=== PATIENT | female | born 1960 | race Caucasian/White ===

== ENCOUNTER 2017-08-30 11:20 | Day surgery (SDC) | payer OTHER ==
[2017-08-30 10:06] LABS: Absolute Lymphocytes (CBC) 1.5 K/uL (0.7-4.9); Absolute Monocytes 0.4 K/uL (0.1-1.3); Absolute Neutrophil 1.9 K/uL (1.8-8.0); Eosinophils % 6.1 % (0-4.4); Hematocrit 40.3 % (36.0-45.0); Lymphocytes % 36.2 % (15.3-44.8); MCH 24.5 pg (27.0-35.0); MCV 76.5 fL (80-100); Monocytes % 9.6 % (3.3-12.3); RBC Red Blood Cell Count 5.27 M/uL (3.86-4.86)
[~2017-08-30 11:20] MED LIST: CEFAZOLIN/SWI 1gm 1 GM/10 ML SYR ONE; Ringers Lactate 1,000 ML IV ONE
--- OUTSIDE RECORDS SUMMARY | 2017-08-30 11:25 | XMS REPORT ---
:1960 Author Organization eClinicalWorks Care Team Providers Name Role Phone Mendel Mchugh Provider Role Unavailable Allergies No Known Allergies Problems Problem Type Condition Code Onset Dates Condition Status Problem Meniere's disease, unspecified ear H81.09 Active Problem History of cholecystectomy Z90.49 Active Problem Abdominal pain R10.9 Active Problem COPD with asthma J44.9 Active Medications No Known Medications Results No Known Results Summary Purpose eClinicalTunezy Submission
--- OUTSIDE RECORDS SUMMARY | 2017-08-30 11:25 | XMS REPORT ---
:1960 Author Organization eClinicalWorks Care Team Providers Name Role Phone Mendel Mchugh Provider Role Unavailable Allergies No Known Allergies Problems Problem Type Condition Code Onset Dates Condition Status Problem Meniere's disease, unspecified ear H81.09 Active Problem History of cholecystectomy Z90.49 Active Problem Abdominal pain R10.9 Active Assessment COPD with asthma J44.9 Active Assessment Elevated BP without diagnosis of R03.0 Active hypertension Problem COPD with asthma J44.9 Active Assessment Acute pain of right wrist M25.531 Active Medications Medication Code Code Instructions Start End Date Status Dosage System Date Albuterol [facility] [id number] (2.5 MG/3ML) June 06, Active 3 ml as Sulfate 0.083% 2018 needed Inhalation by nebulizer every 6 hrs Results No Known Results Summary Purpose eClinicalWorks Submission
--- OUTSIDE RECORDS SUMMARY | 2017-08-30 11:25 | XMS REPORT ---
:1960 Author Organization eClinicalWorks Care Team Providers Name Role Phone Mendel Mchugh Provider Role Unavailable Allergies, Adverse Reactions, Alerts Substance Reaction Event Type Sulfa Rash Drug Allergy Problems Problem Type Condition Code Onset Dates Condition Status Problem Meniere's disease, unspecified ear H81.09 Active Problem History of cholecystectomy Z90.49 Active Problem Abdominal pain R10.9 Active Problem COPD with asthma J44.9 Active Medications Medication Code Code Instructions Start End Date Status Dosage System Date Ventolin HFA [facility] [id number] 108 (90 Base) Active 2 puffs MCG/ACT as needed Inhalation every 6 hrs Albuterol ND [id number] (2.5 MG/3ML) June 06, Active 3 ml as Sulfate 0.083% 2018 needed Inhalation by nebulizer every 6 hrs Results No Known Results Summary Purpose eClinicalWorks Submission
[2017-08-30] MEDS ORDERED: PROPOFOL 200 MG/20 ML VIAL IV ONE (12:08)
[2017-08-30] MEDS ORDERED: LIDOCAINE 2% MPF 5 ML VIAL ONE (12:09)
[2017-08-30] MEDS ORDERED: MIDAZOLAM HCL 2 MG/2 ML INJ ONE (12:09)
[2017-08-30] MEDS ORDERED: FENTANYL CITR 100 MCG/2 ML ONE (12:10)
[2017-08-30] MEDS ORDERED: ONDANSETRON HCL 40 MG/20 ML VIAL ONE (12:11)
[2017-08-30] MEDS ORDERED: Mastisol Adhesive Liq ONE (13:04)
[2017-08-30] MEDS ORDERED: MEPERIDINE HCL 25 MG/0.5 ML ONE ×3 (13:21→13:30)
[2017-08-30] MEDS ORDERED: ONDANSETRON 4 MG/2 ML VIAL ONE (13:56)
[2017-08-30] MEDS ORDERED: PROMETHAZINE 25 MG/ML VIAL ONE (14:23)
--- NOTE | 2017-09-02 11:06 | OP ---
Surgeon: Joce Ackerman MD Utility Person: Dewayne. Preoperative Diagnosis: Right deQuervain's syndrome. Postoperative Diagnosis: Right deQuervain's syndrome. Procedure Performed: Right deQuervain release. Anesthesia: General. Procedure In Detail: After satisfactory induction of general anesthesia, the arm was prepped with Betadine scrub, Betadine paint, dry sterile drapes were applied in the usual manner. The arm was elevated, exsanguinated with an Esmarch, tourniquet was inflated to 250 mmHg. The arm was placed on a [place] table. The scalpel was used to make an incision over the first compartment then dissection proceeded down. The tendon was multiseptated and the compartment was completely released. After this was done, tourniquet released. Electrocautery was used for hemostasis. Wound was closed with upside down running locking 4-0 PDS. Dressed with tincture of benzoin, Steri-Strips, 2- inch Renato. The patient tolerated the procedure well and returned to recovery. LELA/AUBRIE Voice ID: [id number] Report ID: [id number]
== END 2017-08-30 14:52 | disposition home or self-care (01) ==
LOC: OR 11:20
PROVIDERS: ATTEND Specialist
PROC: 0LN50ZZ Release Right Lower Arm and Wrist Tendon, Open Approach (ICD-10-PCS; principal; 2017-08-30 13:00)
DX: E34.51 Complete androgen insensitivity syndrome (principal); Z88.2 Allergy status to sulfonamides
CPT/HCPCS: 25000; 36415; 85025; J0690; J2175 ×3; J2250; J2405 ×2; J2550; J3010

== ENCOUNTER 2020-07-24 20:30 | Emergency (ER) | payer OTHER ==
--- OUTSIDE RECORDS SUMMARY | 2020-07-24 20:34 | XMS REPORT | Continuity of Care Document ---
:1960 Author Organization [facility] t Address [address] [place] [address] Care Team Providers Name Role Phone Unavailable Unavailable Unavailable Problems This patient has no known problems. Allergies, Adverse Reactions, Alerts Allergy Allergy Status Severity Reaction(s) Onset Inactive Treating Comm ents Source Name Type Date Date Clinician Sulfa Adverse Active Rash [facility] Medications Ordered Filled Start Stop Current Ordering Indication Dosage Frequency Signature Comments Components Source Medication Medication Date Date Medication? Clinician (SIG) Name Name Trazodone Trazodone 2019-0 Yes Mendel Take 1/[address] [facility] HCl HCl 8-10 Mchugh tab [facility] then [facility] Hydrochloro Hydrochloro 2019-0 Yes Mendel [address] [facility] thiazide thiazide 8-10 [facility]ugh in [facility] - [facility] morning [facility] Lisinopril Lisinopril 2019-0 Yes Mendel [address] [facility] 8-10 [facility]ugh [facility] Triamcinolo Triamcinolo 2019-0 Yes Mendel [address] [facility] ne ne 3-16 Mchugh applicatio [facility] Aceton[facility]:00: n [facility] Ventolin Ventolin Yes Mendel [address] [facility] HFA HFA 9-10 Mchugh needed [facility] Albuterol Albuterol Yes Mendel [address] [facility] Sulfate Sulfate Mchugh needed [facility] Lisinopril- Lisinopril- Yes Mendel TAKE ONE [facility] Hydrochloro Hydrochloro Mchugh TABLET BY [facility] th[facility]ide thiazide MOUTH [facility] a DAILY l [facility] ent Clin[facility] Albuterol Albuterol Yes Mendel USE [address] [facility] Sulfate Sulfate Mchugh IN [facility] EVERY 6 l HOURS Outpati NEEDED ent Clinics Lisinopril/ Lisinopril/ 2019- No Mendel one tab [facility] HCTZ HCTZ 12-01 Mchugh [facility] Procedures This patient has no known procedures. Encounters Start End Encounter Admission Attending Care Care Encounter Source Date/Time Date/Time Type Type Clinicians Facility Department ID 2020-07-18 2020-07-18 Outpatient [facility] [id number] [facility] 2020-06-21 2020-06-21 Outpatient [facility] [id number] [facility] 2020-06-17 2020-06-17 Out[facility] [id number] [facility] 2020-04-27 2020-04-27 Out[facility] [id number] [facility] 2020-04-01 2020-04-01 Out[facility] [id number] [facility] 2019-12-16 2019-12-16 Outpatient [facility] [id number] [facility] 2019-12-16 2019-12-16 Outpatient [facility] [id number] [facility] 2019-11-04 2019-11-04 [facility] [id number] [facility] 08[facility] 08[facility]55[facility] [employer] [address] - [facility] Medicine l Medicine Outpat[facility] ent Clinics 2019-10-15 2019-10-15 [facility] [id number] [facility] 09:45:00 09:45:00 [place] [employer] s - [address] [facility] Medicine [facility] Medicine Outpat[facility] ent Clinics 2019-10-14 2019-10-14 [facility] [id number] 08:01:00 08:01:00 [place] [employer] [facility] - [address] [facility] Medicine l Medicine Outpati ent Clinics 2019-10-12 2019-10-12 [facility] [id number] 16:20:00 16:20:00 [place] [employer] s - [address] [facility] l Medicine Outpati ent Clinics 2019-10-12 2019-10-12 [facility] [id number] [facility] 11:30:00 11:30:00 [place] [employer] [facility] - [employer] [facility] l Medicine Outpati ent Clinics 2019-06-16 2019-06-16 [facility] [id number] 11:00:00 11:00:00 [place] [employer] s - [employer] [facility] l Medicine Outpati ent Clinics 2019-06-15 2019-06-15 [facility] [id number] [facility] 09[facility]07:00 09:07:00 [place] [employer] [facility] - [employer] [facility] Medicine l Medicine Outpati ent Clinics 2019-05-18 2019-05-18 [facility] [id number] [facility] 10:00:00 10:00:00 [place] [employer] [facility] - [employer] [facility] Medicine l Medicine Outpati ent Clinics 2019-05-14 2019-05-14 [facility] [id number] 09:40:00 09:40:00 [place] [employer] s - [address] [facility] l Medicine Outpati ent Clinics 2019-04-02 2019-04-02 [facility] [id number] 09:45:00 09:45:00 [place] [employer] s - Drive [facility] l Medicine Outpati ent Clinics 2019-03-19 2019-03-19 [facility] [id number] [facility] 08:22:00 08:22:00 [place] [employer] [place] [facility] l Medicine Outpati ent Clinics 2019-03-16 2019-03-16 [facility] [id number] [facility] 14:30:00 14:30:00 [place] [employer] [address] - [facility] Medicine l Medicine Outpati ent Clinics 2019-03-05 2019-03-05 [facility] [id number] [facility] 16:05:00 16:05:00 [place] [employer] [place] [address] [facility] l Medicine Outpati ent Clinics 2018-12-29 2018-12-29 [facility] [id number] [facility] 16:51:00 16:51:00 [place] [employer] [place] - [address] [facility] Medicine l Medicine Outpati ent Clinics 2018-12-03 2018-12-03 [facility] [id number] [facility] 14:15:00 14:15:00 [place] [employer] [place] - [address] [facility] Medicine l Medicine Outpati ent Clinics 2018-11-19 2018-11-19 [facility] [id number] [facility] 08:34:00 08:34:00 [place] [employer] [place] - [address] [facility] Medicine l Medicine Outpati ent Clinics 2018-11-17 2018-11-17 [facility] [id number] [facility] 09:00:00 09:00:00 [place] [employer] [address] - [address] [facility] Medicine l Medicine Outpati ent Clinics 2018-11-11 2018-11-11 [facility] [id number] [facility] 08:21:00 08:21:00 [place] [employer] [address] - [facility] Medicine l Medicine Outpati ent Clinics 2018-09-17 2018-09-17 [facility] [id number] 13:27:00 13:27:00 [place] [employer] [place] - [address] [facility] Medicine l Medicine Outpati ent Clinics 2018-09-02 2018-09-02 [facility] [id number] [facility] 10:00:00 10:00:00 [place] [employer] [place] - [address] [facility] l Medicine Outpati ent Clinics 2018-06-02 2018-06-02 [facility] [id number] [facility] 10:50:00 10:50:00 [place] [address] [place] [address] [facility] l Medicine Outpati ent Clinics 2018-06-02 2018-06-02 [facility] [id number] [facility] 08:30:00 08:30:00 [place] [address] [place] [address] [facility] l Medicine Outpati ent Clinics 2018-04-21 2018-04-21 [facility] [id number] [facility] 10:30:00 10:30:00 [place] [address] [place] [address] [facility] l Medicine Outpati ent Clinics 2018-04-09 2018-04-09 [facility] [id number] [facility] 11:07:00 11:07:00 [place] [address] [place] [facility] l Medicine Outpati ent Clinics 2018-03-10 2018-03-10 [facility] [id number] [facility] 15:15:00 15:15:00 [place] [address] [place] [address] [facility] l Medicine Outpati ent Clinics 2017-09-09 2017-09-09 [facility] [id number] [facility] 10:47:00 10:47:00 [place] [address] [place] [address] [facility] l Medicine Outpati ent Clinics 2017-08-06 2017-08-06 [facility] [id number] [facility] 15:49:00 15:49:00 [place] [address] [place] [address] [facility] Medicine Outpati ent Clinics 2017-08-06 2017-08-06 [facility] [id number] [facility] 11:15:00 11:15:00 [place] [address] [place] [address] [facility] l Medicine Outpati ent Clinics 2017-08-06 2017-08-06 [facility] [id number] [facility] 11:06:00 11:06:00 [place] [address] [place] [address] [facility] Medicine Outpati ent Clinics Results This patient has no known results.
[2020-07-24] MEDS ORDERED: IBUPROFEN 400 MG TAB ONE (21:35)
[2020-07-24] MEDS ORDERED: HYDROCODONE/APAP 7.5/325 MG TAB ONE (21:35)
[2020-07-24] MEDS ORDERED: TETANUS & DIPHTHERIA TOX,ADULT 0.5 ML VIAL ONE (21:35)
--- NOTE | 2020-07-24 22:40 | ER ---
Nurse's Notes [facility] Name: Noelle Orozco Age: 60 yrs Sex: Female : 1960 Arrival Date: 07/24/2020 Time: 20:33 Bed 3 Private MD: Diagnosis: Sprain of ankle-left;Unspecified sprain of left foot Presentation: 07/24 20:53 Chief complaint: Patient states: she has Meniere's Disease and got dizzy and fell bb injuring her right ankle which she states she has broken several times in the past. Coronavirus screen: At this time, the client does not indicate any symptoms associated with coronavirus-19. Ebola Screen: No symptoms or risks identified at this time. Initial Sepsis Screen: Does the patient meet any 2 criteria? No. Patient's initial sepsis screen is negative. Does the patient have a suspected source of infection? No. Patient's initial sepsis screen is negative. Risk Assessment: Do you want to hurt yourself or someone else? Patient reports no desire to harm self or others. Onset of symptoms was July 24, 2020. 20:53 Method Of Arrival: Wheelchair bb 20:53 Acuity: SALEEM 4 bb Historical: - Allergies: 20:57 Sulfa (Sulfonamide Antibiotics); bb - Home Meds: 20:57 Meclizine Oral [Active]; unknown BP medication [Active]; bb - PMHx: 20:57 Meniere's Disease; Hypertension; bb - PSHx: 20:57 Cholecystectomy; Benign breast tumor removal; Right arm surgery; bb - Immunization history:: Adult Immunizations up to date, Last tetanus immunization: unknown. - Social history:: Smoking status: unknown. Screenin:55 Abuse screen: Denies threats or abuse. Denies injuries from another. Nutritional lp1 screening: No deficits noted. Tuberculosis screening: No symptoms or risk factors identified. Fall Risk None identified. Assessment: 20:54 General: Appears uncomfortable, Behavior is appropriate for age. Pain: Complains of lp1 pain in left lateral ankle and lateral aspect of left foot Pain currently is 8 out of 10 on a pain scale. Quality of pain is described as aching. Neuro: Level of Consciousness is awake, alert, obeys commands, Oriented to person, place, time, situation. Cardiovascular: Patient's skin is warm and dry. Respiratory: Respiratory effort is even, unlabored. GI: No signs and/or symptoms were reported involving the gastrointestinal system. : No signs and/or symptoms were reported regarding the genitourinary system. EENT: No signs and/or symptoms were reported regarding the EENT system. Derm: Skin is pink, warm \T\ dry. Musculoskeletal: Range of motion: limited in left ankle Reports pain in lateral aspect of left calf, left lateral ankle and lateral aspect of left foot. 22:00 Reassessment: Patient appears in no apparent distress at this time. Patient and/or jb4 family updated on plan of care and expected duration. Pain level reassessed. Patient is alert, oriented x 3, equal unlabored respirations, skin warm/dry/pink. 22:52 Reassessment: Patient appears in no apparent distress at this time. Patient and/or jb4 family updated on plan of care and expected duration. Pain level reassessed. Patient is alert, oriented x 3, equal unlabored respirations, skin warm/dry/pink. Vital Signs: 20:53 BP 124 / 96; Pulse 86; Resp 18 S; Temp 98(O); Pulse Ox 98% on R/A; Weight 65.77 kg (R); bb Height 5 ft. 7 in. (170.18 cm) (R); Pain 8/10; 20:53 Body Mass Index 22.71 (65.77 kg, 170.18 cm) bb ED Course: 20:33 Patient arrived in ED. cf2 20:48 Angie Mckinnon, BEKAH is Primary Nurse. lp1 20:49 Buddy Castillo PA is PHCP. cp 20:49 Max Weems MD is Attending Physician. cp 20:55 Triage completed. bb 20:55 Patient has correct armband on for positive identification. lp1 20:57 Arm band placed on Patient placed in an exam room, on a stretcher, on pulse oximetry. bb Affected limb iced. Affected limb elevated. 21:43 XRAY Ankle LEFT 3 view In Process Unspecified. EDMS 21:43 XRAY Foot LEFT 3 View In Process Unspecified. EDMS 21:45 XRAY Tib Fib LEFT In Process Unspecified. EDMS 22:00 No provider procedures requiring assistance completed. Patient did not have IV access jb4 during this emergency room visit. 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 Exp: jb4 08/07/2021. Lot #: [id number]. } Route: IM; Site: right deltoid; 21:22 Drug: Hydrocodone-Acetaminophen (7.5 mg-325 mg) 1 tabs Route: PO; jb4 21:22 Drug: Ibuprofen 800 mg Route: PO; jb4 Outcome: 22:39 Discharge ordered by . reina 22:52 Discharged to home via wheelchair, with crutches, with friend. jb4 22:52 Condition: stable 22:52 Discharge instructions given to patient, Instructed on discharge instructions, follow up and referral plans. medication usage, Demonstrated understanding of instructions, follow-up care, medications, Prescriptions given X 2. 22:53 Patient left the ED. jb4 Signatures: Dispatcher [employer] EDLovely Duffy RN RN bb Angie Mckinnon RN RN lp1 Buddy Castillo PA PA cp Bryson, James, RN RN jb4 Nigel De León 2
--- NOTE | 2020-07-24 22:40 | EDPHYS ---
Physician Documentation [facility] Name: Noelle Orozco Age: 60 yrs Sex: Female : 1960 Arrival Date: 07/24/2020 Time: 20:33 Bed 3 Private MD: ED Physician Max Weems HPI: 07/24 21:15 This 60 yrs old Female presents to ER via Wheelchair with complaints of Ankle cp Injury, Dizziness. 21:15 The patient presents with an injury, pain, that is acute, swelling, tenderness. The cp complaints affect the left ankle. Onset: The symptoms/episode began/occurred just prior to arrival. 21:15 Context: resulted from the patient falling, The patient is unable to bear weight. cp 21:15 Patient reports history of chronic dizziness and having episode today causing her to cp lose her balance and fall causing injury to left ankle and foot. Historical: - Allergies: 20:57 Sulfa (Sulfonamide Antibiotics); bb - Home Meds: 20:57 Meclizine Oral [Active]; unknown BP medication [Active]; bb - PMHx: 20:57 Meniere's Disease; Hypertension; bb - PSHx: 20:57 Cholecystectomy; Benign breast tumor removal; Right arm surgery; bb - Immunization history:: Adult Immunizations up to date, Last tetanus immunization: unknown. - Social history:: Smoking status: unknown. ROS: 21:45 Constitutional: Negative for body aches, chills, fever, poor PO intake. cp 21:45 Eyes: Negative for injury, pain, redness, and discharge. cp 21:45 Cardiovascular: Negative for chest pain. cp 21:45 Respiratory: Negative for cough, shortness of breath. 21:45 Abdomen/GI: Negative for abdominal pain. 21:45 MS/extremity: Positive for injury or acute deformity, pain, swelling, tenderness, of the lateral aspect of left foot and left lateral ankle, Negative for paresthesias. 21:45 All other systems are negative. Exam: 21:48 Constitutional: The patient appears in no acute distress, alert, awake, non-toxic, well cp developed, well nourished, uncomfortable. 21:48 Head/Face: Normocephalic, atraumatic. cp 21:48 Neck: ROM/movement: is normal, is supple, without pain, no range of motions limitations. 21:48 Chest/axilla: Inspection: normal. 21:48 Cardiovascular: Rate: normal. 21:48 Respiratory: the patient does not display signs of respiratory distress, Respirations: normal. 21:48 Back: pain, is absent, ROM is normal. 21:48 Musculoskeletal/extremity: Extremities: grossly normal except: noted in the lateral aspect of left calf and lateral aspect of left foot and left lateral ankle: pain, swelling, tenderness, small abrasion noted lateral left foot at base of fifth metatarsal, ROM: limited active range of motion due to pain, in the left ankle, limited passive range of motion due to pain, in the left ankle, Pulses: noted to be 2+ in the left dorsalis pedis artery, the lateral aspect of left foot and left lateral ankle Severe pain noted. Achilles tendon palpated and intact. Vital Signs: 20:53 BP 124 / 96; Pulse 86; Resp 18 S; Temp 98(O); Pulse Ox 98% on R/A; Weight 65.77 kg (R); bb Height 5 ft. 7 in. (170.18 cm) (R); Pain 8/10; 20:53 Body Mass Index 22.71 (65.77 kg, 170.18 cm) bb Procedures: 22:50 Splinting: Splint applied to left ankle using walking boot. applied by nurse. Examined cp by me, post splint application: neurovascular intact, Patient tolerated well. MDM: 20:50 Patient medically screened. cp 22:35 Data reviewed: vital signs, nurses notes, radiologic studies, plain films. cp 22:35 Test interpretation: by ED physician or midlevel provider: plain radiologic studies. 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 Exp: jb4 08/07/2021. Lot #: [id number]. } Route: IM; Site: right deltoid; 21:22 Drug: Hydrocodone-Acetaminophen (7.5 mg-325 mg) 1 tabs Route: PO; jb4 21:22 Drug: Ibuprofen 800 mg Route: PO; jb4 Disposition: 07/25 04:31 Co-signature as Attending Physician, Max Weems MD. pksherman Disposition: 07/24/20 22:39 Discharged to Home. Impression: Sprain of ankle - left, Unspecified sprain of left foot. - Condition is Stable. - Discharge Instructions: Ankle Sprain, Foot Sprain. - Prescriptions for Ibuprofen 800 mg Oral Tablet - take 1 tablet by ORAL route every 8 hours As needed take with food; 30 tablet. Ultracet 37.5- 325 mg Oral Tablet - take 1 tablet by ORAL route every 6 hours - for up to 5 days; do not exceed 8 tablets per day.; 15 tablet. - Medication Reconciliation Form, Thank You Letter, Antibiotic Education, Prescription Opioid Use form. - Follow up: Private Physician; When: 1 week; Reason: Recheck today's complaints. - Problem is new. - Symptoms have improved. Signatures: Dispatcher [employer] EDMS Max Weems MD MD pkl Lovely Ramirez RN RN Buddy Gee PA PA cp Bryson, James RN RN jb4 Corrections: (The following items were deleted from the chart) 07/24 22:40 22:39 07/24/2020 22:39 Discharged to Home. Impression: Sprain of ankle; Unspecified cp sprain of left foot. Condition is Stable. Forms are Medication Reconciliation Form, Thank You Letter, Antibiotic Education, Prescription Opioid Use. Follow up: Private Physician; When: 1 week; Reason: Recheck today's complaints. Problem is new. Symptoms have improved. cp 22:53 22:40 07/24/2020 22:39 Discharged to Home. Impression: Sprain of ankle - left; jb4 Unspecified sprain of left foot. Condition is Stable. Discharge Instructions: Ankle Sprain, Foot Sprain. Prescriptions for Ibuprofen 800 mg Oral Tablet - take 1 tablet by ORAL route every 8 hours As needed take with food; 30 tablet, Ultracet 37.5-325 mg Oral Tablet - take 1 tablet by ORAL route every 6 hours - for up to 5 days; do not exceed 8 tablets per day.; 15 tablet. and Forms are Medication Reconciliation Form, Thank You Letter, Antibiotic Education, Prescription Opioid Use. Follow up: Private Physician; When: 1 week; Reason: Recheck today's complaints. Problem is new. Symptoms have improved. cp 07/25 20:59 07/24 21:50 Splinting: Splint applied to left ankle using walking boot. applied by cp nurse. Examined by me, post splint application: neurovascular intact, Patient tolerated well, cp
[2020-07-24 23:01] VITALS: BP 124/96; TEMP 98; O2SAT 98
--- NOTE | 2020-07-25 09:05 | RAD REPORT ---
EXAM DESCRIPTION: RAD - Ankle Left 3 View - 07/24/2020 9:43 pm CLINICAL HISTORY: PAIN COMPARISON: No comparisons FINDINGS: No fracture, dislocation or periosteal reaction. No findings to suggest remodeling from pr ior fracture. No joint effusion or premature arthritis findings. Patient does have small spurs at the plantar and Achilles tendon attachments. No joint space narrowing. No soft tissue abnormality. IMPRESSION: Negative left ankle for fracture or other acute finding. Small plantar spur.
--- NOTE | 2020-07-25 09:07 | RAD REPORT ---
EXAM DESCRIPTION: RAD - Tib Fib Left - 07/24/2020 9:47 pm CLINICAL HISTORY: Fall, leg pain COMPARISON: None. FINDINGS: No fracture is identified. There is no dislocation or periosteal reaction noted. No acute or suspicious bony finding. No foreign body or other soft tissue abnormality. Ankle joint is not fully imaged on this study. The ankle and foot are detailed on separate reports. IMPRESSION: Negative left tibia & fibula examination.
--- NOTE | 2020-07-25 09:07 | RAD REPORT ---
EXAM DESCRIPTION: RAD - Foot Left 3 View - 07/24/2020 9:44 pm CLINICAL HISTORY: PAIN, fall COMPARISON: Foot Left 2 View dated 06/15/2019; FOOT W OBLIQUES dated 05/23/2008 FINDINGS: No fracture, dislocation or periosteal reaction. No acute or destructive bony process. Pl sue spur is present. There is minimal spurring at the Achilles attachment. No air or foreign body in the soft tissues. IMPRESSION: Negative left foot examination.
== END 2020-07-24 22:53 | disposition home or self-care (01) ==
LOC: ER 20:30
DX: S93.402A Sprain of unspecified ligament of left ankle, initial encounter (principal); S93.602A Unspecified sprain of left foot, initial encounter; W19.XXXA Unspecified fall, initial encounter; I10 Essential (primary) hypertension; Z23 Encounter for immunization; Z88.2 Allergy status to sulfonamides
CPT/HCPCS: 90471; 90714; 99284

== ENCOUNTER 2020-08-22 17:51 | Emergency (ER) | payer OTHER ==
--- OUTSIDE RECORDS SUMMARY | 2020-08-22 17:54 | XMS REPORT | Continuity of Care Document ---
:1960 Author Organization [facility] t Address [address] [place] [address] Care Team Providers Name Role Phone Unavailable [...] Date/Time Type Type Clinicians Facility Department ID 2020-08-02 2020-08-02 Outpatient [facility] [id number] [facility] 2020-07-18 2020-07-18 [facility] [id number] [facility] 2020-06-21 2020-06-21 [facility] [id number] [facility] 2020-06-17 2020-06-17 [facility] [id number] [facility] 2020-04-27 2020-04-27 [facility] [id number] [facility] 2020-04-01 2020-04-01 Out[facility] [id number] [facility] 2019-12-16 2019-12-16 [facility] [id number] [facility] 2019-12-16 2019-12-16 [id number] 2019-11-04 2019-11-04 [facility] [id number] [facility] 08:[facility]:00 08:55:00 t Oral [facility] s - [facility] Medicine l Medicine Outpati ent Clinics 2019-10-15 2019-10-15 [facility] [id number] [facility] 09:45:00 09:45:00 t Oral WEISSENHAUS s [facility] Outpat[facility] Clinics 2019-10-14 2019-10-14 [facility] [id number] [facility] 08:01:00 08:01:00 t Wercker s [facility] l Medicine Outpati ent Clinics 2019-10-12 2019-10-12 [facility] [id number] [facility] 16:20:00 16:20:00 t Wercker s [facility] Medicine Outpat[facility] Clinics 2019-10-12 2019-10-12 [facility] [id number] [facility] 11[facility]30:00 11:30:00 t Oral WEISSENHAUS s [facility] Medicine Outpati ent Clinics 2019-06-16 2019-06-16 [facility] [id number] [facility] 11:00:00 11:00:00 t Wercker s [facility] l Medicine Outpati ent Clinics 2019-06-15 2019-06-15 [facility] [id number] [facility] 09[facility]07:00 09:07:00 t Oral WEISSENHAUS s [facility] Outpat[facility] Clinics 2019-05-18 2019-05-18 [facility] [id number] [facility] 10:00:00 10:00:00 t Oral WEISSENHAUS s [facility] Medicine Outpati ent Clinics 2019-05-14 2019-05-14 [facility] [id number] [facility] 09:40:00 09:40:00 t Oral WEISSENHAUS s [facility] Medicine Outpati ent Clinics 2019-04-02 2019-04-02 [facility] [id number] [facility] 09[facility]45:00 09:45:00 t Oral WEISSENHAUS s - [facility] Medicine l Medicine Outpati ent Clinics 2019-03-19 2019-03-19 [facility] [id number] [facility] 08:22:00 08:22:00 t Oral WEISSENHAUS s - [facility] Medicine l Medicine Outpati ent Clinics 2019-03-16 2019-03-16 [facility] [id number] [facility] 14:30:00 14:30:00 t Oral WEISSENHAUS s - [facility] Medicine l Medicine Outpati ent Clinics 2019-03-05 2019-03-05 [facility] [id number] [facility] 16:05:00 16:05:00 t Oral WEISSENHAUS s [facility] l Medicine Outpati ent Clinics 2018-12-29 2018-12-29 [facility] [id number] [facility] 16:51:00 16:51:00 t Oral WEISSENHAUS s [facility] Medicine l Medicine Outpati ent Clinics 2018-12-03 2018-12-03 [facility] [id number] [facility] 14:15:00 14:15:00 t Oral WE[facility]ENHAUS s [facility] Medicine l Medicine Outpati ent Clinics 2018-11-19 2018-11-19 [facility] [id number] [facility] 08[facility]34:00 08:34:00 t Wercker s [facility] Medicine l Medicine Outpati ent Clinics 2018-11-17 2018-11-17 [facility] [id number] [facility] 09:00:00 09:00:00 t Oral WEISSENHAUS s [facility] Medicine l Medicine Outpati ent Clinics 2018-11-11 2018-11-11 [facility] [id number] 08:21:00 08:21:00 t Oral WEISSENHAUS s [facility] Medicine l Medicine Outpati ent Clinics 2018-09-17 2018-09-17 [facility] [id number] [facility] 13:27:00 13:27:00 t Oral WEISSENHAUS s [facility] Medicine l Medicine Outpati ent Clinics 2018-09-02 2018-09-02 [facility] [id number] [facility] 10:00:00 10:00:[address] [facility] [address] - Drive [facility] Medicine l Medicine Outpati ent Clinics 2018-06-02 2018-06-02 [facility] [id number] [facility] 10:50:00 10:50:[address] Luke [address] - Drive [facility] Medicine l Medicine Outpati ent Clinics 2018-06-02 2018-06-02 [facility] [id number] [facility] 08:30:00 08:30:[address] Luke [address] - Drive [facility] Medicine l Medicine Outpati ent Clinics 2018-04-21 2018-04-21 [facility] [id number] [facility] 10:30:00 10:30:[address] Luke [address] - Drive [facility] Medicine l Medicine Outpati ent Clinics 2018-04-09 2018-04-09 [facility] [id number] [facility] 11:07:00 11:07:[address] Luke [address] - Drive [facility] Medicine l Medicine Outpati ent Clinics 2018-03-10 2018-03-10 [facility] [id number] 15:15:00 15:15:[address] Luke [address] - Drive [facility] Medicine l Medicine Outpati ent Clinics 2017-09-09 2017-09-09 [facility] [id number] 10:47:00 10:47:[address] Luke [facility] - Drive [facility] Medicine l Medicine Outpati ent Clinics 2017-08-06 2017-08-06 [facility] [id number] 15:49:00 15:49:[address] Luke [address] - Drive [facility] Medicine l Medicine Outpati ent Clinics 2017-08-06 2017-08-06 [facility] [id number] 11:15:00 11:15:[address] Luke [address] - Drive [facility] Medicine l Medicine Outpati ent Clinics 2017-08-06 2017-08-06 [facility] [id number] [facility] 11:06:00 11:06:00 t [facility] Medicine Outpati ent Clinics Results This patient has no known results.
--- NOTE | 2020-08-22 19:39 | EDPHYS ---
Physician Documentation [facility] Name: Noelle Orozco Age: 60 yrs Sex: Female : 1960 Arrival Date: 08/22/2020 Time: 17:54 Bed 3 Private MD: Jeison [facility] ED Physician Palomo Herrera HPI: 08/22 18:21 This 60 yrs old Female presents to ER via Ambulatory with complaints of Head pm1 Injury. 18:21 The patient or guardian reports laceration. The complaints affect the right side of pm1 head. Context of injury: The problem was sustained outdoors, resulted from hair got caught in a blower intake. Onset: The symptoms/episode began/occurred just prior to arrival. Associated signs and symptoms: Loss of consciousness: This patient did not experience any loss of consciousness. Severity of symptoms: in the emergency department the symptoms have improved. The patient has not experienced similar symptoms in the past. The patient has not recently seen a physician. Historical: - Allergies: 17:58 Sulfa (Sulfonamide Antibiotics); ll1 - PMHx: 17:58 Hypertension; Meniere's disease; ll1 - PSHx: 17:58 Cholecystectomy; Benign breast tumor removal; Right arm surgery; ll1 - Immunization history:: Last tetanus immunization: up to date Flu vaccine is not up to date. - Social history:: Smoking status: Patient denies any tobacco usage or history of. ROS: 18:23 Constitutional: Negative for fever, chills, and weight loss, Cardiovascular: Negative pm1 for chest pain, palpitations, and edema, Respiratory: Negative for shortness of breath, cough, wheezing, and pleuritic chest pain, Abdomen/GI: Negative for abdominal pain, nausea, vomiting, diarrhea, and constipation, MS/Extremity: Negative for injury and deformity. 18:23 Skin: Positive for laceration(s), of the right side of head. 18:23 Neuro: Negative for headache, loss of consciousness. Exam: 19:40 Constitutional: This is a well developed, well nourished patient who is awake, alert, pm1 and in no acute distress. 19:40 MS/ Extremity: Pulses equal, no cyanosis. Neurovascular intact. Full, normal range of motion. 19:40 Head/face: Noted is no obvious of injury or deformity except a laceration(s), that is superficial, that is linear, 1 cm(s), of the right temporal area. 19:40 Eyes: Exam is negative for acute changes, Extraocular movements: no acute changes, Conjunctiva: normal, no injection. 19:40 ENT: Mouth: Lips: normal, Oral mucosa: normal, pink and intact, moist. 19:40 Cardiovascular: Rate: normal, Rhythm: regular, Pulses: no pulse deficits are appreciated. 19:40 Respiratory: Exam negative for acute changes, respiratory distress, shortness of breath. 19:40 Skin: Appearance: normal except for affected area, injury, laceration(s), the wound is approximately 1 cm(s), with a depth of 0.5 cm(s), of the right side of head, that can be described as clean, no foreign body, irregular, without bleeding. 19:40 Neuro: Exam negative for acute changes, Orientation: is normal, Mentation: is normal, Motor: is normal, moves all fours. Vital Signs: 17:56 BP 142 / 103; Pulse 93; Resp 17; Temp 97.4; Pulse Ox 99% ; Weight 68.04 kg; Height 5 ll1 ft. 6 in. (167.64 cm); Pain 10/10; 19:40 BP 145 / 84; Pulse 88; Resp 18; Temp 98; Pulse Ox 98% ; ea 17:56 Body Mass Index 24.21 (68.04 kg, 167.64 cm) ll1 [place] Coma Score: 18:21 Eye Response: spontaneous(4). Verbal Response: oriented(5). Motor Response: obeys pm1 commands(6). Total: 15. MDM: 18:08 Patient medically screened. pm1 19:35 Data reviewed: vital signs. Data interpreted: Pulse oximetry: on room air is 99 %. pm1 Interpretation: normal. Counseling: I had a detailed discussion with the patient and/or guardian regarding: the historical points, exam findings, and any diagnostic results supporting the discharge/admit diagnosis, the need for outpatient follow up, a family practitioner, staple removal in 10-14 days, to return to the emergency department if symptoms worsen or persist or if there are any questions or concerns that arise at home. Administered Medications: 19:40 Not Given (Patient Refused; reported she had one a month ago ): Tetanus-Diphtheria ea Toxoid Adult 0.5 ml IM once 19:40 Drug: [place] (HYDROcodone-acetaminophen) 10 mg-325 mg 1 tabs Route: PO; ea 19:50 Follow up: Response: No adverse reaction ea Disposition: 08/22/20 19:39 Discharged to Home. Impression: Laceration without foreign body of scalp. - Condition is Stable. - Discharge Instructions: Stitches, [place], or Adhesive Wound Closure. - Medication Reconciliation Form, Thank You Letter, Antibiotic Education, Prescription Opioid Use form. - Follow up: Emergency Department; When: As needed; Reason: Worsening of condition. Follow up: Private Physician; When: 10 - 14 days; Reason: Recheck today's complaints, Continuance of care, Re-evaluation by your physician. - Problem is new. - Symptoms have improved. Signatures: Ru Guillen, ENTERPRISE APPLICATION ANALYST ENTERPRISE APPLICATION ANALYST pm1 Taylor Vivar RN RN ea Lewis, Lynsay, RN RN ll1 Corrections: (The following items were deleted from the chart) 19:50 19:39 08/22/2020 19:39 Discharged to Home. Impression: Laceration without foreign body ea of scalp. Condition is Stable. Forms are Medication Reconciliation Form, Thank You Letter, Antibiotic Education, Prescription Opioid Use. Follow up: Emergency Department; When: As needed; Reason: Worsening of condition. Follow up: Private Physician; When: 10 - 14 days; Reason: Recheck today's complaints, Continuance of care, Re-evaluation by your physician. Problem is new. Symptoms have improved. pm1
--- NOTE | 2020-08-22 19:39 | ER ---
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 ll1 R side of head is bleeding, denies LOC. Coronavirus screen: Client denies travel out of the [place] in the last 14 days. At this time, the client does not indicate any symptoms associated with coronavirus-19. Ebola Screen: Patient denies travel to an Ebola-affected area in the 21 days before illness onset. Initial Sepsis Screen: Does the patient meet any 2 criteria? HR > 90 bpm. No. Patient's initial sepsis screen is negative. Does the patient have a suspected source of infection? Yes: Skin breakdown/wound. Risk Assessment: Do you want to hurt yourself or someone else? Patient reports no desire to harm self or others. Onset of symptoms was August 22, 2020. 17:56 Method Of Arrival: Ambulatory ll1 17:56 Acuity: SALEEM 3 ll1 Triage Assessment: 18:00 General: Appears distressed, uncomfortable, obese, Behavior is appropriate for age, bp agitated, anxious. Pain: Complains of pain in right side of head. EENT: No deficits noted. Neuro: Level of Consciousness is awake, alert, obeys commands, Oriented to Appropriate for age. Cardiovascular: No deficits noted. Respiratory: No deficits noted. GI: Reports diarrhea, nausea, vomiting. : No signs and/or symptoms were reported regarding the genitourinary system. Derm: No deficits noted. Musculoskeletal: No deficits noted. Historical: - Allergies: 17:58 Sulfa (Sulfonamide Antibiotics); ll1 - PMHx: 17:58 Hypertension; Meniere's disease; ll1 - PSHx: 17:58 Cholecystectomy; Benign breast tumor removal; Right arm surgery; ll1 - Immunization history:: Last tetanus immunization: up to date Flu vaccine is not up to date. - Social history:: Smoking status: Patient denies any tobacco usage or history of. Screenin:00 Abuse screen: Denies threats or abuse. Denies injuries from another. Nutritional bp screening: No deficits noted. Tuberculosis screening: No symptoms or risk factors identified. Fall Risk None identified. Assessment: 18:00 General: SEE TRIAGE NOTE. bp 19:49 Reassessment: Patient and/or family updated on plan of care and expected duration. Pain ea level reassessed. Patient is alert, oriented x 3, equal unlabored respirations, skin warm/dry/pink. Discharge instruction given to patient verbalized the understanding of instruction. Pt left ED via wheelchair per family, pt tolerating well. Vital Signs: 17:56 BP 142 / 103; Pulse 93; Resp 17; Temp 97.4; Pulse Ox 99% ; Weight 68.04 kg; Height 5 ll1 ft. 6 in. (167.64 cm); Pain 10/10; 19:40 BP 145 / 84; Pulse 88; Resp 18; Temp 98; Pulse Ox 98% ; ea 17:56 Body Mass Index 24.21 (68.04 kg, 167.64 cm) ll1 [place] Coma Score: 18:21 Eye Response: spontaneous(4). Verbal Response: oriented(5). Motor Response: obeys pm1 commands(6). Total: 15. ED Course: 17:54 Patient arrived in ED. as 17:55 Mendel Mchugh DO is Private Physician. as 17:58 Triage completed. ll1 17:58 Arm band placed on Patient placed in an exam room, on a stretcher. ll1 18:00 Patient has correct armband on for positive identification. Bed in low position. Call bp light in reach. Side rails up X2. Adult w/ patient. 18:04 uR Guillen NP is PHCP. pm1 18:04 Palomo Herrera MD is Attending Physician. pm1 18:39 Rolando Sweeney, BEKAH is Primary Nurse. bp 19:41 Assist provider with laceration repair on right side of head that was 2.5 cm. or less ea using betty. Set up tray. Performed by Ru Guillen NP Patient tolerated well. 19:49 Patient did not have IV access during this emergency room visit. ea Administered Medications: 19:40 Not Given (Patient Refused; reported she had one a month ago ): Tetanus-Diphtheria ea Toxoid Adult 0.5 ml IM once 19:40 Drug: [place] (HYDROcodone-acetaminophen) 10 mg-325 mg 1 tabs Route: PO; ea 19:50 Follow up: Response: No adverse reaction ea Outcome: 19:39 Discharge ordered by . pm1 19:49 Discharged to home ambulatory, with family. ea 19:49 Condition: stable 19:49 Discharge instructions given to patient, Instructed on discharge instructions, follow up and referral plans. Demonstrated understanding of instructions, follow-up care. 19:50 Patient left the ED. ea Signatures: Falguni Sampson Patrick, DRY PASTE SUPERVISOR DRY PASTE SUPERVISOR pm1 Taylor Vivar, BEKAH RN Rolando Howell RN RN Nguyen Wasserman RN RN ll1
[2020-08-22] MEDS ORDERED: TETANUS & DIPHTHERIA TOX,ADULT 0.5 ML VIAL ONE (19:58)
[2020-08-22] MEDS ORDERED: HYDROCODONE/APAP 10/325 TAB ONE (19:58)
[2020-08-22 20:19] VITALS: BP 145/84; TEMP 98; O2SAT 98
== END 2020-08-22 19:50 | disposition home or self-care (01) ==
LOC: ER 17:51
DX: S01.01XA Laceration without foreign body of scalp, initial encounter (principal); I10 Essential (primary) hypertension; X58.XXXA Exposure to other specified factors, initial encounter
CPT/HCPCS: 90714; 99283

== ENCOUNTER 2021-10-21 20:13 | Emergency (ER) | payer OTHER ==
--- OUTSIDE RECORDS SUMMARY | 2021-10-21 20:16 | XMS REPORT | Continuity of Care Document ---
:1960 Author Organization [facility] t Address [address] [place] [address] Care Team Providers Name Role Phone Mendel Mchugh Attending Clinician Unavailable Problems This patient has no known problems. Allergies, Adverse Reactions, Alerts Allergy Allergy Status Severity Reaction(s) Onset Inactive Treating Comm ents Source Name Type Date Date Clinician Sulfa Adverse Active Rash Common Reaction [facility] Medications Ordered Filled Start Stop Current Ordering Indication Dosage Frequency Signature Comments Components Source Medication Medication Date Date Medication? Clinician (SIG) Name Name Trazodone Trazodone 2020-0 Yes Mendel Take 1/2 Common HCl HCl 8-10 Mchugh tab Q[facility] x [facility] 00:00: 1 week - [facility] [address] [facility] Hydrochloro Hydrochloro 2020-0 Yes Mendel 1 tablet Common thiazide thiazide 8-10 Mchugh in the Spir it 00:00: morning - [facility] Lisinopril Lisinopril 2020-0 Yes Mendel 1 tablet Common 8-10 Mchugh [facility] 00:00: - [facility] Triamcinolo Triamcinolo 2020-0 Yes Mendel 1 Common ne ne 3-16 Mchugh applicatio Spirit Acetonide Acetonide 00:00: n - C HI 00 [facility] Ventolin Ventolin 2019-0 Yes Mendel 2 puffs as Common HFA HFA 9-10 Mchugh needed [facility] 00:00: - [facility] Albuterol Albuterol Yes Mendel 3 ml as Common Sulfate Sulfate Mchugh needed [facility] Lisinopril- Lisinopril- Yes Mendel TAKE ONE Common Hydrochloro Hydrochloro Mchugh TABLET BY [facility] thiazide thiazide MOUTH - [facility] DAILY [facility] Albuterol Albuterol Yes Mendel USE 1 VIAL Common Sulfate Sulfate Mchugh IN [facility] NEBULIZER - [facility] EVERY [address] HOURS [facility] Lisinopril/ Lisinopril/ 2019- No Mendel one tab Common HCTZ HCTZ 12-01 Mchugh [facility] 00:00 - [facility] :00 [facility] Procedures This patient has no known procedures. Encounters Start End Encounter Admission Attending Care Care Encounter Source Date/Time Date/Time Type Type Clinicians Facility Department ID 2021-09-19 Outpatient Mchugh, STLMLC STLMLC [id number] Common 16:15:00 Mendel [facility] 2021-03-29 Outpatient Mchugh, STLMLC STLMLC [id number] Common 14:27:51 Mendel 88996 [facility] 2021-03-29 Outpatient Mchugh, STLMLC STLMLC [id number] Common 13:22:07 Mendel 42862 [facility] 2021-03-29 Outpatient Mhcugh, STLMLC STLMLC [id number] Common 13:18:49 Mendel 30037 [facility] 2021-03-29 Outpatient Mchugh, STLMLC STLMLC [id number] Common 13:18:11 Mendel 28507 [facility] 2021-03-29 Outpatient Mchugh, STLMLC STLMLC [id number] Common 13:10:19 Mendel 01152 [facility] 2021-03-29 Outpatient Mchugh, STLMLC STLMLC [id number] Common 13:04:07 Mendel 57950 [facility] 2021-03-29 Outpatient Mchugh, STLMLC STLMLC [id number] Common 12:33:45 Mendel 46011 [facility] 2021-03-29 Outpatient Mchugh, STLMLC STLMLC [id number] Common 12:31:45 Mendel 51171 [facility] 2021-03-29 Outpatient Mchugh, STLMLC STLMLC [id number] Common 12:31:20 Mendel 46029 [facility] 2021-03-29 Outpatient Mchugh, STLMLC STLMLC [id number] Common 12:31:00 Mendel 64543 [facility] 2021-03-29 Outpatient Mchugh, STLMLC STLMLC [id number] Common 12:30:20 Mendel 84345 [facility] 2021-03-29 Outpatient Mchugh, STLMLC STLMLC [id number] Common 11:17:40 Mendel 31425 [facility] 2021-03-29 Outpatient Mchugh, STLMLC STLMLC [id number] Common 11:13:02 Mendel 46830 [facility] 2021-03-29 Outpatient Mchugh, STLMLC STLMLC [id number] Common 10:59:42 Mendel 33127 [facility] 2021-05-04 2021-05-04 ambulatory STLMLC STLMLC [id number] Common 00:00:00 00:00:00 [facility] 2021-05-04 2021-05-04 ambulatory STLMLC STLMLC [id number] Common 00:00:00 00:00:00 [facility] 2021-05-04 2021-05-04 ambulatory STLMLC STLMLC [id number] Common 00:00:00 00:00:00 [facility] 2021-02-23 2021-02-23 ambulatory STLMLC STLMLC [id number] Common 00:00:00 00:00:00 [facility] 2021-01-25 2021-01-25 ambulatory STLMLC STLMLC [id number] Common 00:00:00 00:00:00 [facility] 2021-01-20 2021-01-20 ambulatory STLMLC STLMLC [id number] Common 00:00:00 00:00:00 [facility] 2021-01-19 2021-01-19 ambulatory STLMLC STLMLC [id number] Common 00:00:00 00:00:00 [facility] 2020-09-06 2020-09-06 Outpatient STLMLC STLMLC [id number] Common 00:00:00 00:00:00 [facility] 2020-09-01 2020-09-01 Outpatient STLMLC STLMLC [id number] Common 00:00:00 00:00:00 [facility] 2020-08-26 2020-08-26 Outpatient STLMLC STLMLC [id number] Common 00:00:00 00:00:00 [facility] 2020-08-24 2020-08-24 Outpatient STLMLC STLMLC [id number] Common 00:00:00 00:00:00 [facility] 2020-08-02 2020-08-02 Outpatient STLMLC STLMLC [id number] Common 00:00:00 00:00:00 [facility] 2020-07-18 2020-07-18 Outpatient STLMLC STLMLC [id number] Common 00:00:00 00:00:00 [facility] 2020-06-21 2020-06-21 Outpatient STLMLC STLMLC [id number] Common 00:00:00 00:00:00 [facility] 2020-06-17 2020-06-17 Outpatient STLMLC STLMLC [id number] Common 00:00:00 00:00:00 [facility] 2020-04-27 2020-04-27 Outpatient STLMLC STLMLC [id number] Common 00:00:00 00:00:00 [facility] 2020-04-01 2020-04-01 Outpatient STLMLC STLMLC [id number] Common 00:00:00 00:00:00 [facility] 2019-12-16 2019-12-16 Outpatient STLMLC STLMLC [id number] Common 00:00:00 00:00:00 [facility] 2019-12-16 2019-12-16 Outpatient STLMLC STLMLC [id number] Common 00:00:00 00:00:00 [facility] 2019-11-04 2019-11-04 [id number] Common 08:55:00 08:55:[address] [facility] 2019-10-15 2019-10-15 [facility] [id number] Common 09:45:00 09:45:[address] [facility] 2019-10-14 2019-10-14 [facility] [id number] Common 08:01:00 08:01:[address] [facility] 2019-10-12 2019-10-12 [facility] [id number] Common 16:20:00 16:20:[address] [facility] 2019-10-12 2019-10-12 [facility] [id number] Common 11:30:00 11:30:[address] [facility] 2019-06-16 2019-06-16 [facility] [id number] Common 11:00:00 11:00:[address] [facility] 2019-06-15 2019-06-15 [facility] [id number] Common 09:07:00 09:07:[address] [facility] 2019-05-18 2019-05-18 [facility] [id number] Common 10:00:00 10:00:[address] [facility] 2019-05-14 2019-05-14 [facility] [id number] Common 09:40:00 09:40:[address] [facility] 2019-04-02 2019-04-02 [facility] [id number] Common 09:45:00 09:45:[address] [facility] 2019-03-19 2019-03-19 [facility] [id number] Common 08:22:00 08:22:[address] [facility] 2019-03-16 2019-03-16 [facility] [id number] Common 14:30:00 14:30:[address] [facility] 2019-03-05 2019-03-05 [facility] [id number] Common 16:05:00 16:05:[address] [facility] 2018-12-29 2018-12-29 [facility] [id number] Common 16:51:00 16:51:[address] [facility] 2018-12-03 2018-12-03 [facility] [id number] Common 14:15:00 14:15:[address] [facility] 2018-11-19 2018-11-19 [facility] [id number] Common 08:34:00 08:34:[address] [facility] 2018-11-17 2018-11-17 [facility] [id number] Common 09:00:00 09:00:[address] [facility] 2018-11-11 2018-11-11 [facility] [id number] Common 08:21:00 08:21:[address] [facility] 2018-09-17 2018-09-17 [facility] [id number] Common 13:27:00 13:27:[address] [facility] 2018-09-02 2018-09-02 [facility] [id number] Common 10:00:00 10:00:[address] [facility] 2018-06-02 2018-06-02 [facility] [id number] Common 10:50:00 10:50:[address] [facility] 2018-06-02 2018-06-02 [facility] [id number] Common 08:30:00 08:30:[address] [facility] 2018-04-21 2018-04-21 [facility] [id number] Common 10:30:00 10:30:[address] [facility] 2018-04-09 2018-04-09 [facility] [id number] Common 11:07:00 11:07:[address] [facility] 2018-03-10 2018-03-10 [facility] [id number] Common 15:15:00 15:15:[address] [facility] 2017-09-09 2017-09-09 [facility] [id number] Common 10:47:00 10:47:[address] [facility] 2017-08-06 2017-08-06 [facility] [id number] Common 15:49:00 15:49:[address] [facility] 2017-08-06 2017-08-06 [facility] [id number] Common 11:15:00 11:15:[address] [facility] 2017-08-06 2017-08-06 [facility] [id number] Common 11:06:00 11:06:[address] [facility] Results This patient has no known results.
--- NOTE | 2021-10-21 21:45 | RAD REPORT ---
EXAM DESCRIPTION: RAD - Foot Left 3 View - 10/21/2021 9:32 pm CLINICAL HISTORY: PAIN, slip and fall COMPARISON: <Comparisons>left foot 07/24/2020 FINDINGS: No fracture, dislocation or periosteal reaction. No acute or destructive bony process. Mo derate-sized plantar spur is present similar to comparison. No air or foreign body in the soft tissues. IMPRESSION: Negative left foot examination for acute finding.
--- NOTE | 2021-10-21 22:08 | ER ---
Nurse's Notes [facility] Name: Noelle Orozco Age: 61 yrs Sex: Female : 1960 Arrival Date: 10/21/2021 Time: 20:16 Bed 11 Private MD: Diagnosis: Sprain of foot Presentation: 10/21 20:22 Chief complaint: Slipped on wet floor, c/o left foot pain 12/11. Coronavirus screen: At this time, the client does not indicate any symptoms associated with coronavirus-19. Ebola Screen: No symptoms or risks identified at this time. Initial Sepsis Screen: Does the patient meet any 2 criteria? No. Patient's initial sepsis screen is negative. Does the patient have a suspected source of infection? No. Patient's initial sepsis screen is negative. Risk Assessment: Do you want to hurt yourself or someone else?. Onset of symptoms was October 21, 2021. 20:22 Method Of Arrival: Ambulatory hb 20:22 Acuity: SALEEM 4 hb Historical: - Allergies: 20:23 Sulfa (Sulfonamide Antibiotics); hb - Home Meds: 20:23 Meclizine Oral [Active]; unknown BP medication [Active]; hb - PMHx: 20:23 Hypertension; Meniere's disease; hb - Immunization history:: Adult Immunizations up to date. - Social history:: Smoking status: Patient denies any tobacco usage or history of. Screenin:21 Abuse screen: Denies threats or abuse. Denies injuries from another. Nutritional kb3 screening: No deficits noted. Tuberculosis screening: No symptoms or risk factors identified. Fall Risk None identified. Assessment: 20:39 General: Appears in no apparent distress. comfortable, Behavior is calm, cooperative, jb4 appropriate for age. Pain: Complains of pain in left foot Pain does not radiate. Pain currently is 10 out of 10 on a pain scale. Neuro: Level of Consciousness is awake, alert, obeys commands, Oriented to person, place, time, situation. Cardiovascular: Patient's skin is warm and dry. Respiratory: Airway is patent Respiratory effort is even, unlabored, Respiratory pattern is regular, symmetrical. Derm: Skin is intact, Skin is pink, warm \T\ dry. Musculoskeletal: Circulation, motion, and sensation intact. Range of motion: intact in all extremities. 20:40 Reassessment: Ice pack applied to left foot. jb4 Vital Signs: 20:22 BP 173 / 95; Pulse 89; Resp 16; Temp 98.5; Pulse Ox 100% on R/A; Weight 65.77 kg; hb Height 5 ft. 7 in. (170.18 cm); Pain 10/10; 22:21 BP 152 / 79; Pulse 79; Resp 18; Pulse Ox 96% ; Pain 7/10; kb3 20:22 Body Mass Index 22.71 (65.77 kg, 170.18 cm) hb ED Course: 20:16 Patient arrived in ED. bp1 20:22 Obed Alarcon PA is PHCP. jmm 20:22 Yobani Hunter MD is Attending Physician. m 20:23 Triage completed. hb 20:23 Patient placed. hb 20:25 Radha Thomas, RN is Primary Nurse. kb3 21:33 Foot Left 3 View XRAY In Process Unspecified. EDMS 22:07 Rolando Hicks DPM is Referral Physician. jmm 22:21 Patient has correct armband on for positive identification. kb3 22:21 No provider procedures requiring assistance completed. Patient did not have IV access kb3 during this emergency room visit. Administered Medications: 22:21 Not Given (Patient Refused): HYDROcodone-acetaminophen 5 mg-325 mg 1 tabs PO once kb3 Medication: 22:21 VIS not applicable for this client. kb3 Outcome: 22:07 Discharge ordered by . jmm 22:21 Discharged to home ambulatory. kb3 22:21 Condition: improved 22:21 Discharge instructions given to patient, family, Instructed on discharge instructions, follow up and referral plans. medication usage, Ortho care Demonstrated understanding of instructions, follow-up care, medications. 22:29 Patient left the ED. kb3 Signatures: Dispatcher [employer] EDMS Obed Alarcon PA PA Teena Witt RN RN Tera Dinero RN RN jb4 Soraida Dumont bp1 aRdha Thomas, RN RN kb3
--- NOTE | 2021-10-21 22:08 | EDPHYS ---
Physician Documentation [facility] Name: Noelle Orozco Age: 61 yrs Sex: Female : 1960 Arrival Date: 10/21/2021 Time: 20:16 Bed 11 Private MD: ED Physician Yobani Hunter HPI: 10/21 20:40 This 61 yrs old Female presents to ER via Ambulatory with complaints of Toe Injury, jmm left. 20:40 The patient presents with an injury, pain. Onset: The symptoms/episode began/occurred jmm acutely, just prior to arrival. Modifying factors: The symptoms are alleviated by nothing, the symptoms are aggravated by nothing. Associated signs and symptoms: Pertinent positives: swelling. This is a 61-year-old female with history of hypertension and Mnire's disease the presents emerged part with complaints of left foot pain. Patient states she twisted her foot. Pain is mainly localized to the third fourth and fifth toes. Denies ankle pain or other known injury.. Historical: - Allergies: 20:23 Sulfa (Sulfonamide Antibiotics); hb - Home Meds: 20:23 Meclizine Oral [Active]; unknown BP medication [Active]; hb - PMHx: 20:23 Hypertension; Meniere's disease; hb - Immunization history:: Adult Immunizations up to date. - Social history:: Smoking status: Patient denies any tobacco usage or history of. ROS: 20:40 Constitutional: Negative for fever, chills, and weight loss, Cardiovascular: Negative jmm for chest pain, palpitations, and edema, Respiratory: Negative for shortness of breath, cough, wheezing, and pleuritic chest pain. 20:40 MS/extremity: Positive for injury or acute deformity. 20:40 All other systems are negative. Exam: 20:40 Constitutional: This is a well developed, well nourished patient who is awake, alert, jmm and in no acute distress. Head/Face: atraumatic. Eyes: EOMI, no conjunctival erythema appreciated ENT: Moist Mucus Membranes Neck: Trachea midline, Supple Chest/axilla: Normal chest wall appearance and motion. Cardiovascular: Regular rate and rhythm. No edema appreciated Respiratory: Normal respirations, no respiratory distress appreciated Abdomen/GI: Non distended Back: Normal ROM Skin: General appearance color normal 20:40 Musculoskeletal/extremity: Mild swelling noted to the left foot, pain is elicited at the base of the third fourth and fifth toes. Compartments are soft, full dorsalis pedis pulse, neurovascular intact. 20:40 Skin: Appearance: Color: normal in color. 20:40 Neuro: Orientation: is normal, Mentation: is normal, Memory: is normal. Vital Signs: 20:22 BP 173 / 95; Pulse 89; Resp 16; Temp 98.5; Pulse Ox 100% on R/A; Weight 65.77 kg; hb Height 5 ft. 7 in. (170.18 cm); Pain 10/10; 22:21 BP 152 / 79; Pulse 79; Resp 18; Pulse Ox 96% ; Pain 7/10; kb3 20:22 Body Mass Index 22.71 (65.77 kg, 170.18 cm) hb MDM: 20:40 Patient medically screened. [facility] 22:06 Data reviewed: vital signs, nurses notes. Counseling: I had a detailed discussion with xenia the patient and/or guardian regarding: the historical points, exam findings, and any diagnostic results supporting the discharge/admit diagnosis, the need for outpatient follow up, to return to the emergency department if symptoms worsen or persist or if there are any questions or concerns that arise at home. ED course: X-rays negative. Patient advised follow-up PCP and otherwise given strict return precautions. Patient understood agrees plan of care.. 10/21 20:43 Order name: Foot Left 3 View XRAY; Complete Time: 21:48 [facility] 10/21 22:07 Order name: Ortho shoe; Complete Time: 22:14 [facility] Administered Medications: 22:21 Not Given (Patient Refused): HYDROcodone-acetaminophen 5 mg-325 mg 1 tabs PO once kb3 Disposition: 22:50 Co-signature as Attending Physician, Yobani Hunter MD I agree with the assessment and kdr plan of care. Disposition Summary: 10/21/21 22:07 Discharge Ordered Location: Home [facility] Condition: Stable [facility] Diagnosis - Sprain of foot nahid Followup: xenia - With: Private Physician - When: 2 - 3 days - Reason: Recheck today's complaints, Continuance of care, Re-evaluation by your physician Followup: xenia - With: Rolando Hicks DPM - When: 2 - 3 days - Reason: Recheck today's complaints, Continuance of care, Re-evaluation by your physician Discharge Instructions: - Discharge Summary Sheet xenia - Foot Sprain [facility] Forms: - Medication Reconciliation Form xenia - Thank You Letter xenia - Antibiotic Education xenia - Prescription Opioid Use yamilet Prescriptions: - Diclofenac Sodium 75 mg Oral Tablet Sustained Release - take 1 tablet by ORAL route 2 times per day; 30 tablet; Refills: 0, Product [facility] Selection Permitted - orphenadrine citrate 100 mg Oral Tablet Sustained Release - take 1 tablet by ORAL route 2 times per day As needed; 20 tablet; Refills: 0, [facility] Product Selection Permitted Signatures: Dispatcher [employer] EDYobani Marvin MD MD kdr Mickail, Joel, PA PA jmm Baxter, Heather, RN RN Radha Cruz RN kb3 Corrections: (The following items were deleted from the chart) 22:07 22:07 Samy wrap-joint ordered. xenia michaels
[2021-10-22 00:43] VITALS: TEMP 98.5
[2021-10-22 00:45] VITALS: BP 152/79; O2SAT 96
== END 2021-10-21 22:29 | disposition home or self-care (01) ==
LOC: ER 20:13
DX: S93.602A Unspecified sprain of left foot, initial encounter (principal); I10 Essential (primary) hypertension; Z88.2 Allergy status to sulfonamides
CPT/HCPCS: 99283

== ENCOUNTER 2021-12-29 09:27 | Emergency (ER) | payer OTHER ==
--- OUTSIDE RECORDS SUMMARY | 2021-12-29 09:32 | XMS REPORT | Continuity of Care Document ---
:1960 Author Organization [facility] t Address [address] [place] [address] Care Team Providers Name Role Phone Mchugh, Mendel Dooley Attending Clinician Unavailable Payers Payer Name Policy Type Policy Number Effective Date Expiration Date S rosalakisha MEDICARE MB [id number] 1998 [facility] NOVITAS 00:00:00 [facility] MEDICARE MB [id number] 1998 [facility] NOVITAS 00:00:[address] [facility] MEDICARE MB [id number] 1998 [facility] NOVITAS 00:00:00 [facility] Problems Condition Condition Condition Status Onset Resolution Last Treating Co mments Source Name Details Category Date Date Treatment Clinician Date [id number] Stage 3a Problem Active Comm on chronic [facility] kidney - [facility] disease [facility] Annual Medicare Problem Active Common wellness annual [facility] visit wellness - [facility] visit, [facility] Abdominal Abdominal Problem Active Com mon pain pain [facility] Meniere Meniere''s Problem Active Comm on disease disease, Spirit unspecifie - [facility] d [facility] [id number] HTN Problem Active Common (hypertens Spirit ion), - [facility]I benign [facility] [id number] COPD with Problem Active Co mmon [id number] asthma [facility] [id number] Insomnia, Problem Active Com mon unspecifie Spirit d type - [facility] [id number] Primary Problem Active Common insomnia [facility] History of History of Problem Active C ommon cholecyste cholecyste Sp [facility] [id number] +5th digit Problem Active Co mmon eff Spirit 12/03/19*CK - CHI D (chronic kidney [facility] disease) Medical stage 3, Center GFR 30-59 ml/min [id number] Alcohol Problem Active Common abuse [facility] [id number] Gallstones Problem Active Co mmon [facility] [id number] Atopic Problem Active Common dermatitis [facility] [place] [facility] unspecifie [facility] Allergies, Adverse Reactions, Alerts This patient has no known allergies or adverse reactions. Social History Social Habit Start Date Stop Date Quantity Comments Source History of Tobacco Use Co [facility] Sex Assigned At Com mon [facility] Smoking Status Start Date Stop Date Source Never Smoker Common [facility] Medications Ordered Filled Start Stop Current Ordering Indication Dosage Frequency Signature Comments Components Source Medication Medication Date Date Medication? Clinician (SIG) Name Name ProAir HFA ProAir HFA No 2{puffs ProAir HFA 108 (90 108 (90 9 _as_nee 108 (90 Base) Base) 00:00: ded} Base) MCG/ACT MCG/ACT 00 MCG/ACT Kenalog Kenalog No 40mg Common (Triamcinol (Triamcinol 11-09 S pirit one) one) 00:00: - [facility]I [facility] traZODone traZODone No 1{table QD HCl 100 MG HCl 100 MG 4-16 t_at_be 00:00: dtime} 00 traZODone traZODone No 1{table QD traZODone HCl 100 MG HCl 100 MG 4-16 t_at_be HCl 100 MG 00:00: dtime} 00 traZODone traZODone No 1{table QD traZODone HCl 100 MG HCl 100 MG 4-16 t_at_be HCl 100 MG 00:00: dtime} 00 traZODone traZODone No 1{table QD traZODone HCl 100 MG HCl 100 MG 4-16 t_at_be HCl 100 MG 00:00: dtime} 00 Trazodone Trazodone 2020-0 Yes Mendel Take 1/2 Common HCl HCl 8-10 Mchugh tab HS x Spirit 00:00: 1 week - CHI 00 then 1 tab [facility] Hydrochloro Hydrochloro 2020-0 Yes Mendel 1 tablet Common thiazide thiazide 8-10 Mchugh in the Spir it 00:00: morning - [facility]I 00 [facility] Lisinopril Lisinopril 2020-0 Yes Mendel 1 tablet Common 8-10 Mchugh Spirit 00:00: - [facility]I 00 [facility] Lisinopril Lisinopril 2020-0 No 1{table QD 10 MG 10 MG 8-10 t} 00:00: 00 hydroCHLORO hydroCHLORO 2020-0 No 1{table QD thiazide thiazide 8-10 t_in_th 12.5 MG 12.5 MG 00:00: e_morni 00 ng} hydroCHLORO hydroCHLORO 2020-0 No 1{table QD hydroCHLOR thiazide thiazide 8-10 t_in_th Othiazide 12.5 MG 12.5 MG 00:00: e_morni 12.5 MG 00 ng} Lisinopril Lisinopril 2020-0 No 1{table QD Lisinopril 10 MG 10 MG 8-10 t} 10 MG 00:00: 00 hydroCHLORO hydroCHLORO 2020-0 No 1{table QD hydroCHLOR thiazide thiazide 8-10 t_in_th Othiazide 12.5 MG 12.5 MG 00:00: e_morni 12.5 MG 00 ng} Lisinopril Lisinopril 2020-0 No 1{table QD Lisinopril 10 MG 10 MG 8-10 t} 10 MG 00:00: 00 hydroCHLORO hydroCHLORO 2020-0 No 1{table QD hydroCHLOR thiazide thiazide 8-10 t_in_th Othiazide 12.5 MG 12.5 MG 00:00: e_morni 12.5 MG 00 ng} Lisinopril Lisinopril 2020-0 No 1{table QD Lisinopril 10 MG 10 MG 8-10 t} 10 MG 00:00: 00 Triamcinolo Triamcinolo 2020-0 Yes Mendel 1 Common ne ne 3-16 Mchugh applicatio Spirit Acetonide Acetonide 00:00: n - C HI 00 [facility] Ventolin Ventolin Yes Mendel 2 puffs as Common HFA HFA 9-10 Mchugh needed Spirit 00:00: - [facility]I 00 [facility] Ventolin Ventolin No 2{puffs QID HFA 108 (90 HFA 108 (90 9-10 _as_nee Base) Base) 00:00: ded} MCG/ACT MCG/ACT 00 Ventolin Ventolin No 2{puffs QID Ventolin HFA 108 (90 HFA 108 (90 9-10 _as_nee HFA 108 Base) Base) 00:00: ded} (90 Base) MCG/ACT MCG/ACT 00 MCG/ACT Ventolin Ventolin No 2{puffs QID Ventolin HFA 108 (90 HFA 108 (90 9-10 _as_nee HFA 108 Base) Base) 00:00: ded} (90 Base) MCG/ACT MCG/ACT 00 MCG/ACT Ventolin Ventolin No 2{puffs QID Ventolin HFA 108 (90 HFA 108 (90 9-10 _as_nee HFA 108 Base) Base) 00:00: ded} (90 Base) MCG/ACT MCG/ACT 00 MCG/ACT Albuterol Albuterol Yes Mendel 3 ml as Common Sulfate Sulfate Mchugh needed Spirit - [facility] Lisinopril- Lisinopril- Yes Mendel TAKE ONE Common Hydrochloro Hydrochloro Mchugh TABLET BY Spirit thiazide thiazide MOUTH - CHI DAILY [facility] Albuterol Albuterol Yes Mendel USE 1 VIAL Common Sulfate Sulfate Mchugh IN [facility] NEBULIZER - [facility]I EVERY [address] St HOURS [facility] Triamcinolo Triamcinolo No 1{appli BID ne ne cation} Acetonide Acetonide 0.1 % 0.1 % Albuterol Albuterol No 3{ml_as QID Sulfate Sulfate _needed (2.5 (2.5 } MG/3ML) MG/3ML) 0.083% 0.083% Lisinopril- Lisinopril- No QD hydroCHLORO hydroCHLORO thiazide thiazide 20-12.5 MG 20-12.5 MG traZODone traZODone No 1{table QD HCl 50 MG HCl 50 MG t_at_be dtime} Lisinopril- Lisinopril- No QD Lisinopril hydroCHLORO hydroCHLORO -hydroCHLO thiazide thiazide ROthiazide 20-12.5 MG 20-12.5 MG 20-12.5 MG Triamcinolo Triamcinolo No 1{appli BID Triamcinol ne ne cation} one Acetonide Acetonide Acetonide 0.1 % 0.1 % 0.1 % Albuterol Albuterol No 3{ml_as QID Albuterol Sulfate Sulfate _needed Sulfate (2.5 (2.5 } (2.5 MG/3ML) MG/3ML) MG/3ML) 0.083% 0.083% 0.083% traZODone traZODone No 1{table QD traZODone HCl 50 MG HCl 50 MG t_at_be HCl 50 MG dtime} Lisinopril- Lisinopril- No QD Lisinopril hydroCHLORO hydroCHLORO -hydroCHLO thiazide thiazide ROthiazide 20-12.5 MG 20-12.5 MG 20-12.5 MG Triamcinolo Triamcinolo No 1{appli BID Triamcinol ne ne cation} one Acetonide Acetonide Acetonide 0.1 % 0.1 % 0.1 % Albuterol Albuterol No 3{ml_as QID Albuterol Sulfate Sulfate _needed Sulfate (2.5 (2.5 } (2.5 MG/3ML) MG/3ML) MG/3ML) 0.083% 0.083% 0.083% traZODone traZODone No 1{table QD traZODone HCl 50 MG HCl 50 MG t_at_be HCl 50 MG dtime} Lisinopril- Lisinopril- No QD Lisinopril hydroCHLORO hydroCHLORO -hydroCHLO thiazide thiazide ROthiazide 20-12.5 MG 20-12.5 MG 20-12.5 MG Triamcinolo Triamcinolo No 1{appli BID Triamcinol ne ne cation} one Acetonide Acetonide Acetonide 0.1 % 0.1 % 0.1 % Albuterol Albuterol No 3{ml_as QID Albuterol Sulfate Sulfate _needed Sulfate (2.5 (2.5 } (2.5 MG/3ML) MG/3ML) MG/3ML) 0.083% 0.083% 0.083% traZODone traZODone No 1{table QD traZODone HCl 50 MG HCl 50 MG t_at_be HCl 50 MG dtime} Lisinopril- Lisinopril- No QD Lisinopril hydroCHLORO hydroCHLORO -hydroCHLO thiazide thiazide ROthiazide 20-12.5 MG 20-12.5 MG 20-12.5 MG Triamcinolo Triamcinolo No 1{appli BID Triamcinol ne ne cation} one Acetonide Acetonide Acetonide 0.1 % 0.1 % 0.1 % Albuterol Albuterol No 3{ml_as QID Albuterol Sulfate Sulfate _needed Sulfate (2.5 (2.5 } (2.5 MG/3ML) MG/3ML) MG/3ML) 0.083% 0.083% 0.083% traZODone traZODone No 1{table QD traZODone HCl 50 MG HCl 50 MG t_at_be HCl 50 MG dtime} Lisinopril- Lisinopril- No QD Lisinopril hydroCHLORO hydroCHLORO -hydroCHLO thiazide thiazide ROthiazide 20-12.5 MG 20-12.5 MG 20-12.5 MG traZODone traZODone No 1{table QD traZODone HCl 50 MG HCl 50 MG t_at_be HCl 50 MG dtime} Albuterol Albuterol No 3{ml_as QID Albuterol Sulfate Sulfate _needed Sulfate (2.5 (2.5 } (2.5 MG/3ML) MG/3ML) MG/3ML) 0.083% 0.083% 0.083% Triamcinolo Triamcinolo No 1{appli BID Triamcinol ne ne cation} one Acetonide Acetonide Acetonide 0.1 % 0.1 % 0.1 % Triamcinolo Triamcinolo No 1{appli BID Triamcinol ne ne cation} one Acetonide Acetonide Acetonide 0.1 % 0.1 % 0.1 % Albuterol Albuterol No 3{ml_as QID Albuterol Sulfate Sulfate _needed Sulfate (2.5 (2.5 } (2.5 MG/3ML) MG/3ML) MG/3ML) 0.083% 0.083% 0.083% Lisinopril- Lisinopril- No QD Lisinopril hydroCHLORO hydroCHLORO -hydroCHLO thiazide thiazide ROthiazide 20-12.5 MG 20-12.5 MG 20-12.5 MG traZODone traZODone No 1{table QD traZODone HCl 50 MG HCl 50 MG t_at_be HCl 50 MG dtime} Triamcinolo Triamcinolo No 1{appli BID Triamcinol ne ne cation} one Acetonide Acetonide Acetonide 0.1 % 0.1 % 0.1 % Albuterol Albuterol No 3{ml_as QID Albuterol Sulfate Sulfate _needed Sulfate (2.5 (2.5 } (2.5 MG/3ML) MG/3ML) MG/3ML) 0.083% 0.083% 0.083% Lisinopril- Lisinopril- No QD Lisinopril hydroCHLORO hydroCHLORO -hydroCHLO thiazide thiazide ROthiazide 20-12.5 MG 20-12.5 MG 20-12.5 MG traZODone traZODone No 1{table QD traZODone HCl 50 MG HCl 50 MG t_at_be HCl 50 MG dtime} Triamcinolo Triamcinolo No 1{appli BID Triamcinol ne ne cation} one Acetonide Acetonide Acetonide 0.1 % 0.1 % 0.1 % Albuterol Albuterol No 3{ml_as QID Albuterol Sulfate Sulfate _needed Sulfate (2.5 (2.5 } (2.5 MG/3ML) MG/3ML) MG/3ML) 0.083% 0.083% 0.083% Lisinopril- Lisinopril- No QD Lisinopril hydroCHLORO hydroCHLORO -hydroCHLO thiazide thiazide ROthiazide 20-12.5 MG 20-12.5 MG 20-12.5 MG traZODone traZODone No 1{table QD traZODone HCl 50 MG HCl 50 MG t_at_be HCl 50 MG dtime} Lisinopril/ Lisinopril/ 2019- No Mendel one tab Common HCTZ HCTZ 12-01 Mchugh [facility] 00:00 - CHI :00 [facility] Immunizations Ordered Immunization Filled Immunization Date Status Commen ts Source Name Name Moderna COVID-19 Moderna COVID-19 2020-10-21 Completed Co mmon [facility] Vaccine Vaccine 14:25:00 - [facility] Moderna COVID-19 Moderna COVID-19 2020-10-21 Completed Co mmon [facility] Vaccine Vaccine 14:25:00 - [facility] Moderna COVID-19 Moderna COVID-19 2020-10-21 Completed Co mmon [facility] Vaccine Vaccine 14:25:00 - [facility] Moderna COVID-19 Moderna COVID-19 2020-10-21 Completed Co mmon [facility] Vaccine Vaccine 14:25:00 - [facility] Moderna COVID-19 Moderna COVID-19 2020-10-21 Completed Co mmon [facility] Vaccine Vaccine 14:25:00 - [facility] Moderna COVID-19 Moderna COVID-19 2020-10-21 Completed Co mmon [facility] Vaccine Vaccine 14:25:00 - [facility] Moderna COVID-19 Moderna COVID-19 2020-10-21 Completed Co mmon [facility] Vaccine Vaccine 14:25:00 [facility] Moderna COVID-19 Moderna COVID-19 2020-10-21 Completed Co mmon [facility] Vaccine Vaccine 14:25:00 - [facility] Moderna COVID-19 Moderna COVID-19 2020-10-21 Completed Co mmon [facility] Vaccine Vaccine 14:25:00 - [facility] Moderna COVID-19 Moderna COVID-19 2020-09-23 Completed Co mmon [facility] Vaccine Vaccine 14:26:00 [facility] Moderna COVID-19 Moderna COVID-19 2020-09-23 Completed Co mmon [facility] Vaccine Vaccine 14:26:00 - [facility] Moderna COVID-19 Moderna COVID-19 2020-09-23 Completed Co mmon [facility] Vaccine Vaccine 14:26:00 - [facility] Moderna COVID-19 Moderna COVID-19 2020-09-23 Completed Co mmon [facility] Vaccine Vaccine 14:26:00 - [facility] Moderna COVID-19 Moderna COVID-19 2020-09-23 Completed Co mmon [facility] Vaccine Vaccine 14:26:00 - [facility] Moderna COVID-19 Moderna COVID-19 2020-09-23 Completed Co mmon [facility] Vaccine Vaccine 14:26:00 - [facility] Moderna COVID-19 Moderna COVID-19 2020-09-23 Completed Co mmon [facility] Vaccine Vaccine 14:26:00 - [facility] Moderna COVID-19 Moderna COVID-19 2020-09-23 Completed Co mmon [facility] Vaccine Vaccine 14:26:00 - [facility] Moderna COVID-19 Moderna COVID-19 2020-09-23 Completed Co mmon [facility] Vaccine Vaccine 14:26:00 - [facility] Flucelvax - Flucelvax - 2019-03-02 Completed Common Spiri t multidose vial multidose vial 16:17:00 - [facility] Flucelvax - Flucelvax - 2019-03-02 Completed Common Spiri t multidose vial multidose vial 16:17:00 - [facility] Flucelvax - Flucelvax - 2019-03-02 Completed Common Spiri t multidose vial multidose vial 16:17:00 - [facility] Flucelvax - Flucelvax - 2019-03-02 Completed Common Spiri t multidose vial multidose vial 16:17:00 - [facility] Flucelvax - Flucelvax - 2019-03-02 Completed Common Spiri t multidose vial multidose vial 16:17:00 [facility] Flucelvax - Flucelvax - 2019-03-02 Completed Common Spiri t multidose vial multidose vial 16:17:00 [facility] Flucelvax - Flucelvax - 2019-03-02 Completed Common Spiri t multidose vial multidose vial 16:17:00 - [facility] Flucelvax - Flucelvax - 2019-03-02 Completed Common Spiri t multidose vial multidose vial 16:17:00 - [facility] Flucelvax - Flucelvax - 2019-03-02 Completed Common Spiri t multidose vial multidose vial 16:17:00 - [facility] Vital Signs Vital Name Observation Time Observation Value Comments Source height 2021-11-09 11:00:00 66 [in_i] [facility] weight 2021-11-09 11:00:00 149.0 [lb_av] [facility] temperature 2021-11-09 11:00:00 98.0 [degF] [facility] bmi 2021-11-09 11:00:00 24.05 kg/m2 [facility] oximetry 2021-11-09 11:00:00 97 % [facility] respiratory rate 2021-11-09 11:00:00 17 /min Comm on [facility] blood pressure 2021-11-09 11:00:00 127 mm[Hg] [facility] [place] [facility] blood pressure 2021-11-09 11:00:00 74 mm[Hg] Common [facility] - diastolic [facility] height 2021-05-04 10:50:00 66 [in_i] [facility] weight 2021-05-04 10:50:00 151.6 [lb_av] [facility] temperature 2021-05-04 10:50:00 97.1 [degF] [facility] bmi 2021-05-04 10:50:00 24.47 kg/m2 [facility] oximetry 2021-05-04 10:50:00 99 % [facility] respiratory rate 2021-05-04 10:50:00 17 /min Comm on [facility] blood pressure 2021-05-04 10:50:00 137 mm[Hg] Common [facility] - systolic [facility] blood pressure 2021-05-04 10:50:00 72 mm[Hg] Common [facility] - diastolic [facility] height 2021-05-04 11:20:00 66 [in_i] Common S [facility] weight 2021-05-04 11:20:00 151.6 [lb_av] Common [facility] temperature 2021-05-04 11:20:00 97.1 [degF] Common [facility] bmi 2021-05-04 11:20:00 24.47 kg/m2 [facility] oximetry 2021-05-04 11:20:00 99 % [facility] respiratory rate 2021-05-04 11:20:00 17 /min Comm on [facility] blood pressure 2021-05-04 11:20:00 137 mm[Hg] Common [facility] - systolic [facility] blood pressure 2021-05-04 11:20:00 72 mm[Hg] Common [facility] - diastolic [facility] height 2021-02-23 08:20:00 66 [in_i] Common [facility] weight 2021-02-23 08:20:00 148.6 [lb_av] [facility] temperature 2021-02-23 08:20:00 98.0 [degF] Common S [facility] bmi 2021-02-23 08:20:00 23.98 kg/m2 Common [facility] oximetry 2021-02-23 08:20:00 98 % Common [facility] respiratory rate 2021-02-23 08:20:00 18 /min Comm on [facility] blood pressure 2021-02-23 08:20:00 138 mm[Hg] Common [facility] - systolic [facility] blood pressure 2021-02-23 08:20:00 62 mm[Hg] Common [facility] - diastolic [facility] height 2021-01-20 14:00:00 66 [in_i] [facility] weight 2021-01-20 14:00:00 144.8 [lb_av] [facility] temperature 2021-01-20 14:00:00 96.8 [degF] [facility] [place] bmi 2021-01-20 14:00:00 23.37 kg/m2 Common S [facility] oximetry 2021-01-20 14:00:00 97 % [facility] respiratory rate 2021-01-20 14:00:00 18 /min Comm on [facility] blood pressure 2021-01-20 14:00:00 110 mm[Hg] Common [facility] - systolic [facility] blood pressure 2021-01-20 14:00:00 85 mm[Hg] [facility] [place] [facility] Procedures This patient has no known procedures. Encounters Start End Encounter Admission Attending Care Care Encounter Source Date/Time Date/Time Type Type Clinicians Facility Department ID 2021-09-19 Outpatient Mchugh, STLMLC STLMLC [id number] Common 16:15:00 [facility] 2021-03-29 Outpatient Mchugh, STLMLC STLMLC [id number] Common 14:27:51 Mendel 66453 [facility] 2021-03-29 Outpatient Mchugh, STLMLC STLMLC [id number] Common 13:22:07 Mendel 38724 [facility] 2021-03-29 Outpatient Mchugh, STLMLC STLMLC [id number] Common 13:18:49 Mendel 82610 [facility] 2021-03-29 Outpatient Mchugh, STLMLC STLMLC [id number] Common 13:18:11 Mendel 15403 [facility] 2021-03-29 Outpatient Mchugh, STLMLC STLMLC [id number] Common 13:10:19 Mendel 66077 [facility] 2021-03-29 Outpatient Mchugh, STLMLC STLMLC [id number] Common 13:04:07 Mendel 75714 [facility] 2021-03-29 Outpatient Mchugh, STLMLC STLMLC [id number] Common 12:33:45 Mendel 95663 [facility] 2021-03-29 Outpatient Mchugh, STLMLC STLMLC [id number] Common 12:31:45 Mendel 27138 [facility] 2021-03-29 Outpatient Mchugh, STLMLC STLMLC [id number] Common 12:31:20 Mendel 03849 [facility] 2021-03-29 Outpatient Mchugh, STLMLC STLMLC [id number] Common 12:31:00 Mendel 57965 [facility] 2021-03-29 Outpatient Mchugh, STLMLC STLMLC [id number] Common 12:30:20 Mendel 72624 [facility] 2021-03-29 Outpatient Mchugh, STLMLC STLMLC [id number] Common 11:17:40 Mendel 52134 [facility] 2021-03-29 Outpatient Mchugh, STLMLC STLMLC [id number] Common 11:13:02 Mendel 51844 [facility] 2021-03-29 Outpatient Mchugh, STLMLC STLMLC [id number] Common 10:59:42 Mendel 34605 [facility] 2021-11-09 2021-11-09 OFFICE STLMLC STLMLC [id number] Co mmon 00:00:00 00:00:00 VISIT [facility] PT - CHI [address] 2021-10-23 2021-10-23 (TEL) STLMLC STLMLC [id number] Co mmon 00:00:00 00:00:00 [facility] 2021-05-04 2021-05-04 OFFICE STLMLC STLMLC [id number] Co mmon 00:00:00 00:00:00 VISIT [facility] PT - CHI LEVEL [address] [place] [address] 2021-05-04 2021-05-04 SUB ANNUAL STLMLC STLMLC [id number] Common 00:00:00 00:00:00 MCR [facility] WELLNESS - [facility] VISIT [facility] 2021-05-04 2021-05-04 (TEL) STLMLC STLMLC [id number] Co mmon 00:00:00 00:00:00 [facility] 2021-02-23 2021-02-23 OFFICE STLMLC STLMLC [id number] Co mmon 00:00:00 00:00:00 VISIT [facility] ESTAB PT - CHI LEVEL 4 [facility] 2021-01-25 2021-01-25 (TEL) STLMLC STLMLC [id number] Co mmon 00:00:00 00:00:00 [facility] 2021-01-20 2021-01-20 OFFICE STLMLC STLMLC [id number] Co mmon 00:00:00 00:00:00 VISIT EST Spir it PT LEVEL 3 - CHI [facility] 2021-01-19 2021-01-19 (TEL) STLMLC STLMLC [id number] Co mmon 00:00:00 00:00:00 [facility] 2020-09-06 2020-09-06 Outpatient STLMLC STLMLC [id number] Common 00:00:00 00:00:00 [facility] 2020-09-01 2020-09-01 Outpatient STLMLC STLMLC [id number] Common 00:00:00 00:00:00 [facility] 2020-08-26 2020-08-26 Outpatient STLMLC STLMLC [id number] Common 00:00:00 00:00:00 [facility] 2020-08-24 2020-08-24 Outpatient STLMLC STLMLC [id number] Common 00:00:00 00:00:00 [facility] 2020-08-02 2020-08-02 Outpatient STLMLC STLMLC [id number] Common 00:00:00 00:00:00 [facility] 2020-07-18 2020-07-18 Outpatient STLMLC STLMLC [id number] Common 00:00:00 00:00:00 [facility] 2020-06-21 2020-06-21 Outpatient STLMLC STLMLC [id number] Common 00:00:00 00:00:00 [facility] 2020-06-17 2020-06-17 Outpatient STLMLC STLMLC [id number] Common 00:00:00 00:00:00 [facility] 2020-04-27 2020-04-27 Outpatient STLMLC STLMLC [id number] Common 00:00:00 00:00:00 [facility] 2020-04-01 2020-04-01 Outpatient STLMLC STLMLC [id number] Common 00:00:00 00:00:00 [facility] 2019-12-16 2019-12-16 Outpatient STLMLC STLMLC [id number] Common 00:00:00 00:00:00 [facility] 2019-12-16 2019-12-16 Outpatient STLMLC STLMLC [id number] Common 00:00:00 00:00:00 [facility] 2019-11-04 2019-11-04 [id number] Common 08:55:00 08:55:[address] [facility] 2019-10-15 2019-10-15 [facility] [id number] Common 09:45:00 09:45:[address] [facility] 2019-10-14 2019-10-14 [facility] [id number] Common 08:01:00 08:01:[address] [facility] 2019-10-12 2019-10-12 [facility] [id number] Common 16:20:00 16:20:[address] [facility] 2019-10-12 2019-10-12 [facility] [id number] Common 11:30:00 11:30:[address] [facility] 2019-06-16 2019-06-16 [facility] [id number] Common 11:00:00 11:00:[address] [facility] 2019-06-15 2019-06-15 [facility] [id number] Common 09:07:00 09:07:[address] [facility] 2019-05-18 2019-05-18 [facility] [id number] Common 10:00:00 10:00:[address] [facility] 2019-05-14 2019-05-14 [facility] [id number] Common 09:40:00 09:40:[address] [facility] 2019-04-02 2019-04-02 [facility] [id number] Common 09:45:00 09:45:[address] Sp[address] [facility] [facility] [place] 2019-03-19 2019-03-19 [facility] [id number] Common 08:22:00 08:22:[address] [facility] [place] 2019-03-16 2019-03-16 [facility] [id number] Common 14:30:00 14:30:[address] [facility] 2019-03-05 2019-03-05 [facility] [id number] Common 16:05:00 16:05:[address] [facility] 2018-12-29 2018-12-29 [facility] [id number] Common 16:51:00 16:51:[address] [facility] [place] 2018-12-03 2018-12-03 [facility] [id number] Common 14:15:00 14:15:[address] [facility] [place] 2018-11-19 2018-11-19 [facility] [id number] Common 08:34:00 08:34:[address] [facility] 2018-11-17 2018-11-17 [facility] [id number] Common 09:00:00 09:00:[address] [facility] 2018-11-11 2018-11-11 [facility] [id number] Common 08:21:00 08:21:[address] [facility] 2018-09-17 2018-09-17 [facility] [id number] Common 13:27:00 13:27:[address] [facility] 2018-09-02 2018-09-02 [facility] [id number] Common 10:00:00 10:00:[address] [facility] 2018-06-02 2018-06-02 [facility] [id number] Common 10:50:00 10:50:[address] [facility] 2018-06-02 2018-06-02 [facility] [id number] Common 08:30:00 08:30:[address] [facility] 2018-04-21 2018-04-21 [facility] [id number] Common 10:30:00 10:30:[address] [facility] 2018-04-09 2018-04-09 [facility] [id number] Common 11:07:00 11:07:[address] [facility] 2018-03-10 2018-03-10 [facility] [id number] Common 15:15:00 15:15:[address] [facility] 2017-09-09 2017-09-09 [facility] [id number] Common 10:47:00 10:47:[address] [facility] [place] 2017-08-06 2017-08-06 [facility] [id number] Common 15:49:00 15:49:[address] [facility] 2017-08-06 2017-08-06 [facility] [id number] Common 11:15:00 11:15:[address] [facility] 2017-08-06 2017-08-06 [facility] [id number] Common 11:06:00 11:06:[address] [facility] [place] Results Test Description Test Time Test Comments Results Result Comments Source Ankle Right 3 View Ankle Right 3 View
--- NOTE | 2021-12-29 10:21 | EDPHYS ---
Physician Documentation [facility] Name: Noelle Orozco Age: 61 yrs Sex: Female : 1960 Arrival Date: 12/29/2021 Time: 09:28 Bed 7 Private MD: Mendel Mchugh ED Physician Garry Rolle HPI: 12/29 10:10 This 61 yrs old Female presents to ER via Ambulatory with complaints of Wound Infection cp - right hand. 10:10 Patient is a 61-year-old female who presents to the emergency room with concern for cp infected surgical wound of right fifth finger. Patient reports having surgery to repair an open fracture of the right fifth finger by Dr. Baires on 12/07/2021. Patient reports she had follow-up care 5 days ago in which some sutures were removed from the right fourth finger and she was told that he wanted to have the pin remain in the right fifth finger for several more weeks. Patient presents today before leaving for a cruise tomorrow requesting antibiotics and to have the pin removed. Historical: - Allergies: 10:02 Sulfa (Sulfonamide Antibiotics); jl7 - Home Meds: 10:02 Meclizine Oral [Active]; unknown BP medication [Active]; jl7 - PMHx: 10:02 Hypertension; Meniere's disease; jl7 - PSHx: 10:02 right hand; jl7 - Immunization history:: Client reports receiving the 2nd dose of the Covid vaccine. - Social history:: Smoking status: Patient denies any tobacco usage or history of. ROS: 10:15 Constitutional: Negative for body aches, chills, fever, poor PO intake. cp 10:15 Cardiovascular: Negative for chest pain, edema, palpitations. 10:15 Respiratory: Negative for cough, shortness of breath, wheezing. 10:15 Abdomen/GI: Negative for abdominal pain, nausea, vomiting, and diarrhea. 10:15 MS/extremity: Positive for injury or acute deformity, decreased range of motion, erythema, swelling, tenderness, of the right fifth finger. 10:15 Neuro: Negative for altered mental status, headache, weakness. 10:15 All other systems are negative. Exam: 10:16 Head/Face: Normocephalic, atraumatic. cp 10:16 Constitutional: The patient appears in no acute distress, alert, awake, non-toxic, well developed, well nourished. 10:16 Cardiovascular: Rate: normal, Pulses: Pulses are 2+ in right radial artery. 10:16 Respiratory: the patient does not display signs of respiratory distress, Respirations: normal, no use of accessory muscles, no retractions, labored breathing, is not present. 10:16 Abdomen/GI: Exam negative for discomfort, distension, guarding, Inspection: abdomen appears normal. 10:16 Musculoskeletal/extremity: Extremities: noted in the right hand: surgical pin in place protruding from right fifth metacarpal head, mild swelling noted of right fifth finger with mild erythema, no drainage noted. Vital Signs: 10:00 BP 139 / 109; Pulse 93; Resp 17; Temp 97.6; Pulse Ox 98% ; Weight 65.77 kg; Height 5 jl7 ft. 6 in. (167.64 cm); Pain 8/10; 10:12 BP 150 / 99; Pulse 87; Resp 16; Pulse Ox 97% on R/A; vg1 10:00 Body Mass Index 23.40 (65.77 kg, 167.64 cm) jl7 MDM: 10:09 Patient medically screened. cp 10:10 ED course: called Dr Ackerman, no answer and unable to leave message. cp 10:20 Data reviewed: vital signs, nurses notes. cp 10:20 Counseling: I had a detailed discussion with the patient and/or guardian regarding: the cp historical points, exam findings, and any diagnostic results supporting the discharge/admit diagnosis, the need for outpatient follow up, for definitive care, a hand specialist, to return to the emergency department if symptoms worsen or persist or if there are any questions or concerns that arise at home. Administered Medications: No medications were administered Disposition: 10:57 Co-signature as Attending Physician, Garry Rolle DO I was immediately available on-site ms3 in the Emergency Department for consultation in the care of the patient. Disposition Summary: 12/29/21 10:20 Discharge Ordered Location: Home cp Problem: new cp Symptoms: are unchanged cp Condition: Stable cp Diagnosis - Cellulitis of right finger cp Followup: cp - With: Joce Ackerman MD - When: next week - Reason: Wound Recheck Discharge Instructions: - Discharge Summary Sheet cp - Cellulitis, Adult cp Forms: - Medication Reconciliation Form cp - Thank You Letter cp - Antibiotic Education cp - Prescription Opioid Use cp Prescriptions: - Clindamycin HCl 300 mg Oral Capsule - take 1 capsule by ORAL route every 6 hours for 10 days; 40 capsule; Refills: 0, cp Product Selection Permitted Signatures: Buddy Castillo PA PA cp Leal, Jahala, RN RN jl7 Garry oRlle DO DO ms3
--- NOTE | 2021-12-29 10:21 | ER ---
Nurse's Notes [facility] Name: Noelle Orozco Age: 61 yrs Sex: Female : 1960 Arrival Date: 12/29/2021 Time: 09:28 Bed 7 Private MD: Mendel Mchugh Diagnosis: Cellulitis of right finger Presentation: 12/29 10:00 Chief complaint: Patient states: Surgery 3 weeks ago to right pinky, pin placed, jl7 swelling and pain noted 2 days ago; Dr. Welch sent to ER to have pin pulled and Rx for antibiotics because pt is leaving on cruise tomorrow. Coronavirus screen: Vaccine status: Patient reports receiving the 2nd dose of the covid vaccine. At this time, the client does not indicate any symptoms associated with coronavirus-19. Ebola Screen: No symptoms or risks identified at this time. Initial Sepsis Screen: Does the patient meet any 2 criteria? No. Patient's initial sepsis screen is negative. Does the patient have a suspected source of infection? No. Patient's initial sepsis screen is negative. Risk Assessment: Do you want to hurt yourself or someone else? Patient reports no desire to harm self or others. Onset of symptoms was December 27, 2021. 10:00 Method Of Arrival: Ambulatory jl7 10:00 Acuity: SALEEM 3 jl7 Triage Assessment: 10:02 General: Appears in no apparent distress. uncomfortable, Behavior is calm, cooperative, jl7 appropriate for age. Pain: Complains of pain in right hand Pain currently is 8 out of 10 on a pain scale. Historical: - Allergies: 10:02 Sulfa (Sulfonamide Antibiotics); jl7 - Home Meds: 10:02 Meclizine Oral [Active]; unknown BP medication [Active]; jl7 - PMHx: 10:02 Hypertension; Meniere's disease; jl7 - PSHx: 10:02 right hand; jl7 - Immunization history:: Client reports receiving the 2nd dose of the Covid vaccine. - Social history:: Smoking status: Patient denies any tobacco usage or history of. Screenin:13 Abuse screen: Denies threats or abuse. Nutritional screening: No deficits noted. vg1 Tuberculosis screening: No symptoms or risk factors identified. Fall Risk None identified. Assessment: 10:05 General: Appears in no apparent distress. uncomfortable, Behavior is calm, cooperative. vg1 Pain: Complains of pain in palmar aspect of distal phalanx of right little finger, palmar aspect of middle phalanx of right little finger, Palmar aspect of proximal phalanx of right little finger, palmar aspect of middle phalanx of right ring finger, palmar aspect of proximal phalanx of right ring finger and outer aspect of right palm Pain currently is 8 out of 10 on a pain scale. Neuro: Level of Consciousness is awake, alert, obeys commands, Oriented to person, place, time, situation. Cardiovascular: Patient's skin is warm and dry. Respiratory: Airway is patent Respiratory effort is even, unlabored. GI: Reports nausea, vomiting. : No signs and/or symptoms were reported regarding the genitourinary system. EENT: No signs and/or symptoms were reported regarding the EENT system. Derm: Skin is red, Skin temperature is warm to Right hand. Musculoskeletal: Range of motion: limited in right hand Swelling present in right hand. 10:38 Reassessment: Patient appears in no apparent distress at this time. No changes from vg1 previously documented assessment. Patient and/or family updated on plan of care and expected duration. Pain level reassessed. Patient is alert, oriented x 3, equal unlabored respirations, skin warm/dry/pink. Vital Signs: 10:00 BP 139 / 109; Pulse 93; Resp 17; Temp 97.6; Pulse Ox 98% ; Weight 65.77 kg; Height 5 jl7 ft. 6 in. (167.64 cm); Pain 8/10; 10:12 BP 150 / 99; Pulse 87; Resp 16; Pulse Ox 97% on R/A; vg1 10:00 Body Mass Index 23.40 (65.77 kg, 167.64 cm) jl7 ED Course: 09:28 Patient arrived in ED. am2 09:29 Mendel Mchugh DO is Private Physician. am2 09:39 Buddy Castillo PA is PHCP. cp 09:39 Garry Rolle DO is Attending Physician. cp 10:02 Triage completed. jl7 10:02 Arm band placed on right wrist. jl7 10:04 Patti Cho, RN is Primary Nurse. vg1 10:13 Patient has correct armband on for positive identification. Bed in low position. Call vg1 light in reach. 10:13 No provider procedures requiring assistance completed. vg1 10:19 Joce Ackerman MD is Referral Physician. cp 10:39 Patient did not have IV access during this emergency room visit. vg1 Administered Medications: No medications were administered Medication: 10:38 VIS not applicable for this client. vg1 Outcome: 10:20 Discharge ordered by MD. cp 10:39 Discharged to home ambulatory. vg1 10:39 Condition: good 10:39 Discharge instructions given to patient, Instructed on discharge instructions, follow up and referral plans. medication usage, Demonstrated understanding of instructions, follow-up care, medications, Prescriptions given X 1. 10:39 Patient left the ED. vg1 Signatures: Buddy Castillo PA PA cp Leal, Jahala, RN RN jl7 Bety Singer Victoria, RN RN vg1
== END 2021-12-29 10:39 | disposition home or self-care (01) ==
LOC: ER 09:27
DX: L03.011 Cellulitis of right finger (principal); Z88.2 Allergy status to sulfonamides
CPT/HCPCS: 99282

== ENCOUNTER 2024-10-10 13:59 | Emergency (ER) | payer OTHER ==
--- OUTSIDE RECORDS SUMMARY | 2024-10-10 14:17 | XMS REPORT | Continuity of Care Document ---
Author Name Unknown Address [address] [facility] [address] [place] [address] Organization [facility] [place] Address [address] [facility] [address] [place] [address] Care Team Providers Care Broach Setter Name Role Phone Roger JONES, Evita Primary Care Physician Mendel Mchugh Attending Clinician Unavailable Payers Payer Name Policy Type Policy Number Effective Date Expirati on Date Source [facility] [id number] 1998 00:00:00 [facility] MEDICARE [place] [id number] 1998 00:00:00 [facility] [id number] 1998 00:00:00 [facility] Problems Condition Name Condition Details Condition Category Status Onset Date Resolution Date Last Treatment Date Treating Clinician Comments Source [id number] Stage 3a chronic kidney disease Problem [facility] Annual wellness visit Medicare annual wellness visit, subsequent Problem [facility] [id number] Primary osteoarthr itis of left knee Problem [facility] Abdominal pain Abdominal pain Problem [facility] Meniere disease Meniere''s disease, unspecifie d laterality Problem [facility] [id number] HTN (hypertens ion), benign Problem [facility] [id number] COPD with asthma Problem [facility] [id number] Insomnia, unspecifie d type Problem [facility] [id number] Primary insomnia Problem [facility] History of cholecyste ctomy History of cholecyste ctomy Problem [facility] [id number] +5th digit eff 12/03/19*CK D (chronic kidney disease) stage 3, GFR 30-59 ml/min Problem [facility] [id number] Alcohol abuse Problem [facility] [id number] Gallstones Problem Com [facility] [id number] Atopic dermatitis , unspecifie d type Problem [facility] Allergies, Adverse Reactions, Alerts Allergy Name Allergy Type Status Severity Reaction(s) Onset Date Inactive Date Treating Clinician Comments Source Sulfa (Sulfona mide Antibiot ics) Propensi ty to adverse reaction to drug Active 08-13 00:00: 00 Garret Shaver Substanc e with sulfonam jennifer structur e and antibact erial mechanis m of action (substan ce) Substanc e with sulfonam jennifer structur e and antibact erial mechanis m of action (substan ce) Active Unknown [facility] Social History Social Habit Start Date Stop Date Quantity Comments Source History of Tobacco Use [facility] Sex Assigned At [facility] Smoking Status Start Date Stop Date Source Never Smoker [facility] Medications Ordered Medication Name Filled Medication Name Start Date Stop Date Current Medication? Ordering Clinician Indication Dosage Frequency Signature (SIG) Comments Components Source lisinopril 40 mg tablet 08-24 00:00: 00 Yes 1mg Garret Shaver allopurinol 300 mg tablet 08-18 00:00: 00 Yes 1mg Garret Shaver hydrocortis one 2.5 % topical cream 07-23 00:00: 00 Yes 1% Garret Shaver carvedilol 3.125 mg tablet 07-23 00:00: 00 Yes 1mg Garret Shaver lisinopril 20 mg tablet 2025-0 5-12 00:00: 00 Yes 1mg Garret Shaver famotidine 20 mg tablet 5-12 00:00: 00 Yes 1mg Garret Shaver diclofenac sodium 75 mg tablet,deonte yed release 5-12 00:00: 00 Yes 1mg Garret Shaver quetiapine 25 mg tablet 5-12 00:00: 00 Yes 1mg Garret Shaver famotidine 20 mg tablet 4-14 00:00: 00 Yes 1mg Garret Shaver meloxicam 15 mg tablet 4-08 00:00: 00 Yes 1mg Garret Shaver cyclobenzap rine 10 mg tablet 3-18 00:00: 00 Yes 1mg Garret Shaver prednisolon e 15 mg/5 mL oral solution 3-18 00:00: 00 Yes 5mg/5 mL Garret Shaver acetaminoph en 325 mg/10.15 mL oral suspension 3-18 00:00: 00 Yes 10mg/10 .15 mL Garret Shaver Cipro 500 mg tablet 3-03 00:00: 00 Yes 1mg Garret Shaver famotidine 20 mg tablet 2-17 00:00: 00 Yes 1mg Garret Shaver trazodone 50 mg tablet 2-12 00:00: 00 Yes 12mg Garret Shaver clotrimazol e 1 % vaginal cream 1-23 00:00: 00 Yes 1% Garret Shaver cefdinir 250 mg/5 mL oral suspension 1-03 00:00: 00 Yes 5mg/5 mL Garret Shaver cefdinir 250 mg/5 mL oral suspension 2023-03 2-13 00:00: 00 Yes 5mg/5 mL Garret Shaver albuterol sulfate HFA 90 mcg/actuati on aerosol inhaler 2023-03 2-10 00:00: 00 Yes 1mcg/ac tuation Garret Shaver atorvastati n 10 mg tablet 2023-03 2-10 00:00: 00 Yes 1mg Garret Shaver lisinopril 10 mg tablet 2023-03 2-10 00:00: 00 Yes 1mg Garret Shaver Celebrex 200 mg capsule 2023-03 0-29 00:00: 00 Yes 1mg Garret Shaver Celebrex 200 mg capsule 8-15 00:00: 00 Yes 1mg Garret Shaver lisinopril 10 mg tablet 8-13 00:00: 00 Yes 1mg Garret Shaver atorvastati n 10 mg tablet 6-18 00:00: 00 Yes 1mg Garret Shaver albuterol sulfate HFA 90 mcg/actuati on aerosol inhaler -12 00:00: 00 Yes 1mcg/ac tuation Garret Shaver lisinopril 20 mg tablet 6-12 00:00: 00 Yes 1mg Garret Shaver carvedilol 6.25 mg tablet -12 00:00: 00 Yes 1mg Garret Shaver amoxicillin 500 mg capsule 6-12 00:00: 00 Yes 1mg Garret Shaver Kenalog (Triamcinol one) Kenalog (Triamcinol one) 9-08 00:00: 00 No 40mg [facility] Lisinopril 20 MG Lisinopril 20 MG No 1{table t} QD Lisinopril 20 MG Atorvastati n Calcium 10 MG Atorvastati n Calcium 10 MG No 1{table t} QD Atorvastat in Calcium 10 MG QUEtiapine Fumarate 25 MG QUEtiapine Fumarate 25 MG No 1{table t_at_be dtime} QD QUEtiapine Fumarate 25 MG Famotidine 20 MG Famotidine 20 MG No 1{table t_at_be dtime_a s_neede d} QD Famotidine 20 MG Immunizations Ordered Immunization Name Filled Immunization Name Date Status Comments Source Moderna COVID-19 Vaccine Moderna COVID-19 Vaccine 2020-10-21 14:25:00 Completed [facility] Moderna COVID-19 Vaccine Moderna COVID-19 Vaccine 2020-10-21 14:25:00 Completed [facility] Moderna COVID-19 Vaccine Moderna COVID-19 Vaccine 2020-10-21 14:25:00 [facility] Moderna COVID-19 Vaccine Moderna COVID-19 Vaccine 2020-10-21 14:25:00 Completed [facility] Moderna COVID-19 Vaccine Moderna COVID-19 Vaccine 2020-10-21 14:25:00 Completed [facility] Moderna COVID-19 Vaccine Moderna COVID-19 Vaccine 2020-10-21 14:25:00 Completed [facility] Moderna COVID-19 Vaccine Moderna COVID-19 Vaccine 2020-09-23 14:26:00 Completed [facility] Moderna COVID-19 Vaccine Moderna COVID-19 Vaccine 2020-09-23 14:26:00 Completed [facility] Moderna COVID-19 Vaccine Moderna COVID-19 Vaccine 2020-09-23 14:26:00 Completed [facility] Moderna COVID-19 Vaccine Moderna COVID-19 Vaccine 2020-09-23 14:26:00 Completed [facility] Moderna COVID-19 Vaccine Moderna COVID-19 Vaccine 2020-09-23 14:26:00 Completed [facility] Moderna COVID-19 Vaccine Moderna COVID-19 Vaccine 2020-09-23 14:26:00 Completed [facility] Flucelvax (ccIIV4) - MDV - 0.5mL Flucelvax (ccIIV4) - MDV - 0.5mL 2019-03-02 16:17:00 Completed [facility] Flucelvax - multidose vial Flucelvax - multidose vial 2019-03-02 16:17:00 Completed [facility] Flucelvax - multidose vial Flucelvax - multidose vial 2019-03-02 16:17:00 Completed [facility] Flucelvax - multidose vial Flucelvax - multidose vial 2019-03-02 16:17:00 Completed [facility] Flucelvax - multidose vial Flucelvax - multidose vial 2019-03-02 16:17:00 Completed [facility] Flucelvax - multidose vial Flucelvax - multidose vial 2019-03-02 16:17:00 Completed [facility] Moderna COVID-19 Vaccine Moderna COVID-19 Vaccine Unknown Completed [facility] Flucelvax - multidose vial Flucelvax - multidose vial Unknown Completed [facility] Moderna COVID-19 Vaccine Moderna COVID-19 Vaccine Unknown Completed [facility] Flucelvax - multidose vial Flucelvax - multidose vial Unknown Completed [facility] Vital Signs Vital Name Observation Time Observation Value Comments S didier height 2024-09-03 10:00:00 66 [in_i] Commo n [facility] weight 2024-09-03 10:00:00 150 [lb_av] Comm on [facility] temperature 2024-09-03 10:00:00 97.8 [degF] Com [facility] bmi 2024-09-03 10:00:00 24.21 kg/m2 Comm on [facility] blood pressure systolic 2024-09-03 10:00:00 132 mm[Hg] [facility] blood pressure diastolic 2024-09-03 10:00:00 80 mm[Hg] Common [facility] height 2024-07-23 14:00:00 66 [in_i] Commo n [facility] weight 2024-07-23 14:00:00 150 [lb_av] Comm on [facility] temperature 2024-07-23 14:00:00 98.0 [degF] Com [facility] bmi 2024-07-23 14:00:00 24.21 kg/m2 Comm on [facility] blood pressure systolic 2024-07-23 14:00:00 166 mm[Hg] Common [facility] blood pressure diastolic 2024-07-23 14:00:00 91 mm[Hg] Common [facility] height 2022-05-08 10:40:00 66 [in_i] Commo n [facility] weight 2022-05-08 10:40:00 149.5 [lb_av] Co [facility] temperature 2022-05-08 10:40:00 97.3 [degF] Com [facility] bmi 2022-05-08 10:40:00 24.13 kg/m2 Comm on [facility] oximetry 2022-05-08 10:40:00 97 % Commo n [facility] respiratory rate 2022-05-08 10:40:00 17 /min [facility] blood pressure systolic 2022-05-08 10:40:00 123 mm[Hg] Common [facility] blood pressure diastolic 2022-05-08 10:40:00 67 mm[Hg] Common [facility] height 2022-05-08 10:50:00 66 [in_i] Commo n [facility] weight 2022-05-08 10:50:00 149.5 [lb_av] Co [facility] temperature 2022-05-08 10:50:00 97.3 [degF] Com [facility] bmi 2022-05-08 10:50:00 24.13 kg/m2 Comm on [facility] oximetry 2022-05-08 10:50:00 97 % Commo n [facility] respiratory rate 2022-05-08 10:50:00 17 /min Common [facility] blood pressure systolic 2022-05-08 10:50:00 123 mm[Hg] Common [facility] blood pressure diastolic 2022-05-08 10:50:00 67 mm[Hg] Common [facility] height 2022-04-09 15:20:00 66 [in_i] Commo n [facility] weight 2022-04-09 15:20:00 148.7 [lb_av] Co mmon [facility] temperature 2022-04-09 15:20:00 97.9 [degF] Com mon [facility] bmi 2022-04-09 15:20:00 24 kg/m2 Commo n [facility] oximetry 2022-04-09 15:20:00 97 % Commo n [facility] respiratory rate 2022-04-09 15:20:00 17 /min Common [facility] blood pressure systolic 2022-04-09 15:20:00 138 mm[Hg] Common [facility] blood pressure diastolic 2022-04-09 15:20:00 88 mm[Hg] Common [facility] height 2021-11-09 11:00:00 66 [in_i] Commo n [facility] weight 2021-11-09 11:00:00 149.0 [lb_av] Co mmon [facility] temperature 2021-11-09 11:00:00 98.0 [degF] Com [facility] bmi 2021-11-09 11:00:00 24.05 kg/m2 Comm on [facility] oximetry 2021-11-09 11:00:00 97 % Commo n [facility] respiratory rate 2021-11-09 11:00:00 17 /min Common [facility] blood pressure systolic 2021-11-09 11:00:00 127 mm[Hg] Common [facility] blood pressure diastolic 2021-11-09 11:00:00 74 mm[Hg] Common [facility] height 2021-05-04 10:50:00 66 [in_i] Commo n [facility] weight 2021-05-04 10:50:00 151.6 [lb_av] Co mmon [facility] temperature 2021-05-04 10:50:00 97.1 [degF] Com [facility] bmi 2021-05-04 10:50:00 24.47 kg/m2 Comm on [facility] oximetry 2021-05-04 10:50:00 99 % Commo n [facility] respiratory rate 2021-05-04 10:50:00 17 /min [facility] blood pressure systolic 2021-05-04 10:50:00 137 mm[Hg] Common [facility] blood pressure diastolic 2021-05-04 10:50:00 72 mm[Hg] Common [facility] height 2021-05-04 11:20:00 66 [in_i] Commo n [facility] weight 2021-05-04 11:20:00 151.6 [lb_av] Co [facility] temperature 2021-05-04 11:20:00 97.1 [degF] Com [facility] bmi 2021-05-04 11:20:00 24.47 kg/m2 Comm on [facility] oximetry 2021-05-04 11:20:00 99 % Commo n [facility] respiratory rate 2021-05-04 11:20:00 17 /min [facility] blood pressure systolic 2021-05-04 11:20:00 137 mm[Hg] Common [facility] blood pressure diastolic 2021-05-04 11:20:00 72 mm[Hg] Common [facility] height 2021-02-23 08:20:00 66 [in_i] Commo n [facility] weight 2021-02-23 08:20:00 148.6 [lb_av] Co [facility] temperature 2021-02-23 08:20:00 98.0 [degF] Com [facility] bmi 2021-02-23 08:20:00 23.98 kg/m2 Comm on [facility] oximetry 2021-02-23 08:20:00 98 % Commo n [facility] respiratory rate 2021-02-23 08:20:00 18 /min Common [facility] blood pressure systolic 2021-02-23 08:20:00 138 mm[Hg] Common [facility] blood pressure diastolic 2021-02-23 08:20:00 62 mm[Hg] Common [facility] height 2021-01-20 14:00:00 66 [in_i] Commo n [facility] weight 2021-01-20 14:00:00 144.8 [lb_av] Co mmon [facility] temperature 2021-01-20 14:00:00 96.8 [degF] Com mon [facility] bmi 2021-01-20 14:00:00 23.37 kg/m2 Comm on [facility] oximetry 2021-01-20 14:00:00 97 % Commo n [facility] respiratory rate 2021-01-20 14:00:00 18 /min [facility] blood pressure systolic 2021-01-20 14:00:00 110 mm[Hg] [facility] blood pressure diastolic 2021-01-20 14:00:00 85 mm[Hg] [facility] BP Systolic 2024-08-24 11:12:00 162 mm[Hg] Step cesar Shaver BP Diastolic 2024-08-24 11:12:00 91 mm[Hg] Melvin Shaver Weight Measured 2024-08-24 11:12:00 157.40 pounds Garret Shaver Height Measured 2024-08-24 11:12:00 65.00 inches Garret Shaver Body Temperature 2024-08-24 11:12:00 97.80 degrees Garret Shaver Heart Rate 2024-08-24 11:12:00 69.00 /min Laureen Shaver Respiratory Rate 2024-08-24 11:12:00 18.00 /min Garret Bailee Sivakumar BP Systolic 2024-08-18 13:10:00 151 mm[Hg] Step hen F Sivakumar BP Diastolic 2024-08-18 13:10:00 97 mm[Hg] Melvin phen F Sivakumar Weight Measured 2024-08-18 13:10:00 157.60 pounds Garret F Sivakumar Height Measured 2024-08-18 13:10:00 65.00 inches Garret F Sivakumar Body Temperature 2024-08-18 13:10:00 98.00 degrees Garret F Sivakumar Heart Rate 2024-08-18 13:10:00 67.00 /min Laureen en F Sivakumar Respiratory Rate 2024-08-18 13:10:00 18.00 /min Garret F Sivakumar BP Systolic 2024-08-18 10:51:00 151 mm[Hg] Step hen F Sivakumar BP Diastolic 2024-08-18 10:51:00 97 mm[Hg] Melvin phen F Sivakumar Weight Measured 2024-08-18 10:51:00 157.60 pounds Graret F Sivakumar Height Measured 2024-08-18 10:51:00 65.00 inches Garret F Sivakumar Body Temperature 2024-08-18 10:51:00 98.00 degrees Garret F Sivakumar Heart Rate 2024-08-18 10:51:00 67.00 /min Laureen en F Sivakumar Respiratory Rate 2024-08-18 10:51:00 18.00 /min Garret F Sivakumar BP Systolic 2024-08-10 11:29:00 166 mm[Hg] Step hen F Sivakumar BP Diastolic 2024-08-10 11:29:00 94 mm[Hg] Melvin phen F Sivakumar Weight Measured 2024-08-10 11:29:00 158.00 pounds Garret F Sivakumar Height Measured 2024-08-10 11:29:00 65.00 inches Garret F Sivakumar Body Temperature 2024-08-10 11:29:00 98.20 degrees Garret F Sivakumar Heart Rate 2024-08-10 11:29:00 63.00 /min Laureen en F Sivakumar Respiratory Rate 2024-08-10 11:29:00 18.00 /min Garret F Sivakumar BP Systolic 2024-07-27 10:49:00 178 mm[Hg] Step hen F Sivakumar BP Diastolic 2024-07-27 10:49:00 92 mm[Hg] Melvin phen F Sivakumar Weight Measured 2024-07-27 10:49:00 155.00 pounds Garret F Sivakumar Height Measured 2024-07-27 10:49:00 65.00 inches Garret F Sivakumar Body Temperature 2024-07-27 10:49:00 98.00 degrees Garret F Sivakumar Heart Rate 2024-07-27 10:49:00 70.00 /min Laureen en F Sivakumar Respiratory Rate 2024-07-27 10:49:00 18.00 /min Garret F Sivakumar BP Systolic 2024-07-23 10:12:00 136 mm[Hg] Step hen F Sivakumar BP Diastolic 2024-07-23 10:12:00 100 mm[Hg] Melvin phen F Sivakumar Weight Measured 2024-07-23 10:12:00 156.00 pounds Garret F Sivakumar Height Measured 2024-07-23 10:12:00 65.00 inches Garret F Sivakumar Body Temperature 2024-07-23 10:12:00 98.30 degrees Garret F Sivakumar Heart Rate 2024-07-23 10:12:00 78.00 /min Laureen en F Sivakumar Respiratory Rate 2024-07-23 10:12:00 18.00 /min Garret F Sivakumar BP Systolic 2024-07-13 10:30:00 183 mm[Hg] Step hen F Sivakumar BP Diastolic 2024-07-13 10:30:00 103 mm[Hg] Melvin phen F Sivakumar Weight Measured 2024-07-13 10:30:00 155.00 pounds Garret F Sivakumar Height Measured 2024-07-13 10:30:00 65.00 inches Garret F Sivakumar Body Temperature 2024-07-13 10:30:00 97.90 degrees Garret F Sivakumar Heart Rate 2024-07-13 10:30:00 74.00 /min Laureen en F Sivakumar Respiratory Rate 2024-07-13 10:30:00 18.00 /min Garret F Sivakumar BP Systolic 2024-06-09 10:35:00 124 mm[Hg] Step hen F Sivakumar BP Diastolic 2024-06-09 10:35:00 93 mm[Hg] Melvin phen F Sivakumar Weight Measured 2024-06-09 10:35:00 153.00 pounds Garret F Sivakumar Height Measured 2024-06-09 10:35:00 65.00 inches Garret F Sivakumar Body Temperature 2024-06-09 10:35:00 98.10 degrees Garret F Sivakumar Heart Rate 2024-06-09 10:35:00 78.00 /min Laureen en F Sivakumar Respiratory Rate 2024-06-09 10:35:00 18.00 /min Garret F Sivakumar BP Systolic 2024-05-19 13:23:00 138 mm[Hg] Step hen F Sivakumar BP Diastolic 2024-05-19 13:23:00 106 mm[Hg] Melvin phen F Sivakumar Weight Measured 2024-05-19 13:23:00 151.00 pounds Garret F Sivakumar Height Measured 2024-05-19 13:23:00 65.00 inches Garret F Sivakumar Body Temperature 2024-05-19 13:23:00 98.10 degrees Garret F Sivakumar Heart Rate 2024-05-19 13:23:00 76.00 /min Laureen en F Sivakumar Respiratory Rate 2024-05-19 13:23:00 18.00 /min Garret F Sivakumar BP Systolic 2024-05-04 14:10:00 102 mm[Hg] Step hen F Sivakumar BP Diastolic 2024-05-04 14:10:00 75 mm[Hg] Melvin phen F Sivakumar Weight Measured 2024-05-04 14:10:00 149.00 pounds Garret F Sivakumar Height Measured 2024-05-04 14:10:00 65.00 inches Garret F Sivakumar Body Temperature 2024-05-04 14:10:00 99.20 degrees Garret F Sivakumar Heart Rate 2024-05-04 14:10:00 85.00 /min Laureen en F Sivakumar Respiratory Rate 2024-05-04 14:10:00 16.00 /min Garret F Sivakumar BP Systolic 2024-04-20 11:56:00 143 mm[Hg] Step hen F Sivakumar BP Diastolic 2024-04-20 11:56:00 95 mm[Hg] Melvin phen F Sivakumar Weight Measured 2024-04-20 11:56:00 154.60 pounds Garret F Sivakumar Height Measured 2024-04-20 11:56:00 65.00 inches Garret F Sivakumar Body Temperature 2024-04-20 11:56:00 98.40 degrees Garret F Sivakumar Heart Rate 2024-04-20 11:56:00 82.00 /min Laureen en F Sivakumar Respiratory Rate 2024-04-20 11:56:00 16.00 /min Garret F Sivakumar BP Systolic 2024-04-15 11:28:00 149 mm[Hg] Step hen F Sivakumar BP Diastolic 2024-04-15 11:28:00 100 mm[Hg] Melvin phen F Sivakumar Weight Measured 2024-04-15 11:28:00 154.00 pounds Garret F Sivakumar Height Measured 2024-04-15 11:28:00 65.00 inches Garret F Sivakumar Body Temperature 2024-04-15 11:28:00 98.10 degrees Garret F Sivakumar Heart Rate 2024-04-15 11:28:00 83.00 /min Laureen en F Sivakumar Respiratory Rate 2024-04-15 11:28:00 18.00 /min Garret F Sivakumar BP Systolic 2024-03-26 11:36:00 120 mm[Hg] Step hen F Sivakumar BP Diastolic 2024-03-26 11:36:00 80 mm[Hg] Melvin phen F Sivakumar Weight Measured 2024-03-26 11:36:00 154.00 pounds Garret F Sivakumar Height Measured 2024-03-26 11:36:00 65.00 inches Garret F Sivakumar Body Temperature 2024-03-26 11:36:00 97.70 degrees Garret F Sivakumar Heart Rate 2024-03-26 11:36:00 85.00 /min Laureen en F Sivakumar Respiratory Rate 2024-03-26 11:36:00 18.00 /min Garret F Sivakumar BP Systolic 2024-03-19 09:40:00 132 mm[Hg] Step hen F Sivakumar BP Diastolic 2024-03-19 09:40:00 93 mm[Hg] Melvin phen F Sivakumar Weight Measured 2024-03-19 09:40:00 152.00 pounds Garret F Sivakumar Height Measured 2024-03-19 09:40:00 65.00 inches Garret F Sivakumar Body Temperature 2024-03-19 09:40:00 98.10 degrees Garret F Sivakumar Heart Rate 2024-03-19 09:40:00 82.00 /min Laureen en F Sivakumar Respiratory Rate 2024-03-19 09:40:00 100.00 /min Garret F Sivakumar BP Systolic 2024-03-06 10:22:00 120 mm[Hg] Step hen F Sivakumar BP Diastolic 2024-03-06 10:22:00 80 mm[Hg] Melvin phen F Sivakumar Weight Measured 2024-03-06 10:22:00 153.00 pounds Garret F Sivakumar Height Measured 2024-03-06 10:22:00 65.00 inches Garret F Sivakumar Body Temperature 2024-03-06 10:22:00 97.90 degrees Garret F Sivakumar Heart Rate 2024-03-06 10:22:00 76.00 /min Laureen en F Sivakumar Respiratory Rate 2024-03-06 10:22:00 18.00 /min Garret F Sivakumar BP Systolic 2024-02-14 16:16:00 Step hen F Sivakumar BP Diastolic 2024-02-14 16:16:00 Melvin phen F Sivakumar Weight Measured 2024-02-14 16:16:00 Garret F Sivakumar Height Measured 2024-02-14 16:16:00 Garret F Sivakumar Body Temperature 2024-02-14 16:16:00 Garret F Sivakumar Heart Rate 2024-02-14 16:16:00 Laureen en F Sivakumar Respiratory Rate 2024-02-14 16:16:00 Garret F Sivakumar BP Systolic 2024-02-11 15:20:00 134 mm[Hg] Step hen F Sivakumar BP Diastolic 2024-02-11 15:20:00 80 mm[Hg] Melvin phen F Sivkaumar Weight Measured 2024-02-11 15:20:00 152.00 pounds Garret F Sivakumar Height Measured 2024-02-11 15:20:00 65.00 inches Garret F Sivakumar Body Temperature 2024-02-11 15:20:00 98.10 degrees Garret F Sivakumar Heart Rate 2024-02-11 15:20:00 81.00 /min Laureen en F Sivakumar Respiratory Rate 2024-02-11 15:20:00 16.00 /min Garret F Sivakumar BP Systolic 2023-10-17 13:56:00 142 mm[Hg] Step hen F Sivakumar BP Diastolic 2023-10-17 13:56:00 91 mm[Hg] Melvin phen F Sivakumar Weight Measured 2023-10-17 13:56:00 148.00 pounds Garret F Sivakumar Height Measured 2023-10-17 13:56:00 65.00 inches Graret F Sivakumar Body Temperature 2023-10-17 13:56:00 98.30 degrees Garret F Sivakumar Heart Rate 2023-10-17 13:56:00 74.00 /min Laureen en F Sivakumar Respiratory Rate 2023-10-17 13:56:00 18.00 /min Garret F Sivakumar BP Systolic 2023-08-20 10:28:00 132 mm[Hg] Step hen F Sivakumar BP Diastolic 2023-08-20 10:28:00 90 mm[Hg] Melvin phen F Sivakumar Weight Measured 2023-08-20 10:28:00 153.00 pounds Garret F Sivakumar Height Measured 2023-08-20 10:28:00 65.00 inches Garret F Sivakumar Body Temperature 2023-08-20 10:28:00 98.00 degrees Garret F Sivakumar Heart Rate 2023-08-20 10:28:00 77.00 /min Laureen en F Sivakumar Respiratory Rate 2023-08-20 10:28:00 18.00 /min Garret F Sivakumar BP Systolic 2023-08-14 08:50:00 138 mm[Hg] Step hen F Sivakumar BP Diastolic 2023-08-14 08:50:00 98 mm[Hg] Melvin phen F Sivakumar Weight Measured 2023-08-14 08:50:00 151.00 pounds Garret F Sivakumar Height Measured 2023-08-14 08:50:00 65.00 inches Garret F Sivakumar Body Temperature 2023-08-14 08:50:00 97.60 degrees Garret F Sivakumar Heart Rate 2023-08-14 08:50:00 58.00 /min Laureen en F Sivakumar Respiratory Rate 2023-08-14 08:50:00 18.00 /min Garret F Sivakumar Encounters Start Date/Time End Date/Time Encounter Type Admission Type Attending Clinicians Care Facility Care Department Encounter ID Source 2021-09-19 16:15:00 Outpatient JeisonMendel [facility] [id number] [facility] 2021-03-29 14:27:51 Outpatient JeisonMendel [facility] [id number] [facility] 2021-03-29 13:22:07 Outpatient Mchugh, Mendel [facility] [id number] [facility] 2021-03-29 13:18:49 Outpatient Mchugh, Mendel [facility] STLMLC [id number] [facility] 2021-03-29 13:18:11 Outpatient Mchugh, Mendel STLMLC STLMLC [id number] [facility] 2021-03-29 13:10:19 Outpatient Mchugh, Mendel STLMLC STLMLC [id number] [facility] 2021-03-29 13:04:07 Outpatient Mchugh, Mendel STLMLC STLMLC [id number] [facility] 2021-03-29 12:33:45 Outpatient Mchugh, Mendel STLMLC STLMLC [id number] [facility] 2021-03-29 12:31:45 Outpatient Mchuhg, Mendel STLMLC STLMLC [id number] [facility] 2021-03-29 12:31:20 Outpatient Mchugh, Mendel STLMLC STLMLC [id number] [facility] 2021-03-29 12:31:00 Outpatient Mchugh, Mendel STLMLC STLMLC [id number] [facility] 2021-03-29 12:30:20 Outpatient Mchugh, Mendel STLMLC STLMLC [id number] [facility] 2021-03-29 11:17:40 Outpatient Mchugh, Mendel STLMLC STLMLC [id number] [facility] 2021-03-29 11:13:02 Outpatient Mchugh, Mendel STLMLC STLMLC [id number] [facility] 2021-03-29 10:59:42 Outpatient Mchugh, Mendel STLMLC STLMLC [id number] [facility] 2024-09-03 00:00:00 2024-09-03 00:00:00 OFFICE VISIT ESTAB PT LEVEL 3 STLMLC STLMLC [id number] [facility] 2024-08-24 00:00:00 2024-08-24 00:00:00 Outpatient Visit SFA [id number] Garret Shaver 2024-08-19 00:00:00 2024-08-19 00:00:00 (TEL) STLMLC STLMLC [id number] [facility] 2024-08-18 10:41:23 2024-08-18 10:41:23 Outpatient SFA SFA [id number] Garret Shaver 2024-08-18 00:00:00 2024-08-18 00:00:00 Outpatient Visit SFA [id number] Garret Shaver 2024-08-11 09:59:04 2024-08-11 09:59:04 Outpatient SFA SFA [id number] Garret Shaver 2024-08-10 11:21:11 2024-08-10 11:21:11 Outpatient SFA SFA [id number] Garret Shaver 2024-08-10 00:00:00 2024-08-10 00:00:00 Outpatient Visit SFA [id number] Garret Shaver 2024-07-27 10:40:14 2024-07-27 10:40:14 Outpatient SFA SFA [id number] Garret Shaver 2024-07-27 00:00:00 2024-07-27 00:00:00 Outpatient Visit SFA [id number] Garret Shaver 2024-07-23 10:01:17 2024-07-23 10:01:17 Outpatient SFA SFA [id number] Garret Shaver 2024-07-23 00:00:00 2024-07-23 00:00:00 OFFICE VISIT NEW PT LEVEL 3 STLMLC STLMLC [id number] [facility] 2024-07-23 00:00:00 2024-07-23 00:00:00 Outpatient Visit SFA [id number] Garret Shaver 2024-07-13 10:16:45 2024-07-13 10:16:45 Outpatient SFA SFA [id number] Garret Shaver 2024-07-13 00:00:00 2024-07-13 00:00:00 Outpatient Visit SFA [id number] Garret Shaver 2024-06-09 10:24:27 2024-06-09 10:24:27 Outpatient SFA SFA [id number] Garret Shaver 2024-06-09 00:00:00 2024-06-09 00:00:00 Outpatient Visit SFA [id number] Garret Shaver 2024-05-19 00:00:00 2024-05-19 00:00:00 Outpatient Visit SFA [id number] Garret Shaver 2024-05-04 14:02:07 2024-05-04 14:02:07 Outpatient SFA SFA [id number] Garret Shaver 2024-05-04 00:00:00 2024-05-04 00:00:00 Outpatient Visit SFA [id number] Garret Shaver 2024-04-20 11:27:01 2024-04-20 11:27:01 Outpatient SFA SFA [id number] Garret Shaver 2024-04-20 00:00:00 2024-04-20 00:00:00 Outpatient Visit SFA [id number] Garret Shaver 2024-04-15 11:18:35 2024-04-15 11:18:35 Outpatient SFA SFA [id number] Garret Shaver 2024-04-15 00:00:00 2024-04-15 00:00:00 Outpatient Visit SFA [id number] Garret Shaver 2024-03-26 11:24:03 2024-03-26 11:24:03 Outpatient SFA SFA [id number] Graret Shaver 2024-03-26 00:00:00 2024-03-26 00:00:00 Outpatient Visit SFA [id number] Garret Shaver 2024-03-19 09:30:44 2024-03-19 09:30:44 Outpatient SFA SFA [id number] Garret Shaver 2024-03-19 00:00:00 2024-03-19 00:00:00 Outpatient Visit SFA [id number] Garret Shaver 2024-03-06 10:13:48 2024-03-06 10:13:48 Outpatient SFA SFA [id number] Garret Shaver 2024-03-06 00:00:00 2024-03-06 00:00:00 Outpatient Visit SFA [id number] Garret Shaver 2024-02-14 00:00:00 2024-02-14 00:00:00 Outpatient Visit SFA [id number] Garret Shaver 2024-02-11 00:00:00 2024-02-11 00:00:00 Outpatient Visit SFA [id number] Garret Shaver 2023-10-17 13:45:32 2023-10-17 13:45:32 Outpatient SFA SFA [id number] Garret Shaver 2023-10-17 00:00:00 2023-10-17 00:00:00 Outpatient Visit SFA [id number] Garret Shaver 2023-09-25 15:33:25 2023-09-25 15:33:25 Outpatient SFA SFA [id number] Garret Shaver 2023-09-25 00:00:00 2023-09-25 00:00:00 Outpatient Visit SFA [id number] Garret Shaver 2023-09-25 00:00:00 2023-09-25 00:00:00 Outpatient Visit SFA [id number] Garret Shaver 2023-08-20 10:15:05 2023-08-20 10:15:05 Outpatient SFA SFA [id number] Garret Shaver 2023-08-20 00:00:00 2023-08-20 00:00:00 Outpatient Visit SFA [id number] Garret Shaver 2023-08-14 08:48:35 2023-08-14 08:48:35 Outpatient SFA SFA [id number] Garret Shaver 2023-08-14 00:00:00 2023-08-14 00:00:00 Outpatient Visit SFA [id number] Garret Shaver 2022-05-08 00:00:00 2022-05-08 00:00:00 OFFICE VISIT ESTAB PT LEVEL 4 STLMLC STLMLC [id number] [facility] 2022-05-08 00:00:00 2022-05-08 00:00:00 SUB ANNUAL MCR WELLNESS VISIT STLMLC STLMLC [id number] [facility] 2022-04-09 00:00:00 2022-04-09 00:00:00 (TEL) STLMLC STLMLC [id number] [facility] 2022-04-09 00:00:00 2022-04-09 00:00:00 OFFICE VISIT ESTAB PT LEVEL 3 STLMLC STLMLC [id number] [facility] 2021-12-29 00:00:00 2021-12-29 00:00:00 (TEL) STLMLC STLMLC [id number] [facility] 2021-11-09 00:00:00 2021-11-09 00:00:00 OFFICE VISIT ESTAB PT LEVEL 4 STLMLC STLMLC [id number] [facility] 2021-10-23 00:00:00 2021-10-23 00:00:00 (TEL) STLMLC STLMLC [id number] [facility] 2021-05-04 00:00:00 2021-05-04 00:00:00 OFFICE VISIT ESTAB PT LEVEL 4 STLMLC STLMLC [id number] [facility] 2021-05-04 00:00:00 2021-05-04 00:00:00 SUB ANNUAL MCR WELLNESS VISIT STLMLC STLMLC [id number] [facility] 2021-05-04 00:00:00 2021-05-04 00:00:00 (TEL) STLMLC STLMLC [id number] [facility] 2021-02-23 00:00:00 2021-02-23 00:00:00 OFFICE VISIT ESTAB PT LEVEL 4 STLMLC STLMLC [id number] [facility] 2021-01-25 00:00:00 2021-01-25 00:00:00 (TEL) STLMLC STLMLC [id number] [facility] 2021-01-20 00:00:00 2021-01-20 00:00:00 OFFICE VISIT EST PT LEVEL 3 STLMLC STLMLC [id number] [facility] 2021-01-19 00:00:00 2021-01-19 00:00:00 (TEL) STLMLC STLMLC [id number] [facility] 2020-09-06 00:00:00 2020-09-06 00:00:00 Outpatient STLMLC STLMLC [id number] [facility] 2020-09-01 00:00:00 2020-09-01 00:00:00 Outpatient STLMLC STLMLC [id number] [facility] 2020-08-26 00:00:00 2020-08-26 00:00:00 Outpatient STLMLC STLMLC [id number] [facility] 2020-08-26 00:00:00 2020-08-26 00:00:00 (TEL) STLMLC STLMLC [id number] [facility] 2020-08-24 00:00:00 2020-08-24 00:00:00 Outpatient STLMLC STLMLC [id number] [facility] 2020-08-02 00:00:00 2020-08-02 00:00:00 Outpatient STLMLC STLMLC [id number] [facility] 2020-07-18 00:00:00 2020-07-18 00:00:00 Outpatient STLMLC STLMLC [id number] [facility] 2020-06-21 00:00:00 2020-06-21 00:00:00 Outpatient STLMLC STLMLC [id number] [facility] 2020-06-17 00:00:00 2020-06-17 00:00:00 Outpatient STLMLC STLMLC [id number] [facility] 2020-04-27 00:00:00 2020-04-27 00:00:00 Outpatient STLMLC STLMLC [id number] [facility] 2020-04-01 00:00:00 2020-04-01 00:00:00 Outpatient STLMLC STLMLC [id number] [facility] 2019-12-16 00:00:00 2019-12-16 00:00:00 Outpatient STLMLC STLMLC [id number] [facility] 2019-12-16 00:00:00 2019-12-16 00:00:00 Outpatient STLMLC STLMLC [id number] [facility] 2019-11-04 08:55:00 2019-11-04 08:55:[address] [facility] [id number] [facility] 2019-10-15 09:45:00 2019-10-15 09:45:[address] [facility] [id number] [facility] 2019-10-14 08:01:00 2019-10-14 08:01:[address] [facility] [id number] [facility] 2019-10-12 16:20:00 2019-10-12 16:20:[address] [facility] [id number] [facility] 2019-10-12 11:30:00 2019-10-12 11:30:[address] [facility] [id number] [facility] 2019-06-16 11:00:00 2019-06-16 11:00:[address] [facility] [id number] [facility] 2019-06-15 09:07:00 2019-06-15 09:07:[address] [facility] [id number] [facility] 2019-05-18 10:00:00 2019-05-18 10:00:[address] [facility] [id number] [facility] 2019-05-14 09:40:00 2019-05-14 09:40:[address] [facility] [facility] [id number] [facility] 2019-04-02 09:45:00 2019-04-02 09:45:[address] [facility] [id number] [facility] 2019-03-19 08:22:00 2019-03-19 08:22:[address] [facility] [id number] [facility] 2019-03-16 14:30:00 2019-03-16 14:30:00 [facility] [facility] [id number] [facility] 2019-03-05 16:05:00 2019-03-05 16:05:[address] [facility] [id number] [facility] 2018-12-29 16:51:00 2018-12-29 16:51:00 [facility] [id number] [facility] 2018-12-03 14:15:00 2018-12-03 14:15:[address] [facility] [id number] [facility] 2018-11-19 08:34:00 2018-11-19 08:34:00 [facility] [facility] [id number] [facility] 2018-11-17 09:00:00 2018-11-17 09:00:00 Out[facility] [id number] [facility] 2018-11-11 08:21:00 2018-11-11 08:21:00 [facility] [facility] [id number] [facility] 2018-09-17 13:27:00 2018-09-17 13:27:00 [facility] [facility] [id number] [facility] 2018-09-02 10:00:00 2018-09-02 10:00:00 [facility] [id number] [facility] 2018-06-02 10:50:00 2018-06-02 10:50:00 [address] [facility] [id number] [facility] 2018-06-02 08:30:00 2018-06-02 08:30:00 [facility] [facility] [id number] [facility] 2018-04-21 10:30:00 2018-04-21 10:30:00 [facility] [facility] [id number] [facility] 2018-04-09 11:07:00 2018-04-09 11:07:00 [facility] [facility] [id number] [facility] 2018-03-10 15:15:00 2018-03-10 15:15:00 [facility] [facility] [id number] [facility] 2017-09-09 10:47:00 2017-09-09 10:47:00 [address] [facility] [id number] [facility] 2017-08-06 15:49:00 2017-08-06 15:49:00 [facility] [id number] [facility] 2017-08-06 11:15:00 2017-08-06 11:15:00 [facility] [id number] [facility] 2017-08-06 11:06:00 2017-08-06 11:06:00 [facility] [facility] [id number] [facility] Results Test Description Test Time Test Comments Results Result Co mments Source Garret Morocho AustinLIPID [id number] 00:00:00* Test Item Value Reference Range Interpretation Comme nts CHOLESTEROL, TOTAL (test cod e = 2093-3) 133 mg/dL HDL CHOLESTEROL (test code = 2085-9) 46 mg/dL TRIGLYCERIDES (test code = 2571-8) 107 mg/dL LDL-CHOLESTEROL (test code = 68640-3) 68 mg/dL(calc) CHOL/HDLC RATIO (test code = 9830-1) 2.9 (calc) NON HDL CHOLESTEROL (test co de = 48045-0) 87 mg/dL(calc) Garret Morocho AustinURINALYSIS [id number] 00:00:00* Test Item Value Reference Range Interpretation Comme nts COLOR (test code = 5778-6) YELLOW APPEARANCE (test code = 5767-9) CLEAR SPECIFIC GRAVITY (test code = 5811-5) 1.021 PH (test code = 5803-2) 5.5 GLUCOSE (test code = 77777-2) NEGATIVE BILIRUBIN (test code = 5770-3) NEGATIVE KETONES (test code = 2514-8) TRACE OCCULT BLOOD (test code = 5794-3) NEGATIVE PROTEIN (test code = 10170-6) TRACE NITRITE (test code = 5802-4) NEGATIVE LEUKOCYTE ESTERASE (test cod e = 5799-2) 1+ WBC (test code = 5821-4) 0-5 /HPF RBC (test code = 86604-0) 0-2 /HPF SQUAMOUS EPITHELIAL CELLS (test code = 72440-3) 10-20 /HPF TRANSITIONAL EPITHELIAL CELL S (test code = 63918-3) DNR /HPF RENAL EPITHELIAL CELLS (test code = 15454-9) DNR /HPF BACTERIA (test code = 5769-5) MODERATE /HPF CALCIUM OXALATE CRYSTALS (te st code = 99991-4) DNR /HPF TRIPLE PHOSPHATE CRYSTALS (test code = 47437-8) DNR /HPF URIC ACID CRYSTALS (test cod e = 10215-2) DNR /HPF AMORPHOUS SEDIMENT (test cod e = 8246-1) DNR /HPF CRYSTALS (test code = 63697-2) DNR /HPF HYALINE CAST (test code = 5796-8) NONE SEEN /LPF GRANULAR CAST (test code = 5793-5) DNR /LPF CASTS (test code = 9842-6) DNR /LPF YEAST (test code = 5822-2) DNR /HPF COMMENTS (test code = 8251-1) DNR Garret ShaverCOMPREHENSIVE METABOLIC [id number] 00:00:00* Test Item Value Reference Range Interpretation Comme nts GLUCOSE (test code = 2345-7) 70 mg/dL UREA NITROGEN (BUN) (test code = 3094-0) 19 mg/dL CREATININE (test code = 2160-0) 1.52 mg/dL EGFR (test code = 99843-9) 39 mL/min/1.73m2 BUN/CREATININE RATIO (test code = 3097-3) 13 (calc) SODIUM (test code = 2951-2) 145 mmol/L POTASSIUM (test code = 2823-3) 4.1 mmol/L CHLORIDE (test code = 2075-0) 113 mmol/L CARBON DIOXIDE (test code = 2027-9) 23 mmol/L CALCIUM (test code = 69527-5) 9.4 mg/dL PROTEIN, TOTAL (test code = 2885-2) 6.6 g/dL ALBUMIN (test code = 1751-7) 4.0 g/dL GLOBULIN (test code = 72288-7) 2.6 g/dL(calc) ALBUMIN/GLOBULIN RATIO (test code = 1759-0) 1.5 (calc) BILIRUBIN, TOTAL (test code = 1975-2) 0.6 mg/dL ALKALINE PHOSPHATASE (test code = 6768-6) 89 U/L AST (test code = 1920-8) 13 U/L ALT (test code = 1742-6) 11 U/L Garret Morocho AustinLIPID [id number] 00:00:00* Test Item Value Reference Range Interpretation Comme nts CHOLESTEROL, TOTAL (test cod e = 2093-3) 133 mg/dL HDL CHOLESTEROL (test code = 2085-9) 46 mg/dL TRIGLYCERIDES (test code = 2571-8) 107 mg/dL LDL-CHOLESTEROL (test code = 27275-2) 68 mg/dL(calc) CHOL/HDLC RATIO (test code = 9830-1) 2.9 (calc) NON HDL CHOLESTEROL (test co de = 98573-1) 87 mg/dL(calc) Garret Morocho AustinURINALYSIS [id number] 00:00:00* Test Item Value Reference Range Interpretation Comme nts COLOR (test code = 5778-6) YELLOW APPEARANCE (test code = 5767-9) CLEAR SPECIFIC GRAVITY (test code = 5811-5) 1.021 PH (test code = 5803-2) 5.5 GLUCOSE (test code = 86012-5) NEGATIVE BILIRUBIN (test code = 5770-3) NEGATIVE KETONES (test code = 2514-8) TRACE OCCULT BLOOD (test code = 5794-3) NEGATIVE PROTEIN (test code = 58125-4) TRACE NITRITE (test code = 5802-4) NEGATIVE LEUKOCYTE ESTERASE (test cod e = 5799-2) 1+ WBC (test code = 5821-4) 0-5 /HPF RBC (test code = 84140-8) 0-2 /HPF SQUAMOUS EPITHELIAL CELLS (test code = 34214-5) 10-20 /HPF TRANSITIONAL EPITHELIAL CELL S (test code = 95830-7) DNR /HPF RENAL EPITHELIAL CELLS (test code = 95138-1) DNR /HPF BACTERIA (test code = 5769-5) MODERATE /HPF CALCIUM OXALATE CRYSTALS (te st code = 74625-0) DNR /HPF TRIPLE PHOSPHATE CRYSTALS (test code = 68161-2) DNR /HPF URIC ACID CRYSTALS (test cod e = 10641-0) DNR /HPF AMORPHOUS SEDIMENT (test cod e = 8246-1) DNR /HPF CRYSTALS (test code = 46116-6) DNR /HPF HYALINE CAST (test code = 5796-8) NONE SEEN /LPF GRANULAR CAST (test code = 5793-5) DNR /LPF CASTS (test code = 9842-6) DNR /LPF YEAST (test code = 5822-2) DNR /HPF COMMENTS (test code = 8251-1) DNR Garret F SivakumarCOMPREHENSIVE METABOLIC [id number] 00:00:00* Test Item Value Reference Range Interpretation Comme nts GLUCOSE (test code = 2345-7) 70 mg/dL UREA NITROGEN (BUN) (test code = 3094-0) 19 mg/dL CREATININE (test code = 2160-0) 1.52 mg/dL EGFR (test code = 15869-5) 39 mL/min/1.73m2 BUN/CREATININE RATIO (test code = 3097-3) 13 (calc) SODIUM (test code = 2951-2) 145 mmol/L POTASSIUM (test code = 2823-3) 4.1 mmol/L CHLORIDE (test code = 2075-0) 113 mmol/L CARBON DIOXIDE (test code = 2027-9) 23 mmol/L CALCIUM (test code = 43962-3) 9.4 mg/dL PROTEIN, TOTAL (test code = 2885-2) 6.6 g/dL ALBUMIN (test code = 1751-7) 4.0 g/dL GLOBULIN (test code = 16786-2) 2.6 g/dL(calc) ALBUMIN/GLOBULIN RATIO (test code = 1759-0) 1.5 (calc) BILIRUBIN, TOTAL (test code = 1975-2) 0.6 mg/dL ALKALINE PHOSPHATASE (test code = 6768-6) 89 U/L AST (test code = 1920-8) 13 U/L ALT (test code = 1742-6) 11 U/L Garret ShaverLIPID [id number] 00:00:00* Test Item Value Reference Range Interpretation Comme nts CHOLESTEROL, TOTAL (test cod e = 2093-3) 133 mg/dL HDL CHOLESTEROL (test code = 5-9) 46 mg/dL TRIGLYCERIDES (test code = 2571-8) 107 mg/dL LDL-CHOLESTEROL (test code = 64738-9) 68 mg/dL(calc) CHOL/HDLC RATIO (test code = 9830-1) 2.9 (calc) NON HDL CHOLESTEROL (test co de = 51203-1) 87 mg/dL(calc) Garret Morocho AustinURINALYSIS [id number] 00:00:00* Test Item Value Reference Range Interpretation Comme nts COLOR (test code = 5778-6) YELLOW APPEARANCE (test code = 5767-9) CLEAR SPECIFIC GRAVITY (test code = 5811-5) 1.021 PH (test code = 5803-2) 5.5 GLUCOSE (test code = 75921-1) NEGATIVE BILIRUBIN (test code = 5770-3) NEGATIVE KETONES (test code = 2514-8) TRACE OCCULT BLOOD (test code = 5794-3) NEGATIVE PROTEIN (test code = 75035-4) TRACE NITRITE (test code = 5802-4) NEGATIVE LEUKOCYTE ESTERASE (test cod e = 5799-2) 1+ WBC (test code = 5821-4) 0-5 /HPF RBC (test code = 26105-0) 0-2 /HPF SQUAMOUS EPITHELIAL CELLS (test code = 65660-8) 10-20 /HPF TRANSITIONAL EPITHELIAL CELL S (test code = 75300-3) DNR /HPF RENAL EPITHELIAL CELLS (test code = 72744-6) DNR /HPF BACTERIA (test code = 5769-5) MODERATE /HPF CALCIUM OXALATE CRYSTALS (te st code = 32357-7) DNR /HPF TRIPLE PHOSPHATE CRYSTALS (test code = 44979-2) DNR /HPF URIC ACID CRYSTALS (test cod e = 35149-3) DNR /HPF AMORPHOUS SEDIMENT (test cod e = 8246-1) DNR /HPF CRYSTALS (test code = 28597-7) DNR /HPF HYALINE CAST (test code = 5796-8) NONE SEEN /LPF GRANULAR CAST (test code = 5793-5) DNR /LPF CASTS (test code = 9842-6) DNR /LPF YEAST (test code = 5822-2) DNR /HPF COMMENTS (test code = 8251-1) DNR Garret F AustinVAGINAL PATHOGENS DNA [id number] 00:00:00* Test Item Value Reference Range Interpretation Comme nts LESLY SPECIES (test code = ) NEGATIVE G. VAGINALIS (test code = 99884) NEGATIVE T. VAGINALIS (test code = 25872) NEGATIVE [facility] [id number] 00:00:00* Test Item Value Reference Range Interpretation Comme nts LESLY SPECIES (test code = 24698) NEGATIVE G. VAGINALIS (test code = 03962) NEGATIVE T. VAGINALIS (test code = 50050) NEGATIVE [facility] [id number] 00:00:00* Test Item Value Reference Range Interpretation Comme nts LESLY SPECIES (test code = 29445) NEGATIVE G. VAGINALIS (test code = 27014) NEGATIVE T. VAGINALIS (test code = 62505) NEGATIVE [facility] [id number] 00:00:00* Test Item Value Reference Range Interpretation Comme nts LESLY SPECIES (test code = 08384) NEGATIVE G. VAGINALIS (test code = 67214) NEGATIVE T. VAGINALIS (test code = 05043) NEGATIVE [facility] [id number] 00:00:00* Test Item Value Reference Range Interpretation Comme nts LESLY SPECIES (test code = ) NEGATIVE G. VAGINALIS (test code = 64246) NEGATIVE T. VAGINALIS (test code = 98296) NEGATIVE [facility] [id number] 00:00:00* Test Item Value Reference Range Interpretation Comme nts LESLY SPECIES (test code = 92686) NEGATIVE G. VAGINALIS (test code = 09807) NEGATIVE T. VAGINALIS (test code = 98418) NEGATIVE [facility] [id number] 00:00:00* Test Item Value Reference Range Interpretation Comme nts LESLY SPECIES (test code = 60641) NEGATIVE G. VAGINALIS (test code = 52505) NEGATIVE T. VAGINALIS (test code = 91637) NEGATIVE [facility] [id number] 00:00:00* Test Item Value Reference Range Interpretation Comme nts LESLY SPECIES (test code = 78740) NEGATIVE G. VAGINALIS (test code = 57274) NEGATIVE T. VAGINALIS (test code = 00459) NEGATIVE [facility] [id number] 00:00:00* Test Item Value Reference Range Interpretation Comme nts LESLY SPECIES (test code = 79432) NEGATIVE G. VAGINALIS (test code = 70297) NEGATIVE T. VAGINALIS (test code = 41747) NEGATIVE [facility] [id number] 00:00:00* Test Item Value Reference Range Interpretation Comme nts LESLY SPECIES (test code = 23664) NEGATIVE G. VAGINALIS (test code = 26873) NEGATIVE T. VAGINALIS (test code = 00352) NEGATIVE [facility] [id number] 00:00:00* Test Item Value Reference Range Interpretation Comme nts LESLY SPECIES (test code = 08721) NEGATIVE G. VAGINALIS (test code = 90178) NEGATIVE T. VAGINALIS (test code = 25187) NEGATIVE [facility] [id number] 00:00:00* Test Item Value Reference Range Interpretation Comme nts LESLY SPECIES (test code = 40475) NEGATIVE G. VAGINALIS (test code = 74826) NEGATIVE T. VAGINALIS (test code = 04788) NEGATIVE Garret F AustinVAGINAL PATHOGENS DNA [id number] 00:00:00* Test Item Value Reference Range Interpretation Comme nts LESLY SPECIES (test code = 10115) NEGATIVE G. VAGINALIS (test code = 99966) NEGATIVE T. VAGINALIS (test code = 19692) NEGATIVE Garret F AustinVAGINAL PATHOGENS DNA [id number] 00:00:00* Test Item Value Reference Range Interpretation Comme nts LESLY SPECIES (test code = 74022) NEGATIVE G. VAGINALIS (test code = 10642) NEGATIVE T. VAGINALIS (test code = 27992) NEGATIVE Garret F AustinVAGINAL PATHOGENS DNA [id number] 00:00:00* Test Item Value Reference Range Interpretation Comme nts LESLY SPECIES (test code = 56809) NEGATIVE G. VAGINALIS (test code = 59444) NEGATIVE T. VAGINALIS (test code = 42851) NEGATIVE Garret F AustinVAGINAL PATHOGENS DNA [id number] 00:00:00* Test Item Value Reference Range Interpretation Comme nts LESLY SPECIES (test code = 37378) NEGATIVE G. VAGINALIS (test code = 04269) NEGATIVE T. VAGINALIS (test code = 69838) NEGATIVE Garret F AustinVAGINAL PATHOGENS DNA [id number] 00:00:00* Test Item Value Reference Range Interpretation Comme nts LESLY SPECIES (test code = 07161) NEGATIVE G. VAGINALIS (test code = 06366) NEGATIVE T. VAGINALIS (test code = 75960) NEGATIVE Garret Morocho AustinVAGINAL PATHOGENS DNA [id number] 00:00:00* Test Item Value Reference Range Interpretation Comme nts LESLY SPECIES (test code = 08160) NEGATIVE G. VAGINALIS (test code = 50320) NEGATIVE T. VAGINALIS (test code = 29501) NEGATIVE Garret F AustinVAGINAL PATHOGENS DNA [id number] 00:00:00* Test Item Value Reference Range Interpretation Comme nts LESLY SPECIES (test code = 08052) NEGATIVE G. VAGINALIS (test code = 46951) NEGATIVE T. VAGINALIS (test code = 63150) NEGATIVE Garret F AustinVAGINAL PATHOGENS DNA [id number] 00:00:00* Test Item Value Reference Range Interpretation Comme nts LESLY SPECIES (test code = ) NEGATIVE G. VAGINALIS (test code = ) NEGATIVE T. VAGINALIS (test code = ) NEGATIVE Garret ShaverVAGINAL PATHOGENS DNA [id number] 00:00:00* Test Item Value Reference Range Interpretation Comme nts LESLY SPECIES (test code = ) NEGATIVE G. VAGINALIS (test code = 45131) NEGATIVE T. VAGINALIS (test code = ) NEGATIVE Garret Morocho SivakumarALBUMIN/CREATININE RATIO, RANDOM [id number] 00:00:00* Test Item Value Reference Range Interpretation Comme nts CREATININE, URINE, CONC. (te st code = 2072) 153.6 MG/DL ALBUMIN, URINE, RANDOM (test code = 63363) 1.5 MG/DL CALC ALBUMIN/CREAT, RND (tadeo t code = 84435) 10 MG/G Garret Morocho SivakumarCK, [id number] 00:00:00* Test Item Value Reference Range Interpretation Comme nts CK, TOTAL (test code = 2013) 105 U/L Garret Morocho Brittney (RENAL) FUNCTION [id number] 00:00:00* Test Item Value Reference Range Interpretation Comme nts GLUCOSE (test code = 2217) 110 MG/DL BUN (test code = 2208) 17 MG/DL CREATININE (test code = 2214) 1.35 MG/DL eGFR (2020 CKD-EPI) (test co de = 55657) 45 ML/MIN/1.73 CALC BUN/CREAT (test code = 2235) 13 RATIO SODIUM (test code = 2231) 143 MEQ/L POTASSIUM (test code = 2228) 4.7 MEQ/L CHLORIDE (test code = 2215) 107 MEQ/L CARBON DIOXIDE (test code = 2206) 23 MEQ/L CALCIUM (test code = 2209) 9.6 MG/DL PHOSPHORUS (test code = 2227) 2.7 MG/DL ALBUMIN (test code = 2201) 4.4 G/DL Garret Morocho Low URINALYSIS, REFLEX [id number] 00:00:00* Test Item Value Reference Range Interpretation Comme nts WHITE BLOOD CELLS (test code = 1513) 0-5 /HPF RED BLOOD CELLS (test code = 1514) 0-2 /HPF EPITHELIAL CELLS (test code = 29847) 16-20 /HPF BACTERIA (test code = 1515) 1+ CASTS, HYALINE (test code = 1517) TRACE Garret ShaverALBUMIN/CREATININE RATIO, RANDOM [id number] 00:00:00* Test Item Value Reference Range Interpretation Comme nts CREATININE, URINE, CONC. (te st code = 2072) 153.6 MG/DL ALBUMIN, URINE, RANDOM (test code = 33098) 1.5 MG/DL CALC ALBUMIN/CREAT, RND (tadeo t code = 46488) 10 MG/G Garret ShaverCK, [id number] 00:00:00* Test Item Value Reference Range Interpretation Comme nts CK, TOTAL (test code = 2013) 105 U/L Garret Morocho Brittney (RENAL) FUNCTION [id number] 00:00:00* Test Item Value Reference Range Interpretation Comme nts GLUCOSE (test code = 2217) 110 MG/DL BUN (test code = 2208) 17 MG/DL CREATININE (test code = 2214) 1.35 MG/DL eGFR (2020 CKD-EPI) (test co de = 32431) 45 ML/MIN/1.73 CALC BUN/CREAT (test code = 2235) 13 RATIO SODIUM (test code = 2231) 143 MEQ/L POTASSIUM (test code = 2228) 4.7 MEQ/L CHLORIDE (test code = 2215) 107 MEQ/L CARBON DIOXIDE (test code = 2206) 23 MEQ/L CALCIUM (test code = 2209) 9.6 MG/DL PHOSPHORUS (test code = 2227) 2.7 MG/DL ALBUMIN (test code = 2201) 4.4 G/DL Garret Morocho Low URINALYSIS, REFLEX [id number] 00:00:00* Test Item Value Reference Range Interpretation Comme nts WHITE BLOOD CELLS (test code = 1513) 0-5 /HPF RED BLOOD CELLS (test code = 1514) 0-2 /HPF EPITHELIAL CELLS (test code = 64270) 16-20 /HPF BACTERIA (test code = 1515) 1+ CASTS, HYALINE (test code = 1517) TRACE Garret ShaverALBUMIN/CREATININE RATIO, RANDOM [id number] 00:00:00* Test Item Value Reference Range Interpretation Comme nts CREATININE, URINE, CONC. (te st code = 2071) 153.6 MG/DL ALBUMIN, URINE, RANDOM (test code = 81618) 1.5 MG/DL CALC ALBUMIN/CREAT, RND (tadeo t code = 93785) 10 MG/G Garret Gaitan, [id number] 00:00:00* Test Item Value Reference Range Interpretation Comme nts CK, TOTAL (test code = 2013) 105 U/L Garret Morocho Brittney (RENAL) FUNCTION [id number] 00:00:00* Test Item Value Reference Range Interpretation Comme nts GLUCOSE (test code = 2217) 110 MG/DL BUN (test code = 2208) 17 MG/DL CREATININE (test code = 2214) 1.35 MG/DL eGFR (2020 CKD-EPI) (test co de = 53648) 45 ML/MIN/1.73 CALC BUN/CREAT (test code = 2235) 13 RATIO SODIUM (test code = 2231) 143 MEQ/L POTASSIUM (test code = 2228) 4.7 MEQ/L CHLORIDE (test code = 2215) 107 MEQ/L CARBON DIOXIDE (test code = 2206) 23 MEQ/L CALCIUM (test code = 2209) 9.6 MG/DL PHOSPHORUS (test code = 2227) 2.7 MG/DL ALBUMIN (test code = 2201) 4.4 G/DL Garret Morocho Low URINALYSIS, REFLEX [id number] 00:00:00* Test Item Value Reference Range Interpretation Comme nts WHITE BLOOD CELLS (test code = 1513) 0-5 /HPF RED BLOOD CELLS (test code = 1514) 0-2 /HPF EPITHELIAL CELLS (test code = 94693) 16-20 /HPF BACTERIA (test code = 1515) 1+ CASTS, HYALINE (test code = 1517) TRACE Garret Morocho SivakumarALBUMIN/CREATININE RATIO, RANDOM [id number] 00:00:00* Test Item Value Reference Range Interpretation Comme nts CREATININE, URINE, CONC. (te st code = 2071) 153.6 MG/DL ALBUMIN, URINE, RANDOM (test code = 78768) 1.5 MG/DL CALC ALBUMIN/CREAT, RND (tadeo t code = 46870) 10 MG/G Garret Gaitan, [id number] 00:00:00* Test Item Value Reference Range Interpretation Comme nts CK, TOTAL (test code = 2013) 105 U/L Garret Morocho Brittney (RENAL) FUNCTION [id number] 00:00:00* Test Item Value Reference Range Interpretation Comme nts GLUCOSE (test code = 2217) 110 MG/DL BUN (test code = 2208) 17 MG/DL CREATININE (test code = 2214) 1.35 MG/DL eGFR (2020 CKD-EPI) (test co de = 53353) 45 ML/MIN/1.73 CALC BUN/CREAT (test code = 2235) 13 RATIO SODIUM (test code = 2231) 143 MEQ/L POTASSIUM (test code = 2228) 4.7 MEQ/L CHLORIDE (test code = 2215) 107 MEQ/L CARBON DIOXIDE (test code = 2206) 23 MEQ/L CALCIUM (test code = 2209) 9.6 MG/DL PHOSPHORUS (test code = 2227) 2.7 MG/DL ALBUMIN (test code = 2201) 4.4 G/DL Garret Bailee SivakumarMICROSCOPIC URINALYSIS, REFLEX [id number] 00:00:00* Test Item Value Reference Range Interpretation Comme nts WHITE BLOOD CELLS (test code = 1513) 0-5 /HPF RED BLOOD CELLS (test code = 1514) 0-2 /HPF EPITHELIAL CELLS (test code = 07304) 16-20 /HPF BACTERIA (test code = 1515) 1+ CASTS, HYALINE (test code = 1517) TRACE Garret Morocho SivakumarALBUMIN/CREATININE RATIO, RANDOM [id number] 00:00:00* Test Item Value Reference Range Interpretation Comme nts CREATININE, URINE, CONC. (te st code = 2072) 153.6 MG/DL ALBUMIN, URINE, RANDOM (test code = 06258) 1.5 MG/DL CALC ALBUMIN/CREAT, RND (tadeo t code = 40563) 10 MG/G Garret Bailee Kandy, [id number] 00:00:00* Test Item Value Reference Range Interpretation Comme nts CK, TOTAL (test code = 2013) 105 U/L Garret Bailee Brittney (RENAL) FUNCTION [id number] 00:00:00* Test Item Value Reference Range Interpretation Comme nts GLUCOSE (test code = 2217) 110 MG/DL BUN (test code = 2208) 17 MG/DL CREATININE (test code = 2214) 1.35 MG/DL eGFR (2020 CKD-EPI) (test co de = 95656) 45 ML/MIN/1.73 CALC BUN/CREAT (test code = 2235) 13 RATIO SODIUM (test code = 2231) 143 MEQ/L POTASSIUM (test code = 2228) 4.7 MEQ/L CHLORIDE (test code = 2215) 107 MEQ/L CARBON DIOXIDE (test code = 2206) 23 MEQ/L CALCIUM (test code = 2209) 9.6 MG/DL PHOSPHORUS (test code = 2227) 2.7 MG/DL ALBUMIN (test code = 2201) 4.4 G/DL Garret ValderramaROSCOPIC URINALYSIS, REFLEX [id number] 00:00:00* Test Item Value Reference Range Interpretation Comme nts WHITE BLOOD CELLS (test code = 1513) 0-5 /HPF RED BLOOD CELLS (test code = 1514) 0-2 /HPF EPITHELIAL CELLS (test code = 96265) 16-20 /HPF BACTERIA (test code = 1515) 1+ CASTS, HYALINE (test code = 1517) TRACE Garret ShaverALBUMIN/CREATININE RATIO, RANDOM [id number] 00:00:00* Test Item Value Reference Range Interpretation Comme nts CREATININE, URINE, CONC. (te st code = 2072) 153.6 MG/DL ALBUMIN, URINE, RANDOM (test code = 85215) 1.5 MG/DL CALC ALBUMIN/CREAT, RND (tadeo t code = 16684) 10 MG/G Garret ShaverCK, [id number] 00:00:00* Test Item Value Reference Range Interpretation Comme nts CK, TOTAL (test code = 2013) 105 U/L Garret Lugo (RENAL) FUNCTION [id number] 00:00:00* Test Item Value Reference Range Interpretation Comme nts GLUCOSE (test code = 7) 110 MG/DL BUN (test code = 2208) 17 MG/DL CREATININE (test code = 2214) 1.35 MG/DL eGFR (2020 CKD-EPI) (test co de = 41981) 45 ML/MIN/1.73 CALC BUN/CREAT (test code = 2235) 13 RATIO SODIUM (test code = 2231) 143 MEQ/L POTASSIUM (test code = 2228) 4.7 MEQ/L CHLORIDE (test code = 2215) 107 MEQ/L CARBON DIOXIDE (test code = 2206) 23 MEQ/L CALCIUM (test code = 2209) 9.6 MG/DL PHOSPHORUS (test code = 2227) 2.7 MG/DL ALBUMIN (test code = 2201) 4.4 G/DL Garret ValderramaROSCOPIC URINALYSIS, REFLEX [id number] 00:00:00* Test Item Value Reference Range Interpretation Comme nts WHITE BLOOD CELLS (test code = 1513) 0-5 /HPF RED BLOOD CELLS (test code = 1514) 0-2 /HPF EPITHELIAL CELLS (test code = 90437) 16-20 /HPF BACTERIA (test code = 1515) 1+ CASTS, HYALINE (test code = 1517) TRACE Garret Morocho SivakumarALBUMIN/CREATININE RATIO, RANDOM [id number] 00:00:00* Test Item Value Reference Range Interpretation Comme nts CREATININE, URINE, CONC. (te st code = 2072) 153.6 MG/DL ALBUMIN, URINE, RANDOM (test code = 68315) 1.5 MG/DL CALC ALBUMIN/CREAT, RND (tadeo t code = 18933) 10 MG/G Garret Bailee SivakumarCK, [id number] 00:00:00* Test Item Value Reference Range Interpretation Comme nts CK, TOTAL (test code = 2013) 105 U/L Garret Lugo (RENAL) FUNCTION [id number] 00:00:00* Test Item Value Reference Range Interpretation Comme nts GLUCOSE (test code = 2217) 110 MG/DL BUN (test code = 2208) 17 MG/DL CREATININE (test code = 2214) 1.35 MG/DL eGFR (2020 CKD-EPI) (test co de = 75235) 45 ML/MIN/1.73 CALC BUN/CREAT (test code = 2235) 13 RATIO SODIUM (test code = 2231) 143 MEQ/L POTASSIUM (test code = 2228) 4.7 MEQ/L CHLORIDE (test code = 2215) 107 MEQ/L CARBON DIOXIDE (test code = 2206) 23 MEQ/L CALCIUM (test code = 2209) 9.6 MG/DL PHOSPHORUS (test code = 2227) 2.7 MG/DL ALBUMIN (test code = 2201) 4.4 G/DL Garret Morocho SivakumarMICROSCOPIC URINALYSIS, REFLEX [id number] 00:00:00* Test Item Value Reference Range Interpretation Comme nts WHITE BLOOD CELLS (test code = 1513) 0-5 /HPF RED BLOOD CELLS (test code = 1514) 0-2 /HPF EPITHELIAL CELLS (test code = 05462) 16-20 /HPF BACTERIA (test code = 1515) 1+ CASTS, HYALINE (test code = 1517) TRACE Garret Morocho SivakumarALBUMIN/CREATININE RATIO, RANDOM [id number] 00:00:00* Test Item Value Reference Range Interpretation Comme nts CREATININE, URINE, CONC. (te st code = 2072) 153.6 MG/DL ALBUMIN, URINE, RANDOM (test code = 43870) 1.5 MG/DL CALC ALBUMIN/CREAT, RND (tadeo t code = 84255) 10 MG/G Garret Morocho SivakumarCK, [id number] 00:00:00* Test Item Value Reference Range Interpretation Comme nts CK, TOTAL (test code = 2013) 105 U/L Garret Morocho Brittney (RENAL) FUNCTION [id number] 00:00:00* Test Item Value Reference Range Interpretation Comme nts GLUCOSE (test code = 2217) 110 MG/DL BUN (test code = 2208) 17 MG/DL CREATININE (test code = 2214) 1.35 MG/DL eGFR (2020 CKD-EPI) (test co de = 30424) 45 ML/MIN/1.73 CALC BUN/CREAT (test code = 2235) 13 RATIO SODIUM (test code = 2231) 143 MEQ/L POTASSIUM (test code = 2228) 4.7 MEQ/L CHLORIDE (test code = 2215) 107 MEQ/L CARBON DIOXIDE (test code = 2206) 23 MEQ/L CALCIUM (test code = 2209) 9.6 MG/DL PHOSPHORUS (test code = 2227) 2.7 MG/DL ALBUMIN (test code = 2201) 4.4 G/DL Garret Morocho SivakumarMICROSCOPIC URINALYSIS, REFLEX [id number] 00:00:00* Test Item Value Reference Range Interpretation Comme nts WHITE BLOOD CELLS (test code = 1513) 0-5 /HPF RED BLOOD CELLS (test code = 1514) 0-2 /HPF EPITHELIAL CELLS (test code = 90028) 16-20 /HPF BACTERIA (test code = 1515) 1+ CASTS, HYALINE (test code = 1517) TRACE Garret Morocho SivakumarALBUMIN/CREATININE RATIO, RANDOM [id number] 00:00:00* Test Item Value Reference Range Interpretation Comme nts CREATININE, URINE, CONC. (te st code = 2072) 153.6 MG/DL ALBUMIN, URINE, RANDOM (test code = 50585) 1.5 MG/DL CALC ALBUMIN/CREAT, RND (tadeo t code = 90972) 10 MG/G Garret Morocho SivakumarCK, [id number] 00:00:00* Test Item Value Reference Range Interpretation Comme nts CK, TOTAL (test code = 2013) 105 U/L Garret Bailee Brittney (RENAL) FUNCTION [id number] 00:00:00* Test Item Value Reference Range Interpretation Comme nts GLUCOSE (test code = 2217) 110 MG/DL BUN (test code = 2208) 17 MG/DL CREATININE (test code = 2214) 1.35 MG/DL eGFR (2020 CKD-EPI) (test co de = 16099) 45 ML/MIN/1.73 CALC BUN/CREAT (test code = 2235) 13 RATIO SODIUM (test code = 2231) 143 MEQ/L POTASSIUM (test code = 2228) 4.7 MEQ/L CHLORIDE (test code = 2215) 107 MEQ/L CARBON DIOXIDE (test code = 2206) 23 MEQ/L CALCIUM (test code = 2209) 9.6 MG/DL PHOSPHORUS (test code = 2227) 2.7 MG/DL ALBUMIN (test code = 2201) 4.4 G/DL Garret Bailee Low URINALYSIS, REFLEX [id number] 00:00:00* Test Item Value Reference Range Interpretation Comme nts WHITE BLOOD CELLS (test code = 1513) 0-5 /HPF RED BLOOD CELLS (test code = 1514) 0-2 /HPF EPITHELIAL CELLS (test code = 79841) 16-20 /HPF BACTERIA (test code = 1515) 1+ CASTS, HYALINE (test code = 1517) TRACE Garret ShaverALBUMIN/CREATININE RATIO, RANDOM [id number] 00:00:00* Test Item Value Reference Range Interpretation Comme nts CREATININE, URINE, CONC. (te st code = 2071) 153.6 MG/DL ALBUMIN, URINE, RANDOM (test code = 79537) 1.5 MG/DL CALC ALBUMIN/CREAT, RND (tadeo t code = 91082) 10 MG/G Garret ShaverCK, [id number] 00:00:00* Test Item Value Reference Range Interpretation Comme nts CK, TOTAL (test code = 2013) 105 U/L Garret ShaverNICHOLDNEY (RENAL) FUNCTION [id number] 00:00:00* Test Item Value Reference Range Interpretation Comme nts GLUCOSE (test code = 2217) 110 MG/DL BUN (test code = 2208) 17 MG/DL CREATININE (test code = 2214) 1.35 MG/DL eGFR (2020 CKD-EPI) (test co de = 45098) 45 ML/MIN/1.73 CALC BUN/CREAT (test code = 2235) 13 RATIO SODIUM (test code = 2231) 143 MEQ/L POTASSIUM (test code = 2228) 4.7 MEQ/L CHLORIDE (test code = 2215) 107 MEQ/L CARBON DIOXIDE (test code = 2206) 23 MEQ/L CALCIUM (test code = 2209) 9.6 MG/DL PHOSPHORUS (test code = 2227) 2.7 MG/DL ALBUMIN (test code = 2201) 4.4 G/DL Garret ShaverMICROSCOPIC URINALYSIS, REFLEX [id number] 00:00:00* Test Item Value Reference Range Interpretation Comme nts WHITE BLOOD CELLS (test code = 1513) 0-5 /HPF RED BLOOD CELLS (test code = 1514) 0-2 /HPF EPITHELIAL CELLS (test code = 04923) 16-20 /HPF BACTERIA (test code = 1515) 1+ CASTS, HYALINE (test code = 1517) TRACE Garret ShaverALBUMIN/CREATININE RATIO, RANDOM [id number] 00:00:00* Test Item Value Reference Range Interpretation Comme nts CREATININE, URINE, CONC. (te st code = 2071) 153.6 MG/DL ALBUMIN, URINE, RANDOM (test code = 96992) 1.5 MG/DL CALC ALBUMIN/CREAT, RND (tadeo t code = 53617) 10 MG/G Garret Gaitan, [id number] 00:00:00* Test Item Value Reference Range Interpretation Comme nts CK, TOTAL (test code = 2013) 105 U/L Garret ShaverVIVIAN (RENAL) FUNCTION [id number] 00:00:00* Test Item Value Reference Range Interpretation Comme nts GLUCOSE (test code = 2217) 110 MG/DL BUN (test code = 2208) 17 MG/DL CREATININE (test code = 2214) 1.35 MG/DL eGFR (2020 CKD-EPI) (test co de = 35786) 45 ML/MIN/1.73 CALC BUN/CREAT (test code = 2235) 13 RATIO SODIUM (test code = 2231) 143 MEQ/L POTASSIUM (test code = 2228) 4.7 MEQ/L CHLORIDE (test code = 2215) 107 MEQ/L CARBON DIOXIDE (test code = 2206) 23 MEQ/L CALCIUM (test code = 2209) 9.6 MG/DL PHOSPHORUS (test code = 2227) 2.7 MG/DL ALBUMIN (test code = 2201) 4.4 G/DL Garret Morocho SivakumarMICROSCOPIC URINALYSIS, REFLEX [id number] 00:00:00* Test Item Value Reference Range Interpretation Comme nts WHITE BLOOD CELLS (test code = 1513) 0-5 /HPF RED BLOOD CELLS (test code = 1514) 0-2 /HPF EPITHELIAL CELLS (test code = 05151) 16-20 /HPF BACTERIA (test code = 1515) 1+ CASTS, HYALINE (test code = 1517) TRACE Garret ShavreALBUMIN/CREATININE RATIO, RANDOM [id number] 00:00:00* Test Item Value Reference Range Interpretation Comme nts CREATININE, URINE, CONC. (te st code = 207) 153.6 MG/DL ALBUMIN, URINE, RANDOM (test code = 27136) 1.5 MG/DL CALC ALBUMIN/CREAT, RND (tadeo t code = 74186) 10 MG/G Garret Gaitan, [id number] 00:00:00* Test Item Value Reference Range Interpretation Comme nts CK, TOTAL (test code = 2013) 105 U/L Garret Morocho Brittney (RENAL) FUNCTION [id number] 00:00:00* Test Item Value Reference Range Interpretation Comme nts GLUCOSE (test code = 2217) 110 MG/DL BUN (test code = 2208) 17 MG/DL CREATININE (test code = 2214) 1.35 MG/DL eGFR (2020 CKD-EPI) (test co de = 18112) 45 ML/MIN/1.73 CALC BUN/CREAT (test code = 2235) 13 RATIO SODIUM (test code = 2231) 143 MEQ/L POTASSIUM (test code = 2228) 4.7 MEQ/L CHLORIDE (test code = 2215) 107 MEQ/L CARBON DIOXIDE (test code = 2206) 23 MEQ/L CALCIUM (test code = 2209) 9.6 MG/DL PHOSPHORUS (test code = 2227) 2.7 MG/DL ALBUMIN (test code = 2201) 4.4 G/DL Garret Morocho SivakumarMICROSCOPIC URINALYSIS, REFLEX [id number] 00:00:00* Test Item Value Reference Range Interpretation Comme nts WHITE BLOOD CELLS (test code = 1513) 0-5 /HPF RED BLOOD CELLS (test code = 1514) 0-2 /HPF EPITHELIAL CELLS (test code = 95280) 16-20 /HPF BACTERIA (test code = 1515) 1+ CASTS, HYALINE (test code = 1517) TRACE Garret Morocho SivakumarALBUMIN/CREATININE RATIO, RANDOM [id number] 00:00:00* Test Item Value Reference Range Interpretation Comme nts CREATININE, URINE, CONC. (te st code = 2072) 153.6 MG/DL ALBUMIN, URINE, RANDOM (test code = 14588) 1.5 MG/DL CALC ALBUMIN/CREAT, RND (tadeo t code = 06659) 10 MG/G Garret Morocho SivakumarCK, [id number] 00:00:00* Test Item Value Reference Range Interpretation Comme nts CK, TOTAL (test code = 2013) 105 U/L Garret Morocho Brittney (RENAL) FUNCTION [id number] 00:00:00* Test Item Value Reference Range Interpretation Comme nts GLUCOSE (test code = 2217) 110 MG/DL BUN (test code = 2208) 17 MG/DL CREATININE (test code = 2214) 1.35 MG/DL eGFR (2020 CKD-EPI) (test co de = 03953) 45 ML/MIN/1.73 CALC BUN/CREAT (test code = 2235) 13 RATIO SODIUM (test code = 2231) 143 MEQ/L POTASSIUM (test code = 2228) 4.7 MEQ/L CHLORIDE (test code = 2215) 107 MEQ/L CARBON DIOXIDE (test code = 2206) 23 MEQ/L CALCIUM (test code = 2209) 9.6 MG/DL PHOSPHORUS (test code = 2227) 2.7 MG/DL ALBUMIN (test code = 2201) 4.4 G/DL Garret Kelsey URINALYSIS, REFLEX [id number] 00:00:00* Test Item Value Reference Range Interpretation Comme nts WHITE BLOOD CELLS (test code = 1513) 0-5 /HPF RED BLOOD CELLS (test code = 1514) 0-2 /HPF EPITHELIAL CELLS (test code = 72126) 16-20 /HPF BACTERIA (test code = 1515) 1+ CASTS, HYALINE (test code = 1517) TRACE Garret ShaverALBUMIN/CREATININE RATIO, RANDOM [id number] 00:00:00* Test Item Value Reference Range Interpretation Comme nts CREATININE, URINE, CONC. (te st code = 2072) 153.6 MG/DL ALBUMIN, URINE, RANDOM (test code = 47308) 1.5 MG/DL CALC ALBUMIN/CREAT, RND (tadeo t code = 76934) 10 MG/G Garret ShaverCK, [id number] 00:00:00* Test Item Value Reference Range Interpretation Comme nts CK, TOTAL (test code = 2013) 105 U/L Garret Lugo (RENAL) FUNCTION [id number] 00:00:00* Test Item Value Reference Range Interpretation Comme nts GLUCOSE (test code = 2217) 110 MG/DL BUN (test code = 2208) 17 MG/DL CREATININE (test code = 2214) 1.35 MG/DL eGFR (2020 CKD-EPI) (test co de = 10990) 45 ML/MIN/1.73 CALC BUN/CREAT (test code = 2235) 13 RATIO SODIUM (test code = 2231) 143 MEQ/L POTASSIUM (test code = 2228) 4.7 MEQ/L CHLORIDE (test code = 2215) 107 MEQ/L CARBON DIOXIDE (test code = 2206) 23 MEQ/L CALCIUM (test code = 2209) 9.6 MG/DL PHOSPHORUS (test code = 2227) 2.7 MG/DL ALBUMIN (test code = 2201) 4.4 G/DL Garret ShaverMIRIANROSCOPIC URINALYSIS, REFLEX [id number] 00:00:00* Test Item Value Reference Range Interpretation Comme nts WHITE BLOOD CELLS (test code = 1513) 0-5 /HPF RED BLOOD CELLS (test code = 1514) 0-2 /HPF EPITHELIAL CELLS (test code = 81200) 16-20 /HPF BACTERIA (test code = 1515) 1+ CASTS, HYALINE (test code = 1517) TRACE Garret ShaverALBUMIN/CREATININE RATIO, RANDOM [id number] 00:00:00* Test Item Value Reference Range Interpretation Comme nts CREATININE, URINE, CONC. (te st code = 2072) 153.6 MG/DL ALBUMIN, URINE, RANDOM (test code = 80309) 1.5 MG/DL CALC ALBUMIN/CREAT, RND (tadeo t code = 08594) 10 MG/G Garret Morocho SivakumarCK, [id number] 00:00:00* Test Item Value Reference Range Interpretation Comme nts CK, TOTAL (test code = 2013) 105 U/L Garret ShaverVIVIAN (RENAL) FUNCTION [id number] 00:00:00* Test Item Value Reference Range Interpretation Comme nts GLUCOSE (test code = 2217) 110 MG/DL BUN (test code = 2208) 17 MG/DL CREATININE (test code = 2214) 1.35 MG/DL eGFR (2020 CKD-EPI) (test co de = 28064) 45 ML/MIN/1.73 CALC BUN/CREAT (test code = 2235) 13 RATIO SODIUM (test code = 2231) 143 MEQ/L POTASSIUM (test code = 2228) 4.7 MEQ/L CHLORIDE (test code = 2215) 107 MEQ/L CARBON DIOXIDE (test code = 2206) 23 MEQ/L CALCIUM (test code = 2209) 9.6 MG/DL PHOSPHORUS (test code = 2227) 2.7 MG/DL ALBUMIN (test code = 2201) 4.4 G/DL aGrret ShaverMICROSCOPIC URINALYSIS, REFLEX [id number] 00:00:00* Test Item Value Reference Range Interpretation Comme nts WHITE BLOOD CELLS (test code = 1513) 0-5 /HPF RED BLOOD CELLS (test code = 1514) 0-2 /HPF EPITHELIAL CELLS (test code = 98593) 16-20 /HPF BACTERIA (test code = 1515) 1+ CASTS, HYALINE (test code = 1517) TRACE Garret ShaverALBUMIN/CREATININE RATIO, RANDOM [id number] 00:00:00* Test Item Value Reference Range Interpretation Comme nts CREATININE, URINE, CONC. (te st code = 2072) 153.6 MG/DL ALBUMIN, URINE, RANDOM (test code = 57755) 1.5 MG/DL CALC ALBUMIN/CREAT, RND (tadeo t code = 78472) 10 MG/G Garret ShaverCK, [id number] 00:00:00* Test Item Value Reference Range Interpretation Comme nts CK, TOTAL (test code = 2013) 105 U/L Garret ShaverVIVIAN (RENAL) FUNCTION [id number] 00:00:00* Test Item Value Reference Range Interpretation Comme nts GLUCOSE (test code = 2217) 110 MG/DL BUN (test code = 2208) 17 MG/DL CREATININE (test code = 2214) 1.35 MG/DL eGFR (2020 CKD-EPI) (test co de = 50614) 45 ML/MIN/1.73 CALC BUN/CREAT (test code = 2235) 13 RATIO SODIUM (test code = 2231) 143 MEQ/L POTASSIUM (test code = 2228) 4.7 MEQ/L CHLORIDE (test code = 2215) 107 MEQ/L CARBON DIOXIDE (test code = 2206) 23 MEQ/L CALCIUM (test code = 2209) 9.6 MG/DL PHOSPHORUS (test code = 2227) 2.7 MG/DL ALBUMIN (test code = 2201) 4.4 G/DL Garret Morocho SivakumarMICROSCOPIC URINALYSIS, REFLEX [id number] 00:00:00* Test Item Value Reference Range Interpretation Comme nts WHITE BLOOD CELLS (test code = 1513) 0-5 /HPF RED BLOOD CELLS (test code = 1514) 0-2 /HPF EPITHELIAL CELLS (test code = 93585) 16-20 /HPF BACTERIA (test code = 1515) 1+ CASTS, HYALINE (test code = 1517) TRACE Garret Morocho SivakumarALBUMIN/CREATININE RATIO, RANDOM [id number] 00:00:00* Test Item Value Reference Range Interpretation Comme nts CREATININE, URINE, CONC. (te st code = 2072) 153.6 MG/DL ALBUMIN, URINE, RANDOM (test code = 55801) 1.5 MG/DL CALC ALBUMIN/CREAT, RND (tadeo t code = 90751) 10 MG/G Garret Morocho SivakumarCK, [id number] 00:00:00* Test Item Value Reference Range Interpretation Comme nts CK, TOTAL (test code = 2013) 105 U/L Garret Morocho Brittney (RENAL) FUNCTION [id number] 00:00:00* Test Item Value Reference Range Interpretation Comme nts GLUCOSE (test code = 2217) 110 MG/DL BUN (test code = 2208) 17 MG/DL CREATININE (test code = 2214) 1.35 MG/DL eGFR (2020 CKD-EPI) (test co de = 10771) 45 ML/MIN/1.73 CALC BUN/CREAT (test code = 2235) 13 RATIO SODIUM (test code = 2231) 143 MEQ/L POTASSIUM (test code = 2228) 4.7 MEQ/L CHLORIDE (test code = 2215) 107 MEQ/L CARBON DIOXIDE (test code = 2206) 23 MEQ/L CALCIUM (test code = 2209) 9.6 MG/DL PHOSPHORUS (test code = 2227) 2.7 MG/DL ALBUMIN (test code = 2201) 4.4 G/DL Garret Kelsey URINALYSIS, REFLEX [id number] 00:00:00* Test Item Value Reference Range Interpretation Comme nts WHITE BLOOD CELLS (test code = 1513) 0-5 /HPF RED BLOOD CELLS (test code = 1514) 0-2 /HPF EPITHELIAL CELLS (test code = 18555) 16-20 /HPF BACTERIA (test code = 1515) 1+ CASTS, HYALINE (test code = 1517) TRACE Garret Morocho SivakumarALBUMIN/CREATININE RATIO, RANDOM [id number] 00:00:00* Test Item Value Reference Range Interpretation Comme nts CREATININE, URINE, CONC. (te st code = 2071) 153.6 MG/DL ALBUMIN, URINE, RANDOM (test code = 97591) 1.5 MG/DL CALC ALBUMIN/CREAT, RND (tadeo t code = 25823) 10 MG/G Garret ShaverCK, [id number] 00:00:00* Test Item Value Reference Range Interpretation Comme nts CK, TOTAL (test code = 2013) 105 U/L Garret Morocho Brittney (RENAL) FUNCTION [id number] 00:00:00* Test Item Value Reference Range Interpretation Comme nts GLUCOSE (test code = 2217) 110 MG/DL BUN (test code = 2208) 17 MG/DL CREATININE (test code = 2214) 1.35 MG/DL eGFR (2020 CKD-EPI) (test co de = 14844) 45 ML/MIN/1.73 CALC BUN/CREAT (test code = 2235) 13 RATIO SODIUM (test code = 2231) 143 MEQ/L POTASSIUM (test code = 2228) 4.7 MEQ/L CHLORIDE (test code = 2215) 107 MEQ/L CARBON DIOXIDE (test code = 2206) 23 MEQ/L CALCIUM (test code = 2209) 9.6 MG/DL PHOSPHORUS (test code = 2227) 2.7 MG/DL ALBUMIN (test code = 2201) 4.4 G/DL Garret Morocho Low URINALYSIS, REFLEX [id number] 00:00:00* Test Item Value Reference Range Interpretation Comme nts WHITE BLOOD CELLS (test code = 1513) 0-5 /HPF RED BLOOD CELLS (test code = 1514) 0-2 /HPF EPITHELIAL CELLS (test code = 28411) 16-20 /HPF BACTERIA (test code = 1515) 1+ CASTS, HYALINE (test code = 1517) TRACE Garret Morocho SivakumarALBUMIN/CREATININE RATIO, RANDOM [id number] 00:00:00* Test Item Value Reference Range Interpretation Comme nts CREATININE, URINE, CONC. (te st code = 2071) 153.6 MG/DL ALBUMIN, URINE, RANDOM (test code = 46755) 1.5 MG/DL CALC ALBUMIN/CREAT, RND (tadeo t code = 08915) 10 MG/G Garret Gaitan, [id number] 00:00:00* Test Item Value Reference Range Interpretation Comme nts CK, TOTAL (test code = 2013) 105 U/L Garret Morocho Brittney (RENAL) FUNCTION [id number] 00:00:00* Test Item Value Reference Range Interpretation Comme nts GLUCOSE (test code = 2217) 110 MG/DL BUN (test code = 2208) 17 MG/DL CREATININE (test code = 2214) 1.35 MG/DL eGFR (2020 CKD-EPI) (test co de = 69445) 45 ML/MIN/1.73 CALC BUN/CREAT (test code = 2235) 13 RATIO SODIUM (test code = 2231) 143 MEQ/L POTASSIUM (test code = 2228) 4.7 MEQ/L CHLORIDE (test code = 2215) 107 MEQ/L CARBON DIOXIDE (test code = 2206) 23 MEQ/L CALCIUM (test code = 2209) 9.6 MG/DL PHOSPHORUS (test code = 2227) 2.7 MG/DL ALBUMIN (test code = 2201) 4.4 G/DL Garret Morocho LavelleROSCOPIC URINALYSIS, REFLEX [id number] 00:00:00* Test Item Value Reference Range Interpretation Comme nts WHITE BLOOD CELLS (test code = 1513) 0-5 /HPF RED BLOOD CELLS (test code = 1514) 0-2 /HPF EPITHELIAL CELLS (test code = 14505) 16-20 /HPF BACTERIA (test code = 1515) 1+ CASTS, HYALINE (test code = 1517) TRACE Garret Morocho SivakumarALBUMIN/CREATININE RATIO, RANDOM [id number] 00:00:00* Test Item Value Reference Range Interpretation Comme nts CREATININE, URINE, CONC. (te st code = 2072) 153.6 MG/DL ALBUMIN, URINE, RANDOM (test code = 08221) 1.5 MG/DL CALC ALBUMIN/CREAT, RND (tadeo t code = 53219) 10 MG/G Garret Gaitan, [id number] 00:00:00* Test Item Value Reference Range Interpretation Comme nts CK, TOTAL (test code = 2013) 105 U/L Garret Morocho Brittney (RENAL) FUNCTION [id number] 00:00:00* Test Item Value Reference Range Interpretation Comme nts GLUCOSE (test code = 2217) 110 MG/DL BUN (test code = 2208) 17 MG/DL CREATININE (test code = 2214) 1.35 MG/DL eGFR (2020 CKD-EPI) (test co de = 09416) 45 ML/MIN/1.73 CALC BUN/CREAT (test code = 2235) 13 RATIO SODIUM (test code = 2231) 143 MEQ/L POTASSIUM (test code = 2228) 4.7 MEQ/L CHLORIDE (test code = 2215) 107 MEQ/L CARBON DIOXIDE (test code = 2206) 23 MEQ/L CALCIUM (test code = 2209) 9.6 MG/DL PHOSPHORUS (test code = 2227) 2.7 MG/DL ALBUMIN (test code = 2201) 4.4 G/DL Garret ShaverMICROSCOPIC URINALYSIS, REFLEX [id number] 00:00:00* Test Item Value Reference Range Interpretation Comme nts WHITE BLOOD CELLS (test code = 1513) 0-5 /HPF RED BLOOD CELLS (test code = 1514) 0-2 /HPF EPITHELIAL CELLS (test code = 82920) 16-20 /HPF BACTERIA (test code = 1515) 1+ CASTS, HYALINE (test code = 1517) TRACE Garret ShaverALBUMIN/CREATININE RATIO, RANDOM [id number] 00:00:00* Test Item Value Reference Range Interpretation Comme nts CREATININE, URINE, CONC. (te st code = 2072) 153.6 MG/DL ALBUMIN, URINE, RANDOM (test code = 96987) 1.5 MG/DL CALC ALBUMIN/CREAT, RND (tadeo t code = 61973) 10 MG/G Garret ShaverCK, [id number] 00:00:00* Test Item Value Reference Range Interpretation Comme nts CK, TOTAL (test code = 2013) 105 U/L Garret Lugo (RENAL) FUNCTION [id number] 00:00:00* Test Item Value Reference Range Interpretation Comme nts GLUCOSE (test code = 2217) 110 MG/DL BUN (test code = 2208) 17 MG/DL CREATININE (test code = 2214) 1.35 MG/DL eGFR (2020 CKD-EPI) (test co de = 17422) 45 ML/MIN/1.73 CALC BUN/CREAT (test code = 2235) 13 RATIO SODIUM (test code = 2231) 143 MEQ/L POTASSIUM (test code = 2228) 4.7 MEQ/L CHLORIDE (test code = 2215) 107 MEQ/L CARBON DIOXIDE (test code = 2206) 23 MEQ/L CALCIUM (test code = 2209) 9.6 MG/DL PHOSPHORUS (test code = 2227) 2.7 MG/DL ALBUMIN (test code = 2201) 4.4 G/DL Garret Morocho SivakumarMICROSCOPIC URINALYSIS, REFLEX [id number] 00:00:00* Test Item Value Reference Range Interpretation Comme nts WHITE BLOOD CELLS (test code = 1513) 0-5 /HPF RED BLOOD CELLS (test code = 1514) 0-2 /HPF EPITHELIAL CELLS (test code = 86613) 16-20 /HPF BACTERIA (test code = 1515) 1+ CASTS, HYALINE (test code = 1517) TRACE Garret ShaverLIPID [id number] 00:00:00* Test Item Value Reference Range Interpretation Comme nts CHOLESTEROL (test code = 2210) 147 MG/DL TRIGLYCERIDES (test code = 2232) 115 MG/DL HDL CHOLESTEROL (test code = 2220) 50 MG/DL CALC LDL CHOL (test code = 2237) 77 MG/DL RISK RATIO LDL/HDL (test cod e = 2238) 1.54 RATIO Garret ShaverCOMPREHENSIVE METABOLIC [id number] 00:00:00* Test Item Value Reference Range Interpretation Comme nts GLUCOSE (test code = 2217) 95 MG/DL BUN (test code = 2208) 13 MG/DL CREATININE (test code = 2214) 1.21 MG/DL eGFR (2020 CKD-EPI) (test co de = 42238) 51 ML/MIN/1.73 CALC BUN/CREAT (test code = 2235) 11 RATIO SODIUM (test code = 2231) 143 MEQ/L POTASSIUM (test code = 2228) 3.6 MEQ/L CHLORIDE (test code = 2215) 106 MEQ/L CARBON DIOXIDE (test code = 2206) 26 MEQ/L CALCIUM (test code = 2209) 9.8 MG/DL PROTEIN, TOTAL (test code = 2229) 7.1 G/DL ALBUMIN (test code = 2201) 4.4 G/DL CALC GLOBULIN (test code = 2240) 2.7 G/DL CALC A/G RATIO (test code = 2234) 1.6 RATIO BILIRUBIN, TOTAL (test code = 2207) 0.6 MG/DL ALKALINE PHOSPHATASE (test code = 2204) 95 U/L AST (test code = 2218) 18 U/L ALT (test code = 2219) 17 U/L Garret ShaverLIPID [id number] 00:00:00* Test Item Value Reference Range Interpretation Comme nts CHOLESTEROL (test code = 2210) 147 MG/DL TRIGLYCERIDES (test code = 2232) 115 MG/DL HDL CHOLESTEROL (test code = 2220) 50 MG/DL CALC LDL CHOL (test code = 2237) 77 MG/DL RISK RATIO LDL/HDL (test cod e = 2238) 1.54 RATIO Garret ShaverCOMPREHENSIVE METABOLIC [id number] 00:00:00* Test Item Value Reference Range Interpretation Comme nts GLUCOSE (test code = 2217) 95 MG/DL BUN (test code = 2208) 13 MG/DL CREATININE (test code = 2214) 1.21 MG/DL eGFR (2020 CKD-EPI) (test co de = 68518) 51 ML/MIN/1.73 CALC BUN/CREAT (test code = 2235) 11 RATIO SODIUM (test code = 2231) 143 MEQ/L POTASSIUM (test code = 2228) 3.6 MEQ/L CHLORIDE (test code = 2215) 106 MEQ/L CARBON DIOXIDE (test code = 2206) 26 MEQ/L CALCIUM (test code = 2209) 9.8 MG/DL PROTEIN, TOTAL (test code = 2229) 7.1 G/DL ALBUMIN (test code = 2201) 4.4 G/DL CALC GLOBULIN (test code = 2240) 2.7 G/DL CALC A/G RATIO (test code = 2234) 1.6 RATIO BILIRUBIN, TOTAL (test code = 2207) 0.6 MG/DL ALKALINE PHOSPHATASE (test code = 2204) 95 U/L AST (test code = 2218) 18 U/L ALT (test code = 2219) 17 U/L Garret ShaverLIPID [id number] 00:00:00* Test Item Value Reference Range Interpretation Comme nts CHOLESTEROL (test code = 2210) 147 MG/DL TRIGLYCERIDES (test code = 2232) 115 MG/DL HDL CHOLESTEROL (test code = 2220) 50 MG/DL CALC LDL CHOL (test code = 2237) 77 MG/DL RISK RATIO LDL/HDL (test cod e = 2238) 1.54 RATIO Garret ShaverCOMPREHENSIVE METABOLIC [id number] 00:00:00* Test Item Value Reference Range Interpretation Comme nts GLUCOSE (test code = 2217) 95 MG/DL BUN (test code = 2208) 13 MG/DL CREATININE (test code = 2214) 1.21 MG/DL eGFR (2020 CKD-EPI) (test co de = 73158) 51 ML/MIN/1.73 CALC BUN/CREAT (test code = 2235) 11 RATIO SODIUM (test code = 2231) 143 MEQ/L POTASSIUM (test code = 2228) 3.6 MEQ/L CHLORIDE (test code = 2215) 106 MEQ/L CARBON DIOXIDE (test code = 2206) 26 MEQ/L CALCIUM (test code = 2209) 9.8 MG/DL PROTEIN, TOTAL (test code = 2229) 7.1 G/DL ALBUMIN (test code = 2201) 4.4 G/DL CALC GLOBULIN (test code = 2240) 2.7 G/DL CALC A/G RATIO (test code = 2234) 1.6 RATIO BILIRUBIN, TOTAL (test code = 2207) 0.6 MG/DL ALKALINE PHOSPHATASE (test code = 2204) 95 U/L AST (test code = 2218) 18 U/L ALT (test code = 2219) 17 U/L Garret Morocho AustinLIPID [id number] 00:00:00* Test Item Value Reference Range Interpretation Comme nts CHOLESTEROL (test code = 2210) 147 MG/DL TRIGLYCERIDES (test code = 2232) 115 MG/DL HDL CHOLESTEROL (test code = 2220) 50 MG/DL CALC LDL CHOL (test code = 2237) 77 MG/DL RISK RATIO LDL/HDL (test cod e = 2238) 1.54 RATIO Garret ShaverCOMPREHENSIVE METABOLIC [id number] 00:00:00* Test Item Value Reference Range Interpretation Comme nts GLUCOSE (test code = 2217) 95 MG/DL BUN (test code = 2208) 13 MG/DL CREATININE (test code = 2214) 1.21 MG/DL eGFR (2020 CKD-EPI) (test co de = 03372) 51 ML/MIN/1.73 CALC BUN/CREAT (test code = 2235) 11 RATIO SODIUM (test code = 2231) 143 MEQ/L POTASSIUM (test code = 2228) 3.6 MEQ/L CHLORIDE (test code = 2215) 106 MEQ/L CARBON DIOXIDE (test code = 2206) 26 MEQ/L CALCIUM (test code = 2209) 9.8 MG/DL PROTEIN, TOTAL (test code = 2229) 7.1 G/DL ALBUMIN (test code = 2201) 4.4 G/DL CALC GLOBULIN (test code = 2240) 2.7 G/DL CALC A/G RATIO (test code = 2234) 1.6 RATIO BILIRUBIN, TOTAL (test code = 2207) 0.6 MG/DL ALKALINE PHOSPHATASE (test code = 2204) 95 U/L AST (test code = 2218) 18 U/L ALT (test code = 2219) 17 U/L Garret Morocho BensonLIPID [id number] 00:00:00* Test Item Value Reference Range Interpretation Comme nts CHOLESTEROL (test code = 2210) 147 MG/DL TRIGLYCERIDES (test code = 2232) 115 MG/DL HDL CHOLESTEROL (test code = 2220) 50 MG/DL CALC LDL CHOL (test code = 2237) 77 MG/DL RISK RATIO LDL/HDL (test cod e = 2238) 1.54 RATIO Garret Morocho SivakumarCOMPREHENSIVE METABOLIC [id number] 00:00:00* Test Item Value Reference Range Interpretation Comme nts GLUCOSE (test code = 2217) 95 MG/DL BUN (test code = 2208) 13 MG/DL CREATININE (test code = 2214) 1.21 MG/DL eGFR (2020 CKD-EPI) (test co de = 74944) 51 ML/MIN/1.73 CALC BUN/CREAT (test code = 2235) 11 RATIO SODIUM (test code = 2231) 143 MEQ/L POTASSIUM (test code = 2228) 3.6 MEQ/L CHLORIDE (test code = 2215) 106 MEQ/L CARBON DIOXIDE (test code = 2206) 26 MEQ/L CALCIUM (test code = 2209) 9.8 MG/DL PROTEIN, TOTAL (test code = 2229) 7.1 G/DL ALBUMIN (test code = 2201) 4.4 G/DL CALC GLOBULIN (test code = 2240) 2.7 G/DL CALC A/G RATIO (test code = 2234) 1.6 RATIO BILIRUBIN, TOTAL (test code = 2207) 0.6 MG/DL ALKALINE PHOSPHATASE (test code = 2204) 95 U/L AST (test code = 2218) 18 U/L ALT (test code = 2219) 17 U/L Garret ShaverLIPID [id number] 00:00:00* Test Item Value Reference Range Interpretation Comme nts CHOLESTEROL (test code = 2210) 147 MG/DL TRIGLYCERIDES (test code = 2232) 115 MG/DL HDL CHOLESTEROL (test code = 2220) 50 MG/DL CALC LDL CHOL (test code = 2237) 77 MG/DL RISK RATIO LDL/HDL (test cod e = 2238) 1.54 RATIO Garret ShaverCOMPREHENSIVE METABOLIC [id number] 00:00:00* Test Item Value Reference Range Interpretation Comme nts GLUCOSE (test code = 2217) 95 MG/DL BUN (test code = 2208) 13 MG/DL CREATININE (test code = 2214) 1.21 MG/DL eGFR (2020 CKD-EPI) (test co de = 16290) 51 ML/MIN/1.73 CALC BUN/CREAT (test code = 2235) 11 RATIO SODIUM (test code = 2231) 143 MEQ/L POTASSIUM (test code = 2228) 3.6 MEQ/L CHLORIDE (test code = 2215) 106 MEQ/L CARBON DIOXIDE (test code = 2206) 26 MEQ/L CALCIUM (test code = 2209) 9.8 MG/DL PROTEIN, TOTAL (test code = 2229) 7.1 G/DL ALBUMIN (test code = 2201) 4.4 G/DL CALC GLOBULIN (test code = 2240) 2.7 G/DL CALC A/G RATIO (test code = 2234) 1.6 RATIO BILIRUBIN, TOTAL (test code = 2207) 0.6 MG/DL ALKALINE PHOSPHATASE (test code = 2204) 95 U/L AST (test code = 2218) 18 U/L ALT (test code = 2219) 17 U/L Garret ShaverLIPID [id number] 00:00:00* Test Item Value Reference Range Interpretation Comme nts CHOLESTEROL (test code = 2210) 147 MG/DL TRIGLYCERIDES (test code = 2232) 115 MG/DL HDL CHOLESTEROL (test code = 2220) 50 MG/DL CALC LDL CHOL (test code = 2237) 77 MG/DL RISK RATIO LDL/HDL (test cod e = 2238) 1.54 RATIO Garret Morocho AustinCOMPREHENSIVE METABOLIC [id number] 00:00:00* Test Item Value Reference Range Interpretation Comme nts GLUCOSE (test code = 2217) 95 MG/DL BUN (test code = 2208) 13 MG/DL CREATININE (test code = 2214) 1.21 MG/DL eGFR (2020 CKD-EPI) (test co de = 79623) 51 ML/MIN/1.73 CALC BUN/CREAT (test code = 2235) 11 RATIO SODIUM (test code = 2231) 143 MEQ/L POTASSIUM (test code = 2228) 3.6 MEQ/L CHLORIDE (test code = 2215) 106 MEQ/L CARBON DIOXIDE (test code = 2206) 26 MEQ/L CALCIUM (test code = 2209) 9.8 MG/DL PROTEIN, TOTAL (test code = 2229) 7.1 G/DL ALBUMIN (test code = 2201) 4.4 G/DL CALC GLOBULIN (test code = 2240) 2.7 G/DL CALC A/G RATIO (test code = 2234) 1.6 RATIO BILIRUBIN, TOTAL (test code = 2207) 0.6 MG/DL ALKALINE PHOSPHATASE (test code = 2204) 95 U/L AST (test code = 2218) 18 U/L ALT (test code = 2219) 17 U/L Garret ShaverLIPID [id number] 00:00:00* Test Item Value Reference Range Interpretation Comme nts CHOLESTEROL (test code = 2210) 147 MG/DL TRIGLYCERIDES (test code = 2232) 115 MG/DL HDL CHOLESTEROL (test code = 2220) 50 MG/DL CALC LDL CHOL (test code = 2237) 77 MG/DL RISK RATIO LDL/HDL (test cod e = 2238) 1.54 RATIO Garret ShaverCOMPREHENSIVE METABOLIC [id number] 00:00:00* Test Item Value Reference Range Interpretation Comme nts GLUCOSE (test code = 2217) 95 MG/DL BUN (test code = 2208) 13 MG/DL CREATININE (test code = 2214) 1.21 MG/DL eGFR (2020 CKD-EPI) (test co de = 24487) 51 ML/MIN/1.73 CALC BUN/CREAT (test code = 2235) 11 RATIO SODIUM (test code = 2231) 143 MEQ/L POTASSIUM (test code = 2228) 3.6 MEQ/L CHLORIDE (test code = 2215) 106 MEQ/L CARBON DIOXIDE (test code = 2206) 26 MEQ/L CALCIUM (test code = 2209) 9.8 MG/DL PROTEIN, TOTAL (test code = 2229) 7.1 G/DL ALBUMIN (test code = 2201) 4.4 G/DL CALC GLOBULIN (test code = 2240) 2.7 G/DL CALC A/G RATIO (test code = 2234) 1.6 RATIO BILIRUBIN, TOTAL (test code = 2207) 0.6 MG/DL ALKALINE PHOSPHATASE (test code = 2204) 95 U/L AST (test code = 2218) 18 U/L ALT (test code = 2219) 17 U/L Garret Morocho AustinLIPID [id number] 00:00:00* Test Item Value Reference Range Interpretation Comme nts CHOLESTEROL (test code = 2210) 147 MG/DL TRIGLYCERIDES (test code = 2232) 115 MG/DL HDL CHOLESTEROL (test code = 2220) 50 MG/DL CALC LDL CHOL (test code = 2237) 77 MG/DL RISK RATIO LDL/HDL (test cod e = 2238) 1.54 RATIO Garret ShaverCOMPREHENSIVE METABOLIC [id number] 00:00:00* Test Item Value Reference Range Interpretation Comme nts GLUCOSE (test code = 2217) 95 MG/DL BUN (test code = 2208) 13 MG/DL CREATININE (test code = 2214) 1.21 MG/DL eGFR (2020 CKD-EPI) (test co de = 30827) 51 ML/MIN/1.73 CALC BUN/CREAT (test code = 2235) 11 RATIO SODIUM (test code = 2231) 143 MEQ/L POTASSIUM (test code = 2228) 3.6 MEQ/L CHLORIDE (test code = 2215) 106 MEQ/L CARBON DIOXIDE (test code = 2206) 26 MEQ/L CALCIUM (test code = 2209) 9.8 MG/DL PROTEIN, TOTAL (test code = 2229) 7.1 G/DL ALBUMIN (test code = 2201) 4.4 G/DL CALC GLOBULIN (test code = 2240) 2.7 G/DL CALC A/G RATIO (test code = 2234) 1.6 RATIO BILIRUBIN, TOTAL (test code = 2207) 0.6 MG/DL ALKALINE PHOSPHATASE (test code = 2204) 95 U/L AST (test code = 2218) 18 U/L ALT (test code = 2219) 17 U/L Garret ShaverLIPID [id number] 00:00:00* Test Item Value Reference Range Interpretation Comme nts CHOLESTEROL (test code = 2210) 147 MG/DL TRIGLYCERIDES (test code = 2232) 115 MG/DL HDL CHOLESTEROL (test code = 2220) 50 MG/DL CALC LDL CHOL (test code = 2237) 77 MG/DL RISK RATIO LDL/HDL (test cod e = 2238) 1.54 RATIO Garret ShaverCOMPREHENSIVE METABOLIC [id number] 00:00:00* Test Item Value Reference Range Interpretation Comme nts GLUCOSE (test code = 2217) 95 MG/DL BUN (test code = 2208) 13 MG/DL CREATININE (test code = 2214) 1.21 MG/DL eGFR (2020 CKD-EPI) (test co de = 56749) 51 ML/MIN/1.73 CALC BUN/CREAT (test code = 2235) 11 RATIO SODIUM (test code = 2231) 143 MEQ/L POTASSIUM (test code = 2228) 3.6 MEQ/L CHLORIDE (test code = 2215) 106 MEQ/L CARBON DIOXIDE (test code = 2206) 26 MEQ/L CALCIUM (test code = 2209) 9.8 MG/DL PROTEIN, TOTAL (test code = 2229) 7.1 G/DL ALBUMIN (test code = 2201) 4.4 G/DL CALC GLOBULIN (test code = 2240) 2.7 G/DL CALC A/G RATIO (test code = 2234) 1.6 RATIO BILIRUBIN, TOTAL (test code = 2207) 0.6 MG/DL ALKALINE PHOSPHATASE (test code = 2204) 95 U/L AST (test code = 2218) 18 U/L ALT (test code = 2219) 17 U/L Garret ShaverLIPID [id number] 00:00:00* Test Item Value Reference Range Interpretation Comme nts CHOLESTEROL (test code = 2210) 147 MG/DL TRIGLYCERIDES (test code = 2232) 115 MG/DL HDL CHOLESTEROL (test code = 2220) 50 MG/DL CALC LDL CHOL (test code = 2237) 77 MG/DL RISK RATIO LDL/HDL (test cod e = 2238) 1.54 RATIO Garret ShaverCOMPREHENSIVE METABOLIC [id number] 00:00:00* Test Item Value Reference Range Interpretation Comme nts GLUCOSE (test code = 2217) 95 MG/DL BUN (test code = 2208) 13 MG/DL CREATININE (test code = 2214) 1.21 MG/DL eGFR (2020 CKD-EPI) (test co de = 67212) 51 ML/MIN/1.73 CALC BUN/CREAT (test code = 2235) 11 RATIO SODIUM (test code = 2231) 143 MEQ/L POTASSIUM (test code = 2228) 3.6 MEQ/L CHLORIDE (test code = 2215) 106 MEQ/L CARBON DIOXIDE (test code = 2206) 26 MEQ/L CALCIUM (test code = 2209) 9.8 MG/DL PROTEIN, TOTAL (test code = 2229) 7.1 G/DL ALBUMIN (test code = 2201) 4.4 G/DL CALC GLOBULIN (test code = 2240) 2.7 G/DL CALC A/G RATIO (test code = 2234) 1.6 RATIO BILIRUBIN, TOTAL (test code = 2207) 0.6 MG/DL ALKALINE PHOSPHATASE (test code = 2204) 95 U/L AST (test code = 2218) 18 U/L ALT (test code = 2219) 17 U/L Garret ShaverLIPID [id number] 00:00:00* Test Item Value Reference Range Interpretation Comme nts CHOLESTEROL (test code = 2210) 147 MG/DL TRIGLYCERIDES (test code = 2232) 115 MG/DL HDL CHOLESTEROL (test code = 2220) 50 MG/DL CALC LDL CHOL (test code = 2237) 77 MG/DL RISK RATIO LDL/HDL (test cod e = 2238) 1.54 RATIO Garret ShaverCOMPREHENSIVE METABOLIC [id number] 00:00:00* Test Item Value Reference Range Interpretation Comme nts GLUCOSE (test code = 2217) 95 MG/DL BUN (test code = 2208) 13 MG/DL CREATININE (test code = 2214) 1.21 MG/DL eGFR (2020 CKD-EPI) (test co de = 91604) 51 ML/MIN/1.73 CALC BUN/CREAT (test code = 2235) 11 RATIO SODIUM (test code = 2231) 143 MEQ/L POTASSIUM (test code = 2228) 3.6 MEQ/L CHLORIDE (test code = 2215) 106 MEQ/L CARBON DIOXIDE (test code = 2206) 26 MEQ/L CALCIUM (test code = 2209) 9.8 MG/DL PROTEIN, TOTAL (test code = 2229) 7.1 G/DL ALBUMIN (test code = 2201) 4.4 G/DL CALC GLOBULIN (test code = 2240) 2.7 G/DL CALC A/G RATIO (test code = 2234) 1.6 RATIO BILIRUBIN, TOTAL (test code = 2207) 0.6 MG/DL ALKALINE PHOSPHATASE (test code = 2204) 95 U/L AST (test code = 2218) 18 U/L ALT (test code = 2219) 17 U/L Garret Morocho AustinLIPID [id number] 00:00:00* Test Item Value Reference Range Interpretation Comme nts CHOLESTEROL (test code = 2210) 147 MG/DL TRIGLYCERIDES (test code = 2232) 115 MG/DL HDL CHOLESTEROL (test code = 2220) 50 MG/DL CALC LDL CHOL (test code = 2237) 77 MG/DL RISK RATIO LDL/HDL (test cod e = 2238) 1.54 RATIO Garret ShaverCOMPREHENSIVE METABOLIC [id number] 00:00:00* Test Item Value Reference Range Interpretation Comme nts GLUCOSE (test code = 2217) 95 MG/DL BUN (test code = 2208) 13 MG/DL CREATININE (test code = 2214) 1.21 MG/DL eGFR (2020 CKD-EPI) (test co de = [id number]) 51 ML/MIN/1.73 CALC BUN/CREAT (test code = 2235) 11 RATIO SODIUM (test code = 2231) 143 MEQ/L POTASSIUM (test code = 2228) 3.6 MEQ/L CHLORIDE (test code = 2215) 106 MEQ/L CARBON DIOXIDE (test code = 2206) 26 MEQ/L CALCIUM (test code = 2209) 9.8 MG/DL PROTEIN, TOTAL (test code = 2229) 7.1 G/DL ALBUMIN (test code = 2201) 4.4 G/DL CALC GLOBULIN (test code = 2240) 2.7 G/DL CALC A/G RATIO (test code = 2234) 1.6 RATIO BILIRUBIN, TOTAL (test code = 2207) 0.6 MG/DL ALKALINE PHOSPHATASE (test code = 2204) 95 U/L AST (test code = 2218) 18 U/L ALT (test code = 2219) 17 U/L Garret Morocho BensonLIPID [id number] 00:00:00* Test Item Value Reference Range Interpretation Comme nts CHOLESTEROL (test code = 2210) 147 MG/DL TRIGLYCERIDES (test code = 2232) 115 MG/DL HDL CHOLESTEROL (test code = 2220) 50 MG/DL CALC LDL CHOL (test code = 2237) 77 MG/DL RISK RATIO LDL/HDL (test cod e = 2238) 1.54 RATIO Garret ShaverCOMPREHENSIVE METABOLIC [id number] 00:00:00* Test Item Value Reference Range Interpretation Comme nts GLUCOSE (test code = 2217) 95 MG/DL BUN (test code = 2208) 13 MG/DL CREATININE (test code = 2214) 1.21 MG/DL eGFR (2020 CKD-EPI) (test co de = 34699) 51 ML/MIN/1.73 CALC BUN/CREAT (test code = 2235) 11 RATIO SODIUM (test code = 2231) 143 MEQ/L POTASSIUM (test code = 2228) 3.6 MEQ/L CHLORIDE (test code = 2215) 106 MEQ/L CARBON DIOXIDE (test code = 2206) 26 MEQ/L CALCIUM (test code = 2209) 9.8 MG/DL PROTEIN, TOTAL (test code = 2229) 7.1 G/DL ALBUMIN (test code = 2201) 4.4 G/DL CALC GLOBULIN (test code = 2240) 2.7 G/DL CALC A/G RATIO (test code = 2234) 1.6 RATIO BILIRUBIN, TOTAL (test code = 2207) 0.6 MG/DL ALKALINE PHOSPHATASE (test code = 2204) 95 U/L AST (test code = 2218) 18 U/L ALT (test code = 2219) 17 U/L Garret ShaverLIPID [id number] 00:00:00* Test Item Value Reference Range Interpretation Comme nts CHOLESTEROL (test code = 2210) 147 MG/DL TRIGLYCERIDES (test code = 2232) 115 MG/DL HDL CHOLESTEROL (test code = 2220) 50 MG/DL CALC LDL CHOL (test code = 2237) 77 MG/DL RISK RATIO LDL/HDL (test cod e = 2238) 1.54 RATIO Garret ShaverCOMPREHENSIVE METABOLIC [id number] 00:00:00* Test Item Value Reference Range Interpretation Comme nts GLUCOSE (test code = 2217) 95 MG/DL BUN (test code = 2208) 13 MG/DL CREATININE (test code = 2214) 1.21 MG/DL eGFR (2020 CKD-EPI) (test co de = 67634) 51 ML/MIN/1.73 CALC BUN/CREAT (test code = 2235) 11 RATIO SODIUM (test code = 2231) 143 MEQ/L POTASSIUM (test code = 2228) 3.6 MEQ/L CHLORIDE (test code = 2215) 106 MEQ/L CARBON DIOXIDE (test code = 2206) 26 MEQ/L CALCIUM (test code = 2209) 9.8 MG/DL PROTEIN, TOTAL (test code = 2229) 7.1 G/DL ALBUMIN (test code = 2201) 4.4 G/DL CALC GLOBULIN (test code = 2240) 2.7 G/DL CALC A/G RATIO (test code = 2234) 1.6 RATIO BILIRUBIN, TOTAL (test code = 2207) 0.6 MG/DL ALKALINE PHOSPHATASE (test code = 2204) 95 U/L AST (test code = 2218) 18 U/L ALT (test code = 2219) 17 U/L Garret ShaverLIPID [id number] 00:00:00* Test Item Value Reference Range Interpretation Comme nts CHOLESTEROL (test code = 2210) 147 MG/DL TRIGLYCERIDES (test code = 2232) 115 MG/DL HDL CHOLESTEROL (test code = 2220) 50 MG/DL CALC LDL CHOL (test code = 2237) 77 MG/DL RISK RATIO LDL/HDL (test cod e = 2238) 1.54 RATIO Garret ShaverCOMPREHENSIVE METABOLIC [id number] 00:00:00* Test Item Value Reference Range Interpretation Comme nts GLUCOSE (test code = 2217) 95 MG/DL BUN (test code = 2208) 13 MG/DL CREATININE (test code = 2214) 1.21 MG/DL eGFR (2020 CKD-EPI) (test co de = 43730) 51 ML/MIN/1.73 CALC BUN/CREAT (test code = 2235) 11 RATIO SODIUM (test code = 2231) 143 MEQ/L POTASSIUM (test code = 2228) 3.6 MEQ/L CHLORIDE (test code = 2215) 106 MEQ/L CARBON DIOXIDE (test code = 2206) 26 MEQ/L CALCIUM (test code = 2209) 9.8 MG/DL PROTEIN, TOTAL (test code = 2229) 7.1 G/DL ALBUMIN (test code = 2201) 4.4 G/DL CALC GLOBULIN (test code = 2240) 2.7 G/DL CALC A/G RATIO (test code = 2234) 1.6 RATIO BILIRUBIN, TOTAL (test code = 2207) 0.6 MG/DL ALKALINE PHOSPHATASE (test code = 2204) 95 U/L AST (test code = 2218) 18 U/L ALT (test code = 2219) 17 U/L Garret ShaverLIPID [id number] 00:00:00* Test Item Value Reference Range Interpretation Comme nts CHOLESTEROL (test code = 2210) 147 MG/DL TRIGLYCERIDES (test code = 2232) 115 MG/DL HDL CHOLESTEROL (test code = 2220) 50 MG/DL CALC LDL CHOL (test code = 2237) 77 MG/DL RISK RATIO LDL/HDL (test cod e = 2238) 1.54 RATIO Garret ShaverCOMPREHENSIVE METABOLIC [id number] 00:00:00* Test Item Value Reference Range Interpretation Comme nts GLUCOSE (test code = 2217) 95 MG/DL BUN (test code = 2208) 13 MG/DL CREATININE (test code = 2214) 1.21 MG/DL eGFR (2020 CKD-EPI) (test co de = 60047) 51 ML/MIN/1.73 CALC BUN/CREAT (test code = 2235) 11 RATIO SODIUM (test code = 2231) 143 MEQ/L POTASSIUM (test code = 2228) 3.6 MEQ/L CHLORIDE (test code = 2215) 106 MEQ/L CARBON DIOXIDE (test code = 2206) 26 MEQ/L CALCIUM (test code = 2209) 9.8 MG/DL PROTEIN, TOTAL (test code = 2229) 7.1 G/DL ALBUMIN (test code = 2201) 4.4 G/DL CALC GLOBULIN (test code = 2240) 2.7 G/DL CALC A/G RATIO (test code = 2234) 1.6 RATIO BILIRUBIN, TOTAL (test code = 2207) 0.6 MG/DL ALKALINE PHOSPHATASE (test code = 2204) 95 U/L AST (test code = 2218) 18 U/L ALT (test code = 2219) 17 U/L Garret Morocho BensonLIPID [id number] 00:00:00* Test Item Value Reference Range Interpretation Comme nts CHOLESTEROL (test code = 2210) 147 MG/DL TRIGLYCERIDES (test code = 2232) 115 MG/DL HDL CHOLESTEROL (test code = 2220) 50 MG/DL CALC LDL CHOL (test code = 2237) 77 MG/DL RISK RATIO LDL/HDL (test cod e = 2238) 1.54 RATIO Garret ShaverCOMPREHENSIVE METABOLIC [id number] 00:00:00* Test Item Value Reference Range Interpretation Comme nts GLUCOSE (test code = 2217) 95 MG/DL BUN (test code = 2208) 13 MG/DL CREATININE (test code = 2214) 1.21 MG/DL eGFR (2020 CKD-EPI) (test co de = 83652) 51 ML/MIN/1.73 CALC BUN/CREAT (test code = 2235) 11 RATIO SODIUM (test code = 2231) 143 MEQ/L POTASSIUM (test code = 2228) 3.6 MEQ/L CHLORIDE (test code = 2215) 106 MEQ/L CARBON DIOXIDE (test code = 2206) 26 MEQ/L CALCIUM (test code = 2209) 9.8 MG/DL PROTEIN, TOTAL (test code = 2229) 7.1 G/DL ALBUMIN (test code = 2201) 4.4 G/DL CALC GLOBULIN (test code = 2240) 2.7 G/DL CALC A/G RATIO (test code = 2234) 1.6 RATIO BILIRUBIN, TOTAL (test code = 2207) 0.6 MG/DL ALKALINE PHOSPHATASE (test code = 2204) 95 U/L AST (test code = 2218) 18 U/L ALT (test code = 2219) 17 U/L Garret Morocho AustinLIPID [id number] 00:00:00* Test Item Value Reference Range Interpretation Comme nts CHOLESTEROL (test code = 2210) 147 MG/DL TRIGLYCERIDES (test code = 2232) 115 MG/DL HDL CHOLESTEROL (test code = 2220) 50 MG/DL CALC LDL CHOL (test code = 2237) 77 MG/DL RISK RATIO LDL/HDL (test cod e = 2238) 1.54 RATIO Garret ShaverCOMPREHENSIVE METABOLIC [id number] 00:00:00* Test Item Value Reference Range Interpretation Comme nts GLUCOSE (test code = 2217) 95 MG/DL BUN (test code = 2208) 13 MG/DL CREATININE (test code = 2214) 1.21 MG/DL eGFR (2020 CKD-EPI) (test co de = 34094) 51 ML/MIN/1.73 CALC BUN/CREAT (test code = 2235) 11 RATIO SODIUM (test code = 2231) 143 MEQ/L POTASSIUM (test code = 2228) 3.6 MEQ/L CHLORIDE (test code = 2215) 106 MEQ/L CARBON DIOXIDE (test code = 2206) 26 MEQ/L CALCIUM (test code = 2209) 9.8 MG/DL PROTEIN, TOTAL (test code = 2229) 7.1 G/DL ALBUMIN (test code = 2201) 4.4 G/DL CALC GLOBULIN (test code = 2240) 2.7 G/DL CALC A/G RATIO (test code = 2234) 1.6 RATIO BILIRUBIN, TOTAL (test code = 2207) 0.6 MG/DL ALKALINE PHOSPHATASE (test code = 2204) 95 U/L AST (test code = 2218) 18 U/L ALT (test code = 2219) 17 U/L Garret Morocho AustinLIPID [id number] 00:00:00* Test Item Value Reference Range Interpretation Comme nts CHOLESTEROL (test code = 2210) 147 MG/DL TRIGLYCERIDES (test code = 2232) 115 MG/DL HDL CHOLESTEROL (test code = 2220) 50 MG/DL CALC LDL CHOL (test code = 2237) 77 MG/DL RISK RATIO LDL/HDL (test cod e = 2238) 1.54 RATIO Garret ShaverCOMPREHENSIVE METABOLIC [id number] 00:00:00* Test Item Value Reference Range Interpretation Comme nts GLUCOSE (test code = 2217) 95 MG/DL BUN (test code = 2208) 13 MG/DL CREATININE (test code = 2214) 1.21 MG/DL eGFR (2020 CKD-EPI) (test co de = 36339) 51 ML/MIN/1.73 CALC BUN/CREAT (test code = 2235) 11 RATIO SODIUM (test code = 2231) 143 MEQ/L POTASSIUM (test code = 2228) 3.6 MEQ/L CHLORIDE (test code = 2215) 106 MEQ/L CARBON DIOXIDE (test code = 2206) 26 MEQ/L CALCIUM (test code = 2209) 9.8 MG/DL PROTEIN, TOTAL (test code = 2229) 7.1 G/DL ALBUMIN (test code = 2201) 4.4 G/DL CALC GLOBULIN (test code = 2240) 2.7 G/DL CALC A/G RATIO (test code = 2234) 1.6 RATIO BILIRUBIN, TOTAL (test code = 2207) 0.6 MG/DL ALKALINE PHOSPHATASE (test code = 2204) 95 U/L AST (test code = 2218) 18 U/L ALT (test code = 2219) 17 U/L Garret Morocho AustinLIPID [id number] 00:00:00* Test Item Value Reference Range Interpretation Comme nts CHOLESTEROL (test code = 2210) 147 MG/DL TRIGLYCERIDES (test code = 2232) 115 MG/DL HDL CHOLESTEROL (test code = 2220) 50 MG/DL CALC LDL CHOL (test code = 2237) 77 MG/DL RISK RATIO LDL/HDL (test cod e = 2238) 1.54 RATIO Garret ShaverCOMPREHENSIVE METABOLIC [id number] 00:00:00* Test Item Value Reference Range Interpretation Comme nts GLUCOSE (test code = 2217) 95 MG/DL BUN (test code = 2208) 13 MG/DL CREATININE (test code = 2214) 1.21 MG/DL eGFR (2020 CKD-EPI) (test co de = 85171) 51 ML/MIN/1.73 CALC BUN/CREAT (test code = 2235) 11 RATIO SODIUM (test code = 2231) 143 MEQ/L POTASSIUM (test code = 2228) 3.6 MEQ/L CHLORIDE (test code = 2215) 106 MEQ/L CARBON DIOXIDE (test code = 2206) 26 MEQ/L CALCIUM (test code = 2209) 9.8 MG/DL PROTEIN, TOTAL (test code = 2229) 7.1 G/DL ALBUMIN (test code = 2201) 4.4 G/DL CALC GLOBULIN (test code = 2240) 2.7 G/DL CALC A/G RATIO (test code = 2234) 1.6 RATIO BILIRUBIN, TOTAL (test code = 2207) 0.6 MG/DL ALKALINE PHOSPHATASE (test code = 2204) 95 U/L AST (test code = 2218) 18 U/L ALT (test code = 2219) 17 U/L Garret Morocho [facility] W/AUTO [id number] 00:00:00* Test Item Value Reference Range Interpretation Comme nts WBC (test code = 1001) 6.4 K/UL RBC (test code = 1002) 4.47 M/UL HEMOGLOBIN (test code = 1003) 14.6 G/DL HEMATOCRIT (test code = 1004) 43.0 % MCV (test code = 1005) 96.2 fL MCH (test code = 1006) 32.7 PG MCHC (test code = 1007) 34.0 G/DL RDW (test code = 1038) 12.5 % NEUTROPHILS (test code = 1008) 52.7 % LYMPHOCYTES (test code = 1010) 34.6 % MONOCYTES (test code = 1011) 8.3 % EOSINOPHILS (test code = 1012) 3.7 % BASOPHILS (test code = 1013) 0.5 % IMMATURE GRANULOCYTES (test code = 1036) 0.2 % NUCLEATED RBCS (test code = 1065) 0.0 /100WBC'S PLATELET COUNT (test code = 1015) 238 K/UL ABSOLUTE NEUTROPHILS (test c ode = 1066) 3.38 K/UL ABSOLUTE LYMPHOCYTES (test c ode = 1067) 2.22 K/UL ABSOLUTE MONOCYTES (test cod e = 1068) 0.53 K/UL ABSOLUTE EOSINOPHILS (test c ode = 1040) 0.24 K/UL ABSOLUTE BASOPHILS (test cod e = 1069) 0.03 K/UL ABS IMMATURE GRANULOCYTES (t est code = 1020) 0.01 K/UL ABS NUCLEATED RBCS (test cod e = 37030) 0.00 K/UL Garret Morocho AustinLIPID [id number] 00:00:00* Test Item Value Reference Range Interpretation Comme nts CHOLESTEROL (test code = 2210) 154 MG/DL TRIGLYCERIDES (test code = 2232) 214 MG/DL HDL CHOLESTEROL (test code = 2220) 49 MG/DL CALC LDL CHOL (test code = 2237) 74 MG/DL RISK RATIO LDL/HDL (test cod e = 2238) 1.51 RATIO Garret Bailee SviakumarCOMPREHENSIVE METABOLIC [id number] 00:00:00* Test Item Value Reference Range Interpretation Comme nts GLUCOSE (test code = 2217) 104 MG/DL BUN (test code = 2208) 16 MG/DL CREATININE (test code = 2214) 1.48 MG/DL eGFR (2020 CKD-EPI) (test co de = 74364) 40 ML/MIN/1.73 CALC BUN/CREAT (test code = 2235) 11 RATIO SODIUM (test code = 2231) 140 MEQ/L POTASSIUM (test code = 2228) 3.6 MEQ/L CHLORIDE (test code = 2215) 107 MEQ/L CARBON DIOXIDE (test code = 2206) 17 MEQ/L CALCIUM (test code = 2209) 9.7 MG/DL PROTEIN, TOTAL (test code = 2229) 7.1 G/DL ALBUMIN (test code = 2201) 4.3 G/DL CALC GLOBULIN (test code = 2240) 2.8 G/DL CALC A/G RATIO (test code = 2234) 1.5 RATIO BILIRUBIN, TOTAL (test code = 2207) 0.4 MG/DL ALKALINE PHOSPHATASE (test code = 2204) 91 U/L AST (test code = 2218) 19 U/L ALT (test code = 2219) 17 U/L Garret Morocho AustinURINALYSIS W/REFLEX [id number] 00:00:00* Test Item Value Reference Range Interpretation Comme nts COLOR (test code = 1501) YELLOW APPEARANCE (test code = 1502) CLEAR SPECIFIC GRAVITY (test code = 1503) 1.012 LEUKOCYTE ESTERASE (test cod e = 1504) NEGATIVE NITRITE (test code = 1505) NEGATIVE pH (test code = 1506) 5.5 PROTEIN (test code = 1507) NEGATIVE GLUCOSE (test code = 1508) NEGATIVE KETONES (test code = 1509) NEGATIVE UROBILINOGEN (test code = 1510) 0.2 MG/DL BILIRUBIN (test code = 1511) NEGATIVE OCCULT BLOOD (test code = 1512) TRACE WHITE BLOOD CELLS (test code = 1513) 16-20 /HPF RED BLOOD CELLS (test code = 1514) 0-2 /HPF EPITHELIAL CELLS (test code = 22748) 0-5 /HPF BACTERIA (test code = 1515) TRACE CASTS, HYALINE (test code = 1517) NONE SEEN Garret Morocho AustinHIV 1/2 4TH GEN, RFLX [id number] 00:00:00* Test Item Value Reference Range Interpretation Comme nts HIV 1/2 4TH GEN, RFLX CONF ( test code = 3514) NON-REACTIVE Garret ShaverHEPATITIS C [id number] 00:00:00* Test Item Value Reference Range Interpretation Comme nts HEPATITIS C ANTIBODY (test c ode = 4675) NON-REACTIVE Garret ShaverCBC W/AUTO [id number] 00:00:00* Test Item Value Reference Range Interpretation Comme nts WBC (test code = 1001) 6.4 K/UL RBC (test code = 1002) 4.47 M/UL HEMOGLOBIN (test code = 1003) 14.6 G/DL HEMATOCRIT (test code = 1004) 43.0 % MCV (test code = 1005) 96.2 fL MCH (test code = 1006) 32.7 PG MCHC (test code = 1007) 34.0 G/DL RDW (test code = 1038) 12.5 % NEUTROPHILS (test code = 1008) 52.7 % LYMPHOCYTES (test code = 1010) 34.6 % MONOCYTES (test code = 1011) 8.3 % EOSINOPHILS (test code = 1012) 3.7 % BASOPHILS (test code = 1013) 0.5 % IMMATURE GRANULOCYTES (test code = 1036) 0.2 % NUCLEATED RBCS (test code = 1065) 0.0 /100WBC'S PLATELET COUNT (test code = 1015) 238 K/UL ABSOLUTE NEUTROPHILS (test c ode = 1066) 3.38 K/UL ABSOLUTE LYMPHOCYTES (test c ode = 1067) 2.22 K/UL ABSOLUTE MONOCYTES (test cod e = 1068) 0.53 K/UL ABSOLUTE EOSINOPHILS (test c ode = 1040) 0.24 K/UL ABSOLUTE BASOPHILS (test cod e = 1069) 0.03 K/UL ABS IMMATURE GRANULOCYTES (t est code = 1020) 0.01 K/UL ABS NUCLEATED RBCS (test cod e = 71876) 0.00 K/UL Garret ShaverLIPID [id number] 00:00:00* Test Item Value Reference Range Interpretation Comme nts CHOLESTEROL (test code = 2210) 154 MG/DL TRIGLYCERIDES (test code = 2232) 214 MG/DL HDL CHOLESTEROL (test code = 2220) 49 MG/DL CALC LDL CHOL (test code = 2237) 74 MG/DL RISK RATIO LDL/HDL (test cod e = 2238) 1.51 RATIO Garret ShaverCOMPREHENSIVE METABOLIC [id number] 00:00:00* Test Item Value Reference Range Interpretation Comme nts GLUCOSE (test code = 2217) 104 MG/DL BUN (test code = 2208) 16 MG/DL CREATININE (test code = 2214) 1.48 MG/DL eGFR (2020 CKD-EPI) (test co de = 82908) 40 ML/MIN/1.73 CALC BUN/CREAT (test code = 2235) 11 RATIO SODIUM (test code = 2231) 140 MEQ/L POTASSIUM (test code = 2228) 3.6 MEQ/L CHLORIDE (test code = 2215) 107 MEQ/L CARBON DIOXIDE (test code = 2206) 17 MEQ/L CALCIUM (test code = 2209) 9.7 MG/DL PROTEIN, TOTAL (test code = 2229) 7.1 G/DL ALBUMIN (test code = 2201) 4.3 G/DL CALC GLOBULIN (test code = 2240) 2.8 G/DL CALC A/G RATIO (test code = 2234) 1.5 RATIO BILIRUBIN, TOTAL (test code = 2207) 0.4 MG/DL ALKALINE PHOSPHATASE (test code = 2204) 91 U/L AST (test code = 2218) 19 U/L ALT (test code = 2219) 17 U/L Garret ShaverURINALYSIS W/REFLEX [id number] 00:00:00* Test Item Value Reference Range Interpretation Comme nts COLOR (test code = 1501) YELLOW APPEARANCE (test code = 1502) CLEAR SPECIFIC GRAVITY (test code = 1503) 1.012 LEUKOCYTE ESTERASE (test cod e = 1504) NEGATIVE NITRITE (test code = 1505) NEGATIVE pH (test code = 1506) 5.5 PROTEIN (test code = 1507) NEGATIVE GLUCOSE (test code = 1508) NEGATIVE KETONES (test code = 1509) NEGATIVE UROBILINOGEN (test code = 1510) 0.2 MG/DL BILIRUBIN (test code = 1511) NEGATIVE OCCULT BLOOD (test code = 1512) TRACE WHITE BLOOD CELLS (test code = 1513) 16-20 /HPF RED BLOOD CELLS (test code = 1514) 0-2 /HPF EPITHELIAL CELLS (test code = 94699) 0-5 /HPF BACTERIA (test code = 1515) TRACE CASTS, HYALINE (test code = 1517) NONE SEEN Garret ShaverHIV 1/2 4TH GEN, RFLX [id number] 00:00:00* Test Item Value Reference Range Interpretation Comme santino HIV 1/2 4TH GEN, RFLX CONF ( test code = 3514) NON-REACTIVE Garret ShaverHEPATITIS C [id number] 00:00:00* Test Item Value Reference Range Interpretation Comme santino HEPATITIS C ANTIBODY (test c ode = 4675) NON-REACTIVE Garret ShaverCBC W/AUTO [id number] 00:00:00* Test Item Value Reference Range Interpretation Comme nts WBC (test code = 1001) 6.4 K/UL RBC (test code = 1002) 4.47 M/UL HEMOGLOBIN (test code = 1003) 14.6 G/DL HEMATOCRIT (test code = 1004) 43.0 % MCV (test code = 1005) 96.2 fL MCH (test code = 1006) 32.7 PG MCHC (test code = 1007) 34.0 G/DL RDW (test code = 1038) 12.5 % NEUTROPHILS (test code = 1008) 52.7 % LYMPHOCYTES (test code = 1010) 34.6 % MONOCYTES (test code = 1011) 8.3 % EOSINOPHILS (test code = 1012) 3.7 % BASOPHILS (test code = 1013) 0.5 % IMMATURE GRANULOCYTES (test code = 1036) 0.2 % NUCLEATED RBCS (test code = 1065) 0.0 /100WBC'S PLATELET COUNT (test code = 1015) 238 K/UL ABSOLUTE NEUTROPHILS (test c ode = 1066) 3.38 K/UL ABSOLUTE LYMPHOCYTES (test c ode = 1067) 2.22 K/UL ABSOLUTE MONOCYTES (test cod e = 1068) 0.53 K/UL ABSOLUTE EOSINOPHILS (test c ode = 1040) 0.24 K/UL ABSOLUTE BASOPHILS (test cod e = 1069) 0.03 K/UL ABS IMMATURE GRANULOCYTES (t est code = 1020) 0.01 K/UL ABS NUCLEATED RBCS (test cod e = 29369) 0.00 K/UL Garret ShaverLIPID [id number] 00:00:00* Test Item Value Reference Range Interpretation Comme nts CHOLESTEROL (test code = 2210) 154 MG/DL TRIGLYCERIDES (test code = 2232) 214 MG/DL HDL CHOLESTEROL (test code = 2220) 49 MG/DL CALC LDL CHOL (test code = 2237) 74 MG/DL RISK RATIO LDL/HDL (test cod e = 2238) 1.51 RATIO Garret F SivakumarCOMPREHENSIVE METABOLIC [id number] 00:00:00* Test Item Value Reference Range Interpretation Comme nts GLUCOSE (test code = 2217) 104 MG/DL BUN (test code = 2208) 16 MG/DL CREATININE (test code = 2214) 1.48 MG/DL eGFR (2020 CKD-EPI) (test co de = 26286) 40 ML/MIN/1.73 CALC BUN/CREAT (test code = 2235) 11 RATIO SODIUM (test code = 2231) 140 MEQ/L POTASSIUM (test code = 2228) 3.6 MEQ/L CHLORIDE (test code = 2215) 107 MEQ/L CARBON DIOXIDE (test code = 2206) 17 MEQ/L CALCIUM (test code = 2209) 9.7 MG/DL PROTEIN, TOTAL (test code = 2229) 7.1 G/DL ALBUMIN (test code = 2201) 4.3 G/DL CALC GLOBULIN (test code = 2240) 2.8 G/DL CALC A/G RATIO (test code = 2234) 1.5 RATIO BILIRUBIN, TOTAL (test code = 2207) 0.4 MG/DL ALKALINE PHOSPHATASE (test code = 2204) 91 U/L AST (test code = 2218) 19 U/L ALT (test code = 2219) 17 U/L Garret Morocho AustinURINALYSIS W/REFLEX [id number] 00:00:00* Test Item Value Reference Range Interpretation Comme nts COLOR (test code = 1501) YELLOW APPEARANCE (test code = 1502) CLEAR SPECIFIC GRAVITY (test code = 1503) 1.012 LEUKOCYTE ESTERASE (test cod e = 1504) NEGATIVE NITRITE (test code = 1505) NEGATIVE pH (test code = 1506) 5.5 PROTEIN (test code = 1507) NEGATIVE GLUCOSE (test code = 1508) NEGATIVE KETONES (test code = 1509) NEGATIVE UROBILINOGEN (test code = 1510) 0.2 MG/DL BILIRUBIN (test code = 1511) NEGATIVE OCCULT BLOOD (test code = 1512) TRACE WHITE BLOOD CELLS (test code = 1513) 16-20 /HPF RED BLOOD CELLS (test code = 1514) 0-2 /HPF EPITHELIAL CELLS (test code = 07376) 0-5 /HPF BACTERIA (test code = 1515) TRACE CASTS, HYALINE (test code = 1517) NONE SEEN Garret ShaverHIV 1/2 4TH GEN, RFLX [id number] 00:00:00* Test Item Value Reference Range Interpretation Comme santino HIV 1/2 4TH GEN, RFLX CONF ( test code = 3514) NON-REACTIVE Garret ShaverHEPATITIS C [id number] 00:00:00* Test Item Value Reference Range Interpretation Comme nts HEPATITIS C ANTIBODY (test c ode = 4675) NON-REACTIVE Garret ShaverCBC W/AUTO [id number] 00:00:00* Test Item Value Reference Range Interpretation Comme nts WBC (test code = 1001) 6.4 K/UL RBC (test code = 1002) 4.47 M/UL HEMOGLOBIN (test code = 1003) 14.6 G/DL HEMATOCRIT (test code = 1004) 43.0 % MCV (test code = 1005) 96.2 fL MCH (test code = 1006) 32.7 PG MCHC (test code = 1007) 34.0 G/DL RDW (test code = 1038) 12.5 % NEUTROPHILS (test code = 1008) 52.7 % LYMPHOCYTES (test code = 1010) 34.6 % MONOCYTES (test code = 1011) 8.3 % EOSINOPHILS (test code = 1012) 3.7 % BASOPHILS (test code = 1013) 0.5 % IMMATURE GRANULOCYTES (test code = 1036) 0.2 % NUCLEATED RBCS (test code = 1065) 0.0 /100WBC'S PLATELET COUNT (test code = 1015) 238 K/UL ABSOLUTE NEUTROPHILS (test c ode = 1066) 3.38 K/UL ABSOLUTE LYMPHOCYTES (test c ode = 1067) 2.22 K/UL ABSOLUTE MONOCYTES (test cod e = 1068) 0.53 K/UL ABSOLUTE EOSINOPHILS (test c ode = 1040) 0.24 K/UL ABSOLUTE BASOPHILS (test cod e = 1069) 0.03 K/UL ABS IMMATURE GRANULOCYTES (t est code = 1020) 0.01 K/UL ABS NUCLEATED RBCS (test cod e = 76724) 0.00 K/UL Garret Bailee AustinLIPID [id number] 00:00:00* Test Item Value Reference Range Interpretation Comme nts CHOLESTEROL (test code = 2210) 154 MG/DL TRIGLYCERIDES (test code = 2232) 214 MG/DL HDL CHOLESTEROL (test code = 2220) 49 MG/DL CALC LDL CHOL (test code = 2237) 74 MG/DL RISK RATIO LDL/HDL (test cod e = 2238) 1.51 RATIO Garret ShaverCOMPREHENSIVE METABOLIC [id number] 00:00:00* Test Item Value Reference Range Interpretation Comme nts GLUCOSE (test code = 2217) 104 MG/DL BUN (test code = 2208) 16 MG/DL CREATININE (test code = 2214) 1.48 MG/DL eGFR (2020 CKD-EPI) (test co de = 56437) 40 ML/MIN/1.73 CALC BUN/CREAT (test code = 2235) 11 RATIO SODIUM (test code = 2231) 140 MEQ/L POTASSIUM (test code = 2228) 3.6 MEQ/L CHLORIDE (test code = 2215) 107 MEQ/L CARBON DIOXIDE (test code = 2206) 17 MEQ/L CALCIUM (test code = 2209) 9.7 MG/DL PROTEIN, TOTAL (test code = 2229) 7.1 G/DL ALBUMIN (test code = 2201) 4.3 G/DL CALC GLOBULIN (test code = 2240) 2.8 G/DL CALC A/G RATIO (test code = 2234) 1.5 RATIO BILIRUBIN, TOTAL (test code = 2207) 0.4 MG/DL ALKALINE PHOSPHATASE (test code = 2204) 91 U/L AST (test code = 2218) 19 U/L ALT (test code = 2219) 17 U/L Garret Morocho AustinURINALYSIS W/REFLEX [id number] 00:00:00* Test Item Value Reference Range Interpretation Comme nts COLOR (test code = 1501) YELLOW APPEARANCE (test code = 1502) CLEAR SPECIFIC GRAVITY (test code = 1503) 1.012 LEUKOCYTE ESTERASE (test cod e = 1504) NEGATIVE NITRITE (test code = 1505) NEGATIVE pH (test code = 1506) 5.5 PROTEIN (test code = 1507) NEGATIVE GLUCOSE (test code = 1508) NEGATIVE KETONES (test code = 1509) NEGATIVE UROBILINOGEN (test code = 1510) 0.2 MG/DL BILIRUBIN (test code = 1511) NEGATIVE OCCULT BLOOD (test code = 1512) TRACE WHITE BLOOD CELLS (test code = 1513) 16-20 /HPF RED BLOOD CELLS (test code = 1514) 0-2 /HPF EPITHELIAL CELLS (test code = 24069) 0-5 /HPF BACTERIA (test code = 1515) TRACE CASTS, HYALINE (test code = 1517) NONE SEEN Garret Morocho AustinHIV 1/2 4TH GEN, RFLX [id number] 00:00:00* Test Item Value Reference Range Interpretation Comme nts HIV 1/2 4TH GEN, RFLX CONF ( test code = 3514) NON-REACTIVE Garret ShaverHEPATITIS C [id number] 00:00:00* Test Item Value Reference Range Interpretation Comme nts HEPATITIS C ANTIBODY (test c ode = 4675) NON-REACTIVE Garret ShaverCBC W/AUTO [id number] 00:00:00* Test Item Value Reference Range Interpretation Comme nts WBC (test code = 1001) 6.4 K/UL RBC (test code = 1002) 4.47 M/UL HEMOGLOBIN (test code = 1003) 14.6 G/DL HEMATOCRIT (test code = 1004) 43.0 % MCV (test code = 1005) 96.2 fL MCH (test code = 1006) 32.7 PG MCHC (test code = 1007) 34.0 G/DL RDW (test code = 1038) 12.5 % NEUTROPHILS (test code = 1008) 52.7 % LYMPHOCYTES (test code = 1010) 34.6 % MONOCYTES (test code = 1011) 8.3 % EOSINOPHILS (test code = 1012) 3.7 % BASOPHILS (test code = 1013) 0.5 % IMMATURE GRANULOCYTES (test code = 1036) 0.2 % NUCLEATED RBCS (test code = 1065) 0.0 /100WBC'S PLATELET COUNT (test code = 1015) 238 K/UL ABSOLUTE NEUTROPHILS (test c ode = 1066) 3.38 K/UL ABSOLUTE LYMPHOCYTES (test c ode = 1067) 2.22 K/UL ABSOLUTE MONOCYTES (test cod e = 1068) 0.53 K/UL ABSOLUTE EOSINOPHILS (test c ode = 1040) 0.24 K/UL ABSOLUTE BASOPHILS (test cod e = 1069) 0.03 K/UL ABS IMMATURE GRANULOCYTES (t est code = 1020) 0.01 K/UL ABS NUCLEATED RBCS (test cod e = 47023) 0.00 K/UL Garret ShaverLIPID [id number] 00:00:00* Test Item Value Reference Range Interpretation Comme nts CHOLESTEROL (test code = 2210) 154 MG/DL TRIGLYCERIDES (test code = 2232) 214 MG/DL HDL CHOLESTEROL (test code = 2220) 49 MG/DL CALC LDL CHOL (test code = 2237) 74 MG/DL RISK RATIO LDL/HDL (test cod e = 2238) 1.51 RATIO Garret ShaverCOMPREHENSIVE METABOLIC [id number] 00:00:00* Test Item Value Reference Range Interpretation Comme nts GLUCOSE (test code = 2217) 104 MG/DL BUN (test code = 2208) 16 MG/DL CREATININE (test code = 2214) 1.48 MG/DL eGFR (2020 CKD-EPI) (test co de = 05950) 40 ML/MIN/1.73 CALC BUN/CREAT (test code = 2235) 11 RATIO SODIUM (test code = 2231) 140 MEQ/L POTASSIUM (test code = 2228) 3.6 MEQ/L CHLORIDE (test code = 2215) 107 MEQ/L CARBON DIOXIDE (test code = 2206) 17 MEQ/L CALCIUM (test code = 2209) 9.7 MG/DL PROTEIN, TOTAL (test code = 2229) 7.1 G/DL ALBUMIN (test code = 2201) 4.3 G/DL CALC GLOBULIN (test code = 2240) 2.8 G/DL CALC A/G RATIO (test code = 2234) 1.5 RATIO BILIRUBIN, TOTAL (test code = 2207) 0.4 MG/DL ALKALINE PHOSPHATASE (test code = 2204) 91 U/L AST (test code = 2218) 19 U/L ALT (test code = 2219) 17 U/L Garret ShaverURINALYSIS W/REFLEX [id number] 00:00:00* Test Item Value Reference Range Interpretation Comme nts COLOR (test code = 1501) YELLOW APPEARANCE (test code = 1502) CLEAR SPECIFIC GRAVITY (test code = 1503) 1.012 LEUKOCYTE ESTERASE (test cod e = 1504) NEGATIVE NITRITE (test code = 1505) NEGATIVE pH (test code = 1506) 5.5 PROTEIN (test code = 1507) NEGATIVE GLUCOSE (test code = 1508) NEGATIVE KETONES (test code = 1509) NEGATIVE UROBILINOGEN (test code = 1510) 0.2 MG/DL BILIRUBIN (test code = 1511) NEGATIVE OCCULT BLOOD (test code = 1512) TRACE WHITE BLOOD CELLS (test code = 1513) 16-20 /HPF RED BLOOD CELLS (test code = 1514) 0-2 /HPF EPITHELIAL CELLS (test code = 52454) 0-5 /HPF BACTERIA (test code = 1515) TRACE CASTS, HYALINE (test code = 1517) NONE SEEN Garret F SivakumarHIV 1/2 4TH GEN, RFLX [id number] 00:00:00* Test Item Value Reference Range Interpretation Comme nts HIV 1/2 4TH GEN, RFLX CONF ( test code = 3514) NON-REACTIVE Garret ShaverHEPATITIS C [id number] 00:00:00* Test Item Value Reference Range Interpretation Comme nts HEPATITIS C ANTIBODY (test c ode = 4675) NON-REACTIVE Garret ShaverCBC W/AUTO [id number] 00:00:00* Test Item Value Reference Range Interpretation Comme nts WBC (test code = 1001) 6.4 K/UL RBC (test code = 1002) 4.47 M/UL HEMOGLOBIN (test code = 1003) 14.6 G/DL HEMATOCRIT (test code = 1004) 43.0 % MCV (test code = 1005) 96.2 fL MCH (test code = 1006) 32.7 PG MCHC (test code = 1007) 34.0 G/DL RDW (test code = 1038) 12.5 % NEUTROPHILS (test code = 1008) 52.7 % LYMPHOCYTES (test code = 1010) 34.6 % MONOCYTES (test code = 1011) 8.3 % EOSINOPHILS (test code = 1012) 3.7 % BASOPHILS (test code = 1013) 0.5 % IMMATURE GRANULOCYTES (test code = 1036) 0.2 % NUCLEATED RBCS (test code = 1065) 0.0 /100WBC'S PLATELET COUNT (test code = 1015) 238 K/UL ABSOLUTE NEUTROPHILS (test c ode = 1066) 3.38 K/UL ABSOLUTE LYMPHOCYTES (test c ode = 1067) 2.22 K/UL ABSOLUTE MONOCYTES (test cod e = 1068) 0.53 K/UL ABSOLUTE EOSINOPHILS (test c ode = 1040) 0.24 K/UL ABSOLUTE BASOPHILS (test cod e = 1069) 0.03 K/UL ABS IMMATURE GRANULOCYTES (t est code = 1020) 0.01 K/UL ABS NUCLEATED RBCS (test cod e = 51934) 0.00 K/UL Garret ShaverLIPID [id number] 00:00:00* Test Item Value Reference Range Interpretation Comme nts CHOLESTEROL (test code = 2210) 154 MG/DL TRIGLYCERIDES (test code = 2232) 214 MG/DL HDL CHOLESTEROL (test code = 2220) 49 MG/DL CALC LDL CHOL (test code = 2237) 74 MG/DL RISK RATIO LDL/HDL (test cod e = 2238) 1.51 RATIO Garret ShaverCOMPREHENSIVE METABOLIC [id number] 00:00:00* Test Item Value Reference Range Interpretation Comme nts GLUCOSE (test code = 2217) 104 MG/DL BUN (test code = 2208) 16 MG/DL CREATININE (test code = 2214) 1.48 MG/DL eGFR (2020 CKD-EPI) (test co de = 92016) 40 ML/MIN/1.73 CALC BUN/CREAT (test code = 2235) 11 RATIO SODIUM (test code = 2231) 140 MEQ/L POTASSIUM (test code = 2228) 3.6 MEQ/L CHLORIDE (test code = 2215) 107 MEQ/L CARBON DIOXIDE (test code = 2206) 17 MEQ/L CALCIUM (test code = 2209) 9.7 MG/DL PROTEIN, TOTAL (test code = 2229) 7.1 G/DL ALBUMIN (test code = 2201) 4.3 G/DL CALC GLOBULIN (test code = 2240) 2.8 G/DL CALC A/G RATIO (test code = 2234) 1.5 RATIO BILIRUBIN, TOTAL (test code = 2207) 0.4 MG/DL ALKALINE PHOSPHATASE (test code = 2204) 91 U/L AST (test code = 2218) 19 U/L ALT (test code = 2219) 17 U/L Garret Morocho AustinURINALYSIS W/REFLEX [id number] 00:00:00* Test Item Value Reference Range Interpretation Comme nts COLOR (test code = 1501) YELLOW APPEARANCE (test code = 1502) CLEAR SPECIFIC GRAVITY (test code = 1503) 1.012 LEUKOCYTE ESTERASE (test cod e = 1504) NEGATIVE NITRITE (test code = 1505) NEGATIVE pH (test code = 1506) 5.5 PROTEIN (test code = 1507) NEGATIVE GLUCOSE (test code = 1508) NEGATIVE KETONES (test code = 1509) NEGATIVE UROBILINOGEN (test code = 1510) 0.2 MG/DL BILIRUBIN (test code = 1511) NEGATIVE OCCULT BLOOD (test code = 1512) TRACE WHITE BLOOD CELLS (test code = 1513) 16-20 /HPF RED BLOOD CELLS (test code = 1514) 0-2 /HPF EPITHELIAL CELLS (test code = 10599) 0-5 /HPF BACTERIA (test code = 1515) TRACE CASTS, HYALINE (test code = 1517) NONE SEEN Garret ShaverHIV 1/2 4TH GEN, RFLX [id number] 00:00:00* Test Item Value Reference Range Interpretation Comme nts HIV 1/2 4TH GEN, RFLX CONF ( test code = 3514) NON-REACTIVE Garret ShaverHEPATITIS C [id number] 00:00:00* Test Item Value Reference Range Interpretation Comme nts HEPATITIS C ANTIBODY (test c ode = 4675) NON-REACTIVE Garret ShaverCBC W/AUTO [id number] 00:00:00* Test Item Value Reference Range Interpretation Comme nts WBC (test code = 1001) 6.4 K/UL RBC (test code = 1002) 4.47 M/UL HEMOGLOBIN (test code = 1003) 14.6 G/DL HEMATOCRIT (test code = 1004) 43.0 % MCV (test code = 1005) 96.2 fL MCH (test code = 1006) 32.7 PG MCHC (test code = 1007) 34.0 G/DL RDW (test code = 1038) 12.5 % NEUTROPHILS (test code = 1008) 52.7 % LYMPHOCYTES (test code = 1010) 34.6 % MONOCYTES (test code = 1011) 8.3 % EOSINOPHILS (test code = 1012) 3.7 % BASOPHILS (test code = 1013) 0.5 % IMMATURE GRANULOCYTES (test code = 1036) 0.2 % NUCLEATED RBCS (test code = 1065) 0.0 /100WBC'S PLATELET COUNT (test code = 1015) 238 K/UL ABSOLUTE NEUTROPHILS (test c ode = 1066) 3.38 K/UL ABSOLUTE LYMPHOCYTES (test c ode = 1067) 2.22 K/UL ABSOLUTE MONOCYTES (test cod e = 1068) 0.53 K/UL ABSOLUTE EOSINOPHILS (test c ode = 1040) 0.24 K/UL ABSOLUTE BASOPHILS (test cod e = 1069) 0.03 K/UL ABS IMMATURE GRANULOCYTES (t est code = 1020) 0.01 K/UL ABS NUCLEATED RBCS (test cod e = 81257) 0.00 K/UL Garret ShaverLIPID [id number] 00:00:00* Test Item Value Reference Range Interpretation Comme nts CHOLESTEROL (test code = 2210) 154 MG/DL TRIGLYCERIDES (test code = 2232) 214 MG/DL HDL CHOLESTEROL (test code = 2220) 49 MG/DL CALC LDL CHOL (test code = 2237) 74 MG/DL RISK RATIO LDL/HDL (test cod e = 2238) 1.51 RATIO Garret ShaverCOMPREHENSIVE METABOLIC [id number] 00:00:00* Test Item Value Reference Range Interpretation Comme nts GLUCOSE (test code = 2217) 104 MG/DL BUN (test code = 2208) 16 MG/DL CREATININE (test code = 2214) 1.48 MG/DL eGFR (2020 CKD-EPI) (test co de = 95563) 40 ML/MIN/1.73 CALC BUN/CREAT (test code = 2235) 11 RATIO SODIUM (test code = 2231) 140 MEQ/L POTASSIUM (test code = 2228) 3.6 MEQ/L CHLORIDE (test code = 2215) 107 MEQ/L CARBON DIOXIDE (test code = 2206) 17 MEQ/L CALCIUM (test code = 2209) 9.7 MG/DL PROTEIN, TOTAL (test code = 2229) 7.1 G/DL ALBUMIN (test code = 2201) 4.3 G/DL CALC GLOBULIN (test code = 2240) 2.8 G/DL CALC A/G RATIO (test code = 2234) 1.5 RATIO BILIRUBIN, TOTAL (test code = 2207) 0.4 MG/DL ALKALINE PHOSPHATASE (test code = 2204) 91 U/L AST (test code = 2218) 19 U/L ALT (test code = 2219) 17 U/L Garret Morocho AustinURINALYSIS W/REFLEX [id number] 00:00:00* Test Item Value Reference Range Interpretation Comme nts COLOR (test code = 1501) YELLOW APPEARANCE (test code = 1502) CLEAR SPECIFIC GRAVITY (test code = 1503) 1.012 LEUKOCYTE ESTERASE (test cod e = 1504) NEGATIVE NITRITE (test code = 1505) NEGATIVE pH (test code = 1506) 5.5 PROTEIN (test code = 1507) NEGATIVE GLUCOSE (test code = 1508) NEGATIVE KETONES (test code = 1509) NEGATIVE UROBILINOGEN (test code = 1510) 0.2 MG/DL BILIRUBIN (test code = 1511) NEGATIVE OCCULT BLOOD (test code = 1512) TRACE WHITE BLOOD CELLS (test code = 1513) 16-20 /HPF RED BLOOD CELLS (test code = 1514) 0-2 /HPF EPITHELIAL CELLS (test code = 50511) 0-5 /HPF BACTERIA (test code = 1515) TRACE CASTS, HYALINE (test code = 1517) NONE SEEN Garret ShaverHIV 1/2 4TH GEN, RFLX [id number] 00:00:00* Test Item Value Reference Range Interpretation Comme nts HIV 1/2 4TH GEN, RFLX CONF ( test code = 3514) NON-REACTIVE Garret ShaverHEPATITIS C [id number] 00:00:00* Test Item Value Reference Range Interpretation Comme nts HEPATITIS C ANTIBODY (test c ode = 4675) NON-REACTIVE Garret ShaverCBC W/AUTO [id number] 00:00:00* Test Item Value Reference Range Interpretation Comme nts WBC (test code = 1001) 6.4 K/UL RBC (test code = 1002) 4.47 M/UL HEMOGLOBIN (test code = 1003) 14.6 G/DL HEMATOCRIT (test code = 1004) 43.0 % MCV (test code = 1005) 96.2 fL MCH (test code = 1006) 32.7 PG MCHC (test code = 1007) 34.0 G/DL RDW (test code = 1038) 12.5 % NEUTROPHILS (test code = 1008) 52.7 % LYMPHOCYTES (test code = 1010) 34.6 % MONOCYTES (test code = 1011) 8.3 % EOSINOPHILS (test code = 1012) 3.7 % BASOPHILS (test code = 1013) 0.5 % IMMATURE GRANULOCYTES (test code = 1036) 0.2 % NUCLEATED RBCS (test code = 1065) 0.0 /100WBC'S PLATELET COUNT (test code = 1015) 238 K/UL ABSOLUTE NEUTROPHILS (test c ode = 1066) 3.38 K/UL ABSOLUTE LYMPHOCYTES (test c ode = 1067) 2.22 K/UL ABSOLUTE MONOCYTES (test cod e = 1068) 0.53 K/UL ABSOLUTE EOSINOPHILS (test c ode = 1040) 0.24 K/UL ABSOLUTE BASOPHILS (test cod e = 1069) 0.03 K/UL ABS IMMATURE GRANULOCYTES (t est code = 1020) 0.01 K/UL ABS NUCLEATED RBCS (test cod e = 36553) 0.00 K/UL Garret ShaverLIPID [id number] 00:00:00* Test Item Value Reference Range Interpretation Comme nts CHOLESTEROL (test code = 2210) 154 MG/DL TRIGLYCERIDES (test code = 2232) 214 MG/DL HDL CHOLESTEROL (test code = 2220) 49 MG/DL CALC LDL CHOL (test code = 2237) 74 MG/DL RISK RATIO LDL/HDL (test cod e = 2238) 1.51 RATIO Garret ShaverCOMPREHENSIVE METABOLIC [id number] 00:00:00* Test Item Value Reference Range Interpretation Comme nts GLUCOSE (test code = 2217) 104 MG/DL BUN (test code = 2208) 16 MG/DL CREATININE (test code = 2214) 1.48 MG/DL eGFR (2020 CKD-EPI) (test co de = 36548) 40 ML/MIN/1.73 CALC BUN/CREAT (test code = 2235) 11 RATIO SODIUM (test code = 2231) 140 MEQ/L POTASSIUM (test code = 2228) 3.6 MEQ/L CHLORIDE (test code = 2215) 107 MEQ/L CARBON DIOXIDE (test code = 2206) 17 MEQ/L CALCIUM (test code = 2209) 9.7 MG/DL PROTEIN, TOTAL (test code = 2229) 7.1 G/DL ALBUMIN (test code = 2201) 4.3 G/DL CALC GLOBULIN (test code = 2240) 2.8 G/DL CALC A/G RATIO (test code = 2234) 1.5 RATIO BILIRUBIN, TOTAL (test code = 2207) 0.4 MG/DL ALKALINE PHOSPHATASE (test code = 2204) 91 U/L AST (test code = 2218) 19 U/L ALT (test code = 2219) 17 U/L Garret Morocho AustinURINALYSIS W/REFLEX [id number] 00:00:00* Test Item Value Reference Range Interpretation Comme nts COLOR (test code = 1501) YELLOW APPEARANCE (test code = 1502) CLEAR SPECIFIC GRAVITY (test code = 1503) 1.012 LEUKOCYTE ESTERASE (test cod e = 1504) NEGATIVE NITRITE (test code = 1505) NEGATIVE pH (test code = 1506) 5.5 PROTEIN (test code = 1507) NEGATIVE GLUCOSE (test code = 1508) NEGATIVE KETONES (test code = 1509) NEGATIVE UROBILINOGEN (test code = 1510) 0.2 MG/DL BILIRUBIN (test code = 1511) NEGATIVE OCCULT BLOOD (test code = 1512) TRACE WHITE BLOOD CELLS (test code = 1513) 16-20 /HPF RED BLOOD CELLS (test code = 1514) 0-2 /HPF EPITHELIAL CELLS (test code = 14337) 0-5 /HPF BACTERIA (test code = 1515) TRACE CASTS, HYALINE (test code = 1517) NONE SEEN Garret ShaverHIV 1/2 4TH GEN, RFLX [id number] 00:00:00* Test Item Value Reference Range Interpretation Comme nts HIV 1/2 4TH GEN, RFLX CONF ( test code = 3514) NON-REACTIVE Garret ShaverHEPATITIS C [id number] 00:00:00* Test Item Value Reference Range Interpretation Comme nts HEPATITIS C ANTIBODY (test c ode = 4675) NON-REACTIVE Garret ShaverCBC W/AUTO [id number] 00:00:00* Test Item Value Reference Range Interpretation Comme nts WBC (test code = 1001) 6.4 K/UL RBC (test code = 1002) 4.47 M/UL HEMOGLOBIN (test code = 1003) 14.6 G/DL HEMATOCRIT (test code = 1004) 43.0 % MCV (test code = 1005) 96.2 fL MCH (test code = 1006) 32.7 PG MCHC (test code = 1007) 34.0 G/DL RDW (test code = 1038) 12.5 % NEUTROPHILS (test code = 1008) 52.7 % LYMPHOCYTES (test code = 1010) 34.6 % MONOCYTES (test code = 1011) 8.3 % EOSINOPHILS (test code = 1012) 3.7 % BASOPHILS (test code = 1013) 0.5 % IMMATURE GRANULOCYTES (test code = 1036) 0.2 % NUCLEATED RBCS (test code = 1065) 0.0 /100WBC'S PLATELET COUNT (test code = 1015) 238 K/UL ABSOLUTE NEUTROPHILS (test c ode = 1066) 3.38 K/UL ABSOLUTE LYMPHOCYTES (test c ode = 1067) 2.22 K/UL ABSOLUTE MONOCYTES (test cod e = 1068) 0.53 K/UL ABSOLUTE EOSINOPHILS (test c ode = 1040) 0.24 K/UL ABSOLUTE BASOPHILS (test cod e = 1069) 0.03 K/UL ABS IMMATURE GRANULOCYTES (t est code = 1020) 0.01 K/UL ABS NUCLEATED RBCS (test cod e = 07246) 0.00 K/UL Garret Morocho AustinLIPID [id number] 00:00:00* Test Item Value Reference Range Interpretation Comme nts CHOLESTEROL (test code = 2210) 154 MG/DL TRIGLYCERIDES (test code = 2232) 214 MG/DL HDL CHOLESTEROL (test code = 2220) 49 MG/DL CALC LDL CHOL (test code = 2237) 74 MG/DL RISK RATIO LDL/HDL (test cod e = 2238) 1.51 RATIO Garret Morocho SivakumarCOMPREHENSIVE METABOLIC [id number] 00:00:00* Test Item Value Reference Range Interpretation Comme nts GLUCOSE (test code = 2217) 104 MG/DL BUN (test code = 2208) 16 MG/DL CREATININE (test code = 2214) 1.48 MG/DL eGFR (2020 CKD-EPI) (test co de = 58142) 40 ML/MIN/1.73 CALC BUN/CREAT (test code = 2235) 11 RATIO SODIUM (test code = 2231) 140 MEQ/L POTASSIUM (test code = 2228) 3.6 MEQ/L CHLORIDE (test code = 2215) 107 MEQ/L CARBON DIOXIDE (test code = 2206) 17 MEQ/L CALCIUM (test code = 2209) 9.7 MG/DL PROTEIN, TOTAL (test code = 2229) 7.1 G/DL ALBUMIN (test code = 2201) 4.3 G/DL CALC GLOBULIN (test code = 2240) 2.8 G/DL CALC A/G RATIO (test code = 2234) 1.5 RATIO BILIRUBIN, TOTAL (test code = 2207) 0.4 MG/DL ALKALINE PHOSPHATASE (test code = 2204) 91 U/L AST (test code = 2218) 19 U/L ALT (test code = 2219) 17 U/L Garret Morocho SivakumarURINALYSIS W/REFLEX [id number] 00:00:00* Test Item Value Reference Range Interpretation Comme nts COLOR (test code = 1501) YELLOW APPEARANCE (test code = 1502) CLEAR SPECIFIC GRAVITY (test code = 1503) 1.012 LEUKOCYTE ESTERASE (test cod e = 1504) NEGATIVE NITRITE (test code = 1505) NEGATIVE pH (test code = 1506) 5.5 PROTEIN (test code = 1507) NEGATIVE GLUCOSE (test code = 1508) NEGATIVE KETONES (test code = 1509) NEGATIVE UROBILINOGEN (test code = 1510) 0.2 MG/DL BILIRUBIN (test code = 1511) NEGATIVE OCCULT BLOOD (test code = 1512) TRACE WHITE BLOOD CELLS (test code = 1513) 16-20 /HPF RED BLOOD CELLS (test code = 1514) 0-2 /HPF EPITHELIAL CELLS (test code = 64410) 0-5 /HPF BACTERIA (test code = 1515) TRACE CASTS, HYALINE (test code = 1517) NONE SEEN Garret ShaverHIV 1/2 4TH GEN, RFLX [id number] 00:00:00* Test Item Value Reference Range Interpretation Comme nts HIV 1/2 4TH GEN, RFLX CONF ( test code = 3514) NON-REACTIVE Garret ShaverHEPATITIS C [id number] 00:00:00* Test Item Value Reference Range Interpretation Comme nts HEPATITIS C ANTIBODY (test c ode = 4675) NON-REACTIVE Garret ShaverCBC W/AUTO [id number] 00:00:00* Test Item Value Reference Range Interpretation Comme nts WBC (test code = 1001) 6.4 K/UL RBC (test code = 1002) 4.47 M/UL HEMOGLOBIN (test code = 1003) 14.6 G/DL HEMATOCRIT (test code = 1004) 43.0 % MCV (test code = 1005) 96.2 fL MCH (test code = 1006) 32.7 PG MCHC (test code = 1007) 34.0 G/DL RDW (test code = 1038) 12.5 % NEUTROPHILS (test code = 1008) 52.7 % LYMPHOCYTES (test code = 1010) 34.6 % MONOCYTES (test code = 1011) 8.3 % EOSINOPHILS (test code = 1012) 3.7 % BASOPHILS (test code = 1013) 0.5 % IMMATURE GRANULOCYTES (test code = 1036) 0.2 % NUCLEATED RBCS (test code = 1065) 0.0 /100WBC'S PLATELET COUNT (test code = 1015) 238 K/UL ABSOLUTE NEUTROPHILS (test c ode = 1066) 3.38 K/UL ABSOLUTE LYMPHOCYTES (test c ode = 1067) 2.22 K/UL ABSOLUTE MONOCYTES (test cod e = 1068) 0.53 K/UL ABSOLUTE EOSINOPHILS (test c ode = 1040) 0.24 K/UL ABSOLUTE BASOPHILS (test cod e = 1069) 0.03 K/UL ABS IMMATURE GRANULOCYTES (t est code = 1020) 0.01 K/UL ABS NUCLEATED RBCS (test cod e = 99488) 0.00 K/UL Garret Morocho SivakumarLIPID [id number] 00:00:00* Test Item Value Reference Range Interpretation Comme nts CHOLESTEROL (test code = 2210) 154 MG/DL TRIGLYCERIDES (test code = 2232) 214 MG/DL HDL CHOLESTEROL (test code = 2220) 49 MG/DL CALC LDL CHOL (test code = 2237) 74 MG/DL RISK RATIO LDL/HDL (test cod e = 2238) 1.51 RATIO Garret Morocho SivakumarCOMPREHENSIVE METABOLIC [id number] 00:00:00* Test Item Value Reference Range Interpretation Comme nts GLUCOSE (test code = 2217) 104 MG/DL BUN (test code = 2208) 16 MG/DL CREATININE (test code = 2214) 1.48 MG/DL eGFR (2020 CKD-EPI) (test co de = 56358) 40 ML/MIN/1.73 CALC BUN/CREAT (test code = 2235) 11 RATIO SODIUM (test code = 2231) 140 MEQ/L POTASSIUM (test code = 2228) 3.6 MEQ/L CHLORIDE (test code = 2215) 107 MEQ/L CARBON DIOXIDE (test code = 2206) 17 MEQ/L CALCIUM (test code = 2209) 9.7 MG/DL PROTEIN, TOTAL (test code = 2229) 7.1 G/DL ALBUMIN (test code = 2201) 4.3 G/DL CALC GLOBULIN (test code = 2240) 2.8 G/DL CALC A/G RATIO (test code = 2234) 1.5 RATIO BILIRUBIN, TOTAL (test code = 2207) 0.4 MG/DL ALKALINE PHOSPHATASE (test code = 2204) 91 U/L AST (test code = 2218) 19 U/L ALT (test code = 2219) 17 U/L Garret ShaverURINALYSIS W/REFLEX [id number] 00:00:00* Test Item Value Reference Range Interpretation Comme nts COLOR (test code = 1501) YELLOW APPEARANCE (test code = 1502) CLEAR SPECIFIC GRAVITY (test code = 1503) 1.012 LEUKOCYTE ESTERASE (test cod e = 1504) NEGATIVE NITRITE (test code = 1505) NEGATIVE pH (test code = 1506) 5.5 PROTEIN (test code = 1507) NEGATIVE GLUCOSE (test code = 1508) NEGATIVE KETONES (test code = 1509) NEGATIVE UROBILINOGEN (test code = 1510) 0.2 MG/DL BILIRUBIN (test code = 1511) NEGATIVE OCCULT BLOOD (test code = 1512) TRACE WHITE BLOOD CELLS (test code = 1513) 16-20 /HPF RED BLOOD CELLS (test code = 1514) 0-2 /HPF EPITHELIAL CELLS (test code = 52630) 0-5 /HPF BACTERIA (test code = 1515) TRACE CASTS, HYALINE (test code = 1517) NONE SEEN Garret ShaverHIV 1/2 4TH GEN, RFLX [id number] 00:00:00* Test Item Value Reference Range Interpretation Comme santino HIV 1/2 4TH GEN, RFLX CONF ( test code = 3514) NON-REACTIVE Garret ShaverHEPATITIS C [id number] 00:00:00* Test Item Value Reference Range Interpretation Comme santino HEPATITIS C ANTIBODY (test c ode = 4675) NON-REACTIVE Garret ShaverCBC W/AUTO [id number] 00:00:00* Test Item Value Reference Range Interpretation Comme nts WBC (test code = 1001) 6.4 K/UL RBC (test code = 1002) 4.47 M/UL HEMOGLOBIN (test code = 1003) 14.6 G/DL HEMATOCRIT (test code = 1004) 43.0 % MCV (test code = 1005) 96.2 fL MCH (test code = 1006) 32.7 PG MCHC (test code = 1007) 34.0 G/DL RDW (test code = 1038) 12.5 % NEUTROPHILS (test code = 1008) 52.7 % LYMPHOCYTES (test code = 1010) 34.6 % MONOCYTES (test code = 1011) 8.3 % EOSINOPHILS (test code = 1012) 3.7 % BASOPHILS (test code = 1013) 0.5 % IMMATURE GRANULOCYTES (test code = 1036) 0.2 % NUCLEATED RBCS (test code = 1065) 0.0 /100WBC'S PLATELET COUNT (test code = 1015) 238 K/UL ABSOLUTE NEUTROPHILS (test c ode = 1066) 3.38 K/UL ABSOLUTE LYMPHOCYTES (test c ode = 1067) 2.22 K/UL ABSOLUTE MONOCYTES (test cod e = 1068) 0.53 K/UL ABSOLUTE EOSINOPHILS (test c ode = 1040) 0.24 K/UL ABSOLUTE BASOPHILS (test cod e = 1069) 0.03 K/UL ABS IMMATURE GRANULOCYTES (t est code = 1020) 0.01 K/UL ABS NUCLEATED RBCS (test cod e = 03917) 0.00 K/UL Garret Morocho BensonLIPID [id number] 00:00:00* Test Item Value Reference Range Interpretation Comme nts CHOLESTEROL (test code = 2210) 154 MG/DL TRIGLYCERIDES (test code = 2232) 214 MG/DL HDL CHOLESTEROL (test code = 2220) 49 MG/DL CALC LDL CHOL (test code = 2237) 74 MG/DL RISK RATIO LDL/HDL (test cod e = 2238) 1.51 RATIO Garret ShaverCOMPREHENSIVE METABOLIC [id number] 00:00:00* Test Item Value Reference Range Interpretation Comme nts GLUCOSE (test code = 2217) 104 MG/DL BUN (test code = 2208) 16 MG/DL CREATININE (test code = 2214) 1.48 MG/DL eGFR (2020 CKD-EPI) (test co de = 59058) 40 ML/MIN/1.73 CALC BUN/CREAT (test code = 2235) 11 RATIO SODIUM (test code = 2231) 140 MEQ/L POTASSIUM (test code = 2228) 3.6 MEQ/L CHLORIDE (test code = 2215) 107 MEQ/L CARBON DIOXIDE (test code = 2206) 17 MEQ/L CALCIUM (test code = 2209) 9.7 MG/DL PROTEIN, TOTAL (test code = 2229) 7.1 G/DL ALBUMIN (test code = 2201) 4.3 G/DL CALC GLOBULIN (test code = 2240) 2.8 G/DL CALC A/G RATIO (test code = 2234) 1.5 RATIO BILIRUBIN, TOTAL (test code = 2207) 0.4 MG/DL ALKALINE PHOSPHATASE (test code = 2204) 91 U/L AST (test code = 2218) 19 U/L ALT (test code = 2219) 17 U/L Garret Morocho AustinURINALYSIS W/REFLEX [id number] 00:00:00* Test Item Value Reference Range Interpretation Comme nts COLOR (test code = 1501) YELLOW APPEARANCE (test code = 1502) CLEAR SPECIFIC GRAVITY (test code = 1503) 1.012 LEUKOCYTE ESTERASE (test cod e = 1504) NEGATIVE NITRITE (test code = 1505) NEGATIVE pH (test code = 1506) 5.5 PROTEIN (test code = 1507) NEGATIVE GLUCOSE (test code = 1508) NEGATIVE KETONES (test code = 1509) NEGATIVE UROBILINOGEN (test code = 1510) 0.2 MG/DL BILIRUBIN (test code = 1511) NEGATIVE OCCULT BLOOD (test code = 1512) TRACE WHITE BLOOD CELLS (test code = 1513) 16-20 /HPF RED BLOOD CELLS (test code = 1514) 0-2 /HPF EPITHELIAL CELLS (test code = 56169) 0-5 /HPF BACTERIA (test code = 1515) TRACE CASTS, HYALINE (test code = 1517) NONE SEEN Garret ShaverHIV 1/2 4TH GEN, RFLX [id number] 00:00:00* Test Item Value Reference Range Interpretation Comme santino HIV 1/2 4TH GEN, RFLX CONF ( test code = 3514) NON-REACTIVE Garret ShaverHEPATITIS C [id number] 00:00:00* Test Item Value Reference Range Interpretation Comme nts HEPATITIS C ANTIBODY (test c ode = 4675) NON-REACTIVE Garret ShaverCBC W/AUTO [id number] 00:00:00* Test Item Value Reference Range Interpretation Comme nts WBC (test code = 1001) 6.4 K/UL RBC (test code = 1002) 4.47 M/UL HEMOGLOBIN (test code = 1003) 14.6 G/DL HEMATOCRIT (test code = 1004) 43.0 % MCV (test code = 1005) 96.2 fL MCH (test code = 1006) 32.7 PG MCHC (test code = 1007) 34.0 G/DL RDW (test code = 1038) 12.5 % NEUTROPHILS (test code = 1008) 52.7 % LYMPHOCYTES (test code = 1010) 34.6 % MONOCYTES (test code = 1011) 8.3 % EOSINOPHILS (test code = 1012) 3.7 % BASOPHILS (test code = 1013) 0.5 % IMMATURE GRANULOCYTES (test code = 1036) 0.2 % NUCLEATED RBCS (test code = 1065) 0.0 /100WBC'S PLATELET COUNT (test code = 1015) 238 K/UL ABSOLUTE NEUTROPHILS (test c ode = 1066) 3.38 K/UL ABSOLUTE LYMPHOCYTES (test c ode = 1067) 2.22 K/UL ABSOLUTE MONOCYTES (test cod e = 1068) 0.53 K/UL ABSOLUTE EOSINOPHILS (test c ode = 1040) 0.24 K/UL ABSOLUTE BASOPHILS (test cod e = 1069) 0.03 K/UL ABS IMMATURE GRANULOCYTES (t est code = 1020) 0.01 K/UL ABS NUCLEATED RBCS (test cod e = 52372) 0.00 K/UL Garret Morocho AustinLIPID [id number] 00:00:00* Test Item Value Reference Range Interpretation Comme nts CHOLESTEROL (test code = 2210) 154 MG/DL TRIGLYCERIDES (test code = 2232) 214 MG/DL HDL CHOLESTEROL (test code = 2220) 49 MG/DL CALC LDL CHOL (test code = 2237) 74 MG/DL RISK RATIO LDL/HDL (test cod e = 2238) 1.51 RATIO Garret ShaverCOMPREHENSIVE METABOLIC [id number] 00:00:00* Test Item Value Reference Range Interpretation Comme nts GLUCOSE (test code = 2217) 104 MG/DL BUN (test code = 2208) 16 MG/DL CREATININE (test code = 2214) 1.48 MG/DL eGFR (2020 CKD-EPI) (test co de = 72807) 40 ML/MIN/1.73 CALC BUN/CREAT (test code = 2235) 11 RATIO SODIUM (test code = 2231) 140 MEQ/L POTASSIUM (test code = 2228) 3.6 MEQ/L CHLORIDE (test code = 2215) 107 MEQ/L CARBON DIOXIDE (test code = 2206) 17 MEQ/L CALCIUM (test code = 2209) 9.7 MG/DL PROTEIN, TOTAL (test code = 2229) 7.1 G/DL ALBUMIN (test code = 2201) 4.3 G/DL CALC GLOBULIN (test code = 2240) 2.8 G/DL CALC A/G RATIO (test code = 2234) 1.5 RATIO BILIRUBIN, TOTAL (test code = 2207) 0.4 MG/DL ALKALINE PHOSPHATASE (test code = 2204) 91 U/L AST (test code = 2218) 19 U/L ALT (test code = 2219) 17 U/L Garret Morocho AustinURINALYSIS W/REFLEX [id number] 00:00:00* Test Item Value Reference Range Interpretation Comme nts COLOR (test code = 1501) YELLOW APPEARANCE (test code = 1502) CLEAR SPECIFIC GRAVITY (test code = 1503) 1.012 LEUKOCYTE ESTERASE (test cod e = 1504) NEGATIVE NITRITE (test code = 1505) NEGATIVE pH (test code = 1506) 5.5 PROTEIN (test code = 1507) NEGATIVE GLUCOSE (test code = 1508) NEGATIVE KETONES (test code = 1509) NEGATIVE UROBILINOGEN (test code = 1510) 0.2 MG/DL BILIRUBIN (test code = 1511) NEGATIVE OCCULT BLOOD (test code = 1512) TRACE WHITE BLOOD CELLS (test code = 1513) 16-20 /HPF RED BLOOD CELLS (test code = 1514) 0-2 /HPF EPITHELIAL CELLS (test code = 83882) 0-5 /HPF BACTERIA (test code = 1515) TRACE CASTS, HYALINE (test code = 1517) NONE SEEN Garret Morocho AustinHIV 1/2 4TH GEN, RFLX [id number] 00:00:00* Test Item Value Reference Range Interpretation Comme nts HIV 1/2 4TH GEN, RFLX CONF ( test code = 3514) NON-REACTIVE Garret ShaverHEPATITIS C [id number] 00:00:00* Test Item Value Reference Range Interpretation Comme nts HEPATITIS C ANTIBODY (test c ode = 4675) NON-REACTIVE Garret ShaverCBC W/AUTO [id number] 00:00:00* Test Item Value Reference Range Interpretation Comme nts WBC (test code = 1001) 6.4 K/UL RBC (test code = 1002) 4.47 M/UL HEMOGLOBIN (test code = 1003) 14.6 G/DL HEMATOCRIT (test code = 1004) 43.0 % MCV (test code = 1005) 96.2 fL MCH (test code = 1006) 32.7 PG MCHC (test code = 1007) 34.0 G/DL RDW (test code = 1038) 12.5 % NEUTROPHILS (test code = 1008) 52.7 % LYMPHOCYTES (test code = 1010) 34.6 % MONOCYTES (test code = 1011) 8.3 % EOSINOPHILS (test code = 1012) 3.7 % BASOPHILS (test code = 1013) 0.5 % IMMATURE GRANULOCYTES (test code = 1036) 0.2 % NUCLEATED RBCS (test code = 1065) 0.0 /100WBC'S PLATELET COUNT (test code = 1015) 238 K/UL ABSOLUTE NEUTROPHILS (test c ode = 1066) 3.38 K/UL ABSOLUTE LYMPHOCYTES (test c ode = 1067) 2.22 K/UL ABSOLUTE MONOCYTES (test cod e = 1068) 0.53 K/UL ABSOLUTE EOSINOPHILS (test c ode = 1040) 0.24 K/UL ABSOLUTE BASOPHILS (test cod e = 1069) 0.03 K/UL ABS IMMATURE GRANULOCYTES (t est code = 1020) 0.01 K/UL ABS NUCLEATED RBCS (test cod e = 83394) 0.00 K/UL Garret ShaverLIPID [id number] 00:00:00* Test Item Value Reference Range Interpretation Comme nts CHOLESTEROL (test code = 2210) 154 MG/DL TRIGLYCERIDES (test code = 2232) 214 MG/DL HDL CHOLESTEROL (test code = 2220) 49 MG/DL CALC LDL CHOL (test code = 2237) 74 MG/DL RISK RATIO LDL/HDL (test cod e = 2238) 1.51 RATIO Garret ShaverCOMPREHENSIVE METABOLIC [id number] 00:00:00* Test Item Value Reference Range Interpretation Comme nts GLUCOSE (test code = 2217) 104 MG/DL BUN (test code = 2208) 16 MG/DL CREATININE (test code = 2214) 1.48 MG/DL eGFR (2020 CKD-EPI) (test co de = 78796) 40 ML/MIN/1.73 CALC BUN/CREAT (test code = 2235) 11 RATIO SODIUM (test code = 2231) 140 MEQ/L POTASSIUM (test code = 2228) 3.6 MEQ/L CHLORIDE (test code = 2215) 107 MEQ/L CARBON DIOXIDE (test code = 2206) 17 MEQ/L CALCIUM (test code = 2209) 9.7 MG/DL PROTEIN, TOTAL (test code = 2229) 7.1 G/DL ALBUMIN (test code = 2201) 4.3 G/DL CALC GLOBULIN (test code = 2240) 2.8 G/DL CALC A/G RATIO (test code = 2234) 1.5 RATIO BILIRUBIN, TOTAL (test code = 2207) 0.4 MG/DL ALKALINE PHOSPHATASE (test code = 2204) 91 U/L AST (test code = 2218) 19 U/L ALT (test code = 2219) 17 U/L Garret Bailee SivakumarURINALYSIS W/REFLEX [id number] 00:00:00* Test Item Value Reference Range Interpretation Comme nts COLOR (test code = 1501) YELLOW APPEARANCE (test code = 1502) CLEAR SPECIFIC GRAVITY (test code = 1503) 1.012 LEUKOCYTE ESTERASE (test cod e = 1504) NEGATIVE NITRITE (test code = 1505) NEGATIVE pH (test code = 1506) 5.5 PROTEIN (test code = 1507) NEGATIVE GLUCOSE (test code = 1508) NEGATIVE KETONES (test code = 1509) NEGATIVE UROBILINOGEN (test code = 1510) 0.2 MG/DL BILIRUBIN (test code = 1511) NEGATIVE OCCULT BLOOD (test code = 1512) TRACE WHITE BLOOD CELLS (test code = 1513) 16-20 /HPF RED BLOOD CELLS (test code = 1514) 0-2 /HPF EPITHELIAL CELLS (test code = 01927) 0-5 /HPF BACTERIA (test code = 1515) TRACE CASTS, HYALINE (test code = 1517) NONE SEEN Garret ShaverHIV 1/2 4TH GEN, RFLX [id number] 00:00:00* Test Item Value Reference Range Interpretation Comme nts HIV 1/2 4TH GEN, RFLX CONF ( test code = 3514) NON-REACTIVE Garret ShaverHEPATITIS C [id number] 00:00:00* Test Item Value Reference Range Interpretation Comme nts HEPATITIS C ANTIBODY (test c ode = 4675) NON-REACTIVE Garret ShaverCBC W/AUTO [id number] 00:00:00* Test Item Value Reference Range Interpretation Comme nts WBC (test code = 1001) 6.4 K/UL RBC (test code = 1002) 4.47 M/UL HEMOGLOBIN (test code = 1003) 14.6 G/DL HEMATOCRIT (test code = 1004) 43.0 % MCV (test code = 1005) 96.2 fL MCH (test code = 1006) 32.7 PG MCHC (test code = 1007) 34.0 G/DL RDW (test code = 1038) 12.5 % NEUTROPHILS (test code = 1008) 52.7 % LYMPHOCYTES (test code = 1010) 34.6 % MONOCYTES (test code = 1011) 8.3 % EOSINOPHILS (test code = 1012) 3.7 % BASOPHILS (test code = 1013) 0.5 % IMMATURE GRANULOCYTES (test code = 1036) 0.2 % NUCLEATED RBCS (test code = 1065) 0.0 /100WBC'S PLATELET COUNT (test code = 1015) 238 K/UL ABSOLUTE NEUTROPHILS (test c ode = 1066) 3.38 K/UL ABSOLUTE LYMPHOCYTES (test c ode = 1067) 2.22 K/UL ABSOLUTE MONOCYTES (test cod e = 1068) 0.53 K/UL ABSOLUTE EOSINOPHILS (test c ode = 1040) 0.24 K/UL ABSOLUTE BASOPHILS (test cod e = 1069) 0.03 K/UL ABS IMMATURE GRANULOCYTES (t est code = 1020) 0.01 K/UL ABS NUCLEATED RBCS (test cod e = 97116) 0.00 K/UL Garret ShaverLIPID [id number] 00:00:00* Test Item Value Reference Range Interpretation Comme nts CHOLESTEROL (test code = 2210) 154 MG/DL TRIGLYCERIDES (test code = 2232) 214 MG/DL HDL CHOLESTEROL (test code = 2220) 49 MG/DL CALC LDL CHOL (test code = 2237) 74 MG/DL RISK RATIO LDL/HDL (test cod e = 2238) 1.51 RATIO Garret ShaverCOMPREHENSIVE METABOLIC [id number] 00:00:00* Test Item Value Reference Range Interpretation Comme nts GLUCOSE (test code = 2217) 104 MG/DL BUN (test code = 2208) 16 MG/DL CREATININE (test code = 2214) 1.48 MG/DL eGFR (2020 CKD-EPI) (test co de = 89916) 40 ML/MIN/1.73 CALC BUN/CREAT (test code = 2235) 11 RATIO SODIUM (test code = 2231) 140 MEQ/L POTASSIUM (test code = 2228) 3.6 MEQ/L CHLORIDE (test code = 2215) 107 MEQ/L CARBON DIOXIDE (test code = 2206) 17 MEQ/L CALCIUM (test code = 2209) 9.7 MG/DL PROTEIN, TOTAL (test code = 2229) 7.1 G/DL ALBUMIN (test code = 2201) 4.3 G/DL CALC GLOBULIN (test code = 2240) 2.8 G/DL CALC A/G RATIO (test code = 2234) 1.5 RATIO BILIRUBIN, TOTAL (test code = 2207) 0.4 MG/DL ALKALINE PHOSPHATASE (test code = 2204) 91 U/L AST (test code = 2218) 19 U/L ALT (test code = 2219) 17 U/L Garret Morocho AustinURINALYSIS W/REFLEX [id number] 00:00:00* Test Item Value Reference Range Interpretation Comme nts COLOR (test code = 1501) YELLOW APPEARANCE (test code = 1502) CLEAR SPECIFIC GRAVITY (test code = 1503) 1.012 LEUKOCYTE ESTERASE (test cod e = 1504) NEGATIVE NITRITE (test code = 1505) NEGATIVE pH (test code = 1506) 5.5 PROTEIN (test code = 1507) NEGATIVE GLUCOSE (test code = 1508) NEGATIVE KETONES (test code = 1509) NEGATIVE UROBILINOGEN (test code = 1510) 0.2 MG/DL BILIRUBIN (test code = 1511) NEGATIVE OCCULT BLOOD (test code = 1512) TRACE WHITE BLOOD CELLS (test code = 1513) 16-20 /HPF RED BLOOD CELLS (test code = 1514) 0-2 /HPF EPITHELIAL CELLS (test code = 29349) 0-5 /HPF BACTERIA (test code = 1515) TRACE CASTS, HYALINE (test code = 1517) NONE SEEN Garret ShaverHIV 1/2 4TH GEN, RFLX [id number] 00:00:00* Test Item Value Reference Range Interpretation Comme nts HIV 1/2 4TH GEN, RFLX CONF ( test code = 3514) NON-REACTIVE Garret ShaverHEPATITIS C [id number] 00:00:00* Test Item Value Reference Range Interpretation Comme nts HEPATITIS C ANTIBODY (test c ode = 4675) NON-REACTIVE Garret ShaverCBC W/AUTO [id number] 00:00:00* Test Item Value Reference Range Interpretation Comme nts WBC (test code = 1001) 6.4 K/UL RBC (test code = 1002) 4.47 M/UL HEMOGLOBIN (test code = 1003) 14.6 G/DL HEMATOCRIT (test code = 1004) 43.0 % MCV (test code = 1005) 96.2 fL MCH (test code = 1006) 32.7 PG MCHC (test code = 1007) 34.0 G/DL RDW (test code = 1038) 12.5 % NEUTROPHILS (test code = 1008) 52.7 % LYMPHOCYTES (test code = 1010) 34.6 % MONOCYTES (test code = 1011) 8.3 % EOSINOPHILS (test code = 1012) 3.7 % BASOPHILS (test code = 1013) 0.5 % IMMATURE GRANULOCYTES (test code = 1036) 0.2 % NUCLEATED RBCS (test code = 1065) 0.0 /100WBC'S PLATELET COUNT (test code = 1015) 238 K/UL ABSOLUTE NEUTROPHILS (test c ode = 1066) 3.38 K/UL ABSOLUTE LYMPHOCYTES (test c ode = 1067) 2.22 K/UL ABSOLUTE MONOCYTES (test cod e = 1068) 0.53 K/UL ABSOLUTE EOSINOPHILS (test c ode = 1040) 0.24 K/UL ABSOLUTE BASOPHILS (test cod e = 1069) 0.03 K/UL ABS IMMATURE GRANULOCYTES (t est code = 1020) 0.01 K/UL ABS NUCLEATED RBCS (test cod e = 29184) 0.00 K/UL Garret ShaverLIPID [id number] 00:00:00* Test Item Value Reference Range Interpretation Comme nts CHOLESTEROL (test code = 2210) 154 MG/DL TRIGLYCERIDES (test code = 2232) 214 MG/DL HDL CHOLESTEROL (test code = 2220) 49 MG/DL CALC LDL CHOL (test code = 2237) 74 MG/DL RISK RATIO LDL/HDL (test cod e = 2238) 1.51 RATIO Garret ShaverCOMPREHENSIVE METABOLIC [id number] 00:00:00* Test Item Value Reference Range Interpretation Comme nts GLUCOSE (test code = 2217) 104 MG/DL BUN (test code = 2208) 16 MG/DL CREATININE (test code = 2214) 1.48 MG/DL eGFR (2020 CKD-EPI) (test co de = 23628) 40 ML/MIN/1.73 CALC BUN/CREAT (test code = 2235) 11 RATIO SODIUM (test code = 2231) 140 MEQ/L POTASSIUM (test code = 2228) 3.6 MEQ/L CHLORIDE (test code = 2215) 107 MEQ/L CARBON DIOXIDE (test code = 2206) 17 MEQ/L CALCIUM (test code = 2209) 9.7 MG/DL PROTEIN, TOTAL (test code = 2229) 7.1 G/DL ALBUMIN (test code = 2201) 4.3 G/DL CALC GLOBULIN (test code = 2240) 2.8 G/DL CALC A/G RATIO (test code = 2234) 1.5 RATIO BILIRUBIN, TOTAL (test code = 2207) 0.4 MG/DL ALKALINE PHOSPHATASE (test code = 2204) 91 U/L AST (test code = 2218) 19 U/L ALT (test code = 2219) 17 U/L Garret Morocho AustinURINALYSIS W/REFLEX [id number] 00:00:00* Test Item Value Reference Range Interpretation Comme nts COLOR (test code = 1501) YELLOW APPEARANCE (test code = 1502) CLEAR SPECIFIC GRAVITY (test code = 1503) 1.012 LEUKOCYTE ESTERASE (test cod e = 1504) NEGATIVE NITRITE (test code = 1505) NEGATIVE pH (test code = 1506) 5.5 PROTEIN (test code = 1507) NEGATIVE GLUCOSE (test code = 1508) NEGATIVE KETONES (test code = 1509) NEGATIVE UROBILINOGEN (test code = 1510) 0.2 MG/DL BILIRUBIN (test code = 1511) NEGATIVE OCCULT BLOOD (test code = 1512) TRACE WHITE BLOOD CELLS (test code = 1513) 16-20 /HPF RED BLOOD CELLS (test code = 1514) 0-2 /HPF EPITHELIAL CELLS (test code = 61135) 0-5 /HPF BACTERIA (test code = 1515) TRACE CASTS, HYALINE (test code = 1517) NONE SEEN Garret ShaverHIV 1/2 4TH GEN, RFLX [id number] 00:00:00* Test Item Value Reference Range Interpretation Comme nts HIV 1/2 4TH GEN, RFLX CONF ( test code = 3514) NON-REACTIVE Garret ShaverHEPATITIS C [id number] 00:00:00* Test Item Value Reference Range Interpretation Comme nts HEPATITIS C ANTIBODY (test c ode = 4675) NON-REACTIVE Garret ShaverCBC W/AUTO [id number] 00:00:00* Test Item Value Reference Range Interpretation Comme nts WBC (test code = 1001) 6.4 K/UL RBC (test code = 1002) 4.47 M/UL HEMOGLOBIN (test code = 1003) 14.6 G/DL HEMATOCRIT (test code = 1004) 43.0 % MCV (test code = 1005) 96.2 fL MCH (test code = 1006) 32.7 PG MCHC (test code = 1007) 34.0 G/DL RDW (test code = 1038) 12.5 % NEUTROPHILS (test code = 1008) 52.7 % LYMPHOCYTES (test code = 1010) 34.6 % MONOCYTES (test code = 1011) 8.3 % EOSINOPHILS (test code = 1012) 3.7 % BASOPHILS (test code = 1013) 0.5 % IMMATURE GRANULOCYTES (test code = 1036) 0.2 % NUCLEATED RBCS (test code = 1065) 0.0 /100WBC'S PLATELET COUNT (test code = 1015) 238 K/UL ABSOLUTE NEUTROPHILS (test c ode = 1066) 3.38 K/UL ABSOLUTE LYMPHOCYTES (test c ode = 1067) 2.22 K/UL ABSOLUTE MONOCYTES (test cod e = 1068) 0.53 K/UL ABSOLUTE EOSINOPHILS (test c ode = 1040) 0.24 K/UL ABSOLUTE BASOPHILS (test cod e = 1069) 0.03 K/UL ABS IMMATURE GRANULOCYTES (t est code = 1020) 0.01 K/UL ABS NUCLEATED RBCS (test cod e = 20681) 0.00 K/UL Garret Morocho AustinLIPID [id number] 00:00:00* Test Item Value Reference Range Interpretation Comme nts CHOLESTEROL (test code = 2210) 154 MG/DL TRIGLYCERIDES (test code = 2232) 214 MG/DL HDL CHOLESTEROL (test code = 2220) 49 MG/DL CALC LDL CHOL (test code = 2237) 74 MG/DL RISK RATIO LDL/HDL (test cod e = 2238) 1.51 RATIO Garret ShaverCOMPREHENSIVE METABOLIC [id number] 00:00:00* Test Item Value Reference Range Interpretation Comme nts GLUCOSE (test code = 2217) 104 MG/DL BUN (test code = 2208) 16 MG/DL CREATININE (test code = 2214) 1.48 MG/DL eGFR (2020 CKD-EPI) (test co de = 67416) 40 ML/MIN/1.73 CALC BUN/CREAT (test code = 2235) 11 RATIO SODIUM (test code = 2231) 140 MEQ/L POTASSIUM (test code = 2228) 3.6 MEQ/L CHLORIDE (test code = 2215) 107 MEQ/L CARBON DIOXIDE (test code = 2206) 17 MEQ/L CALCIUM (test code = 2209) 9.7 MG/DL PROTEIN, TOTAL (test code = 2229) 7.1 G/DL ALBUMIN (test code = 2201) 4.3 G/DL CALC GLOBULIN (test code = 2240) 2.8 G/DL CALC A/G RATIO (test code = 2234) 1.5 RATIO BILIRUBIN, TOTAL (test code = 2207) 0.4 MG/DL ALKALINE PHOSPHATASE (test code = 2204) 91 U/L AST (test code = 2218) 19 U/L ALT (test code = 2219) 17 U/L Garret Morocho AustinURINALYSIS W/REFLEX [id number] 00:00:00* Test Item Value Reference Range Interpretation Comme nts COLOR (test code = 1501) YELLOW APPEARANCE (test code = 1502) CLEAR SPECIFIC GRAVITY (test code = 1503) 1.012 LEUKOCYTE ESTERASE (test cod e = 1504) NEGATIVE NITRITE (test code = 1505) NEGATIVE pH (test code = 1506) 5.5 PROTEIN (test code = 1507) NEGATIVE GLUCOSE (test code = 1508) NEGATIVE KETONES (test code = 1509) NEGATIVE UROBILINOGEN (test code = 1510) 0.2 MG/DL BILIRUBIN (test code = 1511) NEGATIVE OCCULT BLOOD (test code = 1512) TRACE WHITE BLOOD CELLS (test code = 1513) 16-20 /HPF RED BLOOD CELLS (test code = 1514) 0-2 /HPF EPITHELIAL CELLS (test code = 74876) 0-5 /HPF BACTERIA (test code = 1515) TRACE CASTS, HYALINE (test code = 1517) NONE SEEN Garret ShaverHIV 1/2 4TH GEN, RFLX [id number] 00:00:00* Test Item Value Reference Range Interpretation Comme nts HIV 1/2 4TH GEN, RFLX CONF ( test code = 3514) NON-REACTIVE Garret ShaverHEPATITIS C [id number] 00:00:00* Test Item Value Reference Range Interpretation Comme nts HEPATITIS C ANTIBODY (test c ode = 4675) NON-REACTIVE Garret ShaverCBC W/AUTO [id number] 00:00:00* Test Item Value Reference Range Interpretation Comme nts WBC (test code = 1001) 6.4 K/UL RBC (test code = 1002) 4.47 M/UL HEMOGLOBIN (test code = 1003) 14.6 G/DL HEMATOCRIT (test code = 1004) 43.0 % MCV (test code = 1005) 96.2 fL MCH (test code = 1006) 32.7 PG MCHC (test code = 1007) 34.0 G/DL RDW (test code = 1038) 12.5 % NEUTROPHILS (test code = 1008) 52.7 % LYMPHOCYTES (test code = 1010) 34.6 % MONOCYTES (test code = 1011) 8.3 % EOSINOPHILS (test code = 1012) 3.7 % BASOPHILS (test code = 1013) 0.5 % IMMATURE GRANULOCYTES (test code = 1036) 0.2 % NUCLEATED RBCS (test code = 1065) 0.0 /100WBC'S PLATELET COUNT (test code = 1015) 238 K/UL ABSOLUTE NEUTROPHILS (test c ode = 1066) 3.38 K/UL ABSOLUTE LYMPHOCYTES (test c ode = 1067) 2.22 K/UL ABSOLUTE MONOCYTES (test cod e = 1068) 0.53 K/UL ABSOLUTE EOSINOPHILS (test c ode = 1040) 0.24 K/UL ABSOLUTE BASOPHILS (test cod e = 1069) 0.03 K/UL ABS IMMATURE GRANULOCYTES (t est code = 1020) 0.01 K/UL ABS NUCLEATED RBCS (test cod e = 12477) 0.00 K/UL Garret Morocho AustinLIPID [id number] 00:00:00* Test Item Value Reference Range Interpretation Comme nts CHOLESTEROL (test code = 2210) 154 MG/DL TRIGLYCERIDES (test code = 2232) 214 MG/DL HDL CHOLESTEROL (test code = 2220) 49 MG/DL CALC LDL CHOL (test code = 2237) 74 MG/DL RISK RATIO LDL/HDL (test cod e = 2238) 1.51 RATIO Garret Morocho SivakumarCOMPREHENSIVE METABOLIC [id number] 00:00:00* Test Item Value Reference Range Interpretation Comme nts GLUCOSE (test code = 2217) 104 MG/DL BUN (test code = 2208) 16 MG/DL CREATININE (test code = 2214) 1.48 MG/DL eGFR (2020 CKD-EPI) (test co de = 55884) 40 ML/MIN/1.73 CALC BUN/CREAT (test code = 2235) 11 RATIO SODIUM (test code = 2231) 140 MEQ/L POTASSIUM (test code = 2228) 3.6 MEQ/L CHLORIDE (test code = 2215) 107 MEQ/L CARBON DIOXIDE (test code = 2206) 17 MEQ/L CALCIUM (test code = 2209) 9.7 MG/DL PROTEIN, TOTAL (test code = 2229) 7.1 G/DL ALBUMIN (test code = 2201) 4.3 G/DL CALC GLOBULIN (test code = 2240) 2.8 G/DL CALC A/G RATIO (test code = 2234) 1.5 RATIO BILIRUBIN, TOTAL (test code = 2207) 0.4 MG/DL ALKALINE PHOSPHATASE (test code = 2204) 91 U/L AST (test code = 2218) 19 U/L ALT (test code = 2219) 17 U/L Garret Morocho AustinURINALYSIS W/REFLEX [id number] 00:00:00* Test Item Value Reference Range Interpretation Comme nts COLOR (test code = 1501) YELLOW APPEARANCE (test code = 1502) CLEAR SPECIFIC GRAVITY (test code = 1503) 1.012 LEUKOCYTE ESTERASE (test cod e = 1504) NEGATIVE NITRITE (test code = 1505) NEGATIVE pH (test code = 1506) 5.5 PROTEIN (test code = 1507) NEGATIVE GLUCOSE (test code = 1508) NEGATIVE KETONES (test code = 1509) NEGATIVE UROBILINOGEN (test code = 1510) 0.2 MG/DL BILIRUBIN (test code = 1511) NEGATIVE OCCULT BLOOD (test code = 1512) TRACE WHITE BLOOD CELLS (test code = 1513) 16-20 /HPF RED BLOOD CELLS (test code = 1514) 0-2 /HPF EPITHELIAL CELLS (test code = 90409) 0-5 /HPF BACTERIA (test code = 1515) TRACE CASTS, HYALINE (test code = 1517) NONE SEEN Garret ShaverHIV 1/2 4TH GEN, RFLX [id number] 00:00:00* Test Item Value Reference Range Interpretation Comme nts HIV 1/2 4TH GEN, RFLX CONF ( test code = 3514) NON-REACTIVE Garret ShaverHEPATITIS C [id number] 00:00:00* Test Item Value Reference Range Interpretation Comme nts HEPATITIS C ANTIBODY (test c ode = 4675) NON-REACTIVE Garret ShaverCBC W/AUTO [id number] 00:00:00* Test Item Value Reference Range Interpretation Comme nts WBC (test code = 1001) 6.4 K/UL RBC (test code = 1002) 4.47 M/UL HEMOGLOBIN (test code = 1003) 14.6 G/DL HEMATOCRIT (test code = 1004) 43.0 % MCV (test code = 1005) 96.2 fL MCH (test code = 1006) 32.7 PG MCHC (test code = 1007) 34.0 G/DL RDW (test code = 1038) 12.5 % NEUTROPHILS (test code = 1008) 52.7 % LYMPHOCYTES (test code = 1010) 34.6 % MONOCYTES (test code = 1011) 8.3 % EOSINOPHILS (test code = 1012) 3.7 % BASOPHILS (test code = 1013) 0.5 % IMMATURE GRANULOCYTES (test code = 1036) 0.2 % NUCLEATED RBCS (test code = 1065) 0.0 /100WBC'S PLATELET COUNT (test code = 1015) 238 K/UL ABSOLUTE NEUTROPHILS (test c ode = 1066) 3.38 K/UL ABSOLUTE LYMPHOCYTES (test c ode = 1067) 2.22 K/UL ABSOLUTE MONOCYTES (test cod e = 1068) 0.53 K/UL ABSOLUTE EOSINOPHILS (test c ode = 1040) 0.24 K/UL ABSOLUTE BASOPHILS (test cod e = 1069) 0.03 K/UL ABS IMMATURE GRANULOCYTES (t est code = 1020) 0.01 K/UL ABS NUCLEATED RBCS (test cod e = 36193) 0.00 K/UL Garret ShaverLIPID [id number] 00:00:00* Test Item Value Reference Range Interpretation Comme nts CHOLESTEROL (test code = 2210) 154 MG/DL TRIGLYCERIDES (test code = 2232) 214 MG/DL HDL CHOLESTEROL (test code = 2220) 49 MG/DL CALC LDL CHOL (test code = 2237) 74 MG/DL RISK RATIO LDL/HDL (test cod e = 2238) 1.51 RATIO Garret ShaverCOMPREHENSIVE METABOLIC [id number] 00:00:00* Test Item Value Reference Range Interpretation Comme nts GLUCOSE (test code = 2217) 104 MG/DL BUN (test code = 2208) 16 MG/DL CREATININE (test code = 2214) 1.48 MG/DL eGFR (2020 CKD-EPI) (test co de = 13454) 40 ML/MIN/1.73 CALC BUN/CREAT (test code = 2235) 11 RATIO SODIUM (test code = 2231) 140 MEQ/L POTASSIUM (test code = 2228) 3.6 MEQ/L CHLORIDE (test code = 2215) 107 MEQ/L CARBON DIOXIDE (test code = 2206) 17 MEQ/L CALCIUM (test code = 2209) 9.7 MG/DL PROTEIN, TOTAL (test code = 2229) 7.1 G/DL ALBUMIN (test code = 2201) 4.3 G/DL CALC GLOBULIN (test code = 2240) 2.8 G/DL CALC A/G RATIO (test code = 2234) 1.5 RATIO BILIRUBIN, TOTAL (test code = 2207) 0.4 MG/DL ALKALINE PHOSPHATASE (test code = 2204) 91 U/L AST (test code = 2218) 19 U/L ALT (test code = 2219) 17 U/L Garret ShaverURINALYSIS W/REFLEX [id number] 00:00:00* Test Item Value Reference Range Interpretation Comme nts COLOR (test code = 1501) YELLOW APPEARANCE (test code = 1502) CLEAR SPECIFIC GRAVITY (test code = 1503) 1.012 LEUKOCYTE ESTERASE (test cod e = 1504) NEGATIVE NITRITE (test code = 1505) NEGATIVE pH (test code = 1506) 5.5 PROTEIN (test code = 1507) NEGATIVE GLUCOSE (test code = 1508) NEGATIVE KETONES (test code = 1509) NEGATIVE UROBILINOGEN (test code = 1510) 0.2 MG/DL BILIRUBIN (test code = 1511) NEGATIVE OCCULT BLOOD (test code = 1512) TRACE WHITE BLOOD CELLS (test code = 1513) 16-20 /HPF RED BLOOD CELLS (test code = 1514) 0-2 /HPF EPITHELIAL CELLS (test code = 94039) 0-5 /HPF BACTERIA (test code = 1515) TRACE CASTS, HYALINE (test code = 1517) NONE SEEN Garret ShaverHIV 1/2 4TH GEN, RFLX [id number] 00:00:00* Test Item Value Reference Range Interpretation Comme santino HIV 1/2 4TH GEN, RFLX CONF ( test code = 3514) NON-REACTIVE Garret ShaverHEPATITIS C [id number] 00:00:00* Test Item Value Reference Range Interpretation Comme santino HEPATITIS C ANTIBODY (test c ode = 4675) NON-REACTIVE Garret ShaverCBC W/AUTO [id number] 00:00:00* Test Item Value Reference Range Interpretation Comme nts WBC (test code = 1001) 6.4 K/UL RBC (test code = 1002) 4.47 M/UL HEMOGLOBIN (test code = 1003) 14.6 G/DL HEMATOCRIT (test code = 1004) 43.0 % MCV (test code = 1005) 96.2 fL MCH (test code = 1006) 32.7 PG MCHC (test code = 1007) 34.0 G/DL RDW (test code = 1038) 12.5 % NEUTROPHILS (test code = 1008) 52.7 % LYMPHOCYTES (test code = 1010) 34.6 % MONOCYTES (test code = 1011) 8.3 % EOSINOPHILS (test code = 1012) 3.7 % BASOPHILS (test code = 1013) 0.5 % IMMATURE GRANULOCYTES (test code = 1036) 0.2 % NUCLEATED RBCS (test code = 1065) 0.0 /100WBC'S PLATELET COUNT (test code = 1015) 238 K/UL ABSOLUTE NEUTROPHILS (test c ode = 1066) 3.38 K/UL ABSOLUTE LYMPHOCYTES (test c ode = 1067) 2.22 K/UL ABSOLUTE MONOCYTES (test cod e = 1068) 0.53 K/UL ABSOLUTE EOSINOPHILS (test c ode = 1040) 0.24 K/UL ABSOLUTE BASOPHILS (test cod e = 1069) 0.03 K/UL ABS IMMATURE GRANULOCYTES (t est code = 1020) 0.01 K/UL ABS NUCLEATED RBCS (test cod e = 52397) 0.00 K/UL Garret Morocho AustinLIPID [id number] 00:00:00* Test Item Value Reference Range Interpretation Comme nts CHOLESTEROL (test code = 2210) 154 MG/DL TRIGLYCERIDES (test code = 2232) 214 MG/DL HDL CHOLESTEROL (test code = 2220) 49 MG/DL CALC LDL CHOL (test code = 2237) 74 MG/DL RISK RATIO LDL/HDL (test cod e = 2238) 1.51 RATIO Garret ShaverCOMPREHENSIVE METABOLIC [id number] 00:00:00* Test Item Value Reference Range Interpretation Comme nts GLUCOSE (test code = 2217) 104 MG/DL BUN (test code = 2208) 16 MG/DL CREATININE (test code = 2214) 1.48 MG/DL eGFR (2020 CKD-EPI) (test co de = 66184) 40 ML/MIN/1.73 CALC BUN/CREAT (test code = 2235) 11 RATIO SODIUM (test code = 2231) 140 MEQ/L POTASSIUM (test code = 2228) 3.6 MEQ/L CHLORIDE (test code = 2215) 107 MEQ/L CARBON DIOXIDE (test code = 2206) 17 MEQ/L CALCIUM (test code = 2209) 9.7 MG/DL PROTEIN, TOTAL (test code = 2229) 7.1 G/DL ALBUMIN (test code = 2201) 4.3 G/DL CALC GLOBULIN (test code = 2240) 2.8 G/DL CALC A/G RATIO (test code = 2234) 1.5 RATIO BILIRUBIN, TOTAL (test code = 2207) 0.4 MG/DL ALKALINE PHOSPHATASE (test code = 2204) 91 U/L AST (test code = 2218) 19 U/L ALT (test code = 2219) 17 U/L Garret ShaverURINALYSIS W/REFLEX [id number] 00:00:00* Test Item Value Reference Range Interpretation Comme nts COLOR (test code = 1501) YELLOW APPEARANCE (test code = 1502) CLEAR SPECIFIC GRAVITY (test code = 1503) 1.012 LEUKOCYTE ESTERASE (test cod e = 1504) NEGATIVE NITRITE (test code = 1505) NEGATIVE pH (test code = 1506) 5.5 PROTEIN (test code = 1507) NEGATIVE GLUCOSE (test code = 1508) NEGATIVE KETONES (test code = 1509) NEGATIVE UROBILINOGEN (test code = 1510) 0.2 MG/DL BILIRUBIN (test code = 1511) NEGATIVE OCCULT BLOOD (test code = 1512) TRACE WHITE BLOOD CELLS (test code = 1513) 16-20 /HPF RED BLOOD CELLS (test code = 1514) 0-2 /HPF EPITHELIAL CELLS (test code = 42397) 0-5 /HPF BACTERIA (test code = 1515) TRACE CASTS, HYALINE (test code = 1517) NONE SEEN Garret ShaverHIV 1/2 4TH GEN, RFLX [id number] 00:00:00* Test Item Value Reference Range Interpretation Comme santino HIV 1/2 4TH GEN, RFLX CONF ( test code = 3514) NON-REACTIVE Garret ShaverHEPATITIS C [id number] 00:00:00* Test Item Value Reference Range Interpretation Comme santino HEPATITIS C ANTIBODY (test c ode = 4675) NON-REACTIVE Garret ShaverCBC W/AUTO [id number] 00:00:00* Test Item Value Reference Range Interpretation Comme nts WBC (test code = 1001) 6.4 K/UL RBC (test code = 1002) 4.47 M/UL HEMOGLOBIN (test code = 1003) 14.6 G/DL HEMATOCRIT (test code = 1004) 43.0 % MCV (test code = 1005) 96.2 fL MCH (test code = 1006) 32.7 PG MCHC (test code = 1007) 34.0 G/DL RDW (test code = 1038) 12.5 % NEUTROPHILS (test code = 1008) 52.7 % LYMPHOCYTES (test code = 1010) 34.6 % MONOCYTES (test code = 1011) 8.3 % EOSINOPHILS (test code = 1012) 3.7 % BASOPHILS (test code = 1013) 0.5 % IMMATURE GRANULOCYTES (test code = 1036) 0.2 % NUCLEATED RBCS (test code = 1065) 0.0 /100WBC'S PLATELET COUNT (test code = 1015) 238 K/UL ABSOLUTE NEUTROPHILS (test c ode = 1066) 3.38 K/UL ABSOLUTE LYMPHOCYTES (test c ode = 1067) 2.22 K/UL ABSOLUTE MONOCYTES (test cod e = 1068) 0.53 K/UL ABSOLUTE EOSINOPHILS (test c ode = 1040) 0.24 K/UL ABSOLUTE BASOPHILS (test cod e = 1069) 0.03 K/UL ABS IMMATURE GRANULOCYTES (t est code = 1020) 0.01 K/UL ABS NUCLEATED RBCS (test cod e = 27370) 0.00 K/UL Garret Bailee AustinLIPID [id number] 00:00:00* Test Item Value Reference Range Interpretation Comme nts CHOLESTEROL (test code = 2210) 154 MG/DL TRIGLYCERIDES (test code = 2232) 214 MG/DL HDL CHOLESTEROL (test code = 2220) 49 MG/DL CALC LDL CHOL (test code = 2237) 74 MG/DL RISK RATIO LDL/HDL (test cod e = 2238) 1.51 RATIO Garret ShaverCOMPREHENSIVE METABOLIC [id number] 00:00:00* Test Item Value Reference Range Interpretation Comme nts GLUCOSE (test code = 2217) 104 MG/DL BUN (test code = 2208) 16 MG/DL CREATININE (test code = 2214) 1.48 MG/DL eGFR (2020 CKD-EPI) (test co de = 80866) 40 ML/MIN/1.73 CALC BUN/CREAT (test code = 2235) 11 RATIO SODIUM (test code = 2231) 140 MEQ/L POTASSIUM (test code = 2228) 3.6 MEQ/L CHLORIDE (test code = 2215) 107 MEQ/L CARBON DIOXIDE (test code = 2206) 17 MEQ/L CALCIUM (test code = 2209) 9.7 MG/DL PROTEIN, TOTAL (test code = 2229) 7.1 G/DL ALBUMIN (test code = 2201) 4.3 G/DL CALC GLOBULIN (test code = 2240) 2.8 G/DL CALC A/G RATIO (test code = 2234) 1.5 RATIO BILIRUBIN, TOTAL (test code = 2207) 0.4 MG/DL ALKALINE PHOSPHATASE (test code = 2204) 91 U/L AST (test code = 2218) 19 U/L ALT (test code = 2219) 17 U/L Garret ShaverURINALYSIS W/REFLEX [id number] 00:00:00* Test Item Value Reference Range Interpretation Comme nts COLOR (test code = 1501) YELLOW APPEARANCE (test code = 1502) CLEAR SPECIFIC GRAVITY (test code = 1503) 1.012 LEUKOCYTE ESTERASE (test cod e = 1504) NEGATIVE NITRITE (test code = 1505) NEGATIVE pH (test code = 1506) 5.5 PROTEIN (test code = 1507) NEGATIVE GLUCOSE (test code = 1508) NEGATIVE KETONES (test code = 1509) NEGATIVE UROBILINOGEN (test code = 1510) 0.2 MG/DL BILIRUBIN (test code = 1511) NEGATIVE OCCULT BLOOD (test code = 1512) TRACE WHITE BLOOD CELLS (test code = 1513) 16-20 /HPF RED BLOOD CELLS (test code = 1514) 0-2 /HPF EPITHELIAL CELLS (test code = 52294) 0-5 /HPF BACTERIA (test code = 1515) TRACE CASTS, HYALINE (test code = 1517) NONE SEEN Garret ShaverHIV 1/2 4TH GEN, RFLX [id number] 00:00:00* Test Item Value Reference Range Interpretation Comme nts HIV 1/2 4TH GEN, RFLX CONF ( test code = 3514) NON-REACTIVE Garret ShaverHEPATITIS C [id number] 00:00:00* Test Item Value Reference Range Interpretation Comme nts HEPATITIS C ANTIBODY (test c ode = 4675) NON-REACTIVE Garret ShaverCBC W/AUTO [id number] 00:00:00* Test Item Value Reference Range Interpretation Comme nts WBC (test code = 1001) 6.4 K/UL RBC (test code = 1002) 4.47 M/UL HEMOGLOBIN (test code = 1003) 14.6 G/DL HEMATOCRIT (test code = 1004) 43.0 % MCV (test code = 1005) 96.2 fL MCH (test code = 1006) 32.7 PG MCHC (test code = 1007) 34.0 G/DL RDW (test code = 1038) 12.5 % NEUTROPHILS (test code = 1008) 52.7 % LYMPHOCYTES (test code = 1010) 34.6 % MONOCYTES (test code = 1011) 8.3 % EOSINOPHILS (test code = 1012) 3.7 % BASOPHILS (test code = 1013) 0.5 % IMMATURE GRANULOCYTES (test code = 1036) 0.2 % NUCLEATED RBCS (test code = 1065) 0.0 /100WBC'S PLATELET COUNT (test code = 1015) 238 K/UL ABSOLUTE NEUTROPHILS (test c ode = 1066) 3.38 K/UL ABSOLUTE LYMPHOCYTES (test c ode = 1067) 2.22 K/UL ABSOLUTE MONOCYTES (test cod e = 1068) 0.53 K/UL ABSOLUTE EOSINOPHILS (test c ode = 1040) 0.24 K/UL ABSOLUTE BASOPHILS (test cod e = 1069) 0.03 K/UL ABS IMMATURE GRANULOCYTES (t est code = 1020) 0.01 K/UL ABS NUCLEATED RBCS (test cod e = 69882) 0.00 K/UL Garret ShaverLIPID [id number] 00:00:00* Test Item Value Reference Range Interpretation Comme nts CHOLESTEROL (test code = 2210) 154 MG/DL TRIGLYCERIDES (test code = 2232) 214 MG/DL HDL CHOLESTEROL (test code = 2220) 49 MG/DL CALC LDL CHOL (test code = 2237) 74 MG/DL RISK RATIO LDL/HDL (test cod e = 2238) 1.51 RATIO Garret ShaverCOMPREHENSIVE METABOLIC [id number] 00:00:00* Test Item Value Reference Range Interpretation Comme nts GLUCOSE (test code = 2217) 104 MG/DL BUN (test code = 2208) 16 MG/DL CREATININE (test code = 2214) 1.48 MG/DL eGFR (2020 CKD-EPI) (test co de = 18966) 40 ML/MIN/1.73 CALC BUN/CREAT (test code = 2235) 11 RATIO SODIUM (test code = 2231) 140 MEQ/L POTASSIUM (test code = 2228) 3.6 MEQ/L CHLORIDE (test code = 2215) 107 MEQ/L CARBON DIOXIDE (test code = 2206) 17 MEQ/L CALCIUM (test code = 2209) 9.7 MG/DL PROTEIN, TOTAL (test code = 2229) 7.1 G/DL ALBUMIN (test code = 2201) 4.3 G/DL CALC GLOBULIN (test code = 2240) 2.8 G/DL CALC A/G RATIO (test code = 2234) 1.5 RATIO BILIRUBIN, TOTAL (test code = 2207) 0.4 MG/DL ALKALINE PHOSPHATASE (test code = 2204) 91 U/L AST (test code = 2218) 19 U/L ALT (test code = 2219) 17 U/L Garret Morocho SivakumarURINALYSIS W/REFLEX [id number] 00:00:00* Test Item Value Reference Range Interpretation Comme nts COLOR (test code = 1501) YELLOW APPEARANCE (test code = 1502) CLEAR SPECIFIC GRAVITY (test code = 1503) 1.012 LEUKOCYTE ESTERASE (test cod e = 1504) NEGATIVE NITRITE (test code = 1505) NEGATIVE pH (test code = 1506) 5.5 PROTEIN (test code = 1507) NEGATIVE GLUCOSE (test code = 1508) NEGATIVE KETONES (test code = 1509) NEGATIVE UROBILINOGEN (test code = 1510) 0.2 MG/DL BILIRUBIN (test code = 1511) NEGATIVE OCCULT BLOOD (test code = 1512) TRACE WHITE BLOOD CELLS (test code = 1513) 16-20 /HPF RED BLOOD CELLS (test code = 1514) 0-2 /HPF EPITHELIAL CELLS (test code = 62253) 0-5 /HPF BACTERIA (test code = 1515) TRACE CASTS, HYALINE (test code = 1517) NONE SEEN Garret Morocho SivakumarHIV 1/2 4TH GEN, RFLX [id number] 00:00:00* Test Item Value Reference Range Interpretation Comme nts HIV 1/2 4TH GEN, RFLX CONF ( test code = 3514) NON-REACTIVE Garret ShaverHEPATITIS C [id number] 00:00:00* Test Item Value Reference Range Interpretation Comme nts HEPATITIS C ANTIBODY (test c ode = 4675) NON-REACTIVE Garret ShaverHERPES SIMPLEX VIRUS IGG AND [id number] 00:00:00* Test Item Value Reference Range Interpretation Comme nts HERPES SIMPLEX 1 AB, IgG (te st code = 43262) 0.022 INDEX HERPES SIMPLEX 2 AB, IgG (te st code = 93783) 441.000 INDEX HERPES SIMPLEX AB, IgM (test code = 82750) 0.67 INDEX Garret ShaverCBC W/AUTO [id number] 00:00:00* Test Item Value Reference Range Interpretation Comme nts WBC (test code = 1001) 3.8 K/UL RBC (test code = 1002) 5.13 M/UL HEMOGLOBIN (test code = 1003) 16.6 G/DL HEMATOCRIT (test code = 1004) 49.7 % MCV (test code = 1005) 96.9 fL MCH (test code = 1006) 32.4 PG MCHC (test code = 1007) 33.4 G/DL RDW (test code = 1038) 13.2 % NEUTROPHILS (test code = 1008) 47.3 % LYMPHOCYTES (test code = 1010) 36.2 % MONOCYTES (test code = 1011) 10.2 % EOSINOPHILS (test code = 1012) 5.2 % BASOPHILS (test code = 1013) 0.8 % IMMATURE GRANULOCYTES (test code = 1036) 0.3 % NUCLEATED RBCS (test code = 1065) 0.0 /100WBC'S PLATELET COUNT (test code = 1015) 221 K/UL ABSOLUTE NEUTROPHILS (test c ode = 1066) 1.82 K/UL ABSOLUTE LYMPHOCYTES (test c ode = 1067) 1.39 K/UL ABSOLUTE MONOCYTES (test cod e = 1068) 0.39 K/UL ABSOLUTE EOSINOPHILS (test c ode = 1040) 0.20 K/UL ABSOLUTE BASOPHILS (test cod e = 1069) 0.03 K/UL ABS IMMATURE GRANULOCYTES (t est code = 1020) 0.01 K/UL ABS NUCLEATED RBCS (test cod e = 17983) 0.00 K/UL Garret ShaverCOMPREHENSIVE METABOLIC [id number] 00:00:00* Test Item Value Reference Range Interpretation Comme nts GLUCOSE (test code = 2217) 99 MG/DL BUN (test code = 2208) 15 MG/DL CREATININE (test code = 2214) 1.31 MG/DL eGFR (2020 CKD-EPI) (test co de = 65709) 46 ML/MIN/1.73 CALC BUN/CREAT (test code = 2235) 11 RATIO SODIUM (test code = 2231) 145 MEQ/L POTASSIUM (test code = 2228) 4.0 MEQ/L CHLORIDE (test code = 2215) 108 MEQ/L CARBON DIOXIDE (test code = 2206) 22 MEQ/L CALCIUM (test code = 2209) 9.7 MG/DL PROTEIN, TOTAL (test code = 2229) 7.3 G/DL ALBUMIN (test code = 2201) 4.5 G/DL CALC GLOBULIN (test code = 2240) 2.8 G/DL CALC A/G RATIO (test code = 2234) 1.6 RATIO BILIRUBIN, TOTAL (test code = 2207) 0.9 MG/DL ALKALINE PHOSPHATASE (test code = 2204) 101 U/L AST (test code = 2218) 18 U/L ALT (test code = 2219) 17 U/L Garret Morocho AustinURINALYSIS W/REFLEX [id number] 00:00:00* Test Item Value Reference Range Interpretation Comme nts COLOR (test code = 1501) YELLOW APPEARANCE (test code = 1502) CLOUDY SPECIFIC GRAVITY (test code = 1503) 1.022 LEUKOCYTE ESTERASE (test cod e = 1504) NEGATIVE NITRITE (test code = 1505) NEGATIVE pH (test code = 1506) 5.5 PROTEIN (test code = 1507) TRACE GLUCOSE (test code = 1508) NEGATIVE KETONES (test code = 1509) NEGATIVE UROBILINOGEN (test code = 1510) 0.2 MG/DL BILIRUBIN (test code = 1511) NEGATIVE OCCULT BLOOD (test code = 1512) NEGATIVE WHITE BLOOD CELLS (test code = 1513) 0-5 /HPF RED BLOOD CELLS (test code = 1514) 0-2 /HPF EPITHELIAL CELLS (test code = 83346) 6-10 /HPF BACTERIA (test code = 1515) >3+ CASTS, HYALINE (test code = 1517) TRACE Garret ShaverLIPID [id number] 00:00:00* Test Item Value Reference Range Interpretation Comme nts CHOLESTEROL (test code = 2210) 199 MG/DL TRIGLYCERIDES (test code = 2232) 100 MG/DL HDL CHOLESTEROL (test code = 2220) 51 MG/DL CALC LDL CHOL (test code = 2237) 127 MG/DL RISK RATIO LDL/HDL (test cod e = 2238) 2.49 RATIO Garret ShaverHERPES SIMPLEX VIRUS IGG AND [id number] 00:00:00* Test Item Value Reference Range Interpretation Comme nts HERPES SIMPLEX 1 AB, IgG (te st code = 95567) 0.022 INDEX HERPES SIMPLEX 2 AB, IgG (te st code = 73997) 441.000 INDEX HERPES SIMPLEX AB, IgM (test code = 74613) 0.67 INDEX Garret ShaverCBC W/AUTO [id number] 00:00:00* Test Item Value Reference Range Interpretation Comme nts WBC (test code = 1001) 3.8 K/UL RBC (test code = 1002) 5.13 M/UL HEMOGLOBIN (test code = 1003) 16.6 G/DL HEMATOCRIT (test code = 1004) 49.7 % MCV (test code = 1005) 96.9 fL MCH (test code = 1006) 32.4 PG MCHC (test code = 1007) 33.4 G/DL RDW (test code = 1038) 13.2 % NEUTROPHILS (test code = 1008) 47.3 % LYMPHOCYTES (test code = 1010) 36.2 % MONOCYTES (test code = 1011) 10.2 % EOSINOPHILS (test code = 1012) 5.2 % BASOPHILS (test code = 1013) 0.8 % IMMATURE GRANULOCYTES (test code = 1036) 0.3 % NUCLEATED RBCS (test code = 1065) 0.0 /100WBC'S PLATELET COUNT (test code = 1015) 221 K/UL ABSOLUTE NEUTROPHILS (test c ode = 1066) 1.82 K/UL ABSOLUTE LYMPHOCYTES (test c ode = 1067) 1.39 K/UL ABSOLUTE MONOCYTES (test cod e = 1068) 0.39 K/UL ABSOLUTE EOSINOPHILS (test c ode = 1040) 0.20 K/UL ABSOLUTE BASOPHILS (test cod e = 1069) 0.03 K/UL ABS IMMATURE GRANULOCYTES (t est code = 1020) 0.01 K/UL ABS NUCLEATED RBCS (test cod e = 01604) 0.00 K/UL Garret ShaverCOMPREHENSIVE METABOLIC [id number] 00:00:00* Test Item Value Reference Range Interpretation Comme nts GLUCOSE (test code = 2217) 99 MG/DL BUN (test code = 2208) 15 MG/DL CREATININE (test code = 2214) 1.31 MG/DL eGFR (2020 CKD-EPI) (test co de = 99921) 46 ML/MIN/1.73 CALC BUN/CREAT (test code = 2235) 11 RATIO SODIUM (test code = 2231) 145 MEQ/L POTASSIUM (test code = 2228) 4.0 MEQ/L CHLORIDE (test code = 2215) 108 MEQ/L CARBON DIOXIDE (test code = 2206) 22 MEQ/L CALCIUM (test code = 2209) 9.7 MG/DL PROTEIN, TOTAL (test code = 2229) 7.3 G/DL ALBUMIN (test code = 2201) 4.5 G/DL CALC GLOBULIN (test code = 2240) 2.8 G/DL CALC A/G RATIO (test code = 2234) 1.6 RATIO BILIRUBIN, TOTAL (test code = 2207) 0.9 MG/DL ALKALINE PHOSPHATASE (test code = 2204) 101 U/L AST (test code = 2218) 18 U/L ALT (test code = 2219) 17 U/L Garret Morocho AustinURINALYSIS W/REFLEX [id number] 00:00:00* Test Item Value Reference Range Interpretation Comme nts COLOR (test code = 1501) YELLOW APPEARANCE (test code = 1502) CLOUDY SPECIFIC GRAVITY (test code = 1503) 1.022 LEUKOCYTE ESTERASE (test cod e = 1504) NEGATIVE NITRITE (test code = 1505) NEGATIVE pH (test code = 1506) 5.5 PROTEIN (test code = 1507) TRACE GLUCOSE (test code = 1508) NEGATIVE KETONES (test code = 1509) NEGATIVE UROBILINOGEN (test code = 1510) 0.2 MG/DL BILIRUBIN (test code = 1511) NEGATIVE OCCULT BLOOD (test code = 1512) NEGATIVE WHITE BLOOD CELLS (test code = 1513) 0-5 /HPF RED BLOOD CELLS (test code = 1514) 0-2 /HPF EPITHELIAL CELLS (test code = 40108) 6-10 /HPF BACTERIA (test code = 1515) >3+ CASTS, HYALINE (test code = 1517) TRACE Garret ShaverLIPID [id number] 00:00:00* Test Item Value Reference Range Interpretation Comme nts CHOLESTEROL (test code = 2210) 199 MG/DL TRIGLYCERIDES (test code = 2232) 100 MG/DL HDL CHOLESTEROL (test code = 2220) 51 MG/DL CALC LDL CHOL (test code = 2237) 127 MG/DL RISK RATIO LDL/HDL (test cod e = 2238) 2.49 RATIO Garret ShaverHERPES SIMPLEX VIRUS IGG AND [id number] 00:00:00* Test Item Value Reference Range Interpretation Comme nts HERPES SIMPLEX 1 AB, IgG (te st code = 44252) 0.022 INDEX HERPES SIMPLEX 2 AB, IgG (te st code = 95430) 441.000 INDEX HERPES SIMPLEX AB, IgM (test code = 61091) 0.67 INDEX Garret ShaverCBC W/AUTO [id number] 00:00:00* Test Item Value Reference Range Interpretation Comme nts WBC (test code = 1001) 3.8 K/UL RBC (test code = 1002) 5.13 M/UL HEMOGLOBIN (test code = 1003) 16.6 G/DL HEMATOCRIT (test code = 1004) 49.7 % MCV (test code = 1005) 96.9 fL MCH (test code = 1006) 32.4 PG MCHC (test code = 1007) 33.4 G/DL RDW (test code = 1038) 13.2 % NEUTROPHILS (test code = 1008) 47.3 % LYMPHOCYTES (test code = 1010) 36.2 % MONOCYTES (test code = 1011) 10.2 % EOSINOPHILS (test code = 1012) 5.2 % BASOPHILS (test code = 1013) 0.8 % IMMATURE GRANULOCYTES (test code = 1036) 0.3 % NUCLEATED RBCS (test code = 1065) 0.0 /100WBC'S PLATELET COUNT (test code = 1015) 221 K/UL ABSOLUTE NEUTROPHILS (test c ode = 1066) 1.82 K/UL ABSOLUTE LYMPHOCYTES (test c ode = 1067) 1.39 K/UL ABSOLUTE MONOCYTES (test cod e = 1068) 0.39 K/UL ABSOLUTE EOSINOPHILS (test c ode = 1040) 0.20 K/UL ABSOLUTE BASOPHILS (test cod e = 1069) 0.03 K/UL ABS IMMATURE GRANULOCYTES (t est code = 1020) 0.01 K/UL ABS NUCLEATED RBCS (test cod e = 02840) 0.00 K/UL Garret ShaverCOMPREHENSIVE METABOLIC [id number] 00:00:00* Test Item Value Reference Range Interpretation Comme nts GLUCOSE (test code = 2217) 99 MG/DL BUN (test code = 2208) 15 MG/DL CREATININE (test code = 2214) 1.31 MG/DL eGFR (2020 CKD-EPI) (test co de = 09303) 46 ML/MIN/1.73 CALC BUN/CREAT (test code = 2235) 11 RATIO SODIUM (test code = 2231) 145 MEQ/L POTASSIUM (test code = 2228) 4.0 MEQ/L CHLORIDE (test code = 2215) 108 MEQ/L CARBON DIOXIDE (test code = 2206) 22 MEQ/L CALCIUM (test code = 2209) 9.7 MG/DL PROTEIN, TOTAL (test code = 2229) 7.3 G/DL ALBUMIN (test code = 2201) 4.5 G/DL CALC GLOBULIN (test code = 2240) 2.8 G/DL CALC A/G RATIO (test code = 2234) 1.6 RATIO BILIRUBIN, TOTAL (test code = 2207) 0.9 MG/DL ALKALINE PHOSPHATASE (test code = 2204) 101 U/L AST (test code = 2218) 18 U/L ALT (test code = 2219) 17 U/L Garret Morocho AustinURINALYSIS W/REFLEX [id number] 00:00:00* Test Item Value Reference Range Interpretation Comme nts COLOR (test code = 1501) YELLOW APPEARANCE (test code = 1502) CLOUDY SPECIFIC GRAVITY (test code = 1503) 1.022 LEUKOCYTE ESTERASE (test cod e = 1504) NEGATIVE NITRITE (test code = 1505) NEGATIVE pH (test code = 1506) 5.5 PROTEIN (test code = 1507) TRACE GLUCOSE (test code = 1508) NEGATIVE KETONES (test code = 1509) NEGATIVE UROBILINOGEN (test code = 1510) 0.2 MG/DL BILIRUBIN (test code = 1511) NEGATIVE OCCULT BLOOD (test code = 1512) NEGATIVE WHITE BLOOD CELLS (test code = 1513) 0-5 /HPF RED BLOOD CELLS (test code = 1514) 0-2 /HPF EPITHELIAL CELLS (test code = 36255) 6-10 /HPF BACTERIA (test code = 1515) >3+ CASTS, HYALINE (test code = 1517) TRACE Garret ShaverLIPID [id number] 00:00:00* Test Item Value Reference Range Interpretation Comme nts CHOLESTEROL (test code = 2210) 199 MG/DL TRIGLYCERIDES (test code = 2232) 100 MG/DL HDL CHOLESTEROL (test code = 2220) 51 MG/DL CALC LDL CHOL (test code = 2237) 127 MG/DL RISK RATIO LDL/HDL (test cod e = 2238) 2.49 RATIO Garret ShaverHERPES SIMPLEX VIRUS IGG AND [id number] 00:00:00* Test Item Value Reference Range Interpretation Comme nts HERPES SIMPLEX 1 AB, IgG (te st code = 46030) 0.022 INDEX HERPES SIMPLEX 2 AB, IgG (te st code = 91322) 441.000 INDEX HERPES SIMPLEX AB, IgM (test code = 66263) 0.67 INDEX Garret ShaverCBC W/AUTO [id number] 00:00:00* Test Item Value Reference Range Interpretation Comme nts WBC (test code = 1001) 3.8 K/UL RBC (test code = 1002) 5.13 M/UL HEMOGLOBIN (test code = 1003) 16.6 G/DL HEMATOCRIT (test code = 1004) 49.7 % MCV (test code = 1005) 96.9 fL MCH (test code = 1006) 32.4 PG MCHC (test code = 1007) 33.4 G/DL RDW (test code = 1038) 13.2 % NEUTROPHILS (test code = 1008) 47.3 % LYMPHOCYTES (test code = 1010) 36.2 % MONOCYTES (test code = 1011) 10.2 % EOSINOPHILS (test code = 1012) 5.2 % BASOPHILS (test code = 1013) 0.8 % IMMATURE GRANULOCYTES (test code = 1036) 0.3 % NUCLEATED RBCS (test code = 1065) 0.0 /100WBC'S PLATELET COUNT (test code = 1015) 221 K/UL ABSOLUTE NEUTROPHILS (test c ode = 1066) 1.82 K/UL ABSOLUTE LYMPHOCYTES (test c ode = 1067) 1.39 K/UL ABSOLUTE MONOCYTES (test cod e = 1068) 0.39 K/UL ABSOLUTE EOSINOPHILS (test c ode = 1040) 0.20 K/UL ABSOLUTE BASOPHILS (test cod e = 1069) 0.03 K/UL ABS IMMATURE GRANULOCYTES (t est code = 1020) 0.01 K/UL ABS NUCLEATED RBCS (test cod e = 52228) 0.00 K/UL Garret Morocho SivakumarCOMPREHENSIVE METABOLIC [id number] 00:00:00* Test Item Value Reference Range Interpretation Comme nts GLUCOSE (test code = 2217) 99 MG/DL BUN (test code = 2208) 15 MG/DL CREATININE (test code = 2214) 1.31 MG/DL eGFR (2020 CKD-EPI) (test co de = 80191) 46 ML/MIN/1.73 CALC BUN/CREAT (test code = 2235) 11 RATIO SODIUM (test code = 2231) 145 MEQ/L POTASSIUM (test code = 2228) 4.0 MEQ/L CHLORIDE (test code = 2215) 108 MEQ/L CARBON DIOXIDE (test code = 2206) 22 MEQ/L CALCIUM (test code = 2209) 9.7 MG/DL PROTEIN, TOTAL (test code = 2229) 7.3 G/DL ALBUMIN (test code = 2201) 4.5 G/DL CALC GLOBULIN (test code = 2240) 2.8 G/DL CALC A/G RATIO (test code = 2234) 1.6 RATIO BILIRUBIN, TOTAL (test code = 2207) 0.9 MG/DL ALKALINE PHOSPHATASE (test code = 2204) 101 U/L AST (test code = 2218) 18 U/L ALT (test code = 2219) 17 U/L Garret Morocho AustinURINALYSIS W/REFLEX [id number] 00:00:00* Test Item Value Reference Range Interpretation Comme nts COLOR (test code = 1501) YELLOW APPEARANCE (test code = 1502) CLOUDY SPECIFIC GRAVITY (test code = 1503) 1.022 LEUKOCYTE ESTERASE (test cod e = 1504) NEGATIVE NITRITE (test code = 1505) NEGATIVE pH (test code = 1506) 5.5 PROTEIN (test code = 1507) TRACE GLUCOSE (test code = 1508) NEGATIVE KETONES (test code = 1509) NEGATIVE UROBILINOGEN (test code = 1510) 0.2 MG/DL BILIRUBIN (test code = 1511) NEGATIVE OCCULT BLOOD (test code = 1512) NEGATIVE WHITE BLOOD CELLS (test code = 1513) 0-5 /HPF RED BLOOD CELLS (test code = 1514) 0-2 /HPF EPITHELIAL CELLS (test code = 99095) 6-10 /HPF BACTERIA (test code = 1515) >3+ CASTS, HYALINE (test code = 1517) TRACE Garret ShaverLIPID [id number] 00:00:00* Test Item Value Reference Range Interpretation Comme nts CHOLESTEROL (test code = 2210) 199 MG/DL TRIGLYCERIDES (test code = 2232) 100 MG/DL HDL CHOLESTEROL (test code = 2220) 51 MG/DL CALC LDL CHOL (test code = 2237) 127 MG/DL RISK RATIO LDL/HDL (test cod e = 2238) 2.49 RATIO Garret ShaverHERPES SIMPLEX VIRUS IGG AND [id number] 00:00:00* Test Item Value Reference Range Interpretation Comme nts HERPES SIMPLEX 1 AB, IgG (te st code = 39899) 0.022 INDEX HERPES SIMPLEX 2 AB, IgG (te st code = 00034) 441.000 INDEX HERPES SIMPLEX AB, IgM (test code = 17209) 0.67 INDEX Garret ShaverCBC W/AUTO [id number] 00:00:00* Test Item Value Reference Range Interpretation Comme nts WBC (test code = 1001) 3.8 K/UL RBC (test code = 1002) 5.13 M/UL HEMOGLOBIN (test code = 1003) 16.6 G/DL HEMATOCRIT (test code = 1004) 49.7 % MCV (test code = 1005) 96.9 fL MCH (test code = 1006) 32.4 PG MCHC (test code = 1007) 33.4 G/DL RDW (test code = 1038) 13.2 % NEUTROPHILS (test code = 1008) 47.3 % LYMPHOCYTES (test code = 1010) 36.2 % MONOCYTES (test code = 1011) 10.2 % EOSINOPHILS (test code = 1012) 5.2 % BASOPHILS (test code = 1013) 0.8 % IMMATURE GRANULOCYTES (test code = 1036) 0.3 % NUCLEATED RBCS (test code = 1065) 0.0 /100WBC'S PLATELET COUNT (test code = 1015) 221 K/UL ABSOLUTE NEUTROPHILS (test c ode = 1066) 1.82 K/UL ABSOLUTE LYMPHOCYTES (test c ode = 1067) 1.39 K/UL ABSOLUTE MONOCYTES (test cod e = 1068) 0.39 K/UL ABSOLUTE EOSINOPHILS (test c ode = 1040) 0.20 K/UL ABSOLUTE BASOPHILS (test cod e = 1069) 0.03 K/UL ABS IMMATURE GRANULOCYTES (t est code = 1020) 0.01 K/UL ABS NUCLEATED RBCS (test cod e = 15009) 0.00 K/UL Garret ShaverCOMPREHENSIVE METABOLIC [id number] 00:00:00* Test Item Value Reference Range Interpretation Comme nts GLUCOSE (test code = 2217) 99 MG/DL BUN (test code = 2208) 15 MG/DL CREATININE (test code = 2214) 1.31 MG/DL eGFR (2020 CKD-EPI) (test co de = 08865) 46 ML/MIN/1.73 CALC BUN/CREAT (test code = 2235) 11 RATIO SODIUM (test code = 2231) 145 MEQ/L POTASSIUM (test code = 2228) 4.0 MEQ/L CHLORIDE (test code = 2215) 108 MEQ/L CARBON DIOXIDE (test code = 2206) 22 MEQ/L CALCIUM (test code = 2209) 9.7 MG/DL PROTEIN, TOTAL (test code = 2229) 7.3 G/DL ALBUMIN (test code = 2201) 4.5 G/DL CALC GLOBULIN (test code = 2240) 2.8 G/DL CALC A/G RATIO (test code = 2234) 1.6 RATIO BILIRUBIN, TOTAL (test code = 2207) 0.9 MG/DL ALKALINE PHOSPHATASE (test code = 2204) 101 U/L AST (test code = 2218) 18 U/L ALT (test code = 2219) 17 U/L Garret ShaverURINALYSIS W/REFLEX [id number] 00:00:00* Test Item Value Reference Range Interpretation Comme nts COLOR (test code = 1501) YELLOW APPEARANCE (test code = 1502) CLOUDY SPECIFIC GRAVITY (test code = 1503) 1.022 LEUKOCYTE ESTERASE (test cod e = 1504) NEGATIVE NITRITE (test code = 1505) NEGATIVE pH (test code = 1506) 5.5 PROTEIN (test code = 1507) TRACE GLUCOSE (test code = 1508) NEGATIVE KETONES (test code = 1509) NEGATIVE UROBILINOGEN (test code = 1510) 0.2 MG/DL BILIRUBIN (test code = 1511) NEGATIVE OCCULT BLOOD (test code = 1512) NEGATIVE WHITE BLOOD CELLS (test code = 1513) 0-5 /HPF RED BLOOD CELLS (test code = 1514) 0-2 /HPF EPITHELIAL CELLS (test code = 01165) 6-10 /HPF BACTERIA (test code = 1515) >3+ CASTS, HYALINE (test code = 1517) TRACE Garret ShaverLIPID [id number] 00:00:00* Test Item Value Reference Range Interpretation Comme nts CHOLESTEROL (test code = 2210) 199 MG/DL TRIGLYCERIDES (test code = 2232) 100 MG/DL HDL CHOLESTEROL (test code = 2220) 51 MG/DL CALC LDL CHOL (test code = 2237) 127 MG/DL RISK RATIO LDL/HDL (test cod e = 2238) 2.49 RATIO Garret ShaverHERPES SIMPLEX VIRUS IGG AND [id number] 00:00:00* Test Item Value Reference Range Interpretation Comme nts HERPES SIMPLEX 1 AB, IgG (te st code = 86502) 0.022 INDEX HERPES SIMPLEX 2 AB, IgG (te st code = 37829) 441.000 INDEX HERPES SIMPLEX AB, IgM (test code = 42326) 0.67 INDEX Garret ShaverCBC W/AUTO [id number] 00:00:00* Test Item Value Reference Range Interpretation Comme nts WBC (test code = 1001) 3.8 K/UL RBC (test code = 1002) 5.13 M/UL HEMOGLOBIN (test code = 1003) 16.6 G/DL HEMATOCRIT (test code = 1004) 49.7 % MCV (test code = 1005) 96.9 fL MCH (test code = 1006) 32.4 PG MCHC (test code = 1007) 33.4 G/DL RDW (test code = 1038) 13.2 % NEUTROPHILS (test code = 1008) 47.3 % LYMPHOCYTES (test code = 1010) 36.2 % MONOCYTES (test code = 1011) 10.2 % EOSINOPHILS (test code = 1012) 5.2 % BASOPHILS (test code = 1013) 0.8 % IMMATURE GRANULOCYTES (test code = 1036) 0.3 % NUCLEATED RBCS (test code = 1065) 0.0 /100WBC'S PLATELET COUNT (test code = 1015) 221 K/UL ABSOLUTE NEUTROPHILS (test c ode = 1066) 1.82 K/UL ABSOLUTE LYMPHOCYTES (test c ode = 1067) 1.39 K/UL ABSOLUTE MONOCYTES (test cod e = 1068) 0.39 K/UL ABSOLUTE EOSINOPHILS (test c ode = 1040) 0.20 K/UL ABSOLUTE BASOPHILS (test cod e = 1069) 0.03 K/UL ABS IMMATURE GRANULOCYTES (t est code = 1020) 0.01 K/UL ABS NUCLEATED RBCS (test cod e = 77717) 0.00 K/UL Garret Bailee SivakumarCOMPREHENSIVE METABOLIC [id number] 00:00:00* Test Item Value Reference Range Interpretation Comme nts GLUCOSE (test code = 2217) 99 MG/DL BUN (test code = 2208) 15 MG/DL CREATININE (test code = 2214) 1.31 MG/DL eGFR (2020 CKD-EPI) (test co de = 89205) 46 ML/MIN/1.73 CALC BUN/CREAT (test code = 2235) 11 RATIO SODIUM (test code = 2231) 145 MEQ/L POTASSIUM (test code = 2228) 4.0 MEQ/L CHLORIDE (test code = 2215) 108 MEQ/L CARBON DIOXIDE (test code = 2206) 22 MEQ/L CALCIUM (test code = 2209) 9.7 MG/DL PROTEIN, TOTAL (test code = 2229) 7.3 G/DL ALBUMIN (test code = 2201) 4.5 G/DL CALC GLOBULIN (test code = 2240) 2.8 G/DL CALC A/G RATIO (test code = 2234) 1.6 RATIO BILIRUBIN, TOTAL (test code = 2207) 0.9 MG/DL ALKALINE PHOSPHATASE (test code = 2204) 101 U/L AST (test code = 2218) 18 U/L ALT (test code = 2219) 17 U/L Garret ShaverURINALYSIS W/REFLEX [id number] 00:00:00* Test Item Value Reference Range Interpretation Comme nts COLOR (test code = 1501) YELLOW APPEARANCE (test code = 1502) CLOUDY SPECIFIC GRAVITY (test code = 1503) 1.022 LEUKOCYTE ESTERASE (test cod e = 1504) NEGATIVE NITRITE (test code = 1505) NEGATIVE pH (test code = 1506) 5.5 PROTEIN (test code = 1507) TRACE GLUCOSE (test code = 1508) NEGATIVE KETONES (test code = 1509) NEGATIVE UROBILINOGEN (test code = 1510) 0.2 MG/DL BILIRUBIN (test code = 1511) NEGATIVE OCCULT BLOOD (test code = 1512) NEGATIVE WHITE BLOOD CELLS (test code = 1513) 0-5 /HPF RED BLOOD CELLS (test code = 1514) 0-2 /HPF EPITHELIAL CELLS (test code = 32896) 6-10 /HPF BACTERIA (test code = 1515) >3+ CASTS, HYALINE (test code = 1517) TRACE Garret ShaverLIPID [id number] 00:00:00* Test Item Value Reference Range Interpretation Comme nts CHOLESTEROL (test code = 2210) 199 MG/DL TRIGLYCERIDES (test code = 2232) 100 MG/DL HDL CHOLESTEROL (test code = 2220) 51 MG/DL CALC LDL CHOL (test code = 2237) 127 MG/DL RISK RATIO LDL/HDL (test cod e = 2238) 2.49 RATIO Garret ShaverHERPES SIMPLEX VIRUS IGG AND [id number] 00:00:00* Test Item Value Reference Range Interpretation Comme nts HERPES SIMPLEX 1 AB, IgG (te st code = 99253) 0.022 INDEX HERPES SIMPLEX 2 AB, IgG (te st code = 13115) 441.000 INDEX HERPES SIMPLEX AB, IgM (test code = 68146) 0.67 INDEX Garret ShaverCBC W/AUTO [id number] 00:00:00* Test Item Value Reference Range Interpretation Comme nts WBC (test code = 1001) 3.8 K/UL RBC (test code = 1002) 5.13 M/UL HEMOGLOBIN (test code = 1003) 16.6 G/DL HEMATOCRIT (test code = 1004) 49.7 % MCV (test code = 1005) 96.9 fL MCH (test code = 1006) 32.4 PG MCHC (test code = 1007) 33.4 G/DL RDW (test code = 1038) 13.2 % NEUTROPHILS (test code = 1008) 47.3 % LYMPHOCYTES (test code = 1010) 36.2 % MONOCYTES (test code = 1011) 10.2 % EOSINOPHILS (test code = 1012) 5.2 % BASOPHILS (test code = 1013) 0.8 % IMMATURE GRANULOCYTES (test code = 1036) 0.3 % NUCLEATED RBCS (test code = 1065) 0.0 /100WBC'S PLATELET COUNT (test code = 1015) 221 K/UL ABSOLUTE NEUTROPHILS (test c ode = 1066) 1.82 K/UL ABSOLUTE LYMPHOCYTES (test c ode = 1067) 1.39 K/UL ABSOLUTE MONOCYTES (test cod e = 1068) 0.39 K/UL ABSOLUTE EOSINOPHILS (test c ode = 1040) 0.20 K/UL ABSOLUTE BASOPHILS (test cod e = 1069) 0.03 K/UL ABS IMMATURE GRANULOCYTES (t est code = 1020) 0.01 K/UL ABS NUCLEATED RBCS (test cod e = 02865) 0.00 K/UL Garret ShaverCOMPREHENSIVE METABOLIC [id number] 00:00:00* Test Item Value Reference Range Interpretation Comme nts GLUCOSE (test code = 2217) 99 MG/DL BUN (test code = 2208) 15 MG/DL CREATININE (test code = 2214) 1.31 MG/DL eGFR (2020 CKD-EPI) (test co de = 59045) 46 ML/MIN/1.73 CALC BUN/CREAT (test code = 2235) 11 RATIO SODIUM (test code = 2231) 145 MEQ/L POTASSIUM (test code = 2228) 4.0 MEQ/L CHLORIDE (test code = 2215) 108 MEQ/L CARBON DIOXIDE (test code = 2206) 22 MEQ/L CALCIUM (test code = 2209) 9.7 MG/DL PROTEIN, TOTAL (test code = 2229) 7.3 G/DL ALBUMIN (test code = 2201) 4.5 G/DL CALC GLOBULIN (test code = 2240) 2.8 G/DL CALC A/G RATIO (test code = 2234) 1.6 RATIO BILIRUBIN, TOTAL (test code = 2207) 0.9 MG/DL ALKALINE PHOSPHATASE (test code = 2204) 101 U/L AST (test code = 2218) 18 U/L ALT (test code = 2219) 17 U/L Garret Morocho AustinURINALYSIS W/REFLEX [id number] 00:00:00* Test Item Value Reference Range Interpretation Comme nts COLOR (test code = 1501) YELLOW APPEARANCE (test code = 1502) CLOUDY SPECIFIC GRAVITY (test code = 1503) 1.022 LEUKOCYTE ESTERASE (test cod e = 1504) NEGATIVE NITRITE (test code = 1505) NEGATIVE pH (test code = 1506) 5.5 PROTEIN (test code = 1507) TRACE GLUCOSE (test code = 1508) NEGATIVE KETONES (test code = 1509) NEGATIVE UROBILINOGEN (test code = 1510) 0.2 MG/DL BILIRUBIN (test code = 1511) NEGATIVE OCCULT BLOOD (test code = 1512) NEGATIVE WHITE BLOOD CELLS (test code = 1513) 0-5 /HPF RED BLOOD CELLS (test code = 1514) 0-2 /HPF EPITHELIAL CELLS (test code = 06171) 6-10 /HPF BACTERIA (test code = 1515) >3+ CASTS, HYALINE (test code = 1517) TRACE Garret ShaverLIPID [id number] 00:00:00* Test Item Value Reference Range Interpretation Comme nts CHOLESTEROL (test code = 2210) 199 MG/DL TRIGLYCERIDES (test code = 2232) 100 MG/DL HDL CHOLESTEROL (test code = 2220) 51 MG/DL CALC LDL CHOL (test code = 2237) 127 MG/DL RISK RATIO LDL/HDL (test cod e = 2238) 2.49 RATIO Garret ShaverHERPES SIMPLEX VIRUS IGG AND [id number] 00:00:00* Test Item Value Reference Range Interpretation Comme nts HERPES SIMPLEX 1 AB, IgG (te st code = 27411) 0.022 INDEX HERPES SIMPLEX 2 AB, IgG (te st code = 41132) 441.000 INDEX HERPES SIMPLEX AB, IgM (test code = 78946) 0.67 INDEX Garret ShaverCBC W/AUTO [id number] 00:00:00* Test Item Value Reference Range Interpretation Comme nts WBC (test code = 1001) 3.8 K/UL RBC (test code = 1002) 5.13 M/UL HEMOGLOBIN (test code = 1003) 16.6 G/DL HEMATOCRIT (test code = 1004) 49.7 % MCV (test code = 1005) 96.9 fL MCH (test code = 1006) 32.4 PG MCHC (test code = 1007) 33.4 G/DL RDW (test code = 1038) 13.2 % NEUTROPHILS (test code = 1008) 47.3 % LYMPHOCYTES (test code = 1010) 36.2 % MONOCYTES (test code = 1011) 10.2 % EOSINOPHILS (test code = 1012) 5.2 % BASOPHILS (test code = 1013) 0.8 % IMMATURE GRANULOCYTES (test code = 1036) 0.3 % NUCLEATED RBCS (test code = 1065) 0.0 /100WBC'S PLATELET COUNT (test code = 1015) 221 K/UL ABSOLUTE NEUTROPHILS (test c ode = 1066) 1.82 K/UL ABSOLUTE LYMPHOCYTES (test c ode = 1067) 1.39 K/UL ABSOLUTE MONOCYTES (test cod e = 1068) 0.39 K/UL ABSOLUTE EOSINOPHILS (test c ode = 1040) 0.20 K/UL ABSOLUTE BASOPHILS (test cod e = 1069) 0.03 K/UL ABS IMMATURE GRANULOCYTES (t est code = 1020) 0.01 K/UL ABS NUCLEATED RBCS (test cod e = 78023) 0.00 K/UL Garret F AustinCOMPREHENSIVE METABOLIC [id number] 00:00:00* Test Item Value Reference Range Interpretation Comme nts GLUCOSE (test code = 2217) 99 MG/DL BUN (test code = 2208) 15 MG/DL CREATININE (test code = 2214) 1.31 MG/DL eGFR (2020 CKD-EPI) (test co de = 48923) 46 ML/MIN/1.73 CALC BUN/CREAT (test code = 2235) 11 RATIO SODIUM (test code = 2231) 145 MEQ/L POTASSIUM (test code = 2228) 4.0 MEQ/L CHLORIDE (test code = 2215) 108 MEQ/L CARBON DIOXIDE (test code = 2206) 22 MEQ/L CALCIUM (test code = 2209) 9.7 MG/DL PROTEIN, TOTAL (test code = 2229) 7.3 G/DL ALBUMIN (test code = 2201) 4.5 G/DL CALC GLOBULIN (test code = 2240) 2.8 G/DL CALC A/G RATIO (test code = 2234) 1.6 RATIO BILIRUBIN, TOTAL (test code = 2207) 0.9 MG/DL ALKALINE PHOSPHATASE (test code = 2204) 101 U/L AST (test code = 2218) 18 U/L ALT (test code = 2219) 17 U/L Garret Morocho AustinURINALYSIS W/REFLEX [id number] 00:00:00* Test Item Value Reference Range Interpretation Comme nts COLOR (test code = 1501) YELLOW APPEARANCE (test code = 1502) CLOUDY SPECIFIC GRAVITY (test code = 1503) 1.022 LEUKOCYTE ESTERASE (test cod e = 1504) NEGATIVE NITRITE (test code = 1505) NEGATIVE pH (test code = 1506) 5.5 PROTEIN (test code = 1507) TRACE GLUCOSE (test code = 1508) NEGATIVE KETONES (test code = 1509) NEGATIVE UROBILINOGEN (test code = 1510) 0.2 MG/DL BILIRUBIN (test code = 1511) NEGATIVE OCCULT BLOOD (test code = 1512) NEGATIVE WHITE BLOOD CELLS (test code = 1513) 0-5 /HPF RED BLOOD CELLS (test code = 1514) 0-2 /HPF EPITHELIAL CELLS (test code = 60732) 6-10 /HPF BACTERIA (test code = 1515) >3+ CASTS, HYALINE (test code = 1517) TRACE Garret ShaverLIPID [id number] 00:00:00* Test Item Value Reference Range Interpretation Comme nts CHOLESTEROL (test code = 2210) 199 MG/DL TRIGLYCERIDES (test code = 2232) 100 MG/DL HDL CHOLESTEROL (test code = 2220) 51 MG/DL CALC LDL CHOL (test code = 2237) 127 MG/DL RISK RATIO LDL/HDL (test cod e = 2238) 2.49 RATIO Garret ShaverHERPES SIMPLEX VIRUS IGG AND [id number] 00:00:00* Test Item Value Reference Range Interpretation Comme nts HERPES SIMPLEX 1 AB, IgG (te st code = 37473) 0.022 INDEX HERPES SIMPLEX 2 AB, IgG (te st code = 47901) 441.000 INDEX HERPES SIMPLEX AB, IgM (test code = 41829) 0.67 INDEX Garret ShaverCBC W/AUTO [id number] 00:00:00* Test Item Value Reference Range Interpretation Comme nts WBC (test code = 1001) 3.8 K/UL RBC (test code = 1002) 5.13 M/UL HEMOGLOBIN (test code = 1003) 16.6 G/DL HEMATOCRIT (test code = 1004) 49.7 % MCV (test code = 1005) 96.9 fL MCH (test code = 1006) 32.4 PG MCHC (test code = 1007) 33.4 G/DL RDW (test code = 1038) 13.2 % NEUTROPHILS (test code = 1008) 47.3 % LYMPHOCYTES (test code = 1010) 36.2 % MONOCYTES (test code = 1011) 10.2 % EOSINOPHILS (test code = 1012) 5.2 % BASOPHILS (test code = 1013) 0.8 % IMMATURE GRANULOCYTES (test code = 1036) 0.3 % NUCLEATED RBCS (test code = 1065) 0.0 /100WBC'S PLATELET COUNT (test code = 1015) 221 K/UL ABSOLUTE NEUTROPHILS (test c ode = 1066) 1.82 K/UL ABSOLUTE LYMPHOCYTES (test c ode = 1067) 1.39 K/UL ABSOLUTE MONOCYTES (test cod e = 1068) 0.39 K/UL ABSOLUTE EOSINOPHILS (test c ode = 1040) 0.20 K/UL ABSOLUTE BASOPHILS (test cod e = 1069) 0.03 K/UL ABS IMMATURE GRANULOCYTES (t est code = 1020) 0.01 K/UL ABS NUCLEATED RBCS (test cod e = 81211) 0.00 K/UL Garret ShaverCOMPREHENSIVE METABOLIC [id number] 00:00:00* Test Item Value Reference Range Interpretation Comme nts GLUCOSE (test code = 2217) 99 MG/DL BUN (test code = 2208) 15 MG/DL CREATININE (test code = 2214) 1.31 MG/DL eGFR (2020 CKD-EPI) (test co de = 00515) 46 ML/MIN/1.73 CALC BUN/CREAT (test code = 2235) 11 RATIO SODIUM (test code = 2231) 145 MEQ/L POTASSIUM (test code = 2228) 4.0 MEQ/L CHLORIDE (test code = 2215) 108 MEQ/L CARBON DIOXIDE (test code = 2206) 22 MEQ/L CALCIUM (test code = 2209) 9.7 MG/DL PROTEIN, TOTAL (test code = 2229) 7.3 G/DL ALBUMIN (test code = 2201) 4.5 G/DL CALC GLOBULIN (test code = 2240) 2.8 G/DL CALC A/G RATIO (test code = 2234) 1.6 RATIO BILIRUBIN, TOTAL (test code = 2207) 0.9 MG/DL ALKALINE PHOSPHATASE (test code = 2204) 101 U/L AST (test code = 2218) 18 U/L ALT (test code = 2219) 17 U/L Garret Morocho AustinURINALYSIS W/REFLEX [id number] 00:00:00* Test Item Value Reference Range Interpretation Comme nts COLOR (test code = 1501) YELLOW APPEARANCE (test code = 1502) CLOUDY SPECIFIC GRAVITY (test code = 1503) 1.022 LEUKOCYTE ESTERASE (test cod e = 1504) NEGATIVE NITRITE (test code = 1505) NEGATIVE pH (test code = 1506) 5.5 PROTEIN (test code = 1507) TRACE GLUCOSE (test code = 1508) NEGATIVE KETONES (test code = 1509) NEGATIVE UROBILINOGEN (test code = 1510) 0.2 MG/DL BILIRUBIN (test code = 1511) NEGATIVE OCCULT BLOOD (test code = 1512) NEGATIVE WHITE BLOOD CELLS (test code = 1513) 0-5 /HPF RED BLOOD CELLS (test code = 1514) 0-2 /HPF EPITHELIAL CELLS (test code = 04258) 6-10 /HPF BACTERIA (test code = 1515) >3+ CASTS, HYALINE (test code = 1517) TRACE Garret Bailee AustinLIPID [id number] 00:00:00* Test Item Value Reference Range Interpretation Comme nts CHOLESTEROL (test code = 2210) 199 MG/DL TRIGLYCERIDES (test code = 2232) 100 MG/DL HDL CHOLESTEROL (test code = 2220) 51 MG/DL CALC LDL CHOL (test code = 2237) 127 MG/DL RISK RATIO LDL/HDL (test cod e = 2238) 2.49 RATIO Garret F AustinHERPES SIMPLEX VIRUS IGG AND [id number] 00:00:00* Test Item Value Reference Range Interpretation Comme nts HERPES SIMPLEX 1 AB, IgG (te st code = 69548) 0.022 INDEX HERPES SIMPLEX 2 AB, IgG (te st code = 25641) 441.000 INDEX HERPES SIMPLEX AB, IgM (test code = 04792) 0.67 INDEX Garret ShaverCBC W/AUTO [id number] 00:00:00* Test Item Value Reference Range Interpretation Comme nts WBC (test code = 1001) 3.8 K/UL RBC (test code = 1002) 5.13 M/UL HEMOGLOBIN (test code = 1003) 16.6 G/DL HEMATOCRIT (test code = 1004) 49.7 % MCV (test code = 1005) 96.9 fL MCH (test code = 1006) 32.4 PG MCHC (test code = 1007) 33.4 G/DL RDW (test code = 1038) 13.2 % NEUTROPHILS (test code = 1008) 47.3 % LYMPHOCYTES (test code = 1010) 36.2 % MONOCYTES (test code = 1011) 10.2 % EOSINOPHILS (test code = 1012) 5.2 % BASOPHILS (test code = 1013) 0.8 % IMMATURE GRANULOCYTES (test code = 1036) 0.3 % NUCLEATED RBCS (test code = 1065) 0.0 /100WBC'S PLATELET COUNT (test code = 1015) 221 K/UL ABSOLUTE NEUTROPHILS (test c ode = 1066) 1.82 K/UL ABSOLUTE LYMPHOCYTES (test c ode = 1067) 1.39 K/UL ABSOLUTE MONOCYTES (test cod e = 1068) 0.39 K/UL ABSOLUTE EOSINOPHILS (test c ode = 1040) 0.20 K/UL ABSOLUTE BASOPHILS (test cod e = 1069) 0.03 K/UL ABS IMMATURE GRANULOCYTES (t est code = 1020) 0.01 K/UL ABS NUCLEATED RBCS (test cod e = 38215) 0.00 K/UL Garret ShaverCOMPREHENSIVE METABOLIC [id number] 00:00:00* Test Item Value Reference Range Interpretation Comme nts GLUCOSE (test code = 2217) 99 MG/DL BUN (test code = 2208) 15 MG/DL CREATININE (test code = 2214) 1.31 MG/DL eGFR (2020 CKD-EPI) (test co de = 99167) 46 ML/MIN/1.73 CALC BUN/CREAT (test code = 2235) 11 RATIO SODIUM (test code = 2231) 145 MEQ/L POTASSIUM (test code = 2228) 4.0 MEQ/L CHLORIDE (test code = 2215) 108 MEQ/L CARBON DIOXIDE (test code = 2206) 22 MEQ/L CALCIUM (test code = 2209) 9.7 MG/DL PROTEIN, TOTAL (test code = 2229) 7.3 G/DL ALBUMIN (test code = 2201) 4.5 G/DL CALC GLOBULIN (test code = 2240) 2.8 G/DL CALC A/G RATIO (test code = 2234) 1.6 RATIO BILIRUBIN, TOTAL (test code = 2207) 0.9 MG/DL ALKALINE PHOSPHATASE (test code = 2204) 101 U/L AST (test code = 2218) 18 U/L ALT (test code = 2219) 17 U/L Garret Morocho AustinURINALYSIS W/REFLEX [id number] 00:00:00* Test Item Value Reference Range Interpretation Comme nts COLOR (test code = 1501) YELLOW APPEARANCE (test code = 1502) CLOUDY SPECIFIC GRAVITY (test code = 1503) 1.022 LEUKOCYTE ESTERASE (test cod e = 1504) NEGATIVE NITRITE (test code = 1505) NEGATIVE pH (test code = 1506) 5.5 PROTEIN (test code = 1507) TRACE GLUCOSE (test code = 1508) NEGATIVE KETONES (test code = 1509) NEGATIVE UROBILINOGEN (test code = 1510) 0.2 MG/DL BILIRUBIN (test code = 1511) NEGATIVE OCCULT BLOOD (test code = 1512) NEGATIVE WHITE BLOOD CELLS (test code = 1513) 0-5 /HPF RED BLOOD CELLS (test code = 1514) 0-2 /HPF EPITHELIAL CELLS (test code = 83719) 6-10 /HPF BACTERIA (test code = 1515) >3+ CASTS, HYALINE (test code = 1517) TRACE Garret ShaverLIPID [id number] 00:00:00* Test Item Value Reference Range Interpretation Comme nts CHOLESTEROL (test code = 2210) 199 MG/DL TRIGLYCERIDES (test code = 2232) 100 MG/DL HDL CHOLESTEROL (test code = 2220) 51 MG/DL CALC LDL CHOL (test code = 2237) 127 MG/DL RISK RATIO LDL/HDL (test cod e = 2238) 2.49 RATIO Garret ShaverHERPES SIMPLEX VIRUS IGG AND [id number] 00:00:00* Test Item Value Reference Range Interpretation Comme nts HERPES SIMPLEX 1 AB, IgG (te st code = 87871) 0.022 INDEX HERPES SIMPLEX 2 AB, IgG (te st code = 69785) 441.000 INDEX HERPES SIMPLEX AB, IgM (test code = 97750) 0.67 INDEX Garret ShaverCBC W/AUTO [id number] 00:00:00* Test Item Value Reference Range Interpretation Comme nts WBC (test code = 1001) 3.8 K/UL RBC (test code = 1002) 5.13 M/UL HEMOGLOBIN (test code = 1003) 16.6 G/DL HEMATOCRIT (test code = 1004) 49.7 % MCV (test code = 1005) 96.9 fL MCH (test code = 1006) 32.4 PG MCHC (test code = 1007) 33.4 G/DL RDW (test code = 1038) 13.2 % NEUTROPHILS (test code = 1008) 47.3 % LYMPHOCYTES (test code = 1010) 36.2 % MONOCYTES (test code = 1011) 10.2 % EOSINOPHILS (test code = 1012) 5.2 % BASOPHILS (test code = 1013) 0.8 % IMMATURE GRANULOCYTES (test code = 1036) 0.3 % NUCLEATED RBCS (test code = 1065) 0.0 /100WBC'S PLATELET COUNT (test code = 1015) 221 K/UL ABSOLUTE NEUTROPHILS (test c ode = 1066) 1.82 K/UL ABSOLUTE LYMPHOCYTES (test c ode = 1067) 1.39 K/UL ABSOLUTE MONOCYTES (test cod e = 1068) 0.39 K/UL ABSOLUTE EOSINOPHILS (test c ode = 1040) 0.20 K/UL ABSOLUTE BASOPHILS (test cod e = 1069) 0.03 K/UL ABS IMMATURE GRANULOCYTES (t est code = 1020) 0.01 K/UL ABS NUCLEATED RBCS (test cod e = 08299) 0.00 K/UL Garret ShaverCOMPREHENSIVE METABOLIC [id number] 00:00:00* Test Item Value Reference Range Interpretation Comme nts GLUCOSE (test code = 2217) 99 MG/DL BUN (test code = 2208) 15 MG/DL CREATININE (test code = 2214) 1.31 MG/DL eGFR (2020 CKD-EPI) (test co de = 05016) 46 ML/MIN/1.73 CALC BUN/CREAT (test code = 2235) 11 RATIO SODIUM (test code = 2231) 145 MEQ/L POTASSIUM (test code = 2228) 4.0 MEQ/L CHLORIDE (test code = 2215) 108 MEQ/L CARBON DIOXIDE (test code = 2206) 22 MEQ/L CALCIUM (test code = 2209) 9.7 MG/DL PROTEIN, TOTAL (test code = 2229) 7.3 G/DL ALBUMIN (test code = 2201) 4.5 G/DL CALC GLOBULIN (test code = 2240) 2.8 G/DL CALC A/G RATIO (test code = 2234) 1.6 RATIO BILIRUBIN, TOTAL (test code = 2207) 0.9 MG/DL ALKALINE PHOSPHATASE (test code = 2204) 101 U/L AST (test code = 2218) 18 U/L ALT (test code = 2219) 17 U/L Garret Morocho AustinURINALYSIS W/REFLEX [id number] 00:00:00* Test Item Value Reference Range Interpretation Comme nts COLOR (test code = 1501) YELLOW APPEARANCE (test code = 1502) CLOUDY SPECIFIC GRAVITY (test code = 1503) 1.022 LEUKOCYTE ESTERASE (test cod e = 1504) NEGATIVE NITRITE (test code = 1505) NEGATIVE pH (test code = 1506) 5.5 PROTEIN (test code = 1507) TRACE GLUCOSE (test code = 1508) NEGATIVE KETONES (test code = 1509) NEGATIVE UROBILINOGEN (test code = 1510) 0.2 MG/DL BILIRUBIN (test code = 1511) NEGATIVE OCCULT BLOOD (test code = 1512) NEGATIVE WHITE BLOOD CELLS (test code = 1513) 0-5 /HPF RED BLOOD CELLS (test code = 1514) 0-2 /HPF EPITHELIAL CELLS (test code = 30547) 6-10 /HPF BACTERIA (test code = 1515) >3+ CASTS, HYALINE (test code = 1517) TRACE Garret ShaverLIPID [id number] 00:00:00* Test Item Value Reference Range Interpretation Comme nts CHOLESTEROL (test code = 2210) 199 MG/DL TRIGLYCERIDES (test code = 2232) 100 MG/DL HDL CHOLESTEROL (test code = 2220) 51 MG/DL CALC LDL CHOL (test code = 2237) 127 MG/DL RISK RATIO LDL/HDL (test cod e = 2238) 2.49 RATIO Garret ShaverHERPES SIMPLEX VIRUS IGG AND [id number] 00:00:00* Test Item Value Reference Range Interpretation Comme nts HERPES SIMPLEX 1 AB, IgG (te st code = 70590) 0.022 INDEX HERPES SIMPLEX 2 AB, IgG (te st code = 89003) 441.000 INDEX HERPES SIMPLEX AB, IgM (test code = 36585) 0.67 INDEX Garret ShaverCBC W/AUTO [id number] 00:00:00* Test Item Value Reference Range Interpretation Comme nts WBC (test code = 1001) 3.8 K/UL RBC (test code = 1002) 5.13 M/UL HEMOGLOBIN (test code = 1003) 16.6 G/DL HEMATOCRIT (test code = 1004) 49.7 % MCV (test code = 1005) 96.9 fL MCH (test code = 1006) 32.4 PG MCHC (test code = 1007) 33.4 G/DL RDW (test code = 1038) 13.2 % NEUTROPHILS (test code = 1008) 47.3 % LYMPHOCYTES (test code = 1010) 36.2 % MONOCYTES (test code = 1011) 10.2 % EOSINOPHILS (test code = 1012) 5.2 % BASOPHILS (test code = 1013) 0.8 % IMMATURE GRANULOCYTES (test code = 1036) 0.3 % NUCLEATED RBCS (test code = 1065) 0.0 /100WBC'S PLATELET COUNT (test code = 1015) 221 K/UL ABSOLUTE NEUTROPHILS (test c ode = 1066) 1.82 K/UL ABSOLUTE LYMPHOCYTES (test c ode = 1067) 1.39 K/UL ABSOLUTE MONOCYTES (test cod e = 1068) 0.39 K/UL ABSOLUTE EOSINOPHILS (test c ode = 1040) 0.20 K/UL ABSOLUTE BASOPHILS (test cod e = 1069) 0.03 K/UL ABS IMMATURE GRANULOCYTES (t est code = 1020) 0.01 K/UL ABS NUCLEATED RBCS (test cod e = 80680) 0.00 K/UL Garret ShaverCOMPREHENSIVE METABOLIC [id number] 00:00:00* Test Item Value Reference Range Interpretation Comme nts GLUCOSE (test code = 2217) 99 MG/DL BUN (test code = 2208) 15 MG/DL CREATININE (test code = 2214) 1.31 MG/DL eGFR (2020 CKD-EPI) (test co de = 46825) 46 ML/MIN/1.73 CALC BUN/CREAT (test code = 2235) 11 RATIO SODIUM (test code = 2231) 145 MEQ/L POTASSIUM (test code = 2228) 4.0 MEQ/L CHLORIDE (test code = 2215) 108 MEQ/L CARBON DIOXIDE (test code = 2206) 22 MEQ/L CALCIUM (test code = 2209) 9.7 MG/DL PROTEIN, TOTAL (test code = 2229) 7.3 G/DL ALBUMIN (test code = 2201) 4.5 G/DL CALC GLOBULIN (test code = 2240) 2.8 G/DL CALC A/G RATIO (test code = 2234) 1.6 RATIO BILIRUBIN, TOTAL (test code = 2207) 0.9 MG/DL ALKALINE PHOSPHATASE (test code = 2204) 101 U/L AST (test code = 2218) 18 U/L ALT (test code = 2219) 17 U/L Garret Morocho AustinURINALYSIS W/REFLEX [id number] 00:00:00* Test Item Value Reference Range Interpretation Comme nts COLOR (test code = 1501) YELLOW APPEARANCE (test code = 1502) CLOUDY SPECIFIC GRAVITY (test code = 1503) 1.022 LEUKOCYTE ESTERASE (test cod e = 1504) NEGATIVE NITRITE (test code = 1505) NEGATIVE pH (test code = 1506) 5.5 PROTEIN (test code = 1507) TRACE GLUCOSE (test code = 1508) NEGATIVE KETONES (test code = 1509) NEGATIVE UROBILINOGEN (test code = 1510) 0.2 MG/DL BILIRUBIN (test code = 1511) NEGATIVE OCCULT BLOOD (test code = 1512) NEGATIVE WHITE BLOOD CELLS (test code = 1513) 0-5 /HPF RED BLOOD CELLS (test code = 1514) 0-2 /HPF EPITHELIAL CELLS (test code = 55810) 6-10 /HPF BACTERIA (test code = 1515) >3+ CASTS, HYALINE (test code = 1517) TRACE Garret ShaverLIPID [id number] 00:00:00* Test Item Value Reference Range Interpretation Comme nts CHOLESTEROL (test code = 2210) 199 MG/DL TRIGLYCERIDES (test code = 2232) 100 MG/DL HDL CHOLESTEROL (test code = 2220) 51 MG/DL CALC LDL CHOL (test code = 2237) 127 MG/DL RISK RATIO LDL/HDL (test cod e = 2238) 2.49 RATIO Garret ShaverHERPES SIMPLEX VIRUS IGG AND [id number] 00:00:00* Test Item Value Reference Range Interpretation Comme nts HERPES SIMPLEX 1 AB, IgG (te st code = 49703) 0.022 INDEX HERPES SIMPLEX 2 AB, IgG (te st code = 50958) 441.000 INDEX HERPES SIMPLEX AB, IgM (test code = 50597) 0.67 INDEX Garret ShaverCBC W/AUTO [id number] 00:00:00* Test Item Value Reference Range Interpretation Comme nts WBC (test code = 1001) 3.8 K/UL RBC (test code = 1002) 5.13 M/UL HEMOGLOBIN (test code = 1003) 16.6 G/DL HEMATOCRIT (test code = 1004) 49.7 % MCV (test code = 1005) 96.9 fL MCH (test code = 1006) 32.4 PG MCHC (test code = 1007) 33.4 G/DL RDW (test code = 1038) 13.2 % NEUTROPHILS (test code = 1008) 47.3 % LYMPHOCYTES (test code = 1010) 36.2 % MONOCYTES (test code = 1011) 10.2 % EOSINOPHILS (test code = 1012) 5.2 % BASOPHILS (test code = 1013) 0.8 % IMMATURE GRANULOCYTES (test code = 1036) 0.3 % NUCLEATED RBCS (test code = 1065) 0.0 /100WBC'S PLATELET COUNT (test code = 1015) 221 K/UL ABSOLUTE NEUTROPHILS (test c ode = 1066) 1.82 K/UL ABSOLUTE LYMPHOCYTES (test c ode = 1067) 1.39 K/UL ABSOLUTE MONOCYTES (test cod e = 1068) 0.39 K/UL ABSOLUTE EOSINOPHILS (test c ode = 1040) 0.20 K/UL ABSOLUTE BASOPHILS (test cod e = 1069) 0.03 K/UL ABS IMMATURE GRANULOCYTES (t est code = 1020) 0.01 K/UL ABS NUCLEATED RBCS (test cod e = 53411) 0.00 K/UL Garret ShaverCOMPREHENSIVE METABOLIC [id number] 00:00:00* Test Item Value Reference Range Interpretation Comme nts GLUCOSE (test code = 2217) 99 MG/DL BUN (test code = 2208) 15 MG/DL CREATININE (test code = 2214) 1.31 MG/DL eGFR (2020 CKD-EPI) (test co de = 63337) 46 ML/MIN/1.73 CALC BUN/CREAT (test code = 2235) 11 RATIO SODIUM (test code = 2231) 145 MEQ/L POTASSIUM (test code = 2228) 4.0 MEQ/L CHLORIDE (test code = 2215) 108 MEQ/L CARBON DIOXIDE (test code = 2206) 22 MEQ/L CALCIUM (test code = 2209) 9.7 MG/DL PROTEIN, TOTAL (test code = 2229) 7.3 G/DL ALBUMIN (test code = 2201) 4.5 G/DL CALC GLOBULIN (test code = 2240) 2.8 G/DL CALC A/G RATIO (test code = 2234) 1.6 RATIO BILIRUBIN, TOTAL (test code = 2207) 0.9 MG/DL ALKALINE PHOSPHATASE (test code = 2204) 101 U/L AST (test code = 2218) 18 U/L ALT (test code = 2219) 17 U/L Garret Morocho AustinURINALYSIS W/REFLEX [id number] 00:00:00* Test Item Value Reference Range Interpretation Comme nts COLOR (test code = 1501) YELLOW APPEARANCE (test code = 1502) CLOUDY SPECIFIC GRAVITY (test code = 1503) 1.022 LEUKOCYTE ESTERASE (test cod e = 1504) NEGATIVE NITRITE (test code = 1505) NEGATIVE pH (test code = 1506) 5.5 PROTEIN (test code = 1507) TRACE GLUCOSE (test code = 1508) NEGATIVE KETONES (test code = 1509) NEGATIVE UROBILINOGEN (test code = 1510) 0.2 MG/DL BILIRUBIN (test code = 1511) NEGATIVE OCCULT BLOOD (test code = 1512) NEGATIVE WHITE BLOOD CELLS (test code = 1513) 0-5 /HPF RED BLOOD CELLS (test code = 1514) 0-2 /HPF EPITHELIAL CELLS (test code = 05341) 6-10 /HPF BACTERIA (test code = 1515) >3+ CASTS, HYALINE (test code = 1517) TRACE Garret ShaverLIPID [id number] 00:00:00* Test Item Value Reference Range Interpretation Comme nts CHOLESTEROL (test code = 2210) 199 MG/DL TRIGLYCERIDES (test code = 2232) 100 MG/DL HDL CHOLESTEROL (test code = 2220) 51 MG/DL CALC LDL CHOL (test code = 2237) 127 MG/DL RISK RATIO LDL/HDL (test cod e = 2238) 2.49 RATIO Garret ShaverHERPES SIMPLEX VIRUS IGG AND [id number] 00:00:00* Test Item Value Reference Range Interpretation Comme nts HERPES SIMPLEX 1 AB, IgG (te st code = 18566) 0.022 INDEX HERPES SIMPLEX 2 AB, IgG (te st code = 58103) 441.000 INDEX HERPES SIMPLEX AB, IgM (test code = 69702) 0.67 INDEX Garret ShaverCBC W/AUTO [id number] 00:00:00* Test Item Value Reference Range Interpretation Comme nts WBC (test code = 1001) 3.8 K/UL RBC (test code = 1002) 5.13 M/UL HEMOGLOBIN (test code = 1003) 16.6 G/DL HEMATOCRIT (test code = 1004) 49.7 % MCV (test code = 1005) 96.9 fL MCH (test code = 1006) 32.4 PG MCHC (test code = 1007) 33.4 G/DL RDW (test code = 1038) 13.2 % NEUTROPHILS (test code = 1008) 47.3 % LYMPHOCYTES (test code = 1010) 36.2 % MONOCYTES (test code = 1011) 10.2 % EOSINOPHILS (test code = 1012) 5.2 % BASOPHILS (test code = 1013) 0.8 % IMMATURE GRANULOCYTES (test code = 1036) 0.3 % NUCLEATED RBCS (test code = 1065) 0.0 /100WBC'S PLATELET COUNT (test code = 1015) 221 K/UL ABSOLUTE NEUTROPHILS (test c ode = 1066) 1.82 K/UL ABSOLUTE LYMPHOCYTES (test c ode = 1067) 1.39 K/UL ABSOLUTE MONOCYTES (test cod e = 1068) 0.39 K/UL ABSOLUTE EOSINOPHILS (test c ode = 1040) 0.20 K/UL ABSOLUTE BASOPHILS (test cod e = 1069) 0.03 K/UL ABS IMMATURE GRANULOCYTES (t est code = 1020) 0.01 K/UL ABS NUCLEATED RBCS (test cod e = 20623) 0.00 K/UL Garret Morocho SivakumarCOMPREHENSIVE METABOLIC [id number] 00:00:00* Test Item Value Reference Range Interpretation Comme nts GLUCOSE (test code = 2217) 99 MG/DL BUN (test code = 2208) 15 MG/DL CREATININE (test code = 2214) 1.31 MG/DL eGFR (2020 CKD-EPI) (test co de = 34198) 46 ML/MIN/1.73 CALC BUN/CREAT (test code = 2235) 11 RATIO SODIUM (test code = 2231) 145 MEQ/L POTASSIUM (test code = 2228) 4.0 MEQ/L CHLORIDE (test code = 2215) 108 MEQ/L CARBON DIOXIDE (test code = 2206) 22 MEQ/L CALCIUM (test code = 2209) 9.7 MG/DL PROTEIN, TOTAL (test code = 2229) 7.3 G/DL ALBUMIN (test code = 2201) 4.5 G/DL CALC GLOBULIN (test code = 2240) 2.8 G/DL CALC A/G RATIO (test code = 2234) 1.6 RATIO BILIRUBIN, TOTAL (test code = 2207) 0.9 MG/DL ALKALINE PHOSPHATASE (test code = 2204) 101 U/L AST (test code = 2218) 18 U/L ALT (test code = 2219) 17 U/L Garret Morocho AustinURINALYSIS W/REFLEX [id number] 00:00:00* Test Item Value Reference Range Interpretation Comme nts COLOR (test code = 1501) YELLOW APPEARANCE (test code = 1502) CLOUDY SPECIFIC GRAVITY (test code = 1503) 1.022 LEUKOCYTE ESTERASE (test cod e = 1504) NEGATIVE NITRITE (test code = 1505) NEGATIVE pH (test code = 1506) 5.5 PROTEIN (test code = 1507) TRACE GLUCOSE (test code = 1508) NEGATIVE KETONES (test code = 1509) NEGATIVE UROBILINOGEN (test code = 1510) 0.2 MG/DL BILIRUBIN (test code = 1511) NEGATIVE OCCULT BLOOD (test code = 1512) NEGATIVE WHITE BLOOD CELLS (test code = 1513) 0-5 /HPF RED BLOOD CELLS (test code = 1514) 0-2 /HPF EPITHELIAL CELLS (test code = 87779) 6-10 /HPF BACTERIA (test code = 1515) >3+ CASTS, HYALINE (test code = 1517) TRACE Garret ShaverLIPID [id number] 00:00:00* Test Item Value Reference Range Interpretation Comme nts CHOLESTEROL (test code = 2210) 199 MG/DL TRIGLYCERIDES (test code = 2232) 100 MG/DL HDL CHOLESTEROL (test code = 2220) 51 MG/DL CALC LDL CHOL (test code = 2237) 127 MG/DL RISK RATIO LDL/HDL (test cod e = 2238) 2.49 RATIO Garret ShaverHERPES SIMPLEX VIRUS IGG AND [id number] 00:00:00* Test Item Value Reference Range Interpretation Comme nts HERPES SIMPLEX 1 AB, IgG (te st code = 01356) 0.022 INDEX HERPES SIMPLEX 2 AB, IgG (te st code = 56576) 441.000 INDEX HERPES SIMPLEX AB, IgM (test code = 47917) 0.67 INDEX Garret ShaverCBC W/AUTO [id number] 00:00:00* Test Item Value Reference Range Interpretation Comme nts WBC (test code = 1001) 3.8 K/UL RBC (test code = 1002) 5.13 M/UL HEMOGLOBIN (test code = 1003) 16.6 G/DL HEMATOCRIT (test code = 1004) 49.7 % MCV (test code = 1005) 96.9 fL MCH (test code = 1006) 32.4 PG MCHC (test code = 1007) 33.4 G/DL RDW (test code = 1038) 13.2 % NEUTROPHILS (test code = 1008) 47.3 % LYMPHOCYTES (test code = 1010) 36.2 % MONOCYTES (test code = 1011) 10.2 % EOSINOPHILS (test code = 1012) 5.2 % BASOPHILS (test code = 1013) 0.8 % IMMATURE GRANULOCYTES (test code = 1036) 0.3 % NUCLEATED RBCS (test code = 1065) 0.0 /100WBC'S PLATELET COUNT (test code = 1015) 221 K/UL ABSOLUTE NEUTROPHILS (test c ode = 1066) 1.82 K/UL ABSOLUTE LYMPHOCYTES (test c ode = 1067) 1.39 K/UL ABSOLUTE MONOCYTES (test cod e = 1068) 0.39 K/UL ABSOLUTE EOSINOPHILS (test c ode = 1040) 0.20 K/UL ABSOLUTE BASOPHILS (test cod e = 1069) 0.03 K/UL ABS IMMATURE GRANULOCYTES (t est code = 1020) 0.01 K/UL ABS NUCLEATED RBCS (test cod e = 77417) 0.00 K/UL Garret ShaverCOMPREHENSIVE METABOLIC [id number] 00:00:00* Test Item Value Reference Range Interpretation Comme nts GLUCOSE (test code = 2217) 99 MG/DL BUN (test code = 2208) 15 MG/DL CREATININE (test code = 2214) 1.31 MG/DL eGFR (2020 CKD-EPI) (test co de = 44583) 46 ML/MIN/1.73 CALC BUN/CREAT (test code = 2235) 11 RATIO SODIUM (test code = 2231) 145 MEQ/L POTASSIUM (test code = 2228) 4.0 MEQ/L CHLORIDE (test code = 2215) 108 MEQ/L CARBON DIOXIDE (test code = 2206) 22 MEQ/L CALCIUM (test code = 2209) 9.7 MG/DL PROTEIN, TOTAL (test code = 2229) 7.3 G/DL ALBUMIN (test code = 2201) 4.5 G/DL CALC GLOBULIN (test code = 2240) 2.8 G/DL CALC A/G RATIO (test code = 2234) 1.6 RATIO BILIRUBIN, TOTAL (test code = 2207) 0.9 MG/DL ALKALINE PHOSPHATASE (test code = 2204) 101 U/L AST (test code = 2218) 18 U/L ALT (test code = 2219) 17 U/L Garret Morocho AustinURINALYSIS W/REFLEX [id number] 00:00:00* Test Item Value Reference Range Interpretation Comme nts COLOR (test code = 1501) YELLOW APPEARANCE (test code = 1502) CLOUDY SPECIFIC GRAVITY (test code = 1503) 1.022 LEUKOCYTE ESTERASE (test cod e = 1504) NEGATIVE NITRITE (test code = 1505) NEGATIVE pH (test code = 1506) 5.5 PROTEIN (test code = 1507) TRACE GLUCOSE (test code = 1508) NEGATIVE KETONES (test code = 1509) NEGATIVE UROBILINOGEN (test code = 1510) 0.2 MG/DL BILIRUBIN (test code = 1511) NEGATIVE OCCULT BLOOD (test code = 1512) NEGATIVE WHITE BLOOD CELLS (test code = 1513) 0-5 /HPF RED BLOOD CELLS (test code = 1514) 0-2 /HPF EPITHELIAL CELLS (test code = 51163) 6-10 /HPF BACTERIA (test code = 1515) >3+ CASTS, HYALINE (test code = 1517) TRACE Garret ShaverLIPID [id number] 00:00:00* Test Item Value Reference Range Interpretation Comme nts CHOLESTEROL (test code = 2210) 199 MG/DL TRIGLYCERIDES (test code = 2232) 100 MG/DL HDL CHOLESTEROL (test code = 2220) 51 MG/DL CALC LDL CHOL (test code = 2237) 127 MG/DL RISK RATIO LDL/HDL (test cod e = 2238) 2.49 RATIO Garret ShaverHERPES SIMPLEX VIRUS IGG AND [id number] 00:00:00* Test Item Value Reference Range Interpretation Comme nts HERPES SIMPLEX 1 AB, IgG (te st code = 65045) 0.022 INDEX HERPES SIMPLEX 2 AB, IgG (te st code = 44809) 441.000 INDEX HERPES SIMPLEX AB, IgM (test code = 72039) 0.67 INDEX Garret ShaverCBC W/AUTO [id number] 00:00:00* Test Item Value Reference Range Interpretation Comme nts WBC (test code = 1001) 3.8 K/UL RBC (test code = 1002) 5.13 M/UL HEMOGLOBIN (test code = 1003) 16.6 G/DL HEMATOCRIT (test code = 1004) 49.7 % MCV (test code = 1005) 96.9 fL MCH (test code = 1006) 32.4 PG MCHC (test code = 1007) 33.4 G/DL RDW (test code = 1038) 13.2 % NEUTROPHILS (test code = 1008) 47.3 % LYMPHOCYTES (test code = 1010) 36.2 % MONOCYTES (test code = 1011) 10.2 % EOSINOPHILS (test code = 1012) 5.2 % BASOPHILS (test code = 1013) 0.8 % IMMATURE GRANULOCYTES (test code = 1036) 0.3 % NUCLEATED RBCS (test code = 1065) 0.0 /100WBC'S PLATELET COUNT (test code = 1015) 221 K/UL ABSOLUTE NEUTROPHILS (test c ode = 1066) 1.82 K/UL ABSOLUTE LYMPHOCYTES (test c ode = 1067) 1.39 K/UL ABSOLUTE MONOCYTES (test cod e = 1068) 0.39 K/UL ABSOLUTE EOSINOPHILS (test c ode = 1040) 0.20 K/UL ABSOLUTE BASOPHILS (test cod e = 1069) 0.03 K/UL ABS IMMATURE GRANULOCYTES (t est code = 1020) 0.01 K/UL ABS NUCLEATED RBCS (test cod e = 93481) 0.00 K/UL Garret ShaverCOMPREHENSIVE METABOLIC [id number] 00:00:00* Test Item Value Reference Range Interpretation Comme nts GLUCOSE (test code = 2217) 99 MG/DL BUN (test code = 2208) 15 MG/DL CREATININE (test code = 2214) 1.31 MG/DL eGFR (2020 CKD-EPI) (test co de = 29151) 46 ML/MIN/1.73 CALC BUN/CREAT (test code = 2235) 11 RATIO SODIUM (test code = 2231) 145 MEQ/L POTASSIUM (test code = 2228) 4.0 MEQ/L CHLORIDE (test code = 2215) 108 MEQ/L CARBON DIOXIDE (test code = 2206) 22 MEQ/L CALCIUM (test code = 2209) 9.7 MG/DL PROTEIN, TOTAL (test code = 2229) 7.3 G/DL ALBUMIN (test code = 2201) 4.5 G/DL CALC GLOBULIN (test code = 2240) 2.8 G/DL CALC A/G RATIO (test code = 2234) 1.6 RATIO BILIRUBIN, TOTAL (test code = 2207) 0.9 MG/DL ALKALINE PHOSPHATASE (test code = 2204) 101 U/L AST (test code = 2218) 18 U/L ALT (test code = 2219) 17 U/L Garret ShaverURINALYSIS W/REFLEX [id number] 00:00:00* Test Item Value Reference Range Interpretation Comme nts COLOR (test code = 1501) YELLOW APPEARANCE (test code = 1502) CLOUDY SPECIFIC GRAVITY (test code = 1503) 1.022 LEUKOCYTE ESTERASE (test cod e = 1504) NEGATIVE NITRITE (test code = 1505) NEGATIVE pH (test code = 1506) 5.5 PROTEIN (test code = 1507) TRACE GLUCOSE (test code = 1508) NEGATIVE KETONES (test code = 1509) NEGATIVE UROBILINOGEN (test code = 1510) 0.2 MG/DL BILIRUBIN (test code = 1511) NEGATIVE OCCULT BLOOD (test code = 1512) NEGATIVE WHITE BLOOD CELLS (test code = 1513) 0-5 /HPF RED BLOOD CELLS (test code = 1514) 0-2 /HPF EPITHELIAL CELLS (test code = 92371) 6-10 /HPF BACTERIA (test code = 1515) >3+ CASTS, HYALINE (test code = 1517) TRACE Garret ShaverLIPID [id number] 00:00:00* Test Item Value Reference Range Interpretation Comme nts CHOLESTEROL (test code = 2210) 199 MG/DL TRIGLYCERIDES (test code = 2232) 100 MG/DL HDL CHOLESTEROL (test code = 2220) 51 MG/DL CALC LDL CHOL (test code = 2237) 127 MG/DL RISK RATIO LDL/HDL (test cod e = 2238) 2.49 RATIO Garret ShaverHERPES SIMPLEX VIRUS IGG AND [id number] 00:00:00* Test Item Value Reference Range Interpretation Comme nts HERPES SIMPLEX 1 AB, IgG (te st code = 43136) 0.022 INDEX HERPES SIMPLEX 2 AB, IgG (te st code = 15533) 441.000 INDEX HERPES SIMPLEX AB, IgM (test code = 34080) 0.67 INDEX Garret ShaverCBC W/AUTO [id number] 00:00:00* Test Item Value Reference Range Interpretation Comme nts WBC (test code = 1001) 3.8 K/UL RBC (test code = 1002) 5.13 M/UL HEMOGLOBIN (test code = 1003) 16.6 G/DL HEMATOCRIT (test code = 1004) 49.7 % MCV (test code = 1005) 96.9 fL MCH (test code = 1006) 32.4 PG MCHC (test code = 1007) 33.4 G/DL RDW (test code = 1038) 13.2 % NEUTROPHILS (test code = 1008) 47.3 % LYMPHOCYTES (test code = 1010) 36.2 % MONOCYTES (test code = 1011) 10.2 % EOSINOPHILS (test code = 1012) 5.2 % BASOPHILS (test code = 1013) 0.8 % IMMATURE GRANULOCYTES (test code = 1036) 0.3 % NUCLEATED RBCS (test code = 1065) 0.0 /100WBC'S PLATELET COUNT (test code = 1015) 221 K/UL ABSOLUTE NEUTROPHILS (test c ode = 1066) 1.82 K/UL ABSOLUTE LYMPHOCYTES (test c ode = 1067) 1.39 K/UL ABSOLUTE MONOCYTES (test cod e = 1068) 0.39 K/UL ABSOLUTE EOSINOPHILS (test c ode = 1040) 0.20 K/UL ABSOLUTE BASOPHILS (test cod e = 1069) 0.03 K/UL ABS IMMATURE GRANULOCYTES (t est code = 1020) 0.01 K/UL ABS NUCLEATED RBCS (test cod e = 46130) 0.00 K/UL Garret ShaverCOMPREHENSIVE METABOLIC [id number] 00:00:00* Test Item Value Reference Range Interpretation Comme nts GLUCOSE (test code = 2217) 99 MG/DL BUN (test code = 2208) 15 MG/DL CREATININE (test code = 2214) 1.31 MG/DL eGFR (2020 CKD-EPI) (test co de = 56360) 46 ML/MIN/1.73 CALC BUN/CREAT (test code = 2235) 11 RATIO SODIUM (test code = 2231) 145 MEQ/L POTASSIUM (test code = 2228) 4.0 MEQ/L CHLORIDE (test code = 2215) 108 MEQ/L CARBON DIOXIDE (test code = 2206) 22 MEQ/L CALCIUM (test code = 2209) 9.7 MG/DL PROTEIN, TOTAL (test code = 2229) 7.3 G/DL ALBUMIN (test code = 2201) 4.5 G/DL CALC GLOBULIN (test code = 2240) 2.8 G/DL CALC A/G RATIO (test code = 2234) 1.6 RATIO BILIRUBIN, TOTAL (test code = 2207) 0.9 MG/DL ALKALINE PHOSPHATASE (test code = 2204) 101 U/L AST (test code = 2218) 18 U/L ALT (test code = 2219) 17 U/L Garret ShaverURINALYSIS W/REFLEX [id number] 00:00:00* Test Item Value Reference Range Interpretation Comme nts COLOR (test code = 1501) YELLOW APPEARANCE (test code = 1502) CLOUDY SPECIFIC GRAVITY (test code = 1503) 1.022 LEUKOCYTE ESTERASE (test cod e = 1504) NEGATIVE NITRITE (test code = 1505) NEGATIVE pH (test code = 1506) 5.5 PROTEIN (test code = 1507) TRACE GLUCOSE (test code = 1508) NEGATIVE KETONES (test code = 1509) NEGATIVE UROBILINOGEN (test code = 1510) 0.2 MG/DL BILIRUBIN (test code = 1511) NEGATIVE OCCULT BLOOD (test code = 1512) NEGATIVE WHITE BLOOD CELLS (test code = 1513) 0-5 /HPF RED BLOOD CELLS (test code = 1514) 0-2 /HPF EPITHELIAL CELLS (test code = 86491) 6-10 /HPF BACTERIA (test code = 1515) >3+ CASTS, HYALINE (test code = 1517) TRACE Garret ShaverLIPID [id number] 00:00:00* Test Item Value Reference Range Interpretation Comme nts CHOLESTEROL (test code = 2210) 199 MG/DL TRIGLYCERIDES (test code = 2232) 100 MG/DL HDL CHOLESTEROL (test code = 2220) 51 MG/DL CALC LDL CHOL (test code = 2237) 127 MG/DL RISK RATIO LDL/HDL (test cod e = 2238) 2.49 RATIO Garret ShaverHERPES SIMPLEX VIRUS IGG AND [id number] 00:00:00* Test Item Value Reference Range Interpretation Comme nts HERPES SIMPLEX 1 AB, IgG (te st code = 75934) 0.022 INDEX HERPES SIMPLEX 2 AB, IgG (te st code = 96161) 441.000 INDEX HERPES SIMPLEX AB, IgM (test code = 56735) 0.67 INDEX Garret Morocho AustinCBC W/AUTO [id number] 00:00:00* Test Item Value Reference Range Interpretation Comme nts WBC (test code = 1001) 3.8 K/UL RBC (test code = 1002) 5.13 M/UL HEMOGLOBIN (test code = 1003) 16.6 G/DL HEMATOCRIT (test code = 1004) 49.7 % MCV (test code = 1005) 96.9 fL MCH (test code = 1006) 32.4 PG MCHC (test code = 1007) 33.4 G/DL RDW (test code = 1038) 13.2 % NEUTROPHILS (test code = 1008) 47.3 % LYMPHOCYTES (test code = 1010) 36.2 % MONOCYTES (test code = 1011) 10.2 % EOSINOPHILS (test code = 1012) 5.2 % BASOPHILS (test code = 1013) 0.8 % IMMATURE GRANULOCYTES (test code = 1036) 0.3 % NUCLEATED RBCS (test code = 1065) 0.0 /100WBC'S PLATELET COUNT (test code = 1015) 221 K/UL ABSOLUTE NEUTROPHILS (test c ode = 1066) 1.82 K/UL ABSOLUTE LYMPHOCYTES (test c ode = 1067) 1.39 K/UL ABSOLUTE MONOCYTES (test cod e = 1068) 0.39 K/UL ABSOLUTE EOSINOPHILS (test c ode = 1040) 0.20 K/UL ABSOLUTE BASOPHILS (test cod e = 1069) 0.03 K/UL ABS IMMATURE GRANULOCYTES (t est code = 1020) 0.01 K/UL ABS NUCLEATED RBCS (test cod e = 23494) 0.00 K/UL Garret F AustinCOMPREHENSIVE METABOLIC [id number] 00:00:00* Test Item Value Reference Range Interpretation Comme nts GLUCOSE (test code = 2217) 99 MG/DL BUN (test code = 2208) 15 MG/DL CREATININE (test code = 2214) 1.31 MG/DL eGFR (2020 CKD-EPI) (test co de = 67021) 46 ML/MIN/1.73 CALC BUN/CREAT (test code = 2235) 11 RATIO SODIUM (test code = 2231) 145 MEQ/L POTASSIUM (test code = 2228) 4.0 MEQ/L CHLORIDE (test code = 2215) 108 MEQ/L CARBON DIOXIDE (test code = 2206) 22 MEQ/L CALCIUM (test code = 2209) 9.7 MG/DL PROTEIN, TOTAL (test code = 2229) 7.3 G/DL ALBUMIN (test code = 2201) 4.5 G/DL CALC GLOBULIN (test code = 2240) 2.8 G/DL CALC A/G RATIO (test code = 2234) 1.6 RATIO BILIRUBIN, TOTAL (test code = 2207) 0.9 MG/DL ALKALINE PHOSPHATASE (test code = 2204) 101 U/L AST (test code = 2218) 18 U/L ALT (test code = 2219) 17 U/L Garret Morocho AustinURINALYSIS W/REFLEX [id number] 00:00:00* Test Item Value Reference Range Interpretation Comme nts COLOR (test code = 1501) YELLOW APPEARANCE (test code = 1502) CLOUDY SPECIFIC GRAVITY (test code = 1503) 1.022 LEUKOCYTE ESTERASE (test cod e = 1504) NEGATIVE NITRITE (test code = 1505) NEGATIVE pH (test code = 1506) 5.5 PROTEIN (test code = 1507) TRACE GLUCOSE (test code = 1508) NEGATIVE KETONES (test code = 1509) NEGATIVE UROBILINOGEN (test code = 1510) 0.2 MG/DL BILIRUBIN (test code = 1511) NEGATIVE OCCULT BLOOD (test code = 1512) NEGATIVE WHITE BLOOD CELLS (test code = 1513) 0-5 /HPF RED BLOOD CELLS (test code = 1514) 0-2 /HPF EPITHELIAL CELLS (test code = 23941) 6-10 /HPF BACTERIA (test code = 1515) >3+ CASTS, HYALINE (test code = 1517) TRACE Garret ShaverLIPID [id number] 00:00:00* Test Item Value Reference Range Interpretation Comme nts CHOLESTEROL (test code = 2210) 199 MG/DL TRIGLYCERIDES (test code = 2232) 100 MG/DL HDL CHOLESTEROL (test code = 2220) 51 MG/DL CALC LDL CHOL (test code = 2237) 127 MG/DL RISK RATIO LDL/HDL (test cod e = 2238) 2.49 RATIO Garret ShaverHERPES SIMPLEX VIRUS IGG AND [id number] 00:00:00* Test Item Value Reference Range Interpretation Comme nts HERPES SIMPLEX 1 AB, IgG (te st code = 43481) 0.022 INDEX HERPES SIMPLEX 2 AB, IgG (te st code = 70404) 441.000 INDEX HERPES SIMPLEX AB, IgM (test code = 26926) 0.67 INDEX Garret ShaverCBC W/AUTO [id number] 00:00:00* Test Item Value Reference Range Interpretation Comme nts WBC (test code = 1001) 3.8 K/UL RBC (test code = 1002) 5.13 M/UL HEMOGLOBIN (test code = 1003) 16.6 G/DL HEMATOCRIT (test code = 1004) 49.7 % MCV (test code = 1005) 96.9 fL MCH (test code = 1006) 32.4 PG MCHC (test code = 1007) 33.4 G/DL RDW (test code = 1038) 13.2 % NEUTROPHILS (test code = 1008) 47.3 % LYMPHOCYTES (test code = 1010) 36.2 % MONOCYTES (test code = 1011) 10.2 % EOSINOPHILS (test code = 1012) 5.2 % BASOPHILS (test code = 1013) 0.8 % IMMATURE GRANULOCYTES (test code = 1036) 0.3 % NUCLEATED RBCS (test code = 1065) 0.0 /100WBC'S PLATELET COUNT (test code = 1015) 221 K/UL ABSOLUTE NEUTROPHILS (test c ode = 1066) 1.82 K/UL ABSOLUTE LYMPHOCYTES (test c ode = 1067) 1.39 K/UL ABSOLUTE MONOCYTES (test cod e = 1068) 0.39 K/UL ABSOLUTE EOSINOPHILS (test c ode = 1040) 0.20 K/UL ABSOLUTE BASOPHILS (test cod e = 1069) 0.03 K/UL ABS IMMATURE GRANULOCYTES (t est code = 1020) 0.01 K/UL ABS NUCLEATED RBCS (test cod e = 41897) 0.00 K/UL Garret ShaverCOMPREHENSIVE METABOLIC [id number] 00:00:00* Test Item Value Reference Range Interpretation Comme nts GLUCOSE (test code = 2217) 99 MG/DL BUN (test code = 2208) 15 MG/DL CREATININE (test code = 2214) 1.31 MG/DL eGFR (2020 CKD-EPI) (test co de = 08261) 46 ML/MIN/1.73 CALC BUN/CREAT (test code = 2235) 11 RATIO SODIUM (test code = 2231) 145 MEQ/L POTASSIUM (test code = 2228) 4.0 MEQ/L CHLORIDE (test code = 2215) 108 MEQ/L CARBON DIOXIDE (test code = 2206) 22 MEQ/L CALCIUM (test code = 2209) 9.7 MG/DL PROTEIN, TOTAL (test code = 2229) 7.3 G/DL ALBUMIN (test code = 2201) 4.5 G/DL CALC GLOBULIN (test code = 2240) 2.8 G/DL CALC A/G RATIO (test code = 2234) 1.6 RATIO BILIRUBIN, TOTAL (test code = 2207) 0.9 MG/DL ALKALINE PHOSPHATASE (test code = 2204) 101 U/L AST (test code = 2218) 18 U/L ALT (test code = 2219) 17 U/L Garret Morocho AustinURINALYSIS W/REFLEX [id number] 00:00:00* Test Item Value Reference Range Interpretation Comme nts COLOR (test code = 1501) YELLOW APPEARANCE (test code = 1502) CLOUDY SPECIFIC GRAVITY (test code = 1503) 1.022 LEUKOCYTE ESTERASE (test cod e = 1504) NEGATIVE NITRITE (test code = 1505) NEGATIVE pH (test code = 1506) 5.5 PROTEIN (test code = 1507) TRACE GLUCOSE (test code = 1508) NEGATIVE KETONES (test code = 1509) NEGATIVE UROBILINOGEN (test code = 1510) 0.2 MG/DL BILIRUBIN (test code = 1511) NEGATIVE OCCULT BLOOD (test code = 1512) NEGATIVE WHITE BLOOD CELLS (test code = 1513) 0-5 /HPF RED BLOOD CELLS (test code = 1514) 0-2 /HPF EPITHELIAL CELLS (test code = 07973) 6-10 /HPF BACTERIA (test code = 1515) >3+ CASTS, HYALINE (test code = 1517) TRACE Garret Morocho AustinLIPID [id number] 00:00:00* Test Item Value Reference Range Interpretation Comme nts CHOLESTEROL (test code = 2210) 199 MG/DL TRIGLYCERIDES (test code = 2232) 100 MG/DL HDL CHOLESTEROL (test code = 2220) 51 MG/DL CALC LDL CHOL (test code = 2237) 127 MG/DL RISK RATIO LDL/HDL (test cod e = 2238) 2.49 RATIO Garret ShaverHERPES SIMPLEX VIRUS IGG AND [id number] 00:00:00* Test Item Value Reference Range Interpretation Comme nts HERPES SIMPLEX 1 AB, IgG (te st code = 64223) 0.022 INDEX HERPES SIMPLEX 2 AB, IgG (te st code = 32472) 441.000 INDEX HERPES SIMPLEX AB, IgM (test code = 93546) 0.67 INDEX Garret ShaverCBC W/AUTO [id number] 00:00:00* Test Item Value Reference Range Interpretation Comme nts WBC (test code = 1001) 3.8 K/UL RBC (test code = 1002) 5.13 M/UL HEMOGLOBIN (test code = 1003) 16.6 G/DL HEMATOCRIT (test code = 1004) 49.7 % MCV (test code = 1005) 96.9 fL MCH (test code = 1006) 32.4 PG MCHC (test code = 1007) 33.4 G/DL RDW (test code = 1038) 13.2 % NEUTROPHILS (test code = 1008) 47.3 % LYMPHOCYTES (test code = 1010) 36.2 % MONOCYTES (test code = 1011) 10.2 % EOSINOPHILS (test code = 1012) 5.2 % BASOPHILS (test code = 1013) 0.8 % IMMATURE GRANULOCYTES (test code = 1036) 0.3 % NUCLEATED RBCS (test code = 1065) 0.0 /100WBC'S PLATELET COUNT (test code = 1015) 221 K/UL ABSOLUTE NEUTROPHILS (test c ode = 1066) 1.82 K/UL ABSOLUTE LYMPHOCYTES (test c ode = 1067) 1.39 K/UL ABSOLUTE MONOCYTES (test cod e = 1068) 0.39 K/UL ABSOLUTE EOSINOPHILS (test c ode = 1040) 0.20 K/UL ABSOLUTE BASOPHILS (test cod e = 1069) 0.03 K/UL ABS IMMATURE GRANULOCYTES (t est code = 1020) 0.01 K/UL ABS NUCLEATED RBCS (test cod e = 45792) 0.00 K/UL Garret ShaverCOMPREHENSIVE METABOLIC [id number] 00:00:00* Test Item Value Reference Range Interpretation Comme nts GLUCOSE (test code = 2217) 99 MG/DL BUN (test code = 2208) 15 MG/DL CREATININE (test code = 2214) 1.31 MG/DL eGFR (2020 CKD-EPI) (test co de = 60134) 46 ML/MIN/1.73 CALC BUN/CREAT (test code = 2235) 11 RATIO SODIUM (test code = 2231) 145 MEQ/L POTASSIUM (test code = 2228) 4.0 MEQ/L CHLORIDE (test code = 2215) 108 MEQ/L CARBON DIOXIDE (test code = 2206) 22 MEQ/L CALCIUM (test code = 2209) 9.7 MG/DL PROTEIN, TOTAL (test code = 2229) 7.3 G/DL ALBUMIN (test code = 2201) 4.5 G/DL CALC GLOBULIN (test code = 2240) 2.8 G/DL CALC A/G RATIO (test code = 2234) 1.6 RATIO BILIRUBIN, TOTAL (test code = 2207) 0.9 MG/DL ALKALINE PHOSPHATASE (test code = 2204) 101 U/L AST (test code = 2218) 18 U/L ALT (test code = 2219) 17 U/L Garret Morocho AustinURINALYSIS W/REFLEX [id number] 00:00:00* Test Item Value Reference Range Interpretation Comme nts COLOR (test code = 1501) YELLOW APPEARANCE (test code = 1502) CLOUDY SPECIFIC GRAVITY (test code = 1503) 1.022 LEUKOCYTE ESTERASE (test cod e = 1504) NEGATIVE NITRITE (test code = 1505) NEGATIVE pH (test code = 1506) 5.5 PROTEIN (test code = 1507) TRACE GLUCOSE (test code = 1508) NEGATIVE KETONES (test code = 1509) NEGATIVE UROBILINOGEN (test code = 1510) 0.2 MG/DL BILIRUBIN (test code = 1511) NEGATIVE OCCULT BLOOD (test code = 1512) NEGATIVE WHITE BLOOD CELLS (test code = 1513) 0-5 /HPF RED BLOOD CELLS (test code = 1514) 0-2 /HPF EPITHELIAL CELLS (test code = 14854) 6-10 /HPF BACTERIA (test code = 1515) >3+ CASTS, HYALINE (test code = 1517) TRACE Garret Morocho AustinLIPID [id number] 00:00:00* Test Item Value Reference Range Interpretation Comme nts CHOLESTEROL (test code = 2210) 199 MG/DL TRIGLYCERIDES (test code = 2232) 100 MG/DL HDL CHOLESTEROL (test code = 2220) 51 MG/DL CALC LDL CHOL (test code = 2237) 127 MG/DL RISK RATIO LDL/HDL (test cod e = 2238) 2.49 RATIO Garret ShaverHERPES SIMPLEX VIRUS IGG AND [id number] 00:00:00* Test Item Value Reference Range Interpretation Comme nts HERPES SIMPLEX 1 AB, IgG (te st code = 24465) 0.022 INDEX HERPES SIMPLEX 2 AB, IgG (te st code = 87634) 441.000 INDEX HERPES SIMPLEX AB, IgM (test code = 61178) 0.67 INDEX Garret ShaverCBC W/AUTO [id number] 00:00:00* Test Item Value Reference Range Interpretation Comme nts WBC (test code = 1001) 3.8 K/UL RBC (test code = 1002) 5.13 M/UL HEMOGLOBIN (test code = 1003) 16.6 G/DL HEMATOCRIT (test code = 1004) 49.7 % MCV (test code = 1005) 96.9 fL MCH (test code = 1006) 32.4 PG MCHC (test code = 1007) 33.4 G/DL RDW (test code = 1038) 13.2 % NEUTROPHILS (test code = 1008) 47.3 % LYMPHOCYTES (test code = 1010) 36.2 % MONOCYTES (test code = 1011) 10.2 % EOSINOPHILS (test code = 1012) 5.2 % BASOPHILS (test code = 1013) 0.8 % IMMATURE GRANULOCYTES (test code = 1036) 0.3 % NUCLEATED RBCS (test code = 1065) 0.0 /100WBC'S PLATELET COUNT (test code = 1015) 221 K/UL ABSOLUTE NEUTROPHILS (test c ode = 1066) 1.82 K/UL ABSOLUTE LYMPHOCYTES (test c ode = 1067) 1.39 K/UL ABSOLUTE MONOCYTES (test cod e = 1068) 0.39 K/UL ABSOLUTE EOSINOPHILS (test c ode = 1040) 0.20 K/UL ABSOLUTE BASOPHILS (test cod e = 1069) 0.03 K/UL ABS IMMATURE GRANULOCYTES (t est code = 1020) 0.01 K/UL ABS NUCLEATED RBCS (test cod e = 69641) 0.00 K/UL Garret ShaverCOMPREHENSIVE METABOLIC [id number] 00:00:00* Test Item Value Reference Range Interpretation Comme nts GLUCOSE (test code = 2217) 99 MG/DL BUN (test code = 2208) 15 MG/DL CREATININE (test code = 2214) 1.31 MG/DL eGFR (2020 CKD-EPI) (test co de = 50518) 46 ML/MIN/1.73 CALC BUN/CREAT (test code = 2235) 11 RATIO SODIUM (test code = 2231) 145 MEQ/L POTASSIUM (test code = 2228) 4.0 MEQ/L CHLORIDE (test code = 2215) 108 MEQ/L CARBON DIOXIDE (test code = 2206) 22 MEQ/L CALCIUM (test code = 2209) 9.7 MG/DL PROTEIN, TOTAL (test code = 2229) 7.3 G/DL ALBUMIN (test code = 2201) 4.5 G/DL CALC GLOBULIN (test code = 2240) 2.8 G/DL CALC A/G RATIO (test code = 2234) 1.6 RATIO BILIRUBIN, TOTAL (test code = 2207) 0.9 MG/DL ALKALINE PHOSPHATASE (test code = 2204) 101 U/L AST (test code = 2218) 18 U/L ALT (test code = 2219) 17 U/L Garret Morocho AustinURINALYSIS W/REFLEX [id number] 00:00:00* Test Item Value Reference Range Interpretation Comme nts COLOR (test code = 1501) YELLOW APPEARANCE (test code = 1502) CLOUDY SPECIFIC GRAVITY (test code = 1503) 1.022 LEUKOCYTE ESTERASE (test cod e = 1504) NEGATIVE NITRITE (test code = 1505) NEGATIVE pH (test code = 1506) 5.5 PROTEIN (test code = 1507) TRACE GLUCOSE (test code = 1508) NEGATIVE KETONES (test code = 1509) NEGATIVE UROBILINOGEN (test code = 1510) 0.2 MG/DL BILIRUBIN (test code = 1511) NEGATIVE OCCULT BLOOD (test code = 1512) NEGATIVE WHITE BLOOD CELLS (test code = 1513) 0-5 /HPF RED BLOOD CELLS (test code = 1514) 0-2 /HPF EPITHELIAL CELLS (test code = 27172) 6-10 /HPF BACTERIA (test code = 1515) >3+ CASTS, HYALINE (test code = 1517) TRACE Garret ShaverLIPID [id number] 00:00:00* Test Item Value Reference Range Interpretation Comme nts CHOLESTEROL (test code = 2210) 199 MG/DL TRIGLYCERIDES (test code = 2232) 100 MG/DL HDL CHOLESTEROL (test code = 2220) 51 MG/DL CALC LDL CHOL (test code = 2237) 127 MG/DL RISK RATIO LDL/HDL (test cod e = 2238) 2.49 RATIO Garret Morocho AustinAnkle Right 3 ViewAnkle Right 3 View Notes Date/Time Note Provider Source Garret Torres [facility]2025-06-17 00:00:00 Garret Torres [facility]2025-06-09 00:00:00 Garret Melissa [facility]2025-05-26 00:00:00 Garret Torres [facility]2025-05-22 00:00:00 Garret Torres [facility]2025-05-12 00:00:00 Garret Melissa [facility]2025-04-08 00:00:00 Garret Melissa [facility]2025-03-18 00:00:00 Garret Melissa [facility]2025-03-03 00:00:00 Garret Melissa [facility]2025-02-17 00:00:00 [facility]2025-02-12 00:00:00 Garret Melissa [facility]2025-01-23 00:00:00 Garret Torres [facility]2025-01-16 00:00:00 Garret Melissa [facility]2025-01-03 00[facility]00[facility]24 00:00:00 Garret Melissa [facility]2024-06-18 [facility]24-[facility]-12 00:00:00 [facility]
[2024-10-10] MEDS ORDERED: MORPHINE 4 MG/ML SYR ONE (15:46)
[2024-10-10] MEDS ORDERED: ONDANSETRON 4 MG/2 ML VIAL ONE (15:46)
[2024-10-10] MEDS ORDERED: NA CHLORIDE 0.9% 1,000 ML ONE (15:46)
[2024-10-10 15:59] LABS: Absolute Lymphocytes (CBC) 0.9 K/uL (0.7-4.9); Hematocrit 45.1 % (36.0-45.0); Hemoglobin 15.3 g/dL (12.0-15.0); MCH 32.0 pg (27.0-35.0); MCHC 33.9 g/dL (32.0-36.0); MCV 94.4 fL (80-100); MPV 8.1 fL (7.6-11.3); Nucleated RBC Absolute Count 0.0 (0-0); Nucleated Red Blood Cells % 0.0 % (0-0); RBC Red Blood Cell Count 4.77 M/uL (3.86-4.86); White Blood Count 6.50 thou/uL (4.3-10.9)
[2024-10-10 16:24] LABS: ALT/SGPT 20.0 U/L (13-56); AST/SGOT 17.0 U/L (15-37); Albumin 4.3 g/dL (3.4-5.0); Albumin/Globulin Ratio 1.0 (1.1-1.8); Alkaline Phosphatase 95.0 U/L (45-117); Anion Gap 8.2 mEq/L (5.0-15.0); BUN Blood Urea Nitrogen 20.0 mg/dL (7-18); Globulin 4.1 g/dL (2.3-3.5); Glucose Level 144.0 mg/dL (74-106); Lipase 34.0 U/L (13-75); Potassium 3.2 mEq/L (3.5-5.1)
--- NOTE | 2024-10-10 16:43 | EDPHYS ---
Physician Documentation [facility] Name: Noelle Orozco Age: 64 yrs Sex: Female : 1960 Arrival Date: 10/10/2024 Time: 13:59 Bed 3 Private MD: ED Physician Yazmin Whalen HPI: 10/10 14:10 This 64 yrs old Female presents to ER via Ambulatory with complaints of Abdominal Pain. kb 14:10 Patient is a 64-year-old female who presents for abdominal pain that is in the center kb of the abdomen. States the pain started 3 days ago, stopped but then she had diarrhea until the pain came back today. Reports associated nausea, vomiting and diarrhea. Reports decreased urination because she has not been able to take an fluids. States she has kidney failure and has been seen by Dr. Hsu. Had a CT scan of her abdomen yesterday here but has not got the results yet.. Historical: - Allergies: 14:07 Sulfa (Sulfonamide Antibiotics); ll1 - PMHx: 14:07 Hypertension; Meniere's disease; ll1 - PSHx: 14:07 right hand; Cholecystectomy; ll1 - Immunization history:: Adult Immunizations up to date. - Social history:: Smoking status: Patient denies any tobacco usage or history of. ROS: 14:11 Constitutional: As per HPI kb Exam: 14:11 Constitutional: This is a well developed, well nourished patient who is awake, alert, kb and in no acute distress. Head/Face: Normocephalic, atraumatic. ENT: Moist Mucous membranes Cardiovascular: Regular rate Respiratory: Respirations even and unlabored. No increased work of breathing. Talking in full sentences Skin: Warm, dry with normal turgor. Normal color. MS/ Extremity: Pulses equal, no cyanosis. Neurovascular intact. Full, normal range of motion. Neuro: Awake and alert, GCS 15, oriented to person, place, time, and situation. 14:11 Abdomen/GI: Inspection: abdomen appears normal, Bowel sounds: normal, Palpation: soft, in all quadrants, moderate abdominal tenderness, in all quadrants, Vital Signs: 14:08 BP 148 / 97; Pulse 95; Resp 17; Temp 97.2; Pulse Ox 100% ; Weight 71.21 kg; Height 5 ll1 ft. 6 in. ; Pain 9/10; 16:01 BP 165 / 100; Pulse 72; Resp 16; Pulse Ox 100% ; bp 16:34 BP 146 / 89; Pulse 70; Resp 16 S; Pulse Ox 99% on R/A; aa5 14:08 Body Mass Index 25.34 (71.21 kg, 167.64 cm) ll1 14:08 Pain Scale: Adult ll1 MDM: 14:05 Medical Screening Exam initiated dr5 14:31 Differential diagnosis: gastritis, non-specific abd pain, pancreatitis, Peptic Ulcer kb Disease, Pyelonephritis, Ureterolithiasis. Data reviewed: vital signs, nurses notes. External Records Reviewed: Outpatient record: CT abdomen pelvis without contrast completed outpatient yesterday reviewed. IMPRESSION: Punctate calyceal stones in both kidneys without hydronephrosis. Small fat-containing umbilical hernia. 6 mm right lung base lateral nodule. Recommend follow-up CT chest surveillance per Fleischner criteria.. ED course: Patient is a 64-year-old female who presents for abdominal pain, diarrhea, nausea, vomiting. On exam patient has moderate abdominal tenderness diffusely. Patient is nontoxic in appearance, vital signs stable. Will obtain CBC, CMP, lipase to further evaluate patient's symptoms. Morphine ordered for pain, Zofran for nausea and IV fluids.. 16:40 Historians other than the Patient: Spouse/Significant Other: spouse. Counseling: I had kb a detailed discussion with the patient and/or guardian regarding the historical points, exam findings, and any diagnostic results supporting the discharge/admit diagnosis, lab results, radiology results, the need for outpatient follow up, a family practitioner, to return to the emergency department if symptoms worsen or persist or if there are any questions or concerns that arise at home. ED course: At bedside to reassess patient. Patient remains awake, alert and at baseline mentation. Patient appears stable. Patient exhibits no visible signs of distress. Patient respirations even and unlabored. I have personally reviewed all of the results, including but not limited to blood tests and imaging deemed necessary to safely discharge this patient at this time. All results given to and printed out for patient. I personally went over all the results with the patient and answered all questions. Patient will follow-up with PCP and or specialist as discussed. Return precautions given. Patient expressed full understanding of such and agrees with plan for discharge today. Feel patient is stable and appropriate for discharge and ongoing management of condition at home at this time.. 10/10 14:11 Order name: CBC with Diff; Complete Time: 16:04 kb 10/10 14:11 Order name: CMP; Complete Time: 16:28 kb 10/10 14:11 Order name: Lipase; Complete Time: 16:28 kb 10/10 14:11 Order name: IV Saline Lock; Complete Time: 15:50 kb 10/10 14:11 Order name: Labs collected and sent; Complete Time: 15:50 kb Administered Medications: 15:52 Drug: Ondansetron IVP 4 mg IVP once; over 2 minutes Route: IVP; Site: right antecubital;bp 15:56 Follow up: Response: No adverse reaction aa5 15:52 Drug: morphine IVP or IV 4 mg IVP once over 4 mins Route: IVP; Infused Over: 4 mins; bp Site: right antecubital; 15:56 Follow up: Response: No adverse reaction; Pain is decreased aa5 15:52 Drug: NS 0.9% IV 1000 ml IV at 1 bolus Per protocol; to be given as a bolus over 60 bp minutes Route: IV; Rate: 1 bolus; Site: right antecubital; 17:05 Follow up: IV Status: Completed infusion; IV Intake: 1000ml aa5 Disposition: 17:16 Co-signature as Attending Physician, Yazmin Whalen I agree with the assessment ci and plan of care. I reviewed the patient's care provided by the Advanced Practice Provider and agree with the diagnosis and treatment plan. Disposition Summary: 10/10/24 16:42 Discharge Ordered Notes: Location: Home kb Condition: Stable kb Diagnosis - Abdominal pain, Generalized kb Followup: kb - With: Emergency Department - When: As needed - Reason: Worsening of condition Followup: kb - With: Private Physician - When: 2 - 3 days - Reason: Recheck today's complaints, Continuance of care, Re-evaluation by your physician Discharge Instructions: - Discharge Summary Sheet kb - Abdominal Pain, Adult, [id number] kb Forms: - Medication Reconciliation Form kb - Antibiotic Education kb - Prescription Opioid Use kb - Patient Portal Instructions kb - Leadership Thank You Letter kb Prescriptions: - Zofran 4 mg Oral tablet - take 1 tablet ORAL route every 6 hours As needed; 12 tablet; Refills: 0, kb Product Selection Permitted - dicyclomine 20 mg Oral tablet - take 1 tablet ORAL route 4 times per day As needed; 20 tablet; Refills: 0, kb Product Selection Permitted Signatures: Dispatcher [employer] Julianna Concepcion, NUCLEAR MEDICINE OFFICER-C NUCLEAR MEDICINE OFFICER-Ckb Rolando Sweeney, RN RN bp Nguyen Avalos RN RN ll1 IheonunekwuYazmin Dustin NUCLEAR MEDICINE OFFICER-C NUCLEAR MEDICINE OFFICER-Cdr5 Ladonna Adrian RN aa5
--- NOTE | 2024-10-10 16:43 | ER ---
Nurse's Notes [facility] Name: Noelle Orozco Age: 64 yrs Sex: Female : 1960 Arrival Date: 10/10/2024 Time: 13:59 Bed 3 Private MD: Diagnosis: Abdominal pain, Generalized Presentation: 10/10 14:08 Chief complaint: Patient states: Severe abdominal pain for 3 days with N/V/D and SOB. ll1 Coronavirus screen: Client denies travel out of the [place] in the last 14 days. At this time, the client does not indicate any symptoms associated with coronavirus-19. Ebola Screen: Patient denies travel to an Ebola-affected area in the 21 days before illness onset. Initial Sepsis Screen: Does the patient meet any 2 criteria? No. Patient's initial sepsis screen is negative. Does the patient have a suspected source of infection? No. Patient's initial sepsis screen is negative. Risk Assessment: Do you want to hurt yourself or someone else? Patient reports no desire to harm self or others. Onset of symptoms was October 08, 2024. 14:08 Method Of Arrival: Ambulatory ll1 14:08 Acuity: SALEEM 3 ll1 Triage Assessment: 14:08 General: Appears distressed, uncomfortable, Behavior is calm, cooperative, appropriate ll1 for age. Pain: Complains of pain in abdomen Quality of pain is described as aching, crampy. GI: Reports lower abdominal pain, upper abdominal pain, cramping, diarrhea, nausea, vomiting. 14:10 General: Appears in no apparent distress. uncomfortable, Behavior is cooperative, bp appropriate for age, anxious. Pain: Complains of pain in abdomen. EENT: No deficits noted. Neuro: No deficits noted. Cardiovascular: No deficits noted. Respiratory: No deficits noted. GI: Reports lower abdominal pain, upper abdominal pain, nausea. : No signs and/or symptoms were reported regarding the genitourinary system. Derm: No deficits noted. Musculoskeletal: No deficits noted. Historical: - Allergies: 14:07 Sulfa (Sulfonamide Antibiotics); ll1 - PMHx: 14:07 Hypertension; Meniere's disease; ll1 - PSHx: 14:07 right hand; Cholecystectomy; ll1 - Immunization history:: Adult Immunizations up to date. - Social history:: Smoking status: Patient denies any tobacco usage or history of. Screenin:50 [facility] ED Fall Risk Assessment (Adult) History of falling in the last 3 months, aa5 including since admission No falls in past 3 months (0 pts) Confusion or Disorientation No (0 pts) Intoxicated or Sedated No (0 pts) Impaired Gait No (0 pts) Mobility Assist Device Used No (0 pt) Altered Elimination No (0 pt) Score/Fall Risk Level 0 - 2 = Low Risk Oriented to surroundings, Maintained a safe environment, Educated pt \T\ family on fall prevention, incl call for assistance when getting out of bed, Assessed \T\ reinforced patient's understanding of fall precautions. Abuse screen: Denies threats or abuse. Nutritional screening: No deficits noted. Tuberculosis screening: No symptoms or risk factors identified. Assessment: 15:50 General: Appears uncomfortable, Behavior is calm, cooperative. Pain: Complains of pain aa5 in right upper quadrant, left upper quadrant, right lower quadrant and left lower quadrant Pain currently is 9 out of 10 on a pain scale. Quality of pain is described as sharp, Pain began 2-3 days ago. Is continuous. Neuro: Level of Consciousness is awake, alert, obeys commands, Oriented to person, place, time, situation. Cardiovascular: Patient's skin is warm and dry. Respiratory: Airway is patent Respiratory effort is even, unlabored, Respiratory pattern is regular, symmetrical. GI: Abdomen is round non-distended, Bowel sounds present X 4 quads. Abd is soft and non tender X 4 quads. Reports diarrhea, nausea, vomiting. : No signs and/or symptoms were reported regarding the genitourinary system. EENT: No signs and/or symptoms were reported regarding the EENT system. Derm: Skin is pink, warm \T\ dry. Musculoskeletal: Range of motion: intact in all extremities. 15:56 Reassessment: Patient is alert, oriented x 3, equal unlabored respirations, skin aa5 warm/dry/pink. Patient states feeling better. Patient states symptoms have improved. 16:43 Reassessment: Awaiting IV fluids to complete before d/c home . aa5 17:05 Reassessment: Patient is alert, oriented x 3, equal unlabored respirations, skin aa5 warm/dry/pink. Vital Signs: 14:08 BP 148 / 97; Pulse 95; Resp 17; Temp 97.2; Pulse Ox 100% ; Weight 71.21 kg; Height 5 ll1 ft. 6 in. ; Pain 9/10; 16:01 BP 165 / 100; Pulse 72; Resp 16; Pulse Ox 100% ; bp 16:34 BP 146 / 89; Pulse 70; Resp 16 S; Pulse Ox 99% on R/A; aa5 14:08 Body Mass Index 25.34 (71.21 kg, 167.64 cm) ll1 14:08 Pain Scale: Adult ll1 ED Course: 14:04 Patient arrived in ED. gl 14:05 Abdiaziz Mehta FNP-C is PHCP. dr5 14:05 Yazmin Whalen is Attending Physician. dr5 14:06 PHCP role handed off by Abdiaziz Mehta FNP-C kb 14:06 Julianna Muniz FNP-C is PHCP. kb 14:09 Triage completed. ll1 14:09 Arm band placed on. ll1 15:43 Ladonna Adrian, RN is Primary Nurse. aa5 15:50 Patient has correct armband on for positive identification. Bed in low position. Call aa5 light in reach. Side rails up X 1. Adult w/ patient. Pulse ox on. NIBP on. 15:50 Initial lab(s) drawn, by me, sent to lab. Inserted saline lock: 20 gauge in right aa5 antecubital area, using aseptic technique. Blood collected. Flushed with 10 mL NS. 17:05 No provider procedures requiring assistance completed. IV discontinued, intact, aa5 bleeding controlled, No redness/swelling at site. Pressure dressing applied. Administered Medications: 15:52 Drug: Ondansetron IVP 4 mg IVP once; over 2 minutes Route: IVP; Site: right antecubital;bp 15:56 Follow up: Response: No adverse reaction aa5 15:52 Drug: morphine IVP or IV 4 mg IVP once over 4 mins Route: IVP; Infused Over: 4 mins; bp Site: right antecubital; 15:56 Follow up: Response: No adverse reaction; Pain is decreased aa5 15:52 Drug: NS 0.9% IV 1000 ml IV at 1 bolus Per protocol; to be given as a bolus over 60 bp minutes Route: IV; Rate: 1 bolus; Site: right antecubital; 17:05 Follow up: IV Status: Completed infusion; IV Intake: 1000ml aa5 Medication: 15:58 VIS not applicable for this client. aa5 Intake: 17:05 IV: 1000ml; Total: 1000ml. aa5 Outcome: 16:42 Discharge ordered by MD. chacko 17:05 Discharged to home via wheelchair, with significant other, aa5 17:05 Condition: improved 17:05 Discharge instructions given to patient, significant other, Instructed on discharge instructions, follow up and referral plans. medication usage, Demonstrated understanding of instructions, follow-up care, medications, Prescriptions given X 2, 17:10 Patient left the ED. aa5 Signatures: Julianna Muniz, WAITER-C WAITER-Ckb Ladonna Adrian, RN RN aa5 Rolando Sweeney RN RN bp Lewis, Lynsay, RN RN ll1 Abdiaziz Mehta, WAITER-C WAITER-[facility]5 Kym Zendejas, Reg Reg gl Corrections: (The following items were deleted from the chart) 14:10 14:08 BP 148 / 97; Pulse 95bpm; Resp 17bpm; Pulse Ox 100%; Temp 97.2F; Pain 9/10, ll1 Adult; ll1
[2024-10-10 17:17] VITALS: TEMP 97.2
[2024-10-10 17:19] VITALS: BP 146/89; O2SAT 99
== END 2024-10-10 17:10 | disposition home or self-care (01) ==
LOC: ER 13:59
DX: R10.84 Generalized abdominal pain (principal)
CPT/HCPCS: 96361; 85025; 36415; 83690; 80053; 96375; 96374; 99284; J2405; J7030

== ENCOUNTER → 2024-12-04 | Day surgery (SDC) | payer OTHER ==
[~2024-12-04] MED LIST changes: -CEFAZOLIN/SWI 1gm 1 GM/10 ML SYR ONE; +GLYCOPYRROLATE 0.2 MG/ML SYR ONE; +LIDOCAINE 1% MPF 5 ML VIAL ONE; -Ringers Lactate 1,000 ML IV ONE
[2024-12-04] MEDS: Ringers Lactate 1,000 ML IV ONE (08:15)
[2024-12-04 11:17] VITALS: TEMP 97.3; O2SAT 100
[2024-12-04 11:18] VITALS: BP 112/74
== END ==
LOC: OR 07:45
PROVIDERS: ATTEND Surgery
PROC: 0DBN8ZX Excision of Sigmoid Colon, Via Natural or Artificial Opening Endoscopic, Diagnostic (ICD-10-PCS; principal; 2024-12-04 10:00)
DX: Z12.11 Encounter for screening for malignant neoplasm of colon (principal); K64.8 Other hemorrhoids; K64.4 Residual hemorrhoidal skin tags; K52.9 Noninfective gastroenteritis and colitis, unspecified
CPT/HCPCS: 93005; 88305; 45380; J2704; J2003; J7120